=== PATIENT | female | born 1935 | race Caucasian/White ===

== ENCOUNTER 2021-02-04 12:57 | Outpatient (RCR) | payer MEDICARE, OTHER, SELFPAY | END 2021-02-10 11:26 | disposition home or self-care (01) | LOC: HO.WCC 12:57 | PROVIDERS: PCP Internal Medicine; Visit Provider Surgery | DX: Z09 Encounter for follow-up examination after completed treatment for conditions other than malignant neoplasm (principal); M53.3 Sacrococcygeal disorders, not elsewhere classified; E11.9 Type 2 diabetes mellitus without complications; Z79.84 Long term (current) use of oral hypoglycemic drugs | CPT/HCPCS: 99211 ==

== ENCOUNTER 2021-02-19 11:03 | Emergency (ER) | payer MEDICARE, OTHER, SELFPAY ==
--- NOTE | ~2021-02-19 | XR_ITS ---
EXAMINATION: LEFT SHOULDER, LEFT FOREARM AND LEFT HUMERUS PER CLINICAL INFORMATION: Fall. Injury. COMPARISON: None TECHNIQUE: 2 views left shoulder. 2 views left humerus and 4 views left elbow. FINDINGS: Left shoulder: There is a proximal humeral fracture with mild medial angulation. The glenohumeral joint and AC joint is intact. There is no dislocation. The soft tissues are normal. Left humerus: There is a proximal humeral transverse fracture with medial angulation. The fracture does not traverse through the head of the humerus or distally into the mid segment. The soft tissues are normal. Left elbow: There is no visible acute fracture, dislocation or subluxation. Incidental finding of small enthesophytes along lateral epicondyle and anterior coronoid process proximal ulna is noted. Mild loss of joint space first carpal metacarpal joint is noted from degenerative arthritis. XR/XR forearm LT 2V IMPRESSION: Transverse proximal humeral fracture with medial angulation. The fracture does not extend to the humeral head or into the mid humerus. There is no fracture or dislocation in left shoulder joint. No acute fracture or dislocation left elbow. There are degenerative enthesophytes along the left elbow joint as described above.
--- NOTE | ~2021-02-19 | XR_ITS ---
EXAMINATION: LEFT SHOULDER, LEFT FOREARM AND LEFT HUMERUS PER CLINICAL INFORMATION: Fall. Injury. COMPARISON: None TECHNIQUE: 2 views left shoulder. 2 views left humerus and 4 views left elbow. FINDINGS: Left shoulder: There is a proximal humeral fracture with mild medial angulation. The glenohumeral joint and AC joint is intact. There is no dislocation. The soft tissues are normal. Left humerus: There is a proximal humeral transverse fracture with medial angulation. The fracture does not traverse through the head of the humerus or distally into the mid segment. The soft tissues are normal. Left elbow: There is no visible acute fracture, dislocation or subluxation. Incidental finding of small enthesophytes along lateral epicondyle and anterior coronoid process proximal ulna is noted. Mild loss of joint space first carpal metacarpal joint is noted from degenerative arthritis. XR/XR humerus LT IMPRESSION: Transverse proximal humeral fracture with medial angulation. The fracture does not extend to the humeral head or into the mid humerus. There is no fracture or dislocation in left shoulder joint. No acute fracture or dislocation left elbow. There are degenerative enthesophytes along the left elbow joint as described above.
--- NOTE | ~2021-02-19 | XR_ITS ---
EXAMINATION: LEFT SHOULDER, LEFT FOREARM AND LEFT HUMERUS PER CLINICAL INFORMATION: Fall. Injury. COMPARISON: None TECHNIQUE: 2 views left shoulder. 2 views left humerus and 4 views left elbow. FINDINGS: Left shoulder: There is a proximal humeral fracture with mild medial angulation. The glenohumeral joint and AC joint is intact. There is no dislocation. The soft tissues are normal. Left humerus: There is a proximal humeral transverse fracture with medial angulation. The fracture does not traverse through the head of the humerus or distally into the mid segment. The soft tissues are normal. Left elbow: There is no visible acute fracture, dislocation or subluxation. Incidental finding of small enthesophytes along lateral epicondyle and anterior coronoid process proximal ulna is noted. Mild loss of joint space first carpal metacarpal joint is noted from degenerative arthritis. XR/XR shoulder LT min 2V IMPRESSION: Transverse proximal humeral fracture with medial angulation. The fracture does not extend to the humeral head or into the mid humerus. There is no fracture or dislocation in left shoulder joint. No acute fracture or dislocation left elbow. There are degenerative enthesophytes along the left elbow joint as described above.
[2021-02-19 11:11] VITALS: BP 157/54; PULSE 80; RESP 20; TEMP 36.5; O2SAT 98; BMI 19.8
--- NOTE | 2021-02-19 12:38 | ED.FALL ---
HPI - Fall General Chief Complaint: Fall Time Seen by Provider: 02/19/21 11:10 History of Present Illness HPI Narrative: Patient complains of left shoulder pain after trip and fall at home the she tripped on something and fell, no chest pain or fainting Related Data Allergies Allergy/AdvReac Type Severity Reaction Status Date / Time Penicillins [PCN] Allergy Unknown UNKNOWN Unverified 08/14/20 15:55 Sulfa (Sulfonamide Allergy Unknown UNKNOWN Unverified 08/14/20 15:55 Antibiotics) [SULFA(SULFONAMIDE ANTIBIOTICS)] penicillin Allergy Unknown rash Uncoded 06/17/17 00:00 Sulfa Allergy Unknown rash Uncoded 06/17/17 00:00 Review of Systems Review of Systems: Positive for left shoulder pain, negatives are no weakness no dizziness no confusion no fever no chills no fainting no feeling faint no head injury no headache no vision change no numbness or weakness no chest pain no palpitations no shortness of breath no nausea no vomiting no lacerations PMFSH Past Medical History Source: nursing notes reviewed Medical History (Updated 02/19/21 @ 12:51 by LASHANDA Hoffmann) Diabetes Surgical History (Updated 02/19/21 @ 11:15 by Juan A Fine) H/O heart artery stent Social History Social History Advance Directives: No Advance Directives Information Provided: No Physical Exam Vital Signs: Vital Signs: Last Vital Signs Temp 97.7 F 02/19/21 11:11 Pulse 80 02/19/21 11:11 Resp 20 02/19/21 11:11 BP 157/54 H 02/19/21 11:11 Pulse Ox 98 02/19/21 11:11 Body Mass Index 19.8 General appearance is no acute distress, cooperative in O x3 Head is normocephalic atraumatic The neck is supple and nontender Chest there is no rib tenderness no respiratory distress The abdomen is soft nontender The left arm the shoulder is held in internal rotation with the elbow flexed there is tenderness over the upper humerus and the shoulder there is no obvious deformity it is neurovascular intact distal and skin is normal Other extremities are normal The neuro exam motor is 5/5 in all extremities 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, sensation is intact and symmetrical, patient is interacting with clear understanding and communication Course Course Course Narrative: X-ray showed proximal humeral fracture and sling and shoulder immobilizer given to patient and she will follow with Orthopedics Discharge Plan Discharge Clinical Impression: Closed left humeral fracture Qualifiers: Encounter type: initial encounter Humerus Location: proximal Fracture alignment: displaced Patient Disposition: Home, Self-Care Additional Instructions: X-ray showed of broken upper arm bone Use the sling and follow with orthopedist Return any time any worse condition or concerns Referrals: Mumtaz Robbins MD [Physician] - 2 days (Left proximal humerus fracture)
== END 2021-02-19 13:45 | disposition home or self-care (01) ==
PROVIDERS: Emergency Provider Emergency Medicine; PCP Internal Medicine
DX: S42.202A Unspecified fracture of upper end of left humerus, initial encounter for closed fracture (principal); W01.0XXA Fall on same level from slipping, tripping and stumbling without subsequent striking against object, initial encounter; E11.9 Type 2 diabetes mellitus without complications; Y93.9 Activity, unspecified; Y92.019 Unspecified place in single-family (private) house as the place of occurrence of the external cause; Y99.9 Unspecified external cause status
CPT/HCPCS: 73030; 73060; 73090; 99283

== ENCOUNTER → 2021-02-23 11:04 | Outpatient (BNVA) | payer MEDICARE, OTHER, SELFPAY | PROVIDERS: PCP Internal Medicine; Visit Provider Physician Assistant | DX: S42.202A Unspecified fracture of upper end of left humerus, initial encounter for closed fracture (principal) | CPT/HCPCS: 99202 ==

== ENCOUNTER 2021-03-18 08:18 | Outpatient (REF) | payer MEDICARE, OTHER, SELFPAY ==
--- NOTE | ~2021-03-18 | XR_ITS ---
EXAMINATION: XR SHOULDER, LEFT CLINICAL INFORMATION: M25.512 - Pain in left shoulder COMPARISON: 02/19/2021 TECHNIQUE: Two views of the left shoulder. FINDINGS: Again seen is a oblique fracture of the proximal humeral shaft. There is increased apex medial angulation at the fracture site as compared to prior with decreased apex anterior angulation as compared to prior. Periosteal bone formation is present at the fracture site without appreciable osseous bridging on these images. No new fractures. Mild glenohumeral and acromioclavicular osteoarthritis. Bones are osteopenic. No acute soft tissue abnormalities are identified. Degenerative disc disease is present in the thoracic spine. XR/XR shoulder LT min 2V IMPRESSION: Angulation of the left proximal humeral fracture appears slightly more pronounced as compared to prior allowing for differences in technique. No appreciable osseous bridging.
== END 2021-03-18 08:19 | disposition home or self-care (01) ==
LOC: HO.HOSX 08:18
PROVIDERS: Visit Provider Physician Assistant
DX: M25.512 Pain in left shoulder (principal); S42.202D Unspecified fracture of upper end of left humerus, subsequent encounter for fracture with routine healing; X58.XXXD Exposure to other specified factors, subsequent encounter; E11.9 Type 2 diabetes mellitus without complications; Z88.0 Allergy status to penicillin; Z88.2 Allergy status to sulfonamides
CPT/HCPCS: 73030; 99212

== ENCOUNTER 2021-04-22 08:21 | Outpatient (REF) | payer MEDICARE, OTHER, SELFPAY ==
--- NOTE | ~2021-04-22 | XR_ITS ---
EXAMINATION: XR SHOULDER, LEFT CLINICAL INFORMATION: Pain left shoulder COMPARISON: None TECHNIQUE: 3 views of the left shoulder. FINDINGS: There is a oblique displaced proximal humeral fracture with abundant callus formation. There is no dislocation. The AC joint is unremarkable. The soft tissues are normal. XR/XR shoulder LT min 2V IMPRESSION: Old healing displaced proximal humeral neck fracture with abundant callus formation. There is no dislocation.
== END 2021-04-22 08:22 | disposition home or self-care (01) ==
LOC: HO.HOSX 08:21
PROVIDERS: Visit Provider Physician Assistant
DX: S42.202D Unspecified fracture of upper end of left humerus, subsequent encounter for fracture with routine healing (principal); I10 Essential (primary) hypertension
CPT/HCPCS: 73030; 99212

== ENCOUNTER 2021-06-03 12:03 | Outpatient (REF) | payer MEDICARE, OTHER, SELFPAY ==
--- NOTE | ~2021-06-03 | XR_ITS ---
EXAMINATION: XR SHOULDER, LEFT CLINICAL INFORMATION: Left shoulder pain. COMPARISON: 04/22/2021 and studies dating back to 02/19/2021. TECHNIQUE: Two views of the left shoulder. FINDINGS: There is again noted to be a healing fracture proximal aspect of the left humerus without significant displacement and without dislocation. There is stable alignment compared to previous study. There is some degenerative spurring inferior aspect of the glenohumeral joint. No widening of the coracoclavicular space. Fracture line is still evident with periosteal new bone formation. XR/XR shoulder LT min 2V IMPRESSION: No significant change in alignment of healing left humerus fracture.
== END 2021-06-03 12:04 | disposition home or self-care (01) ==
LOC: HO.HOSX 12:03
PROVIDERS: Visit Provider Physician Assistant
DX: S42.202D Unspecified fracture of upper end of left humerus, subsequent encounter for fracture with routine healing (principal)
CPT/HCPCS: 73030; 99212

== ENCOUNTER 2022-02-26 20:04 | Inpatient (IN) | payer MEDICARE, OTHER, SELFPAY ==
--- NOTE | ~2022-02-26 | US_ITS ---
EXAMINATION: US ABDOMEN LIMITED CLINICAL INFORMATION: Upper chest pain.. COMPARISON: None TECHNIQUE: Real-time imaging of the right upper quadrant abdominal viscera. FINDINGS: PANCREAS: Appears somewhat echogenic. Tail obscured by interposed bowel gas. LIVER: Normal. The liver is normal in size. The liver contour is normal. Parenchymal echogenicity is normal. No focal hepatic lesion. There is no intrahepatic biliary duct dilatation seen. GALLBLADDER: Normal. The gallbladder is physiologically distended without evidence of stones, sludge, polyps, wall thickening or pericholecystic fluid. COMMON BILE DUCT: Normal in caliber measuring 0.4 cm in diameter. RIGHT KIDNEY: Normal. No hydronephrosis. No renal calculi or focal parenchymal lesions. The kidney measures 11.2 cm in maximum dimension. FREE FLUID: None. US/US abdomen limited IMPRESSION: Echogenic pancreas would be compatible with the provided diagnosis of pancreatitis. No evidence of cholelithiasis or cholecystitis.
--- NOTE | ~2022-02-26 | XR_ITS ---
EXAMINATION: XR CHEST CLINICAL INFORMATION: Chest pain. COMPARISON: Chest radiograph dated from 08/29/2017. TECHNIQUE: 2 views of the chest were obtained. FINDINGS: Normal appearance of the cardiomediastinal silhouette. No focal airspace opacities, pleural effusions or pneumothorax. Left-sided fourth through sixth rib fractures with signs of healing. Chronic appearing fracture of the proximal left humerus. Age indeterminate distal left-sided clavicular fracture. No acute osseous abnormalities. Thoracic spondylosis. XR/XR chest 2V IMPRESSION: Age indeterminate left-sided distal clavicular fracture, correlate for pain. Chronic appearing left-sided rib fractures and proximal left humeral fracture. No acute cardiopulmonary findings.
[2022-02-26 20:13] VITALS: BP 167/51; PULSE 77; RESP 14; TEMP 36.4; O2SAT 100; BMI 18.4
--- NOTE | 2022-02-26 20:30 | ECG_ITS ---
Test Reason : CP Blood Pressure : / mmHG Vent. Rate : 074 BPM Atrial Rate : 074 BPM P-R Int : 214 ms QRS Dur : 066 ms QT Int : 354 ms P-R-T Axes : 052 049 052 degrees QTc Int : 392 ms Sinus rhythm with 1st degree A-V block Anterior infarct , age undetermined Abnormal ECG When compared with ECG of 29-AUG-2017 20:17, Anterior infarct is now Present Referred By: Generic ED Physician Electronically Signed By:REYNALDO ULLOA
[2022-02-26 21:07] LABS: MANUAL DIFF FLAG NO
[2022-02-26 21:08] LABS: Basophils Absolute Auto 0.1 X10*3/uL (0.0-0.2); Basophils Percent Auto 0.7 % (0-2); Eosinophils Absolute Auto 0.2 X10*3/uL (0.0-0.4); Hematocrit 33.4 % (37.0-47.0); Hemoglobin 10.5 g/dl (12.0-16.0); Imm Gran Abs Auto 0.02 X10*3/uL (0.00-0.03); Imm Gran Pct Auto 0.3 % (0.0-0.4); Lymphocytes Absolute Auto 1.4 X10*3/uL (1.2-4.9); Lymphocytes Percent Auto 18.6 % (20-40); Mean Corpuscular HGB Conc 31.4 g/dl (31.0-35.0); Mean Corpuscular Hemoglobin 29.2 pg (27.0-33.0); Mean Platelet Volume 10.2 fL (9.4-12.3); Monocytes Absolute Auto 0.6 X10*3/uL (0.1-1.2); Monocytes Percent Auto 8.2 % (2-11); Neutrophils Absolute Auto 5.2 x10*3/uL (2.0-8.3); Neutrophils Percent Auto 70.2 % (45-73); Platelet Count 343 X10*3/uL (160-400); Red Blood Count 3.59 X10*6/uL (4.20-5.50); Red Cell Distribution Width 13.1 % (11.0-16.0); White Blood Count 7.4 X10*3/uL (4.8-10.8)
[2022-02-26 21:31] LABS: Alanine Aminotransferase 15 U/L (0-31); Albumin Level 3.8 g/dL (3.5-5.0); Alkaline Phosphatase 85 U/L (39-117); Anion Gap 13 (12-20); Aspartate Amino Transferase 13 U/L (5-31); Bilirubin Direct 0.2 mg/dL (0.0-0.5); Bilirubin Total 0.4 mg/dL (0.0-1.0); Blood Urea Nitrogen 18 mg/dL (9-16); Calcium 9.8 mg/dL (8.4-10.2); Carbon Dioxide 27 mmol/L (22-29); Chloride 100 mmol/L (96-108); Creatinine Clr Calc Pharmacy 30.9; Estimated Glomerular Filt Rate 47; Glucose Random 244 mg/dL (60-115); Lipase 395 U/L (8-78); Potassium 4.4 mmol/L (3.3-5.1); Sodium 136 mmol/L (135-145); Total Protein 6.5 g/dL (6.5-8.0)
[2022-02-26 21:39] LABS: Troponin-I High Sensitivity < 3.5 ng/L (<3.5-17.0)
[2022-02-27] VITALS (10 sets, daily range): BP systolic 110–153; BP diastolic 6–67; PULSE 60–82; RESP 10–19; TEMP 36.2–36.8; O2SAT 95–100
--- NOTE | 2022-02-27 01:15 | ED.CHESTPAIN ---
HPI - Chest Pain General Chief Complaint: Chest Pain Stated Complaint: Chest discomfort Time Seen by Provider: 02/27/22 00:45 Source: patient Mode of arrival: ambulatory History of Present Illness HPI narrative: 86-year-old female with history of diabetes and hyperthyroid presents with 1 week of chest pain that is burning/sharp in nature with associated nausea and denies any fever, chills and has had intermittent loose stools that are nonbloody. She denies any recent travel and denies regular use of alcohol. Related Data Home Medications Medication Instructions Recorded Confirmed aspirin 81 mg tablet,delayed 81 mg PO DAILY 02/23/21 release (Adult Aspirin Regimen) atorvastatin 40 mg tablet 40 mg PO DAILY 02/23/21 glipizide 2.5 mg tablet, extended 2.5 mg PO BID 02/23/21 release 24 hr metformin 500 mg tablet 500 mg PO DAILY 02/23/21 metoprolol succinate 50 mg 50 mg PO BID 02/23/21 tablet,extended release 24 hr Allergies Allergy/AdvReac Type Severity Reaction Status Date / Time Penicillins [PCN] Allergy Unknown UNKNOWN Verified 04/22/21 13:06 Sulfa (Sulfonamide Allergy Unknown UNKNOWN Verified 04/22/21 13:06 Antibiotics) [SULFA(SULFONAMIDE ANTIBIOTICS)] penicillin Allergy Unknown rash Uncoded 06/17/17 00:00 Sulfa Allergy Unknown rash Uncoded 06/17/17 00:00 Review of Systems Review of Systems: Pertinent positives and negatives as stated in HPI and 10 point review of systems is otherwise negative. [facility] Past Medical History Source: nursing notes reviewed Medical History Diabetes Surgical History H/O heart artery stent Social History Social History Alcohol intake: never Patient Tobacco Use Status: Never used Tobacco Use of substances other than those prescribed or required for medical reasons: No Advance Directives: No Current occupation: [employer] Physical Exam Vital Signs: Vital Signs: Last Vital Signs Temp 97.9 F 02/27/22 01:02 Pulse 78 02/27/22 01:02 Resp 15 02/27/22 01:02 BP 153/67 H 02/27/22 01:02 Pulse Ox 99 02/27/22 01:02 BMI result Body Mass Index 18.4 VITAL SIGNS: Reviewed. GENERAL: Frail, elderly, in no acute distress. HEAD: Normocephalic/atraumatic EYES: PERRLA, EOMI EARS: Ext canals without abnormality OROPHARYNX: no oral lesions noted, posterior pharynx clear LUNGS: Normal breath sounds. No adventitious sounds or accessory muscle use. SpO2<99> CARDIOVASCULAR: Regular rate and rhythm without noted murmurs, no JVD or lower extremity edema. ABDOMEN: Soft, significant epigastric pain without rebound, non-distended with bowel sounds. MUSCULOSKELETAL: No tenderness, deformities, or effusions noted on gross inspection. EXTREMITIES: No cyanosis, clubbing or edema. SKIN: Inspection of the skin reveals no rashes NEUROLOGIC: Alert and oriented x 4. Strength and sensation to light touch were grossly intact x 4. Course Course Course Narrative: 86-year-old female with history and clinical presentation initially thought to be possible gastritis but on review of all investigations lipase is elevated with clinical exam findings consistent with epigastric pain and patient still has gallbladder. Will evaluate for etiology of pancreatitis by getting abdominal ultrasound, patient has been using metformin for many years and feel that this is less likely the etiology and patient denies frequent use of alcohol. I discussed the case with the inpatient hospitalist who accepts admission. Patient is receiving IV fluids and prelim on ultrasound of the gallbladder is negative as well as no findings elevated triglyceride levels. MDM - Chest Pain Lab Data Result diagrams: 02/26/22 20:46 02/26/22 20:46 Labs: Lab Results 02/26/22 02/26/22 02/26/22 Range/Units 20:46 20:46 20:46 WBC 7.4 (4.8-10.8) X10*3/uL RBC 3.59 L (4.20-5.50) X10*6/uL Hgb 10.5 L (12.0-16.0) g/dl Hct 33.4 L (37.0-47.0) % MCV 93.0 (80.0-98.0) fL MCH 29.2 (27.0-33.0) pg MCHC 31.4 (31.0-35.0) g/dl RDW 13.1 (11.0-16.0) % Plt Count 343 (160-400) X10*3/uL MPV 10.2 (9.4-12.3) fL Immature Gran % (Auto) 0.3 (0.0-0.4) % Neut % (Auto) 70.2 (45-73) % Lymph % (Auto) 18.6 L (20-40) % [place] % (Auto) 8.2 (2-11) % Eos % (Auto) 2.0 (0-4) % Baso % (Auto) 0.7 (0-2) % Lymph # (Auto) 1.4 (1.2-4.9) X10*3/uL [place] # (Auto) 0.6 (0.1-1.2) X10*3/uL Eos # (Auto) 0.2 (0.0-0.4) X10*3/uL Baso # (Auto) 0.1 (0.0-0.2) X10*3/uL Abs Immat Gran (auto) 0.02 (0.00-0.03) X10*3/uL Absolute Neuts (auto) 5.2 (2.0-8.3) x10*3/uL Absolute Nucleated RBC 0.000 (0.0-0.012) X10*3/uL Nucleated RBC % (auto) 0.0 (0.0-0.2) /100WBC Sodium 136 (135-145) mmol/L Potassium 4.4 (3.3-5.1) mmol/L Chloride 100 (96-108) mmol/L Carbon Dioxide 27 (22-29) mmol/L Anion Gap 13 (12-20) BUN 18 H (9-16) mg/dL Creatinine 1.11 (0.5-1.4) mg/dL Estim Creat Clear Calc 30.9 Estimated GFR 47 Random Glucose 244 H (60-115) mg/dL Calcium 9.8 (8.4-10.2) mg/dL Total Bilirubin 0.4 (0.0-1.0) mg/dL Direct Bilirubin 0.2 (0.0-0.5) mg/dL AST 13 (5-31) U/L ALT 15 (0-31) U/L Alkaline Phosphatase 85 (39-117) U/L Troponin I High Sens < 3.5 (<3.5-17.0) ng/L Total Protein 6.5 (6.5-8.0) g/dL Albumin 3.8 (3.5-5.0) g/dL Triglycerides 54 mg/dL Cholesterol 113 mg/dL LDL Cholesterol, Calc 56 mg/dl HDL Cholesterol 47 mg/dL Lipase 395 H (8-78) U/L ECG Data ECG #1: Attestation: I personally reviewed and interpreted this ECG as follows: Prior ECG tracings: available for review (No acute changes on comparison) Interpretation: NSR with first-degree AV block, HR-74, no STEMI, QRS/QTC are within normal limits. Discharge Plan Discharge Clinical Impression: Pancreatitis, Nausea Patient Disposition: Admitted As Inpatient
[2022-02-27 01:41] LABS: Cholesterol 113 mg/dL; HDL Cholesterol 47 mg/dL; LDL Cholesterol Calculated 56 mg/dl; Triglycerides 54 mg/dL
[2022-02-27] MEDS: 0.9 % Sodium Chloride 1,000 ML 999 ML IV (01:45)
[2022-02-27 03:00] LABS: COVID-19 Test Negative (Negative)
--- NOTE | 2022-02-27 06:16 | PM.IMHP ---
History of Present Illness Date of Service: 02/27/22 Chief Complaint: Epigastric discomfort 86-year-old female with a past medical history of hypertension, hyperlipidemia, diabetes, hyperthyroidism-on methimazole presented to the hospital today with a chief complaint of epigastric discomfort. Patient reported that over the past 1 week she has been having discomfort in her chest and epigastrium; associated nausea. Symptoms were not resolving hence decided to come to the ER for further evaluation. Denies any associated symptoms with the chest discomfort like lightheadedness dizziness, diaphoresis. Denies any recent travel or sick contacts. Denies any concerns for food poisoning. Denies any fever chills cough, urinary symptoms. Denies any alcohol use Review of all other systems is negative except mentioned above ER course: Per ER team patient's EKG was nonischemic troponin negative, triglycerides and calcium normal limits; ultrasound showed evidence of gallstones; noted to have elevated lipase and tender in epigastrium; admitted for acute pancreatitis PMFSH Medical History Diabetes Pertinent family history: Patient unable to provide information Surgical History H/O heart artery stent Social History Household Members: None Housing: House Do you presently have visiting nurse or other home services: Yes Alcohol intake: never Patient Tobacco Use Status: Never used Tobacco service: No Current occupational status: retired Current occupation: [employer] Meds Allergies Allergy/AdvReac Type Severity Reaction Status Date / Time Penicillins [PCN] Allergy Unknown UNKNOWN Verified 04/22/21 13:06 Sulfa (Sulfonamide Allergy Unknown UNKNOWN Verified 04/22/21 13:06 Antibiotics) [SULFA(SULFONAMIDE ANTIBIOTICS)] heparin AdvReac Unknown Verified 02/27/22 07:00 penicillin Allergy Unknown rash Uncoded 06/17/17 00:00 Sulfa Allergy Unknown rash Uncoded 06/17/17 00:00 Active Medications: Current Medications Acetaminophen (Acetaminophen 325 Mg Tablet) 650 mg PO Q6H PRN PRN Reason: Pain, Mild (Pain Scale 1-3) Dextrose (Dextrose 50 % 25 Gm/50 Ml Vial) 25 gm IVPUSH Q15M PRN; Protocol PRN Reason: per Hypoglycemia Standing Ord. Glucose (Glucose Gel 15 Gm Gel..Gram.) 15 gm PO Q15M PRN; Protocol PRN Reason: per Hypoglycemia Standing Ord. Heparin Sodium (Porcine) (Heparin Sodium,Porcine 5,000 Unit/Ml Vial) 5,000 unit SUBCUT Q12H KIET Hydromorphone HCl (Hydromorphone Hcl 1 Mg/Ml Syringe) 0.25 mg IVPUSH Q4H PRN; Protocol PRN Reason: Pain, Severe (Pain Scale 7-10) Sodium Chloride (Ns) 1,000 mls @ 50 mls/hr IVCONT .Q20H KIET Insulin Human Lispro (Insulin Lispro 100 Unit/Ml 3 Ml Vial) 0 unit SUBCUT QIDACHS KIET; Protocol Melatonin (Melatonin 3 Mg Tablet) 6 mg PO BEDTIME PRN PRN Reason: Insomnia Senna (Sennosides 8.6 Mg Tablet) 17.2 mg PO BEDTIME PRN PRN Reason: Constipation Sodium Chloride (0.9 % Sodium Chloride Flush 3 Ml Syringe) 3 ml IVFLUSH QSHIFT [facility] Home Medications Medication Instructions Recorded Confirmed Last Taken Type aspirin 81 mg tablet,delayed 81 mg PO DAILY 02/23/21 02/27/22 Unknown History release (Adult Aspirin Regimen) atorvastatin 40 mg tablet 40 mg PO DAILY 02/23/21 02/27/22 Unknown History metformin 500 mg tablet 1,000 mg PO BID 02/23/21 02/27/22 Unknown History cholecalciferol (vitamin D3) 25 25 mcg PO DAILY 02/27/22 02/27/22 Unknown History mcg (1,000 unit) tablet (Vitamin D3) cyanocobalamin (vitamin B-12) 1 tab PO DAILY 02/27/22 02/27/22 Unknown History 1,000 mcg tablet glipizide 5 mg tablet 1 tab PO BID 02/27/22 02/27/22 Unknown History metoprolol tartrate 50 mg tablet 1 tab PO BID 02/27/22 02/27/22 Unknown History nitroglycerin 0.4 mg sublingual 1 tab sublingual DIRECTED 02/27/22 02/27/22 Unknown History tablet Physical Exam Vital Signs and Narrative: Vital Signs: Last Vital Signs Temp 97.9 F 02/27/22 04:48 Pulse 78 02/27/22 04:48 Resp 14 02/27/22 05:30 BP 143/62 H 02/27/22 04:48 Pulse Ox 97 02/27/22 05:30 BMI result Body Mass Index 18.4 Gen: Appears be in no acute distress HEENT: NCAT, Moist mucosa. Pulmonary: Vesicular breath sounds, fair air entry CVS: Normal S1-S2 Abdomen: BS+, Soft, tender in epigastrium; no guarding no rigidity Extremities: Warm well perfused Neuro: Alert and awake. Results Labs CBC and Chem 7: 03/01/22 05:38 03/01/22 05:38 Labs: Laboratory Results - last 24 hr 02/26/22 02/26/22 02/26/22 20:46 20:46 20:46 MCV 93.0 MCH 29.2 MCHC 31.4 RDW 13.1 Plt Count 343 MPV 10.2 Immature Gran % (Auto) 0.3 Neut % (Auto) 70.2 Lymph % (Auto) 18.6 L [place] % (Auto) 8.2 Eos % (Auto) 2.0 Baso % (Auto) 0.7 Lymph # (Auto) 1.4 [place] # (Auto) 0.6 Eos # (Auto) 0.2 Baso # (Auto) 0.1 Abs Immat Gran (auto) 0.02 Absolute Neuts (auto) 5.2 Absolute Nucleated RBC 0.000 Nucleated RBC % (auto) 0.0 Anion Gap 13 Estim Creat Clear Calc 30.9 Estimated GFR 47 Random Glucose 244 H Calcium 9.8 Total Bilirubin 0.4 Direct Bilirubin 0.2 AST 13 ALT 15 Alkaline Phosphatase 85 Troponin I High Sens < 3.5 Total Protein 6.5 Albumin 3.8 Triglycerides 54 Cholesterol 113 LDL Cholesterol, Calc 56 HDL Cholesterol 47 Lipase 395 H COVID-19 ([facility]) COVID-19 Clin Com 02/27/22 02:39 MCV MCH MCHC RDW Plt Count MPV Immature Gran % (Auto) Neut % (Auto) Lymph % (Auto) [place] % (Auto) Eos % (Auto) Baso % (Auto) Lymph # (Auto) [place] # (Auto) Eos # (Auto) Baso # (Auto) Abs Immat Gran (auto) Absolute Neuts (auto) Absolute Nucleated RBC Nucleated RBC % (auto) Anion Gap Estim Creat Clear Calc Estimated GFR Random Glucose Calcium Total Bilirubin Direct Bilirubin AST ALT Alkaline Phosphatase Troponin I High Sens Total Protein Albumin Triglycerides Cholesterol LDL Cholesterol, Calc HDL Cholesterol Lipase COVID-19 ([facility]) Negative COVID-19 Clin Com See Note Imaging Radiologist's Impressions: Impressions Chest X-Ray 02/26/22 21:18 IMPRESSION: Age indeterminate left-sided distal clavicular fracture, correlate for pain. Chronic appearing left-sided rib fractures and proximal left humeral fracture. No acute cardiopulmonary findings. Abdomen Ultrasound 02/27/22 02:15 IMPRESSION: Echogenic pancreas would be compatible with the provided diagnosis of pancreatitis. No evidence of cholelithiasis or cholecystitis. Assessment and Plan (1) Pancreatitis: Plan 86-year-old female with a past medical history of hypertension, hyperlipidemia, diabetes, hyperthyroidism-on methimazole presented to the hospital with chief complaint of epigastric pain/nausea noted to have acute pancreatitis. Admitted for further management. Acute pancreatitis: Unclear etiology. Ultrasound showed echogenic pancreas consistent with pancreatitis. Patient denies alcohol use No evidence of gallstones, calcium and triglycerides within the normal limits. Patient is on methimazole at home-could be contributing to the patient's acute pancreatitis. Will hold methimazole for now. NPO IV fluids Pain control Gastroenterology consult for further recommendations Chest discomfort: Atypical in nature. EKG nonischemic. Initial troponin negative Repeat troponin pending History of diabetes: Hold home oral hypoglycemic agent. Insulin sliding scale. History of hyperthyroidism: Patient on home methimazole on hold as mentioned above(will request day hospitalist to discuss with the patient's academic support center director) DVT prophylaxis: SCD boots (pt reports allergy to heparin-> unsure of reaction) Code status: Full code Quality Stroke Does the patient have a stroke diagnosis?: No VTE Prior VTE?: No VTE Risk Level:: Medical - moderate - high VTE Device Contraindication: N/A - Device Ordered VTE Drug Contraindication: N/A - Med Ordered
[2022-02-27] MEDS: 0.9 % Sodium Chloride 1,000 ML 50 ML IVCONT (06:36)
--- NOTE | 2022-02-27 07:17 | PC.NURSE ---
when this RN was going to admin heparin SC, pt states that she was taken off heparin when she was ..she states it was because she was having a reaction. does not know what kind of reaction... she has paperwork from [phone] that states she was on heparin but she still believes it needed to be d/c'd. notified, and requested heparin be added to pt allergy list.
[2022-02-27 07:20] LABS: Troponin-I High Sensitivity < 3.5 ng/L (<3.5-17.0)
--- NOTE | 2022-02-27 07:55 | PHA.MEDREC ---
MED REC COMPLETE, USED LIST FROM DOCTORS OFFICE AND PHARMACY CLAIM HISTORY Pharmacy Consult ? Medication Reconciliation Pharmacy has completed the medication reconciliation.
[2022-02-27 08:21] LABS: Glucose, Whole Blood 164 mg/dL (60-115)
[2022-02-27] MEDS: Cyanocobalamin (Vitamin B-12) 1,000 MCG TABLET 1000 MCG PO (10:14)
[2022-02-27] MEDS: Atorvastatin Calcium 40 MG TABLET PO (10:14)
[2022-02-27] MEDS: Aspirin Enteric Coated 81 MG TABLET.DR PO (10:14)
[2022-02-27] MEDS: Cholecalciferol (Vitamin D3) 25 MCG TABLET PO (10:14)
[2022-02-27] MEDS: Metoprolol Tartrate 50 MG TABLET PO ×2 (10:15→20:55)
[2022-02-27] MEDS: Insulin Lispro 100 UNIT/ML 3 ML VIAL SUBCUT ×2 (10:39→20:55)
--- NOTE | 2022-02-27 10:43 | P.PNIM_ITS ---
Subjective Subjective Date of Service: 02/27/22 Interval History: Minimal nausea; very hungry and wants to eat. Not really having abd pain; more like a dull ache in her chest. Just saw her candy cooker helper yesterday and MMZ was decreased from 15 to 10 mg/d. Has been on MMZ and sitagliptin for over a year. No EtOH. Review of Systems Review of Systems: Yes all other systems are reviewed and are negative Physical Exam Vital Signs: Vital Signs: Last Vital Signs Temp 98.3 F 02/27/22 10:20 Pulse 82 02/27/22 10:20 Resp 10 L 02/27/22 10:20 BP 138/53 L 02/27/22 10:20 Pulse Ox 95 02/27/22 10:20 BMI result Body Mass Index 18.4 Gen: in no acute distress HEENT: sclera anicteric, moist mucus membranes Neck: supple Lungs: clear to auscultation bilaterally Heart: regular rate and rhythm, no murmurs Abd: soft, non-tender, non-distended Ext: no edema Skin: warm/well-perfused Neuro: alert and oriented x3, no focal findings Psych: appropriate affect Objective Data Active Medications Acetaminophen (Acetaminophen 325 Mg Tablet) 650 mg PO Q6H PRN PRN Reason: Pain, Mild (Pain Scale 1-3) Aspirin (Aspirin Enteric Coated 81 Mg Tablet.) 81 mg PO DAILY [facility] Last Admin: 02/27/22 10:14 Dose: 81 mg Documented by: THELMA Atorvastatin Calcium (Atorvastatin Calcium 40 Mg Tablet) 40 mg PO DAILY [facility] Last Admin: 02/27/22 10:14 Dose: 40 mg Documented by: THELMA Cyanocobalamin (Cyanocobalamin (Vitamin B-12) 1,000 Mcg Tablet) 1,000 mcg PO DAILY [facility] Last Admin: 02/27/22 10:14 Dose: 1,000 mcg Documented by: THELMA Dextrose (Dextrose 50 % 25 Gm/50 Ml Vial) 25 gm IVPUSH Q15M PRN; Protocol PRN Reason: per Hypoglycemia Standing Ord. Glucose (Glucose Gel 15 Gm Gel..Gram.) 15 gm PO Q15M PRN; Protocol PRN Reason: per Hypoglycemia Standing Ord. Hydromorphone HCl (Hydromorphone Hcl 1 Mg/Ml Syringe) 0.25 mg IVPUSH Q4H PRN; Protocol PRN Reason: Pain, Severe (Pain Scale 7-10) Sodium Chloride (Ns) 1,000 mls @ 100 mls/hr IVCONT .Q10H [facility] Last Admin: 02/27/22 06:36 Dose: 50 mls/hr Documented by: ELIZABETH Insulin Human Lispro (Insulin Lispro 100 Unit/Ml 3 Ml Vial) 0 unit SUBCUT QIDACHS [facility]; Protocol Last Admin: 02/27/22 10:39 Dose: 2 unit Documented by: THELMA Melatonin (Melatonin 3 Mg Tablet) 6 mg PO BEDTIME PRN PRN Reason: Insomnia Metoprolol Tartrate (Metoprolol Tartrate 50 Mg Tablet) 50 mg PO BID [facility]; Protocol Last Admin: 02/27/22 10:15 Dose: 50 mg Documented by: THELMA Nitroglycerin (Nitroglycerin 0.4 Mg Tab.Subl) 0.4 mg SUBLINGUAL Q5MX3 PRN PRN Reason: Chest Pain Senna (Sennosides 8.6 Mg Tablet) 17.2 mg PO BEDTIME PRN PRN Reason: Constipation Sodium Chloride (0.9 % Sodium Chloride Flush 3 Ml Syringe) 3 ml IVFLUSH QSHIFT [facility] Vitamin D (Cholecalciferol (Vitamin D3) 25 Mcg Tablet) 25 mcg PO DAILY [facility] Last Admin: 02/27/22 10:14 Dose: 25 mcg Documented by: THELMA Labs CBC & Chem 7: 02/26/22 20:46 02/26/22 20:46 Labs: Laboratory Results - last 24 hr 02/26/22 02/26/22 02/26/22 20:46 20:46 20:46 MCV 93.0 MCH 29.2 MCHC 31.4 RDW 13.1 Plt Count 343 MPV 10.2 Immature Gran % (Auto) 0.3 Neut % (Auto) 70.2 Lymph % (Auto) 18.6 L [place] % (Auto) 8.2 Eos % (Auto) 2.0 Baso % (Auto) 0.7 Lymph # (Auto) 1.4 [place] # (Auto) 0.6 Eos # (Auto) 0.2 Baso # (Auto) 0.1 Abs Immat Gran (auto) 0.02 Absolute Neuts (auto) 5.2 Absolute Nucleated RBC 0.000 Nucleated RBC % (auto) 0.0 Anion Gap 13 Estim Creat Clear Calc 30.9 Estimated GFR 47 POC Glucose Random Glucose 244 H Calcium 9.8 Total Bilirubin 0.4 Direct Bilirubin 0.2 AST 13 ALT 15 Alkaline Phosphatase 85 Troponin I High Sens < 3.5 Total Protein 6.5 Albumin 3.8 Triglycerides 54 Cholesterol 113 LDL Cholesterol, Calc 56 HDL Cholesterol 47 Lipase 395 H COVID-19 ([facility]) COVID-19 Clin Com 02/27/22 02/27/22 02/27/22 02:39 06:55 08:17 MCV MCH MCHC RDW Plt Count MPV Immature Gran % (Auto) Neut % (Auto) Lymph % (Auto) [place] % (Auto) Eos % (Auto) Baso % (Auto) Lymph # (Auto) [place] # (Auto) Eos # (Auto) Baso # (Auto) Abs Immat Gran (auto) Absolute Neuts (auto) Absolute Nucleated RBC Nucleated RBC % (auto) Anion Gap Estim Creat Clear Calc Estimated GFR POC Glucose 164 H Random Glucose Calcium Total Bilirubin Direct Bilirubin AST ALT Alkaline Phosphatase Troponin I High Sens < 3.5 Total Protein Albumin Triglycerides Cholesterol LDL Cholesterol, Calc HDL Cholesterol Lipase COVID-19 ([facility]) Negative COVID-19 Clin Com See Note Assessment and Plan (1) Pancreatitis: Status: Acute Plan hospital d#1 86yo F with HTN, HLD, DM2, hyperthyroidism presenting with nausea and epigastric/chest discomfort, admitted for acute pancreatitis # acute pancreatitis - not due to EtOH or gallstones or hyper TG - suspect medication culprit- either sitagliptin or methimazole- both held - clear liquids, IV fluids, prn ondansetron - GI consult pending # chest discomfort - EKG without ischemia, hs Tn-I x2 negative # HTN - continue metoprolol # HLD - continue statin # hyperthyroidism - will reach out to pt's candy cooker helper on Tuesday to discuss change to PTU # DM2 - hold OHGs, give correction-dose lispro # VTE ppx - SCDs, hx allergy [unknown reaction] to heparin Quality Stroke Does the patient have a stroke diagnosis?: No VTE Prior VTE?: No VTE Risk Level:: Medical - moderate - high VTE Device Contraindication: N/A - Device Ordered VTE Drug Contraindication: N/A - Med Ordered
[2022-02-27 12:21] LABS: Glucose, Whole Blood 125 mg/dL (60-115)
--- NOTE | 2022-02-27 15:15 | CONS_ITS ---
DATE OF SERVICE: 02/27/2022 REFERRING PHYSICIAN: Alexandru Walsh MD REASON FOR CONSULTATION: Elevated lipase and abdominal discomfort. HISTORY OF PRESENT ILLNESS: The patient is a pleasant 86-year-old woman, who was admitted to the hospital after presenting to the emergency room yesterday with complaints of discomfort across the lower chest and upper abdomen as well as nausea. Symptoms have been present for 1 week. There has been no vomiting. She denies any fevers or chills. She was evaluated in the Emergency Department where laboratory studies were obtained and she was noted to have an elevated serum lipase at 395. Liver tests and triglyceride were normal. She was evaluated with ultrasound imaging, which showed no gallstones and an echogenic pancreas. She denies any prior history of pancreatitis. She does not drink alcohol and has no history of hypertriglyceridemia or hypercalcemia. There is no family history of pancreas problems. PAST MEDICAL HISTORY: 1. Diabetes mellitus. 2. Hypertension. 3. Hyperlipidemia. 4. Hyperthyroidism. 5. Coronary artery disease with history of [place] and stent placement. 6. DVT. CURRENT MEDICATIONS: Her current medication list is reviewed in the chart. ALLERGIES: THERE ARE MULTIPLE MEDICATION ALLERGIES. FAMILY HISTORY: This is reviewed with the patient and is noncontributory. SOCIAL HISTORY: There is no current tobacco, alcohol, or substance abuse. REVIEW OF SYSTEMS: SKIN: No pruritus. HEENT: Negative. CARDIOPULMONARY: She denies shortness of breath or chest pain. GASTROINTESTINAL: As above. GENITOURINARY: Negative. NEUROPSYCHIATRIC: Negative. PHYSICAL EXAMINATION: GENERAL: Shows a pleasant female, lying comfortably on a stretcher in the Emergency Department. VITAL SIGNS: Reviewed in the electronic medical record and are stable. She is afebrile. SKIN: Anicteric. HEENT: Shows no scleral icterus. NECK: Without lymphadenopathy or thyromegaly. LUNGS: Clear. HEART: Shows regular rate and rhythm. S1, S2. No murmur. ABDOMEN: Soft without focal masses or tenderness. Bowel sounds are present. No organomegaly is noted. EXTREMITIES: Show trace edema, right greater than left. LABORATORY DATA AND ULTRASOUND IMAGING: Reviewed. IMPRESSION: Abdominal discomfort with elevated lipase. Her presentation appears consistent with pancreatitis. The etiology for this is not clear. She does not drink alcohol and her ultrasound did not show any evidence of gallstones. She has no history of hypercalcemia and hypertriglyceridemia. Medications are consideration in her methimazole and Januvia are both being held as possible causes. I would recommend obtaining IgG levels to evaluate for any evidence of autoimmune pancreatitis. Idiopathic pancreatitis is a possibility also. Currently she is being treated with gut rest and IV fluids and as she improves her diet can be gradually advanced. If she does have worsening her symptoms, I would recommend obtaining CT with contrast. Thanks for asking me to see her. I will follow her in the hospital with you. MD NALINI Forrester/CODY / [phone] MTDD
[2022-02-27 16:04] LABS: Glucose, Whole Blood 145 mg/dL (60-115)
[2022-02-27 20:20] LABS: Glucose, Whole Blood 170 mg/dL (60-115)
[2022-02-28 03:13] VITALS: BP 125/58; PULSE 73; RESP 18; TEMP 36.2; O2SAT 96
[2022-02-28 06:58] LABS: MANUAL DIFF FLAG NO
[2022-02-28 07:01] LABS: Basophils Percent Auto 0.6 % (0-2); Eosinophils Absolute Auto 0.2 X10*3/uL (0.0-0.4); Eosinophils Percent Auto 3.8 % (0-4); Hematocrit 30.1 % (37.0-47.0); Hemoglobin 9.6 g/dl (12.0-16.0); Imm Gran Abs Auto 0.01 X10*3/uL (0.00-0.03); Imm Gran Pct Auto 0.2 % (0.0-0.4); Lymphocytes Absolute Auto 2.2 X10*3/uL (1.2-4.9); Lymphocytes Percent Auto 34.7 % (20-40); Mean Corpuscular HGB Conc 31.9 g/dl (31.0-35.0); Mean Corpuscular Hemoglobin 29.8 pg (27.0-33.0); Mean Corpuscular Volume 93.5 fL (80.0-98.0); Mean Platelet Volume 10.2 fL (9.4-12.3); Monocytes Absolute Auto 0.5 X10*3/uL (0.1-1.2); Monocytes Percent Auto 8.6 % (2-11); Neutrophils Absolute Auto 3.3 x10*3/uL (2.0-8.3); Neutrophils Percent Auto 52.1 % (45-73); Platelet Count 298 X10*3/uL (160-400); Red Blood Count 3.22 X10*6/uL (4.20-5.50); Red Cell Distribution Width 13.2 % (11.0-16.0); White Blood Count 6.3 X10*3/uL (4.8-10.8)
[2022-02-28 07:28] VITALS: BP 120/57; PULSE 68; RESP 17; TEMP 36.4; O2SAT 95
[2022-02-28 07:32] LABS: Alanine Aminotransferase 12 U/L (0-31); Albumin Level 3.2 g/dL (3.5-5.0); Alkaline Phosphatase 62 U/L (39-117); Anion Gap 10 (12-20); Aspartate Amino Transferase 11 U/L (5-31); Bilirubin Direct 0.3 mg/dL (0.0-0.5); Bilirubin Total 0.6 mg/dL (0.0-1.0); Blood Urea Nitrogen 11 mg/dL (9-16); Calcium 8.9 mg/dL (8.4-10.2); Carbon Dioxide 26 mmol/L (22-29); Chloride 109 mmol/L (96-108); Creatinine Clr Calc Pharmacy 41.2; Estimated Glomerular Filt Rate > 60; Glucose Random 124 mg/dL (60-115); Potassium 3.9 mmol/L (3.3-5.1); Sodium 141 mmol/L (135-145); Total Protein 5.4 g/dL (6.5-8.0)
[2022-02-28 07:42] LABS: Lactate Dehydrogenase 98 U/L (122-220)
[2022-02-28 07:52] LABS: Glucose, Whole Blood 119 mg/dL (60-115)
[2022-02-28] MEDS: Cyanocobalamin (Vitamin B-12) 1,000 MCG TABLET 1000 MCG PO (08:35)
[2022-02-28] MEDS: Metoprolol Tartrate 50 MG TABLET PO (08:35)
[2022-02-28] MEDS: Cholecalciferol (Vitamin D3) 25 MCG TABLET PO (08:35)
[2022-02-28] MEDS: Atorvastatin Calcium 40 MG TABLET PO (08:35)
[2022-02-28] MEDS: Aspirin Enteric Coated 81 MG TABLET.DR PO (08:35)
[2022-02-28] MEDS: 0.9 % Sodium Chloride 1,000 ML 50 ML IVCONT (08:39)
--- NOTE | 2022-02-28 10:50 | P.PNIM_ITS ---
Subjective Subjective Date of Service: 02/28/22 Interval History: Had some intermittent abd discomfort but overall improved Tolerating clear liquid diet No fever Review of Systems Review of Systems: Yes all other systems are reviewed and are negative Physical Exam Vital Signs: Vital Signs: Last Vital Signs Temp 97.6 F 02/28/22 07:28 Pulse 68 02/28/22 07:28 Resp 17 02/28/22 07:28 BP 120/57 L 02/28/22 07:28 Pulse Ox 95 02/28/22 07:28 BMI result Gen: in no acute d istress HEENT: scl era anicteric, [place] mucus membranes Neck: supple Lung s: clear to auscul tation bilaterally Heart: regular ra te and rhythm, no murmurs Abd: soft, non-tender, non-d istended Ext: no e nabila Skin: warm/we ll-perfused Neuro: alert and oriente d x3, no focal fin dings Psych: appro priate affectBody Mass Index 18.4 Objective Data Active Medications Acetaminophen (Acetaminophen 325 Mg Tablet) 650 mg PO Q6H PRN PRN Reason: Pain, Mild (Pain Scale 1-3) Aspirin (Aspirin Enteric Coated 81 Mg Tablet.) 81 mg PO DAILY [facility] Last Admin: 02/28/22 08:35 Dose: 81 mg Documented by: ALEXIA Atorvastatin Calcium (Atorvastatin Calcium 40 Mg Tablet) 40 mg PO DAILY [facility] Last Admin: 02/28/22 08:35 Dose: 40 mg Documented by: ALEXIA Cyanocobalamin (Cyanocobalamin (Vitamin B-12) 1,000 Mcg Tablet) 1,000 mcg PO DAILY [facility] Last Admin: 02/28/22 08:35 Dose: 1,000 mcg Documented by: ALEXIA Dextrose (Dextrose 50 % 25 Gm/50 Ml Vial) 25 gm IVPUSH Q15M PRN; Protocol PRN Reason: per Hypoglycemia Standing Ord. Glucose (Glucose Gel 15 Gm Gel..Gram.) 15 gm PO Q15M PRN; Protocol PRN Reason: per Hypoglycemia Standing Ord. Hydromorphone HCl (Hydromorphone Hcl 1 Mg/Ml Syringe) 0.25 mg IVPUSH Q4H PRN; P rotocol PRN Reason: Pain, Severe (Pain Scale 7-10) Sodium Chloride (Ns) 1,000 mls @ 100 mls/hr IVCONT .Q10H [facility] Last Admin: 02/28/22 08:39 Dose: 50 mls/hr Documented by: ALEXIA Insulin Human Lispro (Insulin Lispro 100 Unit/Ml 3 Ml Vial) 0 unit SUBCUT QIDACHS [facility]; Protocol Last Admin: 02/28/22 08:39 Dose: Not Given Documented by: ALEXIA Non-Admin Reason: No Insulin Coverage Melatonin (Melatonin 3 Mg Tablet) 6 mg PO BEDTIME PRN PRN Reason: Insomnia Metoprolol Tartrate (Metoprolol Tartrate 50 Mg Tablet) 50 mg PO BID [facility]; Protocol Last Admin: 02/28/22 08:35 Dose: 50 mg Documented by: ALEXIA Nitroglycerin (Nitroglycerin 0.4 Mg Tab.Subl) 0.4 mg SUBLINGUAL Q5MX3 PRN PRN Reason: Chest Pain Senna (Sennosides 8.6 Mg Tablet) 17.2 mg PO BEDTIME PRN PRN Reason: Constipation Sodium Chloride (0.9 % Sodium Chloride Flush 3 Ml Syringe) 3 ml IVFLUSH QSHIFT [facility] Last Admin: 02/28/22 00:37 Dose: Not Given Documented by: JASON Non-Admin Reason: IV Running Vitamin D (Cholecalciferol (Vitamin D3) 25 Mcg Tablet) 25 mcg PO DAILY [facility] Last Admin: 02/28/22 08:35 Dose: 25 mcg Documented by: ALEXIA Labs CBC & Chem 7: 02/28/22 06:09 02/28/22 06:09 Labs: Laboratory Results - last 24 hr 02/27/22 02/27/22 02/27/22 12:18 16:00 20:14 MCV MCH MCHC RDW Plt Count MPV Immature Gran % (Auto) Neut % (Auto) Lymph % (Auto) [place] % (Auto) Eos % (Auto) Baso % (Auto) Lymph # (Auto) [place] # (Auto) Eos # (Auto) Baso # (Auto) Abs Immat Gran (auto) Absolute Neuts (auto) Absolute Nucleated RBC Nucleated RBC % (auto) Anion Gap Estim Creat Clear Calc Estimated GFR POC Glucose 125 H 145 H 170 H Random Glucose Calcium Total Bilirubin Direct Bilirubin AST ALT Alkaline Phosphatase Lactate Dehydrogenase Total Protein Albumin 02/28/22 02/28/22 02/28/22 06:09 06:09 06:09 MCV 93.5 MCH 29.8 MCHC 31.9 RDW 13.2 Plt Count 298 MPV 10.2 Immature Gran % (Auto) 0.2 Neut % (Auto) 52.1 Lymph % (Auto) 34.7 [place] % (Auto) 8.6 Eos % (Auto) 3.8 Baso % (Auto) 0.6 Lymph # (Auto) 2.2 [place] # (Auto) 0.5 Eos # (Auto) 0.2 Baso # (Auto) 0.0 Abs Immat Gran (auto) 0.01 Absolute Neuts (auto) 3.3 Absolute Nucleated RBC 0.000 Nucleated RBC % (auto) 0.0 Anion Gap 10 L Estim Creat Clear Calc 41.2 Estimated GFR > 60 POC Glucose Random Glucose 124 H Calcium 8.9 D Total Bilirubin 0.6 Direct Bilirubin 0.3 AST 11 ALT 12 Alkaline Phosphatase 62 D Lactate Dehydrogenase 98 L Total Protein 5.4 L Albumin 3.2 L 02/28/22 07:31 MCV MCH MCHC RDW Plt Count MPV Immature Gran % (Auto) Neut % (Auto) Lymph % (Auto) [place] % (Auto) Eos % (Auto) Baso % (Auto) Lymph # (Auto) [place] # (Auto) Eos # (Auto) Baso # (Auto) Abs Immat Gran (auto) Absolute Neuts (auto) Absolute Nucleated RBC Nucleated RBC % (auto) Anion Gap Estim Creat Clear Calc Estimated GFR POC Glucose 119 H Random Glucose Calcium Total Bilirubin Direct Bilirubin AST ALT Alkaline Phosphatase Lactate Dehydrogenase Total Protein Albumin Assessment and Plan (1) Pancreatitis: Status: Acute Plan hospital d#1 86yo F with HTN, HLD, DM2, hyperthyroidism presenting with nausea and epigastric/chest discomfort, admitted for acute pancreatitis # acute pancreatitis - not due to EtOH or gallstones or hyper TG - suspect medication culprit- either sitagliptin or methimazole- both held - GI consulted; IgG levels orderd + pending - clear liquids, IV fluids, prn ondansetron # chest discomfort - EKG without ischemia, hs Tn-I x2 negative, suspect referred pain from pancreatitis # HTN - continue metoprolol # HLD - continue statin # hyperthyroidism - will reach out to pt's technical maintenance specialist tomorrow to discuss possible change to PTU # DM2 - hold OHGs [GPZ, MTF, sitagliptin]; give correction-dose lispro # VTE ppx - SCDs, hx allergy [unknown reaction] to heparin In my clinical judgment, the patient requires continued hospitalization for the following reasons: IV fluids for pancreatitis which can be life-threatening in the context of methimazole per LexiComp Quality Stroke Does the patient have a stroke diagnosis?: No VTE Prior VTE?: No VTE Risk Level:: Medical - moderate - high VTE Device Contraindication: N/A - Device Ordered VTE Drug Contraindication: N/A - Med Ordered
[2022-02-28 11:28] VITALS: BP 109/53; PULSE 60; RESP 17; TEMP 36.9; O2SAT 97
[2022-02-28 11:46] LABS: Glucose, Whole Blood 189 mg/dL (60-115)
[2022-02-28 15:40] VITALS: BP 141/64; PULSE 64; RESP 16; TEMP 36.1; O2SAT 99
[2022-02-28 16:24] LABS: Glucose, Whole Blood 142 mg/dL (60-115)
[2022-02-28 20:00] VITALS: BP 149/65; PULSE 52; RESP 16; TEMP 36.2; O2SAT 100
[2022-02-28 20:20] LABS: Glucose, Whole Blood 178 mg/dL (60-115)
[2022-02-28] MEDS: Insulin Lispro 100 UNIT/ML 3 ML VIAL SUBCUT (21:52)
[2022-03-01] VITALS: BP 135/53; PULSE 62; RESP 18; TEMP 37; O2SAT 100
[2022-03-01 03:28] VITALS: BP 155/52; PULSE 71; RESP 18; TEMP 36.6; O2SAT 97
[2022-03-01 05:51] LABS: Hematocrit 30.6 % (37.0-47.0); Hemoglobin 9.8 g/dl (12.0-16.0); Mean Corpuscular Hemoglobin 29.6 pg (27.0-33.0); Mean Corpuscular Volume 92.4 fL (80.0-98.0); Mean Platelet Volume 9.9 fL (9.4-12.3); Platelet Count 274 X10*3/uL (160-400); Red Blood Count 3.31 X10*6/uL (4.20-5.50); Red Cell Distribution Width 12.9 % (11.0-16.0); White Blood Count 6.5 X10*3/uL (4.8-10.8)
[2022-03-01 06:21] LABS: Alanine Aminotransferase 11 U/L (0-31); Albumin Level 3.2 g/dL (3.5-5.0); Alkaline Phosphatase 61 U/L (39-117); Anion Gap 11 (12-20); Aspartate Amino Transferase 9 U/L (5-31); Bilirubin Total 0.6 mg/dL (0.0-1.0); Blood Urea Nitrogen 10 mg/dL (9-16); Calcium 9.1 mg/dL (8.4-10.2); Carbon Dioxide 25 mmol/L (22-29); Chloride 109 mmol/L (96-108); Creatinine Clr Calc Pharmacy 41.2; Estimated Glomerular Filt Rate > 60; Glucose Random 133 mg/dL (60-115); Lipase 31 U/L (8-78); Potassium 3.9 mmol/L (3.3-5.1); Sodium 141 mmol/L (135-145); Total Protein 5.4 g/dL (6.5-8.0)
[2022-03-01 07:20] LABS: Glucose, Whole Blood 141 mg/dL (60-115)
[2022-03-01 07:41] VITALS: BP 145/65; PULSE 76; RESP 20; TEMP 36.3; O2SAT 97
--- NOTE | 2022-03-01 08:01 | P.CDIC_ITS ---
CDI Concurrent Query Documentation Clarification: PHYSICIAN'S DOCUMENTATION REQUEST Date of Query: 03/01/22 0802 Patient Name: Dianna Covarrubias Admit Date: 02/27/22 Dear Doctor, A review of the medical record indicates additional documentation may be needed. Please review below and update the documentation accordingly. Clinical Indicators: Height: [] 5'6 Weight: [] 51.858 kg BMI: [] 18.5 Other Clinical Notes Supporting Significance of the BMI: Risk Factors/Clinical Indicators/Treatments Total protein 5.4 Albumin 3.2 No Nutrition Assessment in EMR If possible, please provide an associated diagnosis related to the abnormal BMI, such as: For a BMI <= 19: * Underweight * Weight loss * Cachexia * Anorexia Or: * BMI is not significant * Other (please specify) * Unable to determine Use of terms such as suspected, likely, concern for, or probable (associated with a specific diagnosis that is being evaluated, monitored, or treated as if it exists) are acceptable and can be coded in the inpatient setting, when documented at the time of discharge. Thank you, Prerna Aburto [insert CDI's credentials] Extension: [4-digit phone extension] Please use your independent medical judgment in providing your response. THIS QUERY IS PART OF THE PERMANENT MEDICAL RECORD Provider Response: Moderate Protein-Calorie Malnutrition
--- NOTE | 2022-03-01 08:49 | MHC.CM.PN ---
Met with Patient at bedside and addressed IMM with her, providing her with the original and placing a copy on the chart. Patient lives alone in her house and she has a cane in her car that she uses PRN. Home/[facility] VNA is Patient's goal and CM has initiated and will follow for dc planning. Patient has [facility] 2X/week for homemaking services. PCP is Dr. Calabrese, who Patient has not yet actually seen, after Dr. Goel retired. Patient has received Moderna/Covid vax X3. Patient's Daughter/Luzma, from [place] is the HCP and Patient has another Daughter in [place].
[2022-03-01] MEDS: Cholecalciferol (Vitamin D3) 25 MCG TABLET PO (09:08)
[2022-03-01] MEDS: 0.9 % Sodium Chloride Flush 3 ML SYRINGE IVFLUSH (09:08)
[2022-03-01] MEDS: Aspirin Enteric Coated 81 MG TABLET.DR PO (09:08)
[2022-03-01] MEDS: Cyanocobalamin (Vitamin B-12) 1,000 MCG TABLET 1000 MCG PO (09:08)
[2022-03-01] MEDS: Atorvastatin Calcium 40 MG TABLET PO (09:08)
[2022-03-01] MEDS: Metoprolol Tartrate 50 MG TABLET PO (09:08)
[2022-03-01] MEDS: 0.9 % Sodium Chloride 1,000 ML 100 ML IVCONT (09:09)
[2022-03-01] MEDS: Acetaminophen 325 MG TABLET 650 MG PO (09:34)
[2022-03-01 10:44] VITALS: BMI 18.4
--- NOTE | 2022-03-01 11:07 | P.DS_ITS ---
DS: Providers Provider Date of Service: 03/01/22 Date of admission: 02/27/22 06:12 Date of discharge: 03/01/22 Primary care physician: Lexus Calabrese MD Admitting clinician: Alexandru Walsh Attending physician on admission: Alexandru Walsh Consults: 02/27/22 06:15 Consult to Gastroenterology Routine Consulting Provider: Melvin Victor Reason for consultation: pancreatitis; unclear etiology DS: Diagnosis Discharge Diagnosis (1) Pancreatitis: Status: Acute (2) Moderate malnutrition: Status: Acute DS: Summary Hospital Course Hospital Course: from admission H+P by Alexandru Walsh, 02/27/22: 86-year-old female with a past medical history of hypertension, hyperlipidemia, diabetes, hyperthyroidism-on methimazole presented to the hospital today with a chief complaint of epigastric discomfort.? Patient reported that over the past 1 week she has been having discomfort in her chest and epigastrium; associated nausea.? Symptoms were not resolving hence decided to come to the ER for further evaluation.? Denies any associated symptoms with the chest discomfort like lightheadedness dizziness, diaphoresis.? Denies any recent travel or sick contacts.? Denies any concerns for food poioning.? Denies any fever chills cough, urinary symptoms.? Denies any alcohol use Review of all other systems is negative except mentioned above ER course: Per ER team patient's EKG was nonischemic troponin negative, triglycerides and calcium normal limits; ultrasound showed evidence of gallstones; noted to have elevated lipase and tender in epigastrium; admitted for acute pancreatitis This 86 year-old woman with HTN, HLD, DM2, and hyperthyroidism presented with nausea and epigastric/chest discomfort and was admitted for acute pancreatitis. No history of alcohol intake; triglycerides were normal; and there were no gallstones on US. The culprit was suspected to be either sitagliptin or methimazole. Both medications were stopped. GI was consulted; IgG levels were ordered and are pending at the time of discharge. She was managed with IV fluid hydration and bowel rest. Diet was gradually advanced. Chest discomfort was attributed to referred pain from pancreatitis, given non-ischemic EKG and two negative measurements of high-sensitivity troponin-I. I reached out to the patient's industrial maintenance tech and she agreed with stopping both sitagliptin and methimazole. In fact, she had just decreased the patient's methimazole dose on 02/26/22 due to TSH of 10. She will see the patient in 1 week to discuss other management options for hyperthyroidism and diabetes. VNA services were arranged for medication management. Time Spent with Patient Time attestation: Total time spent providing and/or coordinating discharge services: Discharge coordination time: Greater than 30 minutes Quality: Safe Use of Opioids Does Pt have an Active Cancer Diagnosis on the Problem List?: No Quality: Stroke Does the patient have a stroke diagnosis?: No Physical Exam Vital Signs: Vital Signs: Last Vital Signs Temp 97.4 F 03/01/22 07:41 Pulse 76 03/01/22 07:41 Resp 20 03/01/22 07:41 BP 145/65 H 03/01/22 07:41 Pulse Ox 97 03/01/22 07:41 BMI result Body Mass Index 18.4 Gen: in no acute distress, moderately malnourished HEENT: sclera anicteric, moist mucus membranes Neck: supple Lungs: clear to auscultation bilaterally Heart: regular rate and rhythm, no murmurs Abd: soft, non-tender, non-distended Ext: no edema Skin: warm/well-perfused Neuro: alert and oriented x3, no focal findings Psych: appropriate affect DS: Data Data Completed and Pending Completed studies during hospitalization [Text1]: Laboratory Results WBC 6.5 X10*3/uL (4.8-10.8) 03/01/22 05:38 RBC 3.31 X10*6/uL (4.20-5.50) L 03/01/22 05:38 Hgb 9.8 g/dl (12.0-16.0) L 03/01/22 05:38 Hct 30.6 % (37.0-47.0) L 03/01/22 05:38 MCV 92.4 fL (80.0-98.0) 03/01/22 05:38 MCH 29.6 pg (27.0-33.0) 03/01/22 05:38 MCHC 32.0 g/dl (31.0-35.0) 03/01/22 05:38 RDW 12.9 % (11.0-16.0) 03/01/22 05:38 Plt Count 274 X10*3/uL (160-400) 03/01/22 05:38 MPV 9.9 fL (9.4-12.3) 03/01/22 05:38 Immature Gran % (Auto) 0.2 % (0.0-0.4) 02/28/22 06:09 Neut % (Auto) 52.1 % (45-73) 02/28/22 06:09 Lymph % (Auto) 34.7 % (20-40) 02/28/22 06:09 [place] % (Auto) 8.6 % (2-11) 02/28/22 06:09 Eos % (Auto) 3.8 % (0-4) 02/28/22 06:09 Baso % (Auto) 0.6 % (0-2) 02/28/22 06:09 Lymph # (Auto) 2.2 X10*3/uL (1.2-4.9) 02/28/22 06:09 [place] # (Auto) 0.5 X10*3/uL (0.1-1.2) 02/28/22 06:09 Eos # (Auto) 0.2 X10*3/uL (0.0-0.4) 02/28/22 06:09 Baso # (Auto) 0.0 X10*3/uL (0.0-0.2) 02/28/22 06:09 Abs Immat Gran (auto) 0.01 X10*3/uL (0.00-0.03) 02/28/22 06:09 Absolute Neuts (auto) 3.3 x10*3/uL (2.0-8.3) 02/28/22 06:09 Absolute Nucleated RBC 0.000 X10*3/uL (0.0-0.012) 03/01/22 05:38 Nucleated RBC % (auto) 0.0 /100WBC (0.0-0.2) 03/01/22 05:38 Sodium 141 mmol/L (135-145) 03/01/22 05:38 Potassium 3.9 mmol/L (3.3-5.1) 03/01/22 05:38 Chloride 109 mmol/L (96-108) H 03/01/22 05:38 Carbon Dioxide 25 mmol/L (22-29) 03/01/22 05:38 Anion Gap 11 (12-20) L 03/01/22 05:38 BUN 10 mg/dL (9-16) 03/01/22 05:38 Creatinine 0.83 mg/dL (0.5-1.4) 03/01/22 05:38 Estim Creat Clear Calc 41.2 03/01/22 05:38 Estimated GFR > 60 03/01/22 05:38 POC Glucose 141 mg/dL (60-115) H 03/01/22 07:16 Random Glucose 133 mg/dL (60-115) H 03/01/22 05:38 Calcium 9.1 mg/dL (8.4-10.2) 03/01/22 05:38 Total Bilirubin 0.6 mg/dL (0.0-1.0) 03/01/22 05:38 Direct Bilirubin 0.3 mg/dL (0.0-0.5) 02/28/22 06:09 AST 9 U/L (5-31) 03/01/22 05:38 ALT 11 U/L (0-31) 03/01/22 05:38 Alkaline Phosphatase 61 U/L (39-117) 03/01/22 05:38 Lactate Dehydrogenase 98 U/L (122-220) L 02/28/22 06:09 Troponin I High Sens < 3.5 ng/L (<3.5-17.0) 02/27/22 06:55 Total Protein 5.4 g/dL (6.5-8.0) L 03/01/22 05:38 Albumin 3.2 g/dL (3.5-5.0) L 03/01/22 05:38 Triglycerides 54 mg/dL 02/26/22 20:46 Cholesterol 113 mg/dL 02/26/22 20:46 LDL Cholesterol, Calc 56 mg/dl 02/26/22 20:46 HDL Cholesterol 47 mg/dL 02/26/22 20:46 Lipase 31 U/L (8-78) 03/01/22 05:38 COVID-19 (HEMANT) Negative (Negative) 02/27/22 02:39 COVID-19 Clin Com See Note 02/27/22 02:39 Impressions Chest X-Ray 02/26/22 21:18 IMPRESSION: Age indeterminate left-sided distal clavicular fracture, correlate for pain. Chronic appearing left-sided rib fractures and proximal left humeral fracture. No acute cardiopulmonary findings. Abdomen Ultrasound 02/27/22 02:15 IMPRESSION: Echogenic pancreas would be compatible with the provided diagnosis of pancreatitis. No evidence of cholelithiasis or cholecystitis. Pending studies at discharge: 02/27/22: IgG total and subclasses Discharge Plan Discharge Patient Disposition: Home Health Service Discharge Diagnosis: acute pancreatitis suspected secondary to medication [methimazole or sitagliptin] Referrals: Kandace Hart PA-C [Physician Learning Analyst] - 1 Week Lexus Calabrese MD [Primary Care Provider] - 1 Week Discharge Medications: Continued cyanocobalamin (vitamin B-12) 1,000 mcg tablet 1 tab PO DAILY 0RF metoprolol tartrate 50 mg tablet 1 tab PO BID 0RF glipizide 5 mg tablet 1 tab PO BID 0RF cholecalciferol (vitamin D3) [Vitamin D3] 25 mcg (1,000 unit) Tablet 25 mcg PO DAILY 0RF nitroglycerin 0.4 mg tablet, sublingual 1 tab sublingual DIRECTED 0RF metformin 500 mg tablet 1,000 mg PO BID 0RF atorvastatin 40 mg tablet 40 mg PO DAILY 0RF aspirin [Adult Aspirin Regimen] 81 mg tablet,delayed release (DR/EC) 81 mg PO DAILY 0RF Discontinued methimazole 5 mg tablet 3 tab PO DAILY 0RF Januvia 100 mg Tablet 100 mg PO DAILY 0RF Discharge Orders: Discharge Order (Routine); Ordered 03/01/22 Ordered By: Lida Piña Diet: diabetic diet and low fat, low cholesterol Activity on Discharge: As tolerated Stand Alone Forms: Patient Portal Discharge page Care Plan Goals: recovery from pancreatitis prevention of future recurrences of pancreatitis Health Concerns: acute pancreatitis suspected secondary to medication [methimazole or sitagliptin] Plan of Treatment: STOP methimazole STOP sitagliptin [Januvia] encourage protein intake see your industrial maintenance tech, Kandace Hart, in 1 week see your primary care doctor in 1-2 weeks Assessment: see Discharge Summary Patient Instructions: Pancreatitis (DC)
--- NOTE | 2022-03-01 11:13 | W.MHC.F2F ---
Service Date Service Date: 03/01/22 Encounter Date of encounter: 03/01/22 Reasons for Services Signs and symptoms assessed: medication management/medication changes Reason for correction: medication management, medication treatment and teach disease management MD Overseeing Care: Lexus Calabrese Homebound: Leaving the home is medically contraindicated at this time without the asist of a device and/or another person due th the listed conditions above and below. Reason homebound: weakness related to hospital stay Certification: Based on the above findings, I certify that this patient is confined to the home and needs intermittent correction care, physical therapy and/or speech therapy, or continues to need occupational therapy. The patient is under my care, and I have initiated the establishment of the plan of care. The patient will be followed by a physician who will periodically review the plan of care.
[2022-03-01 11:19] VITALS: BP 141/63; PULSE 63; RESP 19; TEMP 36.4; O2SAT 98
[2022-03-01 11:26] LABS: Glucose, Whole Blood 205 mg/dL (60-115)
[2022-03-01] MEDS: Insulin Lispro 100 UNIT/ML 3 ML VIAL SUBCUT (12:02)
--- NOTE | 2022-03-01 14:27 | MHC.CM.PN ---
pATIENT HAS BEEN MEDICALLY CLEARED FOR DC TO HOME TODAY. pATIENT DOES NOT QUALIFY FOR vna BECAUSE SHE IS NOT HOME BOUND (PATIENT DROVE HERSELF HOME FROM THE HOSPITAL AND her initial appointment with her new PCP/DR. Calabrese is not until 04/15/22;CM has made MD aware of this. [facility] services should resume as before.
[2022-03-01 22:51] LABS: Immunoglobulin G Subclass 1 387 mg/dL (382-929); Immunoglobulin G Subclass 2 304 mg/dL (241-700); Immunoglobulin G Subclass 3 94 mg/dL (22-178); Immunoglobulin G Total 848 mg/dL (600-1540)
[2022-03-01 22:51] LABS: Immunoglobulin G Subclass 1 441 mg/dL (382-929); Immunoglobulin G Subclass 2 337 mg/dL (241-700); Immunoglobulin G Subclass 3 105 mg/dL (22-178); Immunoglobulin G Subclass 4 109.3 mg/dL (4-86); Immunoglobulin G Total 942 mg/dL (600-1540)
--- NOTE | 2022-03-02 08:39 | MHC.CM.PN ---
Per Hospital Litigation Manager/Valeria's request, CM called Patient at her home at [phone]. CM again explained that the difficulty in securing VNA services for Patient is r/t the fact that Patient has a new PCP, who she does not have her initial appointment with until 04/15/22 and the fact that Patient does not appear homebound r/t the fact that she drove herself to and from the hospital after dc. Patient explained that she gets her medications confused. CM encourage Patient to call her new PCP's office (Dr. Calabrese) and insist to be seen today in order for Patient to possibly get VNA services. Patient wrote down CM's suggestion and agreed to call Dr. Calabrese the second we ended our call. CM encourage increased family/friend support if possible (per Patient, Daughter from [place] is supposed to be coming for a visit and her Neighbor appears to also be involved). CM instructed Patient to go to the ER if she has any concerns that cannot be worked out with the PCP's office.
== END 2022-03-01 15:00 | disposition home or self-care (01) | DRG 439 ==
LOC: HO.ED 02-27 02:36 → HO.EDOVER 02-27 06:17 → HO.IMC 02-27 11:27
PROVIDERS: Internal Medicine Gastroenterology; Admitting Provider Hospitalist; Emergency Provider Student in an Organized Health Care Education/Training Program; PCP Internal Medicine; Visit Provider Family Medicine
DX: K85.90 Acute pancreatitis without necrosis or infection, unspecified (principal); E44.0 Moderate protein-calorie malnutrition; Z68.1 Body mass index [BMI] 19.9 or less, adult; E03.9 Hypothyroidism, unspecified; E78.5 Hyperlipidemia, unspecified; E11.9 Type 2 diabetes mellitus without complications; I25.10 Atherosclerotic heart disease of native coronary artery without angina pectoris; I25.2 Old myocardial infarction; E05.90 Thyrotoxicosis, unspecified without thyrotoxic crisis or storm; Z86.718 Personal history of other venous thrombosis and embolism; Z20.822 Contact with and (suspected) exposure to COVID-19; Z88.0 Allergy status to penicillin; Z88.2 Allergy status to sulfonamides; Z79.82 Long term (current) use of aspirin; Z79.84 Long term (current) use of oral hypoglycemic drugs; Z79.899 Other long term (current) drug therapy
CPT/HCPCS: 36415; 71046; 76705; 80048; 80053; 80061; 80076; 82784; 82947; 83615; 83690; 84484; 85025; 85027; 87635; 93005; 96360; 99285

== ENCOUNTER 2023-05-25 15:31 | Emergency (ER) | payer MEDICARE, OTHER, SELFPAY ==
--- NOTE | 2023-05-25 15:34 | ED_ITS ---
HPI - General Adult General Chief complaint: General Medical Stated complaint: Sent by Sugar high Time Seen by Provider: 05/25/23 16:51 Source: patient Mode of arrival: ambulatory History of Present Illness HPI narrative: 87-year-old female who lives at home by herself arrives at the direction of her sales assistant who identify that she had an elevated blood sugar level in suspected that the patient may have a UTI and so referred her to the emergency room for further evaluation. Patient does endorse that she has had 3 your charu ent over the past couple of weeks but denies any associated fever, chills, nausea, vomiting, diarrhea and otherwise is feel well without new cough, shortness of breath or chest pain/palpitations. She is concerned that she may have a pressure sore on her right buttock. Related Data Home Medications Medication Instructions Recorded Confirmed aspirin 81 mg tablet,delayed 81 mg PO DAILY 02/23/21 02/27/22 release (Adult Aspirin Regimen) atorvastatin 40 mg tablet 40 mg PO DAILY 02/23/21 02/27/22 metformin 500 mg tablet 1,000 mg PO BID 02/23/21 02/27/22 cholecalciferol (vitamin D3) 25 25 mcg PO DAILY 02/27/22 02/27/22 mcg (1,000 unit) tablet (Vitamin D3) cyanocobalamin (vitamin B-12) 1 tab PO DAILY 02/27/22 02/27/22 1,000 mcg tablet glipizide 5 mg tablet 1 tab PO BID 02/27/22 02/27/22 metoprolol tartrate 50 mg tablet 1 tab PO BID 02/27/22 02/27/22 nitroglycerin 0.4 mg sublingual 1 tab sublingual DIRECTED 02/27/22 02/27/22 tablet Previous Rx's Medication Instructions Recorded cefdinir 300 mg capsule 300 mg PO BID 7 days #14 caps 05/25/23 Allergies Allergy/AdvReac Type Severity Reaction Status Date / Time Penicillins [PCN] Allergy Unknown UNKNOWN Verified 04/22/21 13:06 Sulfa (Sulfonamide Allergy Unknown UNKNOWN Verified 04/22/21 13:06 Antibiotics) [SULFA(SULFONAMIDE ANTIBIOTICS)] heparin AdvReac Unknown Verified 02/27/22 07:00 penicillin Allergy Unknown rash Uncoded 06/17/17 00:00 Sulfa Allergy Unknown rash Uncoded 06/17/17 00:00 Review of Systems Review of Systems: Pertinent positives and negatives as stated in HPI [facility] Past Medical History Source: nursing notes reviewed Medical History Diabetes Nausea Pancreatitis Surgical History H/O heart artery stent Social History Social History Household Members: None Housing: House Do you presently have visiting nurse or other home services: Yes Alcohol intake: never Patient Tobacco Use Status: Never used Tobacco Smoked in Last 30 Days: No Use of substances other than those prescribed or required for medical reasons: No Advance Directives: Yes Advance Directives Information Provided: Yes Advance Directives on File: No service: No Current occupational status: retired Current occupation: [employer] Physical Exam ED Vital Signs: Vital Signs - 24 hr 05/25/23 15:36 05/25/23 16:41 05/25/23 17:01 Temperature 97.2 F Pulse Rate 79 73 65 Respiratory Rate 18 16 13 Blood Pressure 128/59 L 141/81 H 136/78 Pulse Oximetry 99 95 97 Oxygen Delivery Method Room Air Room Air BMI result Body Mass Index 17.6 VITAL SIGNS: Reviewed. GENERAL: Elderly, frail, in no acute distress. HEAD: Normocephalic/atraumatic EYES: PERRLA, EOMI EARS: Ext canals without abnormality NOSE: Nares patent bilateral OROPHARYNX: no oral lesions noted, posterior pharynx clear NECK: Supple, no adenopathy LUNGS: Normal breath sounds. No adventitious sounds or accessory muscle use. SpO2<97> CARDIOVASCULAR: Regular rate and rhythm without noted murmurs, no JVD or lower extremity edema. ABDOMEN: Soft, non-tender, non-distended with bowel sounds. THERE IS A 0.5 CM PRESSURE WOUND OVER THE RIGHT ISCHIAL AREA. THERE IS NO GROSS DRAINAGE OR SURROUNDING ERYTHEMA/INDURATION. MUSCULOSKELETAL: No tenderness, deformities, or effusions noted on gross inspection. EXTREMITIES: No cyanosis, clubbing or edema. SKIN: Inspection of the skin reveals no rashes NEUROLOGIC: Alert and oriented x 4. Strength and sensation to light touch were grossly intact x 4. Course Course Course Narrative: RME: 87-year-old female with a past medical history of malnutrition, diabetes, pancreatitis, presenting to the ED sent in by PCP for hyperglycemia glucose of [address] [employer] and trace urine ketones. Reports medication noncompliance and urinary frequency. States forgets to take her meds and drops them all over the house. Admits has not been testing her POC at home. Denies polydipsia Labs, UA ordered Full HPI, ROS and PE to be performed by primary ED provider. Medical Decision Making Medical Decision Making MDM Narrative: 87-YEAR-OLD FEMALE WITH HYPERGLYCEMIA SECONDARY TO UNDERLYING DIABETES, CURRENTLY ON MEDICATION AND SUSPECT THAT THIS IS ASSOCIATED WITH UNDERLYING INFECTION AND GIVEN HISTORY OF FREQUENT URINATION SUSPECT THAT THE SOURCE OF THE INFECTION IS THE URINE. DDX: Infection, poor medication compliance, steroid use. I reviewed all investigations and there is no leukocytosis but a left shift is noted, urinalysis is consistent with suspected cystitis, symptoms are not consistent with pyelonephritis and patient will be treated with antibiotics here in the emergency room and then sent home with remaining course. Serum glucose- 342. Suspect that once infection is under control that glucose control will be achieved. Differential Diagnosis Please see the discussion above Lab Data Please see the discussion above 05/25/23 16:04 05/25/23 16:04 Labs: Lab Results 05/25/23 05/25/23 05/25/23 Range/Units 15:59 16:04 16:04 WBC 7.0 (4.8-10.8) X10*3/uL RBC 3.55 L (4.20-5.50) X10*6/uL Hgb 10.6 L (12.0-16.0) g/dl Hct 33.1 L (37.0-47.0) % MCV 93.2 (80.0-98.0) fL MCH 29.9 (27.0-33.0) pg MCHC 32.0 (31.0-35.0) g/dl RDW 13.9 (11.0-16.0) % Plt Count 261 (160-400) X10*3/uL MPV 10.5 (9.4-12.3) fL Immature Gran % (Auto) 0.3 (0.0-0.4) % Neut % (Auto) 75.9 H (45-73) % Lymph % (Auto) 15.9 L (20-40) % [place] % (Auto) 6.5 (2-11) % Eos % (Auto) 1.0 (0-4) % Baso % (Auto) 0.4 (0-2) % Lymph # (Auto) 1.1 L (1.2-4.9) X10*3/uL [place] # (Auto) 0.5 (0.1-1.2) X10*3/uL Eos # (Auto) 0.1 (0.0-0.4) X10*3/uL Baso # (Auto) 0.0 (0.0-0.2) X10*3/uL Abs Immat Gran (auto) 0.02 (0.00-0.03) X10*3/uL Absolute Neuts (auto) 5.3 (2.0-8.3) x10*3/uL Absolute Nucleated RBC 0.000 (0.0-0.012) X10*3/uL Nucleated RBC % (auto) 0.0 (0.0-0.2) /100WBC VBG pH (7.32-7.43) VBG pCO2 mmHg VBG pO2 mmHg VBG HCO3 (22-26) mmol/L VBG O2 Saturation % VBG Base Excess mmol/L Sodium 136 (135-145) mmol/L Potassium 4.4 (3.3-5.1) mmol/L Chloride 102 (96-108) mmol/L Carbon Dioxide 25 (22-29) mmol/L Anion Gap 13 (12-20) BUN 18 H (9-16) mg/dL Creatinine 0.92 (0.5-1.4) mg/dL Estim Creat Clear Calc 34.9 Estimated GFR 58 POC Glucose 341 H (60-115) mg/dL Random Glucose 342 H (60-115) mg/dL Calcium 9.8 D (8.4-10.2) mg/dL Magnesium 1.6 (1.6-2.6) mg/dL Total Bilirubin 0.6 (0.0-1.0) mg/dL Direct Bilirubin 0.2 (0.0-0.5) mg/dL AST 15 (5-31) U/L ALT 14 (0-31) U/L Alkaline Phosphatase 75 (39-117) U/L Total Protein 6.4 L (6.5-8.0) g/dL Albumin 3.6 (3.5-5.0) g/dL Urine Color Urine Appearance Urine pH (5.0-9.0) Ur Specific Happy (1.005-1.025) Urine Protein (Neg-Trace) mg/dL Urine Glucose (UA) (Negative) mg/dL Urine Ketones (Negative) mg/dL Urine Blood (Negative) Urine Nitrite (Negative) Ur Leukocyte Esterase (Negative) Urine RBC (0-2) /HPF Urine WBC (0-5) /HPF Ur Squamous Epith Cells (0-2) /HPF Urine Bacteria (None Seen) Hyaline Casts (0-2) /LPF 05/25/23 05/25/23 Range/Units 16:07 16:43 WBC (4.8-10.8) X10*3/uL RBC (4.20-5.50) X10*6/uL Hgb (12.0-16.0) g/dl Hct (37.0-47.0) % MCV (80.0-98.0) fL MCH (27.0-33.0) pg MCHC (31.0-35.0) g/dl RDW (11.0-16.0) % Plt Count (160-400) X10*3/uL MPV (9.4-12.3) fL Immature Gran % (Auto) (0.0-0.4) % Neut % (Auto) (45-73) % Lymph % (Auto) (20-40) % [place] % (Auto) (2-11) % Eos % (Auto) (0-4) % Baso % (Auto) (0-2) % Lymph # (Auto) (1.2-4.9) X10*3/uL [place] # (Auto) (0.1-1.2) X10*3/uL Eos # (Auto) (0.0-0.4) X10*3/uL Baso # (Auto) (0.0-0.2) X10*3/uL Abs Immat Gran (auto) (0.00-0.03) X10*3/uL Absolute Neuts (auto) (2.0-8.3) x10*3/uL Absolute Nucleated RBC (0.0-0.012) X10*3/uL Nucleated RBC % (auto) (0.0-0.2) /100WBC VBG pH 7.45 H (7.32-7.43) VBG pCO2 34 mmHg VBG pO2 86 mmHg VBG HCO3 24 (22-26) mmol/L VBG O2 Saturation 97.0 % VBG Base Excess 0.7 mmol/L Sodium (135-145) mmol/L Potassium (3.3-5.1) mmol/L Chloride (96-108) mmol/L Carbon Dioxide (22-29) mmol/L Anion Gap (12-20) BUN (9-16) mg/dL Creatinine (0.5-1.4) mg/dL Estim Creat Clear Calc Estimated GFR POC Glucose (60-115) mg/dL Random Glucose (60-115) mg/dL Calcium (8.4-10.2) mg/dL Magnesium (1.6-2.6) mg/dL Total Bilirubin (0.0-1.0) mg/dL Direct Bilirubin (0.0-0.5) mg/dL AST (5-31) U/L ALT (0-31) U/L Alkaline Phosphatase (39-117) U/L Total Protein (6.5-8.0) g/dL Albumin (3.5-5.0) g/dL Urine Color Yellow Urine Appearance Cloudy Urine pH 6.0 (5.0-9.0) Ur Specific Happy >= 1.030 H (1.005-1.025) Urine Protein 30 (1+) H (Neg-Trace) mg/dL Urine Glucose (UA) >=1000 H (Negative) mg/dL Urine Ketones Negative (Negative) mg/dL Urine Blood Small (1+) H (Negative) Urine Nitrite Negative (Negative) Ur Leukocyte Esterase Moderate (2+) H (Negative) Urine RBC 3-5 H (0-2) /HPF Urine WBC >50 H (0-5) /HPF Ur Squamous Epith Cells 0-2 (0-2) /HPF Urine Bacteria Trace (None Seen) Hyaline Casts 0-2 (0-2) /LPF External Record Review External record reviewed: Prior outpatient labs Discharge Plan Discharge Clinical Impression: Cystitis, Hyperglycemia due to diabetes mellitus, Pressure ulcer Patient Disposition: Home, Self-Care Instructions: Urinary Tract Infection in Women (ED), High Protein / High Calorie Diet (ED), Wound Healing and Your Diet (ED), Diabetic Hyperglycemia (ED), Urinary Tract Infection in Older Adults (ED) Additional Instructions: 1. Resume all home medications as prescribed. 2. Please complete the entire course of antibiotics as ordered. 3. Please call the office of your sales assistant and your primary care provider 1st thing in the morning to set up appointment for re-evaluation and further outpatient management. 4. You have been provided with a referral to [facility]-up with [facility], please call them in the morning to arrange for an appointment. Return to the ER for any worsening symptoms. Prescriptions: New cefdinir 300 mg capsule 300 mg PO BID 7 Days Qty: 14 0RF No Action cyanocobalamin (vitamin B-12) 1,000 mcg tablet 1 tab PO DAILY metoprolol tartrate 50 mg tablet 1 tab PO BID glipizide 5 mg tablet 1 tab PO BID cholecalciferol (vitamin D3) [Vitamin D3] 25 mcg (1,000 unit) Tablet 25 mcg PO DAILY nitroglycerin 0.4 mg tablet, sublingual 1 tab sublingual DIRECTED metformin 500 mg tablet 1,000 mg PO BID atorvastatin 40 mg tablet 40 mg PO DAILY aspirin [Adult Aspirin Regimen] 81 mg tablet,delayed release (DR/EC) 81 mg PO DAILY Referrals: [facility] [Outside] (small pressure ulcer to right buttock over ischium (0.5cm)) Juan Miguel Hunter MD [Primary Care Provider] - (Please see patient within the next 1-2 days.)
[2023-05-25 15:36] VITALS: BP 128/59; PULSE 79; RESP 18; TEMP 36.2; O2SAT 99; BMI 17.6
--- NOTE | 2023-05-25 16:06 | MHC.EDTECH ---
PATIENT BLOOD DRAWN AND SENT TO LAB ,BLOOD SUGAR CHECK ,DEBRA TANNER IS AWARE OF RESULT OF 341.
[2023-05-25 16:08] LABS: MANUAL DIFF FLAG NO
[2023-05-25 16:10] LABS: Basophils Percent Auto 0.4 % (0-2); Eosinophils Absolute Auto 0.1 X10*3/uL (0.0-0.4); Hematocrit 33.1 % (37.0-47.0); Hemoglobin 10.6 g/dl (12.0-16.0); Imm Gran Abs Auto 0.02 X10*3/uL (0.00-0.03); Imm Gran Pct Auto 0.3 % (0.0-0.4); Lymphocytes Absolute Auto 1.1 X10*3/uL (1.2-4.9); Lymphocytes Percent Auto 15.9 % (20-40); Mean Corpuscular Hemoglobin 29.9 pg (27.0-33.0); Mean Corpuscular Volume 93.2 fL (80.0-98.0); Mean Platelet Volume 10.5 fL (9.4-12.3); Monocytes Absolute Auto 0.5 X10*3/uL (0.1-1.2); Monocytes Percent Auto 6.5 % (2-11); Neutrophils Absolute Auto 5.3 x10*3/uL (2.0-8.3); Neutrophils Percent Auto 75.9 % (45-73); Platelet Count 261 X10*3/uL (160-400); Red Blood Count 3.55 X10*6/uL (4.20-5.50); Red Cell Distribution Width 13.9 % (11.0-16.0)
[2023-05-25 16:11] LABS: Glucose, Whole Blood 341 mg/dL (60-115)
[2023-05-25 16:14] LABS: VBG Base Excess 0.7 mmol/L; VBG HCO3 24 mmol/L (22-26); VBG pCO2 34 mmHg; VBG pH 7.45 (7.32-7.43); VBG pO2 86 mmHg
[2023-05-25 16:16] LABS: Venous Blood Gas Refer to POC result
[2023-05-25 16:26] LABS: Alanine Aminotransferase 14 U/L (0-31); Albumin Level 3.6 g/dL (3.5-5.0); Alkaline Phosphatase 75 U/L (39-117); Anion Gap 13 (12-20); Aspartate Amino Transferase 15 U/L (5-31); Bilirubin Direct 0.2 mg/dL (0.0-0.5); Bilirubin Total 0.6 mg/dL (0.0-1.0); Blood Urea Nitrogen 18 mg/dL (9-16); Calcium 9.8 mg/dL (8.4-10.2); Carbon Dioxide 25 mmol/L (22-29); Chloride 102 mmol/L (96-108); Creatinine Clr Calc Pharmacy 34.9; Estimated Glomerular Filt Rate 58; Glucose Random 342 mg/dL (60-115); Magnesium 1.6 mg/dL (1.6-2.6); Potassium 4.4 mmol/L (3.3-5.1); Sodium 136 mmol/L (135-145); Total Protein 6.4 g/dL (6.5-8.0)
[2023-05-25 16:41] VITALS: BP 141/81; PULSE 73; RESP 16; O2SAT 95
[2023-05-25 16:52] LABS: Appearance Urine Cloudy; Color Urine Yellow; Glucose Urine UA >=1000 mg/dL (Negative); Leukocyte Esterase Urine Moderate (2+) (Negative); Nitrite Urine Negative (Negative); Specific Gravity - Urine >= 1.030 (1.005-1.025); UMIC TRIGGER UACC YES; Urine Blood Small (1+) (Negative); Urine Ketones Negative (Negative); Urine Protein 30 (1+) mg/dL (Neg-Trace)
[2023-05-25 17:01] VITALS: BP 136/78; PULSE 65; RESP 13; O2SAT 97
[2023-05-25 17:04] LABS: Bacteria Urine Trace (None Seen); Hyaline Casts Urine 0-2 /LPF (0-2); Squamous Epithelial Cell Urine 0-2 /HPF (0-2); UACC Culture Trigger YES; WBC Urine >50 /HPF (0-5)
[2023-05-25 18:00] LABS: Lactic Acid 1.4 mmol/L (0.5-2.0)
[2023-05-25 18:20] VITALS: BP 141/55; PULSE 71; RESP 17; TEMP 36.7; O2SAT 98
[2023-05-25] MEDS: levoFLOXacin 500 MG TABLET PO (18:22)
== END 2023-05-25 18:59 | disposition home or self-care (01) ==
PROVIDERS: Physician Assistant; Emergency Provider Student in an Organized Health Care Education/Training Program; PCP Internal Medicine
DX: N30.90 Cystitis, unspecified without hematuria (principal); E11.65 Type 2 diabetes mellitus with hyperglycemia; L89.90 Pressure ulcer of unspecified site, unspecified stage; Z79.899 Other long term (current) drug therapy
CPT/HCPCS: 36415; 80048; 80076; 81001; 82803; 82947; 83605; 83735; 85025; 87040; 87086; 87088; 87186; 99283; 99284

== ENCOUNTER 2023-06-17 11:45 | Outpatient (RCR) | payer MEDICARE, OTHER, SELFPAY | END 2023-08-22 15:54 | disposition home or self-care (01) | LOC: HO.WCC 11:45 | PROVIDERS: PCP Internal Medicine; Visit Provider Physician Assistant | DX: E11.622 Type 2 diabetes mellitus with other skin ulcer (principal); L89.313 Pressure ulcer of right buttock, stage 3; E11.51 Type 2 diabetes mellitus with diabetic peripheral angiopathy without gangrene; E11.40 Type 2 diabetes mellitus with diabetic neuropathy, unspecified; E11.22 Type 2 diabetes mellitus with diabetic chronic kidney disease; N18.9 Chronic kidney disease, unspecified; R32 Unspecified urinary incontinence; Z79.84 Long term (current) use of oral hypoglycemic drugs | CPT/HCPCS: 11042; 97597; 99212 ==

== ENCOUNTER 2023-07-15 13:26 | Outpatient (REF) | payer MEDICARE, OTHER, SELFPAY ==
[2023-07-15 13:48] LABS: MANUAL DIFF FLAG NO
[2023-07-15 14:21] LABS: Basophils Absolute Auto 0.1 X10*3/uL (0.0-0.2); Eosinophils Absolute Auto 0.1 X10*3/uL (0.0-0.4); Eosinophils Percent Auto 1.5 % (0-4); Hematocrit 33.6 % (37.0-47.0); Hemoglobin 10.9 g/dl (12.0-16.0); Imm Gran Abs Auto 0.02 X10*3/uL (0.00-0.03); Imm Gran Pct Auto 0.4 % (0.0-0.4); Lymphocytes Absolute Auto 0.9 X10*3/uL (1.2-4.9); Lymphocytes Percent Auto 17.5 % (20-40); Mean Corpuscular HGB Conc 32.4 g/dl (31.0-35.0); Mean Corpuscular Hemoglobin 30.2 pg (27.0-33.0); Mean Corpuscular Volume 93.1 fL (80.0-98.0); Mean Platelet Volume 10.7 fL (9.4-12.3); Monocytes Absolute Auto 0.4 X10*3/uL (0.1-1.2); Monocytes Percent Auto 7.9 % (2-11); Neutrophils Absolute Auto 3.7 x10*3/uL (2.0-8.3); Neutrophils Percent Auto 71.7 % (45-73); Platelet Count 298 X10*3/uL (160-400); Red Blood Count 3.61 X10*6/uL (4.20-5.50); Red Cell Distribution Width 12.6 % (11.0-16.0); White Blood Count 5.2 X10*3/uL (4.8-10.8)
[2023-07-15 14:26] LABS: Estimated Average Glucose 326 mg/dL
[2023-07-15 15:28] LABS: Thyroid Stimulating Hormone 4.27 uIU/mL (0.32-4.0)
[2023-07-15 16:05] LABS: Alanine Aminotransferase 15 U/L (0-31); Albumin Level 3.6 g/dL (3.5-5.0); Alkaline Phosphatase 84 U/L (39-117); Anion Gap 12 (12-20); Aspartate Amino Transferase 12 U/L (5-31); Bilirubin Total 0.4 mg/dL (0.0-1.0); Blood Urea Nitrogen 25 mg/dL (9-16); Calcium 9.8 mg/dL (8.4-10.2); Carbon Dioxide 26 mmol/L (22-29); Chloride 101 mmol/L (96-108); Estimated Glomerular Filt Rate 51; Potassium 4.3 mmol/L (3.3-5.1); Sodium 135 mmol/L (135-145); Total Protein 6.3 g/dL (6.5-8.0)
[2023-07-15 17:41] LABS: Glucose Random 425 mg/dL (60-115)
[2023-07-15 18:30] LABS: Creatinine Urine 49.07 mg/dL; Microalbumin Urine < 5.0 mg/L
== END 2023-07-15 13:27 | disposition home or self-care (01) ==
LOC: HO.LAB 13:26
PROVIDERS: PCP Internal Medicine; Visit Provider Internal Medicine
DX: E11.51 Type 2 diabetes mellitus with diabetic peripheral angiopathy without gangrene (principal); E05.90 Thyrotoxicosis, unspecified without thyrotoxic crisis or storm
CPT/HCPCS: 36415; 80053; 82043; 83036; 84443; 85025

== ENCOUNTER 2023-09-26 16:42 | Emergency (ER) | payer MEDICARE, OTHER, SELFPAY ==
--- NOTE | ~2023-09-26 | CT_ITS ---
EXAMINATION: CT head/brain wo IV con CLINICAL INFORMATION: Reason for Exam multiple falls COMPARISON: None. TECHNIQUE: Contiguous axial imaging was performed from the skull base to vertex without intravenous contrast. Sagittal and coronal reformatted images were obtained. This CT examination was performed using dose optimization techniques as appropriate, variously including the following: * Automated exposure control * Adjustment of mA and/or kV according to patient size (this includes techniques or standardized protocols for targeted exams where dose is matched to indication/reason for exam; i.e. extremities or head) Use of iterative reconstruction technique DLP: 760 mGy-cm FINDINGS: Moderate generalized parenchymal volume loss. Patchy periventricular and deep white matter hypoattenuation is nonspecific but likely reflects sequelae of moderate chronic microangiopathy. No territorial loss of hoover-white differentiation. No acute intracranial hemorrhage or extra-axial fluid collection. No mass lesion, significant mass effect, or herniation pattern. Circumferential calcific atherosclerosis of the carotid siphons. Timur cisterna magna. Lens replacements. Paranasal sinuses and mastoid air cells are well aerated. Osseous structures are intact. Nonspecific linear calcifications within the laundry manager space musculature, more pronounced on the right. CT/CT head/brain wo IV con IMPRESSION: No CT evidence of acute intracranial injury. Moderate volume loss and chronic microangiopathy.
--- NOTE | ~2023-09-26 | CT_ITS ---
EXAMINATION: CT CERVICAL SPINE WITHOUT CONTRAST CLINICAL INFORMATION: Multiple falls COMPARISON: None available. TECHNIQUE: Axial images through the cervical spine without IV contrast. Sagittal and coronal technologist workstation were performed. This CT examination was performed using dose optimization techniques as appropriate, variously including the following: *Automated exposure control *Adjustment of mA and/or kV according to patient size (this includes techniques or standardized protocols for targeted exams where dose is matched to indication/reason for exam; i.e. extremities or head) *Use of iterative reconstruction technique DLP: 153 mGy-cm FINDINGS: There is a minimally displaced fracture of the anterior inferior endplate of the C5 vertebral body and body bony osteophyte. No other fracture is seen. Bone alignment is normal. Degenerative spondylosis at C4-C5, C5-C6 and C6-C7. There is disc space narrowing at C5-C6 and C6-C7. There are degenerative changes at the C1 dens articulation. 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 No prevertebral soft tissue swelling. Bilateral carotid calcification. Prominent heterogeneous thyroid gland. While pleural parenchymal scarring at the left lung apex. CT/CT cervical spine wo IV con IMPRESSION: Minimally displaced fracture of the anterior inferior endplate of the C5 vertebral body and bony osteophyte. Multilevel degenerative changes greatest at C5-C6 and C6-C7. Findings were communicated to Dr. Chapman by telephone on 09/26/2023 at 2103 hours Fleischner guidelines were followed.
[2023-09-26 17:05] VITALS: BP 129/88; BP 138/68; PULSE 90; RESP 18; TEMP 36.6; O2SAT 100; O2SAT 98; BMI 18.8
[2023-09-26 17:10] LABS: Glucose, Whole Blood 432 mg/dL (60-115)
--- NOTE | 2023-09-26 17:18 | ECG_ITS ---
Test Reason : MULTIPLE FALLS Blood Pressure : / mmHG Vent. Rate : 081 BPM Atrial Rate : 081 BPM P-R Int : 188 ms QRS Dur : 066 ms QT Int : 358 ms P-R-T Axes : 074 061 070 degrees QTc Int : 415 ms Normal sinus rhythm Low voltage QRS Nonspecific ST abnormality Inferior leads Abnormal ECG When compared with ECG of 26-FEB-2022 20:33, Criteria for Anterior infarct are no longer Present Nonspecific T wave abnormality no longer evident in Anterior leads Referred By: Amy Chapman Electronically Signed By:ROSEMARIE HAIR MD
[2023-09-26 17:27] LABS: Appearance Urine Cloudy; Color Urine Yellow; Glucose Urine UA >=1000 mg/dL (Negative); Leukocyte Esterase Urine Small (1+) (Negative); Nitrite Urine Positive (Negative); PH 5.5 (5.0-9.0); Specific Gravity - Urine >= 1.030 (1.005-1.025); UMIC TRIGGER UACC YES; Urine Blood Negative (Negative); Urine Ketones 40 mg/dL (Negative); Urine Protein Negative (Neg-Trace)
[2023-09-26 17:29] LABS: Bacteria Urine 4+ (None Seen); Hyaline Casts Urine 0-2 /LPF (0-2); RBC Urine 0-2 /HPF (0-2); Squamous Epithelial Cell Urine 0-2 /HPF (0-2); UACC Culture Trigger YES; WBC Urine >50 /HPF (0-5)
[2023-09-26 17:37] LABS: Basophils Percent Auto 0.5 % (0-2); Eosinophils Percent Auto 0.2 % (0-4); Hematocrit 33.9 % (37.0-47.0); Hemoglobin 11.5 g/dl (12.0-16.0); Imm Gran Abs Auto 0.02 X10*3/uL (0.00-0.03); Imm Gran Pct Auto 0.2 % (0.0-0.4); Lymphocytes Absolute Auto 0.5 X10*3/uL (1.2-4.9); Lymphocytes Percent Auto 6.2 % (20-40); Mean Corpuscular HGB Conc 33.9 g/dl (31.0-35.0); Mean Corpuscular Hemoglobin 31.5 pg (27.0-33.0); Mean Corpuscular Volume 92.9 fL (80.0-98.0); Mean Platelet Volume 10.9 fL (9.4-12.3); Monocytes Absolute Auto 0.5 X10*3/uL (0.1-1.2); Monocytes Percent Auto 6.2 % (2-11); Neutrophils Percent Auto 86.7 % (45-73); Platelet Count 252 X10*3/uL (160-400); Red Blood Count 3.65 X10*6/uL (4.20-5.50); Red Cell Distribution Width 12.6 % (11.0-16.0); White Blood Count 8.1 X10*3/uL (4.8-10.8)
--- NOTE | 2023-09-26 17:37 | ED_ITS ---
HPI - General Adult General Chief complaint: General Medical Stated complaint: CONFUSION FALL Time Seen by Provider: 09/26/23 17:06 Source: patient and EMS Mode of arrival: EMS Limitations: no limitations History of Present Illness HPI narrative: Patient comes to the emergency room complaining of multiple falls at home. Patient states that yesterday she fell trying to get up from her bed to the bathroom. Patient states that she believes it was a mechanical fall, had some trouble with her cane. Patient was able to drag herself to them couch and call for help. Patient states she was on the floor for approximately 15-20 minutes. Patient states that she is at high risk of falling, states throughout the month she has fallen multiple times. Patient desires self, states that she has to aids at home, 1 through [facility] and 1 through private pay. Patient states that she does not have enough help at home and is requesting if we can help her out to get more home care. From the falls, patient states that she has mild neck pain, no headache, denies loss of consciousness, states that she takes aspirin. Related Data Home Medications Medication Instructions Recorded Confirmed atorvastatin 40 mg tablet 40 mg PO DAILY 02/23/21 09/26/23 metformin 500 mg tablet 1,000 mg PO BID 02/23/21 09/26/23 cholecalciferol (vitamin D3) 25 25 mcg PO DAILY 02/27/22 09/26/23 mcg (1,000 unit) tablet (Vitamin D3) cyanocobalamin (vitamin B-12) 1 tab PO DAILY 02/27/22 09/26/23 1,000 mcg tablet glipizide 5 mg tablet 1 tab PO BID 02/27/22 09/26/23 metoprolol tartrate 50 mg tablet 1 tab PO BID 02/27/22 09/26/23 nitroglycerin 0.4 mg sublingual 1 tab sublingual DIRECTED 02/27/22 09/26/23 tablet bolus insulin pump, 200 unit 2 09/26/23 09/26/23 unit bolus insulin patch pump, 200 unit, disposable (CeQur Simplicity) insulin aspart U-100 100 unit/mL subcut 09/26/23 subcutaneous solution (Novolog U-100 Insulin aspart) propylthiouracil 50 mg tablet 50 mg PO BID 09/26/23 09/26/23 Allergies Allergy/AdvReac Type Severity Reaction Status Date / Time Penicillins [PCN] Allergy Unknown UNKNOWN Verified 05/25/23 18:34 Sulfa (Sulfonamide Allergy Unknown UNKNOWN Verified 05/25/23 18:34 Antibiotics) [SULFA(SULFONAMIDE ANTIBIOTICS)] heparin AdvReac Unknown Verified 05/25/23 18:34 penicillin Allergy Unknown rash Uncoded 06/17/17 00:00 Sulfa Allergy Unknown rash Uncoded 06/17/17 00:00 Review of Systems 2 Review of Systems: Constitutional : No Weight loss, No Fever, No Chills, No Night Sweats, No Fatigue, complaining of multiple falls ENT/Mouth : No Hearing loss, No Ear Pain, No Nasal Congestion, No Sinus Pain, No Hoarseness, No sore throat, No Rhinorrhea, No Swallowing Difficulty Eyes: No Eye Pain, No Swelling, No Redness, No Foreign Body, No Discharge, No Vision Changes Cardiovascular : No Chest Pain, No SOB, No Dyspnea on Exertion, No Orthopnea, No Edema, No Palpitations Respiratory : No Cough, No Sputum, No Wheezing, No Smoke Exposure, No Dyspnea Gastrointestinal : No Nausea, No Vomiting, No Diarrhea, No Constipation, No abdominal Pain, No Hematochezia, No Melena Genitourinary : no irregular bleeding, No Dysuria, No Urinary Frequency, No Hematuria, No Urinary Incontinence, No Urgency, No Flank Pain, No Urinary Flow Changes, No Hesitancy Musculoskeletal : Bleeding of mild neck pain No joint pain, No Myalgias, No Joint Swelling Skin : No Skin Lesions, No rash Neuro : No Weakness, No Numbness, No Paresthesias, No Loss of Consciousness, No Dizziness, No Headache Psych : No Anxiety/Panic, No Depression, No SI/HI/AH/VH, No Social Issues, Heme/Lymph: No Bruising, No Bleeding,No Lymphadenopathy Endocrine : No Polyuria, No Polydipsia, No Temperature Intolerance PMFSH Past Medical History Medical History (Updated 09/26/23 @ 22:13 by Amy Chapman MD) Hyperthyroidism Hyperlipidemia Nausea Pancreatitis Diabetes Surgical History H/O heart artery stent Social History Social History Household Members: None Housing: House Do you presently have visiting nurse or other home services: Yes Alcohol intake: never Patient Tobacco Use Status: Never used Tobacco Smoked in Last 30 Days: No Use of substances other than those prescribed or required for medical reasons: No Advance Directives: No Advance Directives Information Provided: No service: No Current occupational status: retired Current occupation: [employer] Physical Exam ED Vital Signs: Vital Signs - 24 hr 09/26/23 17:05 09/26/23 18:02 09/26/23 19:04 Temperature 97.9 F 97.5 F Pulse Rate 90 78 83 Respiratory Rate 18 12 16 Blood Pressure 129/88 134/62 132/59 L Pulse Oximetry 100 99 99 Oxygen Delivery Method Room Air Room Air Room Air 09/26/23 21:26 Temperature 97.6 F Pulse Rate 80 Respiratory Rate 16 Blood Pressure 158/76 H Pulse Oximetry 100 Oxygen Delivery Method Room Air BMI result Body Mass Index 18.8 Const Other: Appearance: Alert. Oriented X3. No acute distress. Borderline cachectic Eyes: Pupils equal, round and reactive to light. ENT: Pharynx normal. Neck: Normal inspection. Neck supple. No lymph nodes noted. No crepitus CVS: Normal heart rate and rhythm. Pulses normal. Normal S1 and S2 Respiratory: No respiratory distress. Breath sounds normal. No Wheezing. No rales Abdomen: Soft and nontender. No rigidity. No distention. Skin: Skin warm and dry. multiple superficial abrasions over the face and upper extremities and knees Extremities: No lower extremity edema. No Lacerations. No Rash Neuro: Oriented X 3. No motor deficit. No sensory deficit. Moving all extremities. No slurred speech. CN 2 through 12 grossly intact Psych: calm, cooperative, normal affect Course Course Course Narrative: -all of patient's labs and imaging pending -discussed with the patient that in order to assist her, we can get case management/physical therapy evaluation which can be done tomorrow. Patient agreeable with plan. Medications Administered Generic Name Dose Route Start Last Admin Trade Name Freq PRN Reason Stop Dose Admin Enoxaparin Sodium 40 mg 09/26/23 21:00 09/26/23 21:49 Enoxaparin Sodium 40 Mg/0.4 Ml Syringe SUBCUT 40 mg Q24H KIET Administration Insulin Glargine 10 unit 09/26/23 21:00 09/26/23 21:49 Insulin Glargine,Hum.Rec.Anlog 100 Unit/Ml 10 Ml Vial SUBCUT 10 unit BEDTIME KIET Administration Insulin Human Lispro 0 unit 09/26/23 21:00 09/26/23 21:48 Insulin Lispro 100 Unit/Ml 3 Ml Vial SUBCUT 6 unit QIDACHS KIET Administration Protocol Discontinued Medications Generic Name Dose Route Start Last Admin Trade Name Realq PRN Reason Stop Dose Admin Ceftriaxone Sodium 1 gm/ 50 mls @ 100 mls/hr 09/26/23 18:17 09/26/23 18:42 Sodium Chloride IV 09/26/23 18:46 100 mls/hr ONCE ONE Administration Sodium Chloride 1,000 mls @ 999 mls/hr 09/26/23 18:22 09/26/23 18:42 Ns IVCONT 09/26/23 19:22 999 mls/hr .Q1H1M ONE Administration Calcium Gluconate 2 gm in 100 mls @ 50 mls/hr 09/26/23 18:25 09/26/23 20:47 Calcium Gluconate IV 09/26/23 20:24 50 mls/hr ONCE ONE Administration Lactated Ringer's 1,000 mls @ 999 mls/hr 09/26/23 19:45 09/26/23 20:50 Lr IV 09/26/23 20:45 999 mls/hr .Q1H1M KIET Administration Insulin Human Regular 5 unit 09/26/23 18:22 09/26/23 18:47 Insulin Regular, Human 100 Unit/Ml 3 Ml Vial IVPUSH 09/26/23 18:23 5 unit ONCE ONE Administration Potassium Chloride 40 meq 09/26/23 18:24 09/26/23 18:42 Potassium Chloride Packet 20 Meq Packet PO 09/26/23 18:25 40 meq ONCE ONE Administration Potassium Chloride 40 meq 09/26/23 20:14 09/26/23 22:01 Potassium Chloride Packet 20 Meq Packet PO 09/26/23 20:15 40 meq ONCE ONE Administration Medical Decision Making Medical Decision Making MDM Narrative: -interpretation of labs, patient has hypokalemia, hyperglycemia, hypocalcemia. Also, patient has a urinary tract infection -patient's labs and patient's clinical presentation, patient will likely need to be admitted. -patient's potassium was repleted p.o. with 80 mEq, patient was given 5 units of insulin on 1 L of fluid, patient was given 2 g of calcium gluconate. For UTI patient treated with ceftriaxone IV -my interpretation of CT scan of the head: Periventricular hypoattenuation, unclear if this is a bleed? -radiology interpretation of CT scan: No acute intracranial injury. There is a minimally displaced fracture of the anterior inferior endplate of the C5 vertebral body and bony osteophyte. Unclear of this is acute. -patient has had multiple falls over the last couple of weeks. Unclear if this is new or not. Two pages knowledge, she has not been previously diagnosed with a cervical fracture -I discussed the patient with Dr. Chapa from the trauma team at [facility]. We will transfer the patient for a neurosurgery consult. Differential Diagnosis Differential Diagnoses: The differential diagnosis associated with the presentation includes (UTI, hypercalcemia, hypokalemia, hyperglycemia, deconditioning) Admission/Observation Consideration of admission/observation: Escalation of care including admission/observation considered Consult Healthcare Provider Management of the patient was discussed with: Hospitalist (Dr. Blake agrees to admit the patient pending on imaging results.) and Public Service Officer Lab Data MDM Lab Attestation statement: I reviewed the patient's lab results. 09/26/23 17:33 09/26/23 17:10 Labs: Lab Results 09/26/23 09/26/23 09/26/23 Range/Units 16:51 17:10 17:29 WBC (4.8-10.8) X10*3/uL RBC (4.20-5.50) X10*6/uL Hgb (12.0-16.0) g/dl Hct (37.0-47.0) % MCV (80.0-98.0) fL MCH (27.0-33.0) pg MCHC (31.0-35.0) g/dl RDW (11.0-16.0) % Plt Count (160-400) X10*3/uL MPV (9.4-12.3) fL Immature Gran % (Auto) (0.0-0.4) % Neut % (Auto) (45-73) % Lymph % (Auto) (20-40) % [place] % (Auto) (2-11) % Eos % (Auto) (0-4) % Baso % (Auto) (0-2) % Lymph # (Auto) (1.2-4.9) X10*3/uL [place] # (Auto) (0.1-1.2) X10*3/uL Eos # (Auto) (0.0-0.4) X10*3/uL Baso # (Auto) (0.0-0.2) X10*3/uL Abs Immat Gran (auto) (0.00-0.03) X10*3/uL Absolute Neuts (auto) (2.0-8.3) x10*3/uL Absolute Nucleated RBC (0.0-0.012) X10*3/uL Nucleated RBC % (auto) (0.0-0.2) /100WBC PT 9.8 L (11.1-13.3) SEC INR 0.8 L (0.9-1.1) Sodium 138 (135-145) mmol/L Potassium 3.0 L D (3.3-5.1) mmol/L Chloride 112 H (96-108) mmol/L Carbon Dioxide 14 L (22-29) mmol/L Anion Gap 15 (12-20) BUN 12 (9-16) mg/dL Creatinine 0.62 (0.5-1.4) mg/dL Estim Creat Clear Calc 55.3 Estimated GFR > 60 POC Glucose 432 H* (60-115) mg/dL Random Glucose 320 H (60-115) mg/dL Calcium 6.0 L* D (8.4-10.2) mg/dL Total Bilirubin 0.4 (0.0-1.0) mg/dL AST 14 (5-31) U/L ALT 30 (0-31) U/L Alkaline Phosphatase 66 (39-117) U/L Troponin I High Sens 3.5 (<3.5-17.0) ng/L Total Protein 3.8 L (6.5-8.0) g/dL Albumin 2.2 L (3.5-5.0) g/dL Beta-Hydroxybutyrate 1.88 H (0.02-0.27) mmol/L Urine Color Yellow Urine Appearance Cloudy Urine pH 5.5 (5.0-9.0) Ur Specific [place] >= 1.030 H (1.005-1.025) Urine Protein Negative (Neg-Trace) mg/dL Urine Glucose (UA) >=1000 H (Negative) mg/dL Urine Ketones 40 (Negative) mg/dL Urine Blood Negative (Negative) Urine Nitrite Positive H (Negative) Ur Leukocyte Esterase Small (1+) H (Negative) Urine RBC 0-2 (0-2) /HPF Urine WBC >50 H (0-5) /HPF Ur Squamous Epith Cells 0-2 (0-2) /HPF Urine Bacteria 4+ (None Seen) Hyaline Casts 0-2 (0-2) /LPF Urine Opiates Screen Not Detected (Not Detect) Urine Fentanyl Screen Not Detected (Not Detect) Ur Barbiturates Screen Not Detected (Not Detect) Ur Phencyclidine Scrn Not Detected (Not Detect) Ur Amphetamines Screen Not Detected (Not Detect) U Benzodiazepines Scrn Not Detected (Not Detect) Urine Cocaine Screen Not Detected (Not Detect) U Marijuana (THC) Screen Not Detected (Not Detect) 09/26/23 09/26/23 Range/Units 17:33 21:26 WBC 8.1 (4.8-10.8) X10*3/uL RBC 3.65 L (4.20-5.50) X10*6/uL Hgb 11.5 L (12.0-16.0) g/dl Hct 33.9 L (37.0-47.0) % MCV 92.9 (80.0-98.0) fL MCH 31.5 (27.0-33.0) pg MCHC 33.9 (31.0-35.0) g/dl RDW 12.6 (11.0-16.0) % Plt Count 252 (160-400) X10*3/uL MPV 10.9 (9.4-12.3) fL Immature Gran % (Auto) 0.2 (0.0-0.4) % Neut % (Auto) 86.7 H (45-73) % Lymph % (Auto) 6.2 L (20-40) % [place] % (Auto) 6.2 (2-11) % Eos % (Auto) 0.2 (0-4) % Baso % (Auto) 0.5 (0-2) % Lymph # (Auto) 0.5 L (1.2-4.9) X10*3/uL [place] # (Auto) 0.5 (0.1-1.2) X10*3/uL Eos # (Auto) 0.0 (0.0-0.4) X10*3/uL Baso # (Auto) 0.0 (0.0-0.2) X10*3/uL Abs Immat Gran (auto) 0.02 (0.00-0.03) X10*3/uL Absolute Neuts (auto) 7.0 (2.0-8.3) x10*3/uL Absolute Nucleated RBC 0.000 (0.0-0.012) X10*3/uL Nucleated RBC % (auto) 0.0 (0.0-0.2) /100WBC PT (11.1-13.3) SEC INR (0.9-1.1) Sodium (135-145) mmol/L Potassium (3.3-5.1) mmol/L Chloride (96-108) mmol/L Carbon Dioxide (22-29) mmol/L Anion Gap (12-20) BUN (9-16) mg/dL Creatinine (0.5-1.4) mg/dL Estim Creat Clear Calc Estimated GFR POC Glucose 259 H (60-115) mg/dL Random Glucose (60-115) mg/dL Calcium (8.4-10.2) mg/dL Total Bilirubin (0.0-1.0) mg/dL AST (5-31) U/L ALT (0-31) U/L Alkaline Phosphatase (39-117) U/L Troponin I High Sens (<3.5-17.0) ng/L Total Protein (6.5-8.0) g/dL Albumin (3.5-5.0) g/dL Beta-Hydroxybutyrate (0.02-0.27) mmol/L Urine Color Urine Appearance Urine pH (5.0-9.0) Ur Specific [place] (1.005-1.025) Urine Protein (Neg-Trace) mg/dL Urine Glucose (UA) (Negative) mg/dL Urine Ketones (Negative) mg/dL Urine Blood (Negative) Urine Nitrite (Negative) Ur Leukocyte Esterase (Negative) Urine RBC (0-2) /HPF Urine WBC (0-5) /HPF Ur Squamous Epith Cells (0-2) /HPF Urine Bacteria (None Seen) Hyaline Casts (0-2) /LPF Urine Opiates Screen (Not Detect) Urine Fentanyl Screen (Not Detect) Ur Barbiturates Screen (Not Detect) Ur Phencyclidine Scrn (Not Detect) Ur Amphetamines Screen (Not Detect) U Benzodiazepines Scrn (Not Detect) Urine Cocaine Screen (Not Detect) U Marijuana (THC) Screen (Not Detect) Independent Interpretation I performed an independent interpretation of an: CT Scan Radiology Impression Discussion of test interpretation with radiology: I have reviewed the radiologist's reading. Radiologist Impression: FINDINGS: There is a minimally displaced fracture of the anterior inferior endplate of the C5 vertebral body and body bony osteophyte. No other fracture is seen. Bone alignment is normal. Degenerative spondylosis at C4-C5, C5-C6 and C6-C7. There is disc space narrowing at C5-C6 and C6-C7. There are degenerative changes at the C1 dens articulation. 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 No prevertebral soft tissue swelling. Bilateral carotid calcification. Prominent heterogeneous thyroid gland. While pleural parenchymal scarring at the left lung apex. CT/CT cervical spine wo IV con IMPRESSION: Minimally displaced fracture of the anterior inferior endplate of the C5 vertebral body and bony osteophyte. Multilevel degenerative changes greatest at C5-C6 and C6-C7. Critical Care Time Critical Care Time Critical Care Time: Yes Total Critical Care Time: 60 Attestation: I have personally provided critical care time. Time includes review of lab data, radiology results, discussion with consultants, and monitoring for potential decompensation. Intervention performed as documented. Discharge Plan Discharge Clinical Impression: Multiple falls, Hypocalcemia, Acute hypokalemia, Acute hyperglycemia, C5 cervical fracture Patient Disposition: [facility] Transfer Details: To [facility] ER to ER for neurosurgery consult Prescriptions: No Action cyanocobalamin (vitamin B-12) 1,000 mcg tablet 1 tab PO DAILY metoprolol tartrate 50 mg tablet 1 tab PO BID glipizide 5 mg tablet 1 tab PO BID cholecalciferol (vitamin D3) [Vitamin D3] 25 mcg (1,000 unit) Tablet 25 mcg PO DAILY nitroglycerin 0.4 mg tablet, sublingual 1 tab sublingual DIRECTED propylthiouracil 50 mg tablet 50 mg PO BID insulin aspart U-100 [Novolog U-100 Insulin aspart] 100 unit/mL solution subcut (DME) CeQur Simplicity 2 unit device MISCELLANEOUS metformin 500 mg tablet 1,000 mg PO BID atorvastatin 40 mg tablet 40 mg PO DAILY
--- NOTE | 2023-09-26 17:40 | PC.NURSE ---
Pt arrived via ambulance from [place], reports that she fell yesterday and has been having very high sugars . Pt is calm and cooperative, A&O x4, skin pwd, some alterations in skin integrity. There is some small bruising spots along both upper extremities as well as an abrasion on her forehead due to the fall yesterday. Pt reports having some neck stiffness at this time. Pt has 20g IV in LFA, she was placed on bus driver/monitor, VSS. No apparent distress at this time
[2023-09-26 17:41] LABS: INTERNATIONAL NORM RATIO 0.8 (0.9-1.1); Prothrombin Time 9.8 SEC (11.1-13.3)
[2023-09-26 17:41] LABS: MANUAL DIFF FLAG NO
[2023-09-26 17:48] LABS: Alanine Aminotransferase 30 U/L (0-31); Albumin Level 2.2 g/dL (3.5-5.0); Alkaline Phosphatase 66 U/L (39-117); Anion Gap 15 (12-20); Aspartate Amino Transferase 14 U/L (5-31); Bilirubin Total 0.4 mg/dL (0.0-1.0); Blood Urea Nitrogen 12 mg/dL (9-16); Carbon Dioxide 14 mmol/L (22-29); Chloride 112 mmol/L (96-108); Creatinine Clr Calc Pharmacy 55.3; Estimated Glomerular Filt Rate > 60; Glucose Random 320 mg/dL (60-115); Sodium 138 mmol/L (135-145); Total Protein 3.8 g/dL (6.5-8.0)
[2023-09-26 17:50] LABS: Amphetamine Screen Urine Not Detected (Not Detect); Barbiturates, Urine Not Detected (Not Detect); Benzodiazepines Screen Urine Not Detected (Not Detect); Cannabinoid Screen Urine Not Detected (Not Detect); Cocaine Screen Urine Not Detected (Not Detect); Fentanyl, urine Not Detected (Not Detect); Opiate Screen Urine Not Detected (Not Detect); Phencyclidine Screen Urine Not Detected (Not Detect)
[2023-09-26 18:02] VITALS: BP 134/62; PULSE 78; RESP 12; O2SAT 99
[2023-09-26 18:08] LABS: Troponin-I High Sensitivity 3.5 ng/L (<3.5-17.0)
[2023-09-26] MEDS: 0.9 % Sodium Chloride 1,000 ML 999 ML IVCONT (18:42)
[2023-09-26] MEDS: Potassium Chloride Packet 20 MEQ PACKET 40 MEQ PO ×2 (18:42→22:01)
[2023-09-26] MEDS: cefTRIAXone sodium 1 GM in 0.9 % Sodium Chloride 50 ML IV (18:42)
[2023-09-26] MEDS: Insulin Regular, Human 100 UNIT/ML 3 ML VIAL IVPUSH (18:47)
[2023-09-26 19:04] VITALS: BP 132/59; PULSE 83; RESP 16; TEMP 36.4; O2SAT 99
[2023-09-26 19:04] LABS: Beta-Hydroxybutyrate 1.88 mmol/L (0.02-0.27)
--- NOTE | 2023-09-26 20:12 | P.HPHOSP_ITS ---
<Statement entered by Twin Blake MD - 09/27/23 02:28> PATIENT FOUND TO HAVE CERVICAL FRACTURE AND WAS TRANSFERRED OUT BY ER team. History of Present Illness Date of Service: 09/26/23 Attending physician on admission: Twin Blake Chief Complaint: falls 87-year-old female with history of hypertension, hyperthyroidism, insulin- dependent type 2 diabetes, hyperlipidemia, vitamin B12 deficiency presents to the ED from home where she resides alone for evaluation of multiple falls. She states that she was trying to get up from her bed to go to the bathroom yesterday and had a mechanical fall. She ambulates with a cane at baseline but has been unsteady on her feet. Denies any prodrome leading up to the falls including lightheadedness, shortness of breath, palpitations, or chest pain. She was on the ground for approximately 15-20 minutes before calling for help. She had presented today to her nurses educator and was found to have hyperglycemia and was sent via ambulance from [facility]. She states that she has not been eating to help manage her sugars but then states that her thyroid causes her to lose weight so she feels like she has to eat. She has also been noncompliant with her insulin pump. On arrival, vital signs stable. Hematology studies unremarkable. Renal function normal. Potassium 3.0, chloride 112, CO2 14, anion gap 15. POC glucose on arrival 432, calcium 6.0. Troponin 3.5. Total protein 3.8, albumin 2.2, beta hydroxybutyrate 1.88. Urinalysis significant for 1+ leukocytes, positive nitrites, significant urinary glucose, elevated specific gravity, positive urinary sediment, and 4+ bacteria. Urine tox screen negative. Head CT and cervical spine CT pending. In the ED has received 5 units of regular insulin, 1 L IV NS, and forty mEq potassium chloride. She has also received 1 g IV ceftriaxone. Review of Systems 2 Review of Systems: General: No fevers, malaise, unintentional weight loss HEENT: No blurred vision, diplopia. No sore throat, nasal congestion, rhinorrhea, sinus pain, ear pain Cardiovascular: No chest pain, palpitations, or leg edema Respiratory: No shortness of breath, wheezing, cough GI: No abdominal pain, nausea, vomiting, diarrhea, constipation, melena, hematochezia : No dysuria, hematuria, increased urinary frequency, decreased urinary output MSK: No myalgia, back pain. +R knee pain, +falls Neuro: No headaches, weakness, paresthesias Skin: No rashes or lesions FORMERLY [facility], [facility]–1983 Medical History (Updated 09/27/23 @ 00:00 by Edie Fofana) Hyperthyroidism Hyperlipidemia Nausea Pancreatitis Diabetes Surgical History H/O heart artery stent Social History Household Members: None Housing: House Do you presently have visiting nurse or other home services: Yes Alcohol intake: never Patient Tobacco Use Status: Never used Tobacco Smoked in Last 30 Days: No Use of substances other than those prescribed or required for medical reasons: No Advance Directives: No Advance Directives Information Provided: No service: No Current occupational status: retired Current occupation: [employer] Meds Allergies Allergy/AdvReac Type Severity Reaction Status Date / Time Penicillins [PCN] Allergy Unknown UNKNOWN Verified 05/25/23 18:34 Sulfa (Sulfonamide Allergy Unknown UNKNOWN Verified 05/25/23 18:34 Antibiotics) [SULFA(SULFONAMIDE ANTIBIOTICS)] heparin AdvReac Unknown Verified 05/25/23 18:34 penicillin Allergy Unknown rash Uncoded 06/17/17 00:00 Sulfa Allergy Unknown rash Uncoded 06/17/17 00:00 Active Medications: Current Medications Acetaminophen (Acetaminophen 325 Mg Tablet) 650 mg PO Q6H PRN PRN Reason: Pain, Mild (Pain Scale 1-3) Docusate Sodium (Docusate Sodium 100 Mg Capsule) 100 mg PO DAILY PRN PRN Reason: Constipation Enoxaparin Sodium (Enoxaparin Sodium 40 Mg/0.4 Ml Syringe) 40 mg SUBCUT Q24H KIET Calcium Gluconate (Calcium Gluconate) 2 gm in 100 mls @ 50 mls/hr IV ONCE ONE Stop: 09/26/23 20:24 Lactated Ringer's (Lr) 1,000 mls @ 999 mls/hr IV .Q1H1M KIET Stop: 09/26/23 20:45 Ondansetron HCl (Ondansetron Hcl 4 Mg/2 Ml Vial) 4 mg IVPUSH Q8H PRN PRN Reason: Nausea and Vomiting Sodium Chloride (0.9 % Sodium Chloride Flush 3 Ml Syringe) 3 ml IVFLUSH QSHIFT [facility] Home Medications Medication Instructions Recorded Confirmed Last Taken Type atorvastatin 40 mg tablet 40 mg PO DAILY 02/23/21 09/26/23 Unknown History metformin 500 mg tablet 1,000 mg PO BID 02/23/21 09/26/23 Unknown History cholecalciferol (vitamin D3) 25 25 mcg PO DAILY 02/27/22 09/26/23 Unknown History mcg (1,000 unit) tablet (Vitamin D3) cyanocobalamin (vitamin B-12) 1 tab PO DAILY 02/27/22 09/26/23 Unknown History 1,000 mcg tablet glipizide 5 mg tablet 1 tab PO BID 02/27/22 09/26/23 Unknown History metoprolol tartrate 50 mg tablet 1 tab PO BID 02/27/22 09/26/23 Unknown History nitroglycerin 0.4 mg sublingual 1 tab sublingual DIRECTED 02/27/22 09/26/23 Unknown History tablet bolus insulin pump, 200 unit 2 09/26/23 09/26/23 Unknown History unit bolus insulin patch pump, 200 unit, disposable (CeQur Simplicity) insulin aspart U-100 100 unit/mL subcut 09/26/23 Unknown History subcutaneous solution (Novolog U-100 Insulin aspart) propylthiouracil 50 mg tablet 50 mg PO BID 09/26/23 09/26/23 Unknown History Physical Exam 2 Vital Signs and Narrative: Vital Signs: Last Vital Signs Temp 97.5 F 09/26/23 19:04 Pulse 83 09/26/23 19:04 Resp 16 09/26/23 19:04 BP 132/59 L 09/26/23 19:04 Pulse Ox 99 09/26/23 19:04 O2 Del Method Room Air 09/26/23 19:04 BMI result Body Mass Index 18.8 Constitutional - Awake and Alert, cachectic appearing, No apparent distress Eyes - PERRLA, EOMI Cardiovascular - S1S2, RRR, No edema Respiratory - Normal lung expansion, Normal respiratory effort, No respiratory distress, CTA bilaterally Gastrointestinal - NT / ND; +BS; No rebound or guarding Extremities - no calf tenderness bilaterally, no swelling Musculoskeletal - Normal inspection, normal ROM Skin - Warm/Dry. Skin tear right knee Neurological - Alert & oriented x3, but somewhat confused with poor judgement with regard to eating and medical management. CN II-XII in tact, 4/5 strength BUE and BLE Results Labs 09/26/23 17:33 09/26/23 17:10 Labs: Laboratory Results - last 24 hr 09/26/23 09/26/23 09/26/23 16:51 17:10 17:29 MCV MCH MCHC RDW Plt Count MPV Immature Gran % (Auto) Neut % (Auto) Lymph % (Auto) [place] % (Auto) Eos % (Auto) Baso % (Auto) Lymph # (Auto) [place] # (Auto) Eos # (Auto) Baso # (Auto) Abs Immat Gran (auto) Absolute Neuts (auto) Absolute Nucleated RBC Nucleated RBC % (auto) PT 9.8 L INR 0.8 L Anion Gap 15 Estim Creat Clear Calc 55.3 Estimated GFR > 60 POC Glucose 432 H* Random Glucose 320 H Calcium 6.0 L* D Total Bilirubin 0.4 AST 14 ALT 30 Alkaline Phosphatase 66 Total Protein 3.8 L Albumin 2.2 L Beta-Hydroxybutyrate 1.88 H Urine Color Yellow Urine Appearance Cloudy Urine pH 5.5 Ur Specific [place] >= 1.030 H Urine Protein Negative Urine Glucose (UA) >=1000 H Urine Ketones 40 Urine Blood Negative Urine Nitrite Positive H Ur Leukocyte Esterase Small (1+) H Urine RBC 0-2 Urine WBC >50 H Ur Squamous Epith Cells 0-2 Urine Bacteria 4+ Hyaline Casts 0-2 Urine Opiates Screen Not Detected Urine Fentanyl Screen Not Detected Ur Barbiturates Screen Not Detected Ur Phencyclidine Scrn Not Detected Ur Amphetamines Screen Not Detected U Benzodiazepines Scrn Not Detected Urine Cocaine Screen Not Detected U Marijuana (THC) Screen Not Detected 09/26/23 17:33 MCV 92.9 MCH 31.5 MCHC 33.9 RDW 12.6 Plt Count 252 MPV 10.9 Immature Gran % (Auto) 0.2 Neut % (Auto) 86.7 H Lymph % (Auto) 6.2 L [place] % (Auto) 6.2 Eos % (Auto) 0.2 Baso % (Auto) 0.5 Lymph # (Auto) 0.5 L [place] # (Auto) 0.5 Eos # (Auto) 0.0 Baso # (Auto) 0.0 Abs Immat Gran (auto) 0.02 Absolute Neuts (auto) 7.0 Absolute Nucleated RBC 0.000 Nucleated RBC % (auto) 0.0 PT INR Anion Gap Estim Creat Clear Calc Estimated GFR POC Glucose Random Glucose Calcium Total Bilirubin AST ALT Alkaline Phosphatase Total Protein Albumin Beta-Hydroxybutyrate Urine Color Urine Appearance Urine pH Ur Specific [place] Urine Protein Urine Glucose (UA) Urine Ketones Urine Blood Urine Nitrite Ur Leukocyte Esterase Urine RBC Urine WBC Ur Squamous Epith Cells Urine Bacteria Hyaline Casts Urine Opiates Screen Urine Fentanyl Screen Ur Barbiturates Screen Ur Phencyclidine Scrn Ur Amphetamines Screen U Benzodiazepines Scrn Urine Cocaine Screen U Marijuana (THC) Screen Assessment and Plan (1) DKA (diabetic ketoacidosis): Status: Acute (2) Acute hypokalemia: Status: Inactive (3) Hypocalcemia: Status: Inactive (4) Moderate malnutrition: Status: Acute (5) Multiple falls: Status: Inactive Plan 87-year-old female with history of hypertension, hyperthyroidism, insulin- dependent type 2 diabetes, hyperlipidemia, vitamin B12 deficiency admitted for further management of DKA, malnutrition, and falls # acute diabetic ketoacidosis -hyperglycemia 460 on arrival improved with 1 L IV NS and 5 units regular insulin. No IV drip indicated -anion gap closed a 15. Beta hydroxybutyrate 1.88. -give additional 1 L IV NS -POC glucose -diabetic diet -noncompliant with insulin pump. Initiate Lantus 10 units -add Humalog sliding scale -follow BMP # UTI -IV ceftriaxone (initiated 09/26) -follow cultures # acute hypokalemia -given 40 mEq KCL -additional 40 mEq KCL given -follow BMP # acute hypocalcemia -corrected calcium 7.4 -given 2 g IV calcium gluconate in the ED -initiate p.o. calcium/vitamin-D -follow Ca # mechanical falls -PT evaluation # moderate malnutrition -nutrition to follow -Glucerna b.i.d. # hyperthyroidism -continue PTU # hyperlipidemia -continue statin # suspected cognitive impairment -patient demonstrating poor judgment in practicing starvation for management of diabetes -monitor mentation DVT prophylaxis-Lovenox Full code Patient requires inpatient stay at least 2 midnights for management of DKA requiring IV fluid resuscitation, IV insulin, electrolyte repletion, close monitoring glucose levels, renal function and electrolytes Time Spent With Patient Time: Total time managing care of this patient today ____ minutes. Quality Stroke Does the patient have a stroke diagnosis?: No VTE Prior VTE?: No VTE Risk Level:: Medical - moderate - high VTE Device Contraindication: Treatment Not Indicated VTE Drug Contraindication: N/A - Med Ordered
--- NOTE | 2023-09-26 20:34 | PHA.MEDREC ---
Pharmacy Consult ? Medication Reconciliation Pharmacy has completed the medication reconciliation. Patient confirmed medications. Reports taking glipizide, but medication has not been filled since may 2023 x 30 days. Patient has an insulin patch, reports that she is not wearing it. Sofie Mon, PharmD
[2023-09-26] MEDS: Calcium Gluconate/NaCl,Iso-Osm 2 GM/100 ML PLAST..BAG IV (20:47)
[2023-09-26] MEDS: Lactated Ringers 1,000 ML 999 ML IV (20:50)
[2023-09-26 21:26] VITALS: BP 158/76; PULSE 80; RESP 16; TEMP 36.4; O2SAT 100
--- NOTE | 2023-09-26 21:30 | PC.NURSE ---
Assumed care of patient at 1900. PT vital signs stable bp-132/59, temp 97.5, pulse 83, 16 rr, 99% o2, PT denies pain at this time . Medications administered as per JAN. Purewick placed by technical assistance consultant. C collar placed due to c5 fracture. Spinal precautions in place. PT requesting food, informed PT that this RN was unable to provide as PT is supine due to spinal precautions. PT understood. Patient belongings completed by technical assistance consultant. Plan of care ongoing
[2023-09-26 21:32] LABS: Glucose, Whole Blood 259 mg/dL (60-115)
[2023-09-26] MEDS: Insulin Lispro 100 UNIT/ML 3 ML VIAL SUBCUT (21:48)
[2023-09-26] MEDS: Enoxaparin Sodium 40 MG/0.4 ML SYRINGE SUBCUT (21:49)
[2023-09-26] MEDS: Insulin Glargine,Hum.rec.anlog 100 UNIT/ML 10 ML VIAL 10 UNIT SUBCUT (21:49)
--- NOTE | 2023-09-26 23:06 | PC.NURSE ---
PT transferring to [facility] ED for neuro surgical consult. Attempted call to ED no answer and to family on file.
== END 2023-09-26 23:07 | disposition short-term general hospital (02) ==
PROVIDERS: Emergency Provider Emergency Medicine; PCP Internal Medicine
DX: S12.400A Unspecified displaced fracture of fifth cervical vertebra, initial encounter for closed fracture (principal); R51.9 Headache, unspecified; M54.2 Cervicalgia; E11.10 Type 2 diabetes mellitus with ketoacidosis without coma; E87.6 Hypokalemia; E83.51 Hypocalcemia; E44.0 Moderate protein-calorie malnutrition; R94.31 Abnormal electrocardiogram [ECG] [EKG]; R29.6 Repeated falls; W01.10XA Fall on same level from slipping, tripping and stumbling with subsequent striking against unspecified object, initial encounter; Y93.9 Activity, unspecified; Y92.9 Unspecified place or not applicable; Y99.9 Unspecified external cause status; Z79.4 Long term (current) use of insulin; Z79.899 Other long term (current) drug therapy
CPT/HCPCS: 36415; 70450; 72125; 80053; 80307; 81001; 82010; 82947; 84484; 85025; 85610; 87086; 87088; 87186; 93005; 96372; 96374; 96375; 99285; J0613; J0696; J1650

== ENCOUNTER → 2023-09-26 17:53 | Outpatient (BNV) | payer MEDICARE, OTHER, SELFPAY | PROVIDERS: Emergency Provider Emergency Medicine; PCP Internal Medicine; Visit Provider Physician Assistant | DX: E11.10 Type 2 diabetes mellitus with ketoacidosis without coma (principal); E87.6 Hypokalemia; E83.51 Hypocalcemia; E44.0 Moderate protein-calorie malnutrition; R29.6 Repeated falls | CPT/HCPCS: 99284 ==

== ENCOUNTER 2023-10-19 16:28 | Emergency (ER) | payer MEDICARE, OTHER, SELFPAY ==
[2023-10-19 16:50] VITALS: BP 122/60; BP 139/61; PULSE 85; PULSE 90; RESP 16; TEMP 36.8; O2SAT 100; O2SAT 98; BMI 18.4
[2023-10-19 16:55] LABS: Glucose, Whole Blood 326 mg/dL (60-115)
--- NOTE | 2023-10-19 17:03 | PC.NURSE ---
pt biba from home. pt reports home care nurse did POC and pt glucose came back at 401. upon ems arrival pt POC 395. upon arrival to the ED pt glucose 326. pt reports being discharged from rehab and not given any medications to use to control blood sugars. pt has wound on coccyx that had dressing changed yesterday by rehab staff prior to discharge. pt denies blurriness in vision, dizziness, nausea and voting. pt has C5 fracture, has C collar in place. pt normal sinus on tele 86-88.
--- NOTE | 2023-10-19 17:06 | ED.GENADULT ---
HPI - General Adult General Chief complaint: General Medical Stated complaint: hyperglycemia. blood glucose of 395 Time Seen by Provider: 10/19/23 16:50 History of Present Illness HPI narrative: The patient is an 88-year-old woman who says she is a type 2 diabetic. He was last seen at this emergency room 3 weeks ago when she fell and sustained a C-spine fracture. She was transferred to [facility] where she was treated non operatively. She has an [place] collar. After discharge from [facility] she went to the [facility]. She was discharged from the rehab facility yesterday but says that she was discharged without medications. Today a visiting nurse came in she was found to be hyperglycemic but apparently did not have any of her regular medications and so she was sent to the hospital. The patient says that she does not feel ill but she is hoping she can get some medications at least to get her blood sugar under some better control. Her paperwork from the rehab facility indicates that she is on multiple medications for her diabetes including Lantus insulin, glipizide, metformin, and pioglitazone. She denies any fever, sweats, chills. Related Data Home Medications Medication Instructions Recorded Confirmed atorvastatin 40 mg tablet 40 mg PO DAILY 02/23/21 09/26/23 metformin 500 mg tablet 1,000 mg PO BID 02/23/21 09/26/23 cholecalciferol (vitamin D3) 25 25 mcg PO DAILY 02/27/22 09/26/23 mcg (1,000 unit) tablet (Vitamin D3) cyanocobalamin (vitamin B-12) 1 tab PO DAILY 02/27/22 09/26/23 1,000 mcg tablet glipizide 5 mg tablet 1 tab PO BID 02/27/22 09/26/23 metoprolol tartrate 50 mg tablet 1 tab PO BID 02/27/22 09/26/23 nitroglycerin 0.4 mg sublingual 1 tab sublingual DIRECTED 02/27/22 09/26/23 tablet bolus insulin pump, 200 unit 2 09/26/23 09/26/23 unit bolus insulin patch pump, 200 unit, disposable (CeQur Simplicity) insulin aspart U-100 100 unit/mL subcut 09/26/23 subcutaneous solution (Novolog U-100 Insulin aspart) propylthiouracil 50 mg tablet 50 mg PO BID 09/26/23 09/26/23 Previous Rx's Medication Instructions Recorded ciprofloxacin HCl 250 mg tablet 250 mg PO BID #10 tabs 10/19/23 glipizide 5 mg tablet 5 mg PO BID #28 tabs 10/19/23 metformin 500 mg tablet,extended 500 mg PO BID #28 tabs 10/19/23 release 24hr metoprolol tartrate 25 mg tablet 25 mg PO BID #28 tabs 10/19/23 pioglitazone 30 mg tablet 30 mg PO DAILY #14 tabs 10/19/23 Allergies Allergy/AdvReac Type Severity Reaction Status Date / Time Penicillins [PCN] Allergy Unknown UNKNOWN Verified 10/19/23 16:53 Sulfa (Sulfonamide Allergy Unknown UNKNOWN Verified 10/19/23 16:53 Antibiotics) [SULFA(SULFONAMIDE ANTIBIOTICS)] heparin AdvReac Unknown Verified 10/19/23 16:53 penicillin Allergy Unknown rash Uncoded 10/19/23 16:53 Sulfa Allergy Unknown rash Uncoded 10/19/23 16:53 Review of Systems Review of Systems: Yes all other systems are reviewed and are negative [facility] Past Medical History Medical History (Updated 10/19/23 @ 18:55 by Juan Carlos Majano MD) Hyperthyroidism Hyperlipidemia Nausea Pancreatitis Diabetes Surgical History H/O heart artery stent Social History Household Members: None Housing: House Do you presently have visiting nurse or other home services: Yes Alcohol intake: never Patient Tobacco Use Status: Never used Tobacco Smoked in Last 30 Days: No Use of substances other than those prescribed or required for medical reasons: No Advance Directives: No service: No Current occupational status: retired Current occupation: [employer] Physical Exam ED Vital Signs: Vital Signs - 24 hr 10/19/23 16:50 10/19/23 19:03 Temperature 98.2 F 97.7 F Pulse Rate 85 92 Respiratory Rate 16 18 Blood Pressure 139/61 120/49 L Pulse Oximetry 100 98 Oxygen Delivery Method Room Air Room Air BMI result Body Mass Index 18.4 Const Other: Patient is a frail looking 88-year-old who was awake and alert. She is wearing an [place] cervical collar. She does not appear acutely ill or in distress. She is pleasant and cooperative. HENMT Other: The face is symmetrical. Mucous membranes moist. Eyes Other: Pupils are small, round, and equal, extraocular movements are intact. Neck Other: The neck is in an [place] cervical collar Resp Other: Lungs are clear bilaterally Cardio Other: The patient has a regular rate and rhythm with no murmur. GI Other: The abdomen is soft and nontender Skin Other: The skin is dry and unremarkable. Neuro Other: The patient is awake and alert and seems well oriented. Cognition seems intact. No facial asymmetry. Speech is clear. Eye movements are normal. She moves her extremities symmetrically. She seems grossly neurologically intact. Extrem Other: No peripheral edema Medications Administered Discontinued Medications Generic Name Dose Route Start Last Admin Trade Name Freq PRN Reason Stop Dose Admin Glipizide 5 mg 10/19/23 17:19 10/19/23 18:22 Glipizide 5 Mg Tablet PO 10/19/23 17:20 5 mg ONCE ONE Administration Insulin Glargine 12 unit 10/19/23 17:19 10/19/23 17:43 Insulin Glargine,Hum.Rec.Anlog 100 Unit/Ml 10 Ml Vial SUBCUT 10/19/23 17:20 12 unit ONCE ONE Administration Metformin HCl 500 mg 10/19/23 17:19 10/19/23 17:43 Metformin Hcl Er 500 Mg Tab.Er.24h PO 10/19/23 17:20 500 mg ONCE ONE Administration Metoprolol Tartrate 25 mg 10/19/23 17:19 10/19/23 17:43 Metoprolol Tartrate 25 Mg Tablet PO 10/19/23 17:20 25 mg ONCE ONE Administration Protocol Pioglitazone HCl 30 mg 10/19/23 17:19 10/19/23 18:22 Pioglitazone Hcl 15 Mg Tablet PO 10/19/23 17:20 30 mg ONCE ONE Administration Propylthiouracil 50 mg 10/19/23 17:19 10/19/23 18:22 Propylthiouracil 50 Mg Tablet PO 10/19/23 17:20 50 mg ONCE ONE Administration Medical Decision Making Medical Decision Making [facility] Narrative: The patient is 3 weeks following fall which resulted in a C5 vertebral body fracture. She has been seen at [facility] and this was managed non operatively with an [place] collar that she will need to wear for several more weeks. She was discharged from [facility] to a rehab facility. She was discharged to rehab facility yesterday. Apparently her medications were not appropriately provided for her to continue her medications at home. A visiting nurse today measured a blood sugar of 400 and called an ambulance and the patient was brought here. It is not clear what happened to the patient's regular medications that she was taking before her recent hospitalization but the patient, and her daughter, with whom I spoke on the phone and who lives in [place], confirm that the patient does not have any of her regular medications at home at this point. Clinically the patient seems well. She has a mild worsening of her anemia and a rise in her BUN. For the rectal exam that was normal. No melena. The patient is very unhappy that she is here in the emergency room. She hopes to get so that she can return home. I spoke to the patient's daughter as well. I can send prescriptions for the patient's capsules and tablets but it does not sound as though the patient is set up for insulin use at home. Since the patient is on several medications for her diabetes other than her Lantus I think she will probably be okay without Lantus for a few days. The patient received all of her usual medications for this evening here in the emergency room with the exception of ciprofloxacin. Apparently the patient had been diagnosed with a UTI the day before discharge from the rehab facility and she was prescribed a course of ciprofloxacin. Her last dose of this medication was yesterday morning. I have sent prescriptions for what I considered the most significant medications on her medication list( she had an excellent list generated from the rehab facility of which she had been taking and what she was supposed to continue taking at home). Family is going to coordinate getting her home with a friend or family member and will also coordinate picking up her medications. I have sent the prescriptions to the 24 hour pharmacy at [facility] on [address] in [place] Lab Data 10/19/23 17:37 10/19/23 17:37 Labs: Lab Results 10/19/23 10/19/23 10/19/23 Range/Units 16:48 17:37 18:21 WBC 5.6 (4.8-10.8) X10*3/uL RBC 2.94 L (4.20-5.50) X10*6/uL Hgb 9.2 L (12.0-16.0) g/dl Hct 28.9 L (37.0-47.0) % MCV 98.3 H (80.0-98.0) fL MCH 31.3 (27.0-33.0) pg MCHC 31.8 (31.0-35.0) g/dl RDW 13.5 (11.0-16.0) % Plt Count 437 H D (160-400) X10*3/uL MPV 9.4 (9.4-12.3) fL Immature Gran % (Auto) 0.2 (0.0-0.4) % Neut % (Auto) 62.5 (45-73) % Lymph % (Auto) 21.7 (20-40) % [place] % (Auto) 11.1 H (2-11) % Eos % (Auto) 3.4 (0-4) % Baso % (Auto) 1.1 (0-2) % Lymph # (Auto) 1.2 (1.2-4.9) X10*3/uL [place] # (Auto) 0.6 (0.1-1.2) X10*3/uL Eos # (Auto) 0.2 (0.0-0.4) X10*3/uL Baso # (Auto) 0.1 (0.0-0.2) X10*3/uL Abs Immat Gran (auto) 0.01 (0.00-0.03) X10*3/uL Absolute Neuts (auto) 3.5 (2.0-8.3) x10*3/uL Absolute Nucleated RBC 0.000 (0.0-0.012) X10*3/uL Nucleated RBC % (auto) 0.0 (0.0-0.2) /100WBC Sodium 137 (135-145) mmol/L Potassium 5.3 H D (3.3-5.1) mmol/L Chloride 103 (96-108) mmol/L Carbon Dioxide 29 (22-29) mmol/L Anion Gap 10 L (12-20) BUN 27 H (9-16) mg/dL Creatinine 0.91 (0.5-1.4) mg/dL Estim Creat Clear Calc 36.2 Estimated GFR 59 POC Glucose 326 H 280 H (60-115) mg/dL Random Glucose 355 H* (60-115) mg/dL Calcium 9.1 D (8.4-10.2) mg/dL Total Bilirubin 0.2 (0.0-1.0) mg/dL Direct Bilirubin < 0.2 (0.0-0.5) mg/dL AST 19 (5-31) U/L ALT 24 (0-31) U/L Alkaline Phosphatase 106 (39-117) U/L Total Protein 5.9 L (6.5-8.0) g/dL Albumin 3.2 L (3.5-5.0) g/dL Discharge Plan Discharge Clinical Impression: Hyperglycemia Patient Disposition: Home, Self-Care Additional Instructions: I have sent prescriptions for several of your medications to the 24 hour pharmacy on [address] entry could be. This is a [facility] pharmacy. You have received your evening medications for tonight with the exception of ciprofloxacin. We do not have this medication in our hospital so we could not give you a dose of this medication. If someone is able to grain picker your prescriptions this evening you may take a dose of ciprofloxacin tonight. Otherwise please wait till tomorrow morning to take your other medications. Please contact your regular doctor on Tuesday to discuss getting a new prescription for your Lantus insulin and also to arrange for ongoing prescriptions for your medications. Please stay in touch with irregular doctor's office for additional advice is needed. Return to the emergency room if you feel significantly worse. Prescriptions: New ciprofloxacin HCl 250 mg tablet 250 mg PO BID Qty: 10 0RF glipizide 5 mg tablet 5 mg PO BID Qty: 28 0RF metformin 500 mg tablet extended release 24hr 500 mg PO BID Qty: 28 0RF metoprolol tartrate 25 mg tablet 25 mg PO BID Qty: 28 0RF pioglitazone 30 mg tablet 30 mg PO DAILY Qty: 14 0RF Continued cyanocobalamin (vitamin B-12) 1,000 mcg tablet 1 tab PO DAILY metoprolol tartrate 50 mg tablet 1 tab PO BID glipizide 5 mg tablet 1 tab PO BID cholecalciferol (vitamin D3) [Vitamin D3] 25 mcg (1,000 unit) Tablet 25 mcg PO DAILY nitroglycerin 0.4 mg tablet, sublingual 1 tab sublingual DIRECTED propylthiouracil 50 mg tablet 50 mg PO BID insulin aspart U-100 [Novolog U-100 Insulin aspart] 100 unit/mL solution subcut metformin 500 mg tablet 1,000 mg PO BID atorvastatin 40 mg tablet 40 mg PO DAILY No Action (DME) CeQur Simplicity 2 unit device MISCELLANEOUS Referrals: Juan Miguel Hunter MD [Physician] - (Needs resumption of all her regular medications following discharge from rehab) Interventions: ED Discharge Assessment Last Done: 10/19/23 19:22 Discharge Date/Time: 10/19/23 19:37
[2023-10-19 17:40] LABS: MANUAL DIFF FLAG NO
[2023-10-19] MEDS: Insulin Glargine,Hum.rec.anlog 100 UNIT/ML 10 ML VIAL 12 UNIT SUBCUT (17:43)
[2023-10-19] MEDS: metFORMIN HCl ER 500 MG TAB.ER.24H PO (17:43)
[2023-10-19] MEDS: Metoprolol Tartrate 25 MG TABLET PO (17:43)
[2023-10-19 17:59] LABS: Alanine Aminotransferase 24 U/L (0-31); Albumin Level 3.2 g/dL (3.5-5.0); Alkaline Phosphatase 106 U/L (39-117); Anion Gap 10 (12-20); Aspartate Amino Transferase 19 U/L (5-31); Bilirubin Direct < 0.2 mg/dL (0.0-0.5); Bilirubin Total 0.2 mg/dL (0.0-1.0); Blood Urea Nitrogen 27 mg/dL (9-16); Calcium 9.1 mg/dL (8.4-10.2); Carbon Dioxide 29 mmol/L (22-29); Chloride 103 mmol/L (96-108); Creatinine Clr Calc Pharmacy 36.2; Estimated Glomerular Filt Rate 59; Glucose Random 355 mg/dL (60-115); Potassium 5.3 mmol/L (3.3-5.1); Sodium 137 mmol/L (135-145); Total Protein 5.9 g/dL (6.5-8.0)
--- NOTE | 2023-10-19 18:11 | PC.NURSE ---
delay in medication administration due to not having medications in pyxis. pharmacy aware and reports they will bring medications.
[2023-10-19 18:16] LABS: Basophils Absolute Auto 0.1 X10*3/uL (0.0-0.2); Basophils Percent Auto 1.1 % (0-2); Eosinophils Absolute Auto 0.2 X10*3/uL (0.0-0.4); Eosinophils Percent Auto 3.4 % (0-4); Hematocrit 28.9 % (37.0-47.0); Hemoglobin 9.2 g/dl (12.0-16.0); Imm Gran Abs Auto 0.01 X10*3/uL (0.00-0.03); Imm Gran Pct Auto 0.2 % (0.0-0.4); Lymphocytes Absolute Auto 1.2 X10*3/uL (1.2-4.9); Lymphocytes Percent Auto 21.7 % (20-40); Mean Corpuscular HGB Conc 31.8 g/dl (31.0-35.0); Mean Corpuscular Hemoglobin 31.3 pg (27.0-33.0); Mean Corpuscular Volume 98.3 fL (80.0-98.0); Mean Platelet Volume 9.4 fL (9.4-12.3); Monocytes Absolute Auto 0.6 X10*3/uL (0.1-1.2); Monocytes Percent Auto 11.1 % (2-11); Neutrophils Absolute Auto 3.5 x10*3/uL (2.0-8.3); Neutrophils Percent Auto 62.5 % (45-73); Platelet Count 437 X10*3/uL (160-400); Red Blood Count 2.94 X10*6/uL (4.20-5.50); Red Cell Distribution Width 13.5 % (11.0-16.0); White Blood Count 5.6 X10*3/uL (4.8-10.8)
[2023-10-19] MEDS: propylthiouraciL 50 MG TABLET PO (18:22)
[2023-10-19] MEDS: glipiZIDE 5 MG TABLET PO (18:22)
[2023-10-19 18:28] LABS: Glucose, Whole Blood 280 mg/dL (60-115)
--- NOTE | 2023-10-19 18:49 | PC.NURSE ---
this rn assisted provider with rectal exam on pt. pt tolerated well.
[2023-10-19 19:03] VITALS: BP 120/49; PULSE 92; RESP 18; TEMP 36.5; O2SAT 98
== END 2023-10-19 19:37 | disposition home or self-care (01) ==
PROVIDERS: Emergency Provider Emergency Medicine
DX: E11.65 Type 2 diabetes mellitus with hyperglycemia (principal); E05.90 Thyrotoxicosis, unspecified without thyrotoxic crisis or storm; E78.5 Hyperlipidemia, unspecified; K85.90 Acute pancreatitis without necrosis or infection, unspecified; Z79.899 Other long term (current) drug therapy
CPT/HCPCS: 36415; 80048; 80076; 82947; 85025; 99284

== ENCOUNTER 2023-12-19 04:20 | Emergency (ER) | payer MEDICARE, OTHER, SELFPAY ==
--- NOTE | ~2023-12-19 | CT_ITS ---
EXAMINATION: CT HEAD WITHOUT CONTRAST CT CERVICAL SPINE WITHOUT CONTRAST CLINICAL INFORMATION: Fall with head strike. COMPARISON: 09/26/2023. TECHNIQUE: Contiguous axial imaging was performed through the head and cervical spine without intravenous administration of contrast. Sagittal and coronal reformatted images also obtained. This CT examination was performed using dose optimization techniques as appropriate, variously including the following: *Automated exposure control *Adjustment of mA and/or kV according to patient size (this includes techniques or standardized protocols for targeted exams where dose is matched to indication/reason for exam; i.e. extremities or head) *Use of iterative reconstruction technique DLP: 838 mGy-cm FINDINGS: There is mild cerebral volume loss with prominence of the lateral and the third ventricles. The cortical sulci are widened appropriately. The fourth ventricle and basal cisterns are normally outlined. There is mild to moderate bilateral periventricular and central white matter diminished attenuation. There is no acute territorial defect, hemorrhage or midline shift. The extra-axial spaces are unremarkable. Calvarium: Intact. Maxillofacial sinuses and mastoids: Clear as visualized. Cervical spine: The alignment is within normal limits. There is diffuse mild cervical disc degenerative change with loss of disc space, endplate change and multilevel posterior osteophytes most prominent at C5-C6 and C6-C7 associated with diffuse moderate facet osteoarthritic hypertrophic change with multilevel mild spinal canal and multilevel [id number] neuroforaminal narrowing. Bony structures are heterogeneous/osteopenic. There is an apparent partially healed fracture through the anterior inferior endplate of C5 and the associated osteophyte. No acute fracture seen. The soft tissues are unremarkable. CT/CT cervical spine wo IV con IMPRESSION: CT HEAD: 1. No acute intracranial process seen. 2. Age-related cerebral volume loss with chronic small vessel ischemic changes. CT CERVICAL SPINE: There is no acute fracture or dislocation. There is an apparent partially healed fracture through the anterior inferior endplate of C5 and the associated osteophyte.
--- NOTE | ~2023-12-19 | CT_ITS ---
EXAMINATION: CT HEAD WITHOUT CONTRAST CT CERVICAL SPINE WITHOUT CONTRAST CLINICAL INFORMATION: Fall with head strike. COMPARISON: 09/26/2023. TECHNIQUE: Contiguous axial imaging was performed through the head and cervical spine without intravenous administration of contrast. Sagittal and coronal reformatted images also obtained. This CT examination was performed using dose optimization techniques as appropriate, variously including the following: *Automated exposure control *Adjustment of mA and/or kV according to patient size (this includes techniques or standardized protocols for targeted exams where dose is matched to indication/reason for exam; i.e. extremities or head) *Use of iterative reconstruction technique DLP: 838 mGy-cm FINDINGS: There is mild cerebral volume loss with prominence of the lateral and the third ventricles. The cortical sulci are widened appropriately. The fourth ventricle and basal cisterns are normally outlined. There is mild to moderate bilateral periventricular and central white matter diminished attenuation. There is no acute territorial defect, hemorrhage or midline shift. The extra-axial spaces are unremarkable. Calvarium: Intact. Maxillofacial sinuses and mastoids: Clear as visualized. Cervical spine: The alignment is within normal limits. There is diffuse mild cervical disc degenerative change with loss of disc space, endplate change and multilevel posterior osteophytes most prominent at C5-C6 and C6-C7 associated with diffuse moderate facet osteoarthritic hypertrophic change with multilevel mild spinal canal and multilevel jgfh-iu-ukrqekjs neuroforaminal narrowing. Bony structures are heterogeneous/osteopenic. There is an apparent partially healed fracture through the anterior inferior endplate of C5 and the associated osteophyte. No acute fracture seen. The soft tissues are unremarkable. CT/CT head/brain wo IV con IMPRESSION: CT HEAD: 1. No acute intracranial process seen. 2. Age-related cerebral volume loss with chronic small vessel ischemic changes. CT CERVICAL SPINE: There is no acute fracture or dislocation. There is an apparent partially healed fracture through the anterior inferior endplate of C5 and the associated osteophyte.
--- NOTE | ~2023-12-19 | CT_ITS ---
EXAMINATION: CT CHEST WITHOUT CONTRAST CLINICAL INFORMATION: Trauma. Left chest wall tenderness. COMPARISON: None available. TECHNIQUE: Multidetector volumetric CT imaging of the chest was done. Axial MIP volume rendering provided. Sagittal and coronal reformatted images were obtained. This CT examination was performed using dose optimization techniques as appropriate, variously including the following: *Automated exposure control *Adjustment of mA and/or kV according to patient size (this includes techniques or standardized protocols for targeted exams where dose is matched to indication/reason for exam; i.e. extremities or head) *Use of iterative reconstruction technique DLP: 221 mGy-cm FINDINGS: GYROSCOPE TECHNICIAN: Unremarkable LUNGS: Nonspecific 4 mm nodule at the right lung base. There are also nonspecific pleural nodules at the right lung base measuring up to 3 mm. No active infiltrate is seen. MEDIASTINUM: The mediastinum is normal. CORONARY ARTERY CALCIFICATION: Moderate to severe. PLEURA: There is no pleural effusion. No pleural mass or thickening. AXILLA: No lymphadenopathy. UPPER ABDOMEN: There is a layering hyperdensities within the gallbladder. OSSEOUS STRUCTURES: There is a mildly displaced left humeral neck fracture. There are apparent old healed fractures of the left 5th and 6th and 7th ribs. CT/CT chest wo IV con IMPRESSION: 1. Mildly displaced left humeral neck fracture. 2. Nonspecific 4 mm nodule at the right lung base. There are also nonspecific pleural nodules at the right lung base measuring up to 3 mm. Fleischner guidelines were followed.
[2023-12-19 04:26] VITALS: BP 150/72; PULSE 88; PULSE 92; RESP 16; O2SAT 97; BMI 15.5
--- NOTE | 2023-12-19 04:37 | ED_ITS ---
HPI - Fall General Chief Complaint: Fall Stated Complaint: fell; ? broken shoulder Source: patient Mode of arrival: EMS History of Present Illness HPI Narrative: 88-year-old female was brought in by EMS after she states that she fell without loss of consciousness, patient states that she lives at home by herself and reports significant pain over the left shoulder/humerus but otherwise states she is okay. Related Data Home Medications Medication Instructions Recorded Confirmed atorvastatin 40 mg tablet 40 mg PO DAILY 02/23/21 09/26/23 metformin 500 mg tablet 1,000 mg PO BID 02/23/21 09/26/23 cholecalciferol (vitamin D3) 25 25 mcg PO DAILY 02/27/22 09/26/23 mcg (1,000 unit) tablet (Vitamin D3) cyanocobalamin (vitamin B-12) 1 tab PO DAILY 02/27/22 09/26/23 1,000 mcg tablet glipizide 5 mg tablet 1 tab PO BID 02/27/22 09/26/23 metoprolol tartrate 50 mg tablet 1 tab PO BID 02/27/22 09/26/23 nitroglycerin 0.4 mg sublingual 1 tab sublingual DIRECTED 02/27/22 09/26/23 tablet bolus insulin pump, 200 unit 2 09/26/23 09/26/23 unit bolus insulin patch pump, 200 unit, disposable (CeQur Simplicity) insulin aspart U-100 100 unit/mL subcut 09/26/23 subcutaneous solution (Novolog U-100 Insulin aspart) propylthiouracil 50 mg tablet 50 mg PO BID 09/26/23 09/26/23 Previous Rx's Medication Instructions Recorded ciprofloxacin HCl 250 mg tablet 250 mg PO BID #10 tabs 10/19/23 glipizide 5 mg tablet 5 mg PO BID #28 tabs 10/19/23 metformin 500 mg tablet,extended 500 mg PO BID #28 tabs 10/19/23 release 24hr (osmotic) metoprolol tartrate 25 mg tablet 25 mg PO BID #28 tabs 10/19/23 pioglitazone 30 mg tablet 30 mg PO DAILY #14 tabs 10/19/23 Allergies Allergy/AdvReac Type Severity Reaction Status Date / Time Penicillins [PCN] Allergy Unknown UNKNOWN Verified 10/19/23 16:53 Sulfa (Sulfonamide Allergy Unknown UNKNOWN Verified 10/19/23 16:53 Antibiotics) [SULFA(SULFONAMIDE ANTIBIOTICS)] heparin AdvReac Unknown Verified 10/19/23 16:53 penicillin Allergy Unknown rash Uncoded 10/19/23 16:53 Sulfa Allergy Unknown rash Uncoded 10/19/23 16:53 Review of Systems 2 Review of Systems: Pertinent positives and negatives as stated in [facility] Past Medical History Source: nursing notes reviewed Onset Date is defined in the Problem List Problems that require an onset date and time if occurred within 24 hrs of arrival to the ED Aortic Dissection and Rupture; Neurologic impairment; Cardiopulmonary Arrest; Endotracheal Intubation; Insertion or Replacement of Mechanical Circulatory Assist Device Medical History Hyperthyroidism Hyperlipidemia Nausea Pancreatitis Diabetes Surgical History H/O heart artery stent Social History Social History Household Members: None Housing: House Do you presently have visiting nurse or other home services: Yes Alcohol intake: unknown Patient Tobacco Use Status: Never used Tobacco Smoked in Last 30 Days: No Use of substances other than those prescribed or required for medical reasons: No Advance Directives: Yes Advance Directives Information Provided: Yes Advance Directives on File: No service: No Current occupational status: retired Current occupation: [employer] Physical Exam 2 Vital Signs: Vital Signs: Last Vital Signs Pulse 88 12/19/23 04:26 Resp 16 12/19/23 04:26 Pulse Ox 97 12/19/23 04:26 O2 Del Method Room Air 12/19/23 04:26 BMI result Body Mass Index 15.5 VITAL SIGNS: Reviewed. GENERAL: Cachectic, in mild distress. HEAD: Normocephalic/atraumatic EYES: PERRLA, EOMI EARS: Ext canals without abnormality NOSE: Nares patent bilateral OROPHARYNX: no oral lesions noted, posterior pharynx clear NECK: Supple, no adenopathy LUNGS: Normal breath sounds. No adventitious sounds or accessory muscle use. CARDIOVASCULAR: Regular rate and rhythm without noted murmurs ABDOMEN: Soft, non-tender, non-distended with bowel sounds. PELVIS: Stable, nontender MUSCULOSKELETAL: No tenderness, deformities, or effusions noted on gross inspection. EXTREMITIES: No cyanosis, clubbing or edema, no acute deformities except patient tender across left shoulder and proximal humerus. SKIN: Inspection of the skin reveals no rashes NEUROLOGIC: Alert and oriented x 4. Strength and sensation to light touch were grossly intact x 4. Medications Administered Discontinued Medications Generic Name Dose Route Start Last Admin Trade Name Mary PRN Reason Stop Dose Admin Acetaminophen 975 mg 12/19/23 06:06 12/19/23 06:15 Acetaminophen 325 Mg Tablet PO 12/19/23 06:07 975 mg ONCE ONE Administration Ibuprofen 400 mg 12/19/23 06:06 12/19/23 06:15 Ibuprofen 400 Mg Tablet PO 12/19/23 06:07 400 mg ONCE ONE Administration Ketorolac Tromethamine 15 mg 12/19/23 04:36 12/19/23 06:22 Ketorolac Tromethamine 30 Mg/Ml Vial IVPUSH 12/19/23 04:37 Not Given ONCE ONE Medical Decision Making Medical Decision Making [facility] Narrative: 88-year-old female with history and clinical presentation, DDX: Fall, possible shoulder/humerus/rib fracture I do not suspect a pelvic fracture and all other extremities patient is freely moving with good range of motion. Patient is noted to have high glucose level. Reviewed all investigations and hematologic indices demonstrate chronically stable findings with a normocytic anemia no leukocytosis and no thrombocytopenia. Chemistry indices do not demonstrate an AMBROCIO and although there is a hyperglycemia there is no clinical or laboratory findings to suggest DKA. CT scan of head negative for intracranial hemorrhage or mass effect, cervical spine does not demonstrate any acute fracture or subluxation. Chest CT without demonstrated rib fractures but noted left humeral neck fracture, patient placed in sling. Urinalysis is pending, placed consult for case management and physical therapy, patient wishes to return to [facility] for her rehabilitation. Patient placed in physician observation because the patient needed more time for case management and physical therapy evaluation. At the time observation was started the patient's vital signs were stable, patient is alert and oriented, neuro: Nonfocal, CV RRR, lungs clear Differential Diagnosis Differential Diagnoses: The differential diagnosis associated with the presentation includes Please see the discussion above Admission/Observation Consideration of admission/observation: Escalation of care including admission/observation considered Please see the discussion above Consult Healthcare Provider Management of the patient was discussed with: Drum Handler Please see the discussion above Lab Data [facility] Lab Attestation statement: I reviewed the patient's lab results. Please see the discussion above 12/19/23 05:11 12/19/23 05:10 Labs: Lab Results 12/19/23 12/19/23 Range/Units 05:10 05:11 WBC 7.4 (4.8-10.8) X10*3/uL RBC 3.36 L (4.20-5.50) X10*6/uL Hgb 10.5 L (12.0-16.0) g/dl Hct 31.8 L (37.0-47.0) % MCV 94.6 (80.0-98.0) fL MCH 31.3 (27.0-33.0) pg MCHC 33.0 (31.0-35.0) g/dl RDW 12.3 (11.0-16.0) % Plt Count 252 D (160-400) X10*3/uL MPV 10.4 (9.4-12.3) fL Immature Gran % (Auto) 0.1 (0.0-0.4) % Neut % (Auto) 82.3 H (45-73) % Lymph % (Auto) 11.3 L (20-40) % [place] % (Auto) 5.8 (2-11) % Eos % (Auto) 0.1 (0-4) % Baso % (Auto) 0.4 (0-2) % Lymph # (Auto) 0.8 L (1.2-4.9) X10*3/uL [place] # (Auto) 0.4 (0.1-1.2) X10*3/uL Eos # (Auto) 0.0 (0.0-0.4) X10*3/uL Baso # (Auto) 0.0 (0.0-0.2) X10*3/uL Abs Immat Gran (auto) 0.01 (0.00-0.03) X10*3/uL Absolute Neuts (auto) 6.1 (2.0-8.3) x10*3/uL Absolute Nucleated RBC 0.000 (0.0-0.012) X10*3/uL Nucleated RBC % (auto) 0.0 (0.0-0.2) /100WBC Sodium 135 (135-145) mmol/L Potassium 3.9 (3.3-5.1) mmol/L Chloride 100 (96-108) mmol/L Carbon Dioxide 26 (22-29) mmol/L Anion Gap 13 (12-20) BUN 20 H (9-16) mg/dL Creatinine 0.78 (0.5-1.4) mg/dL Estim Creat Clear Calc 35.5 Estimated GFR > 60 Random Glucose 289 H (60-115) mg/dL Calcium 9.0 (8.4-10.2) mg/dL Total Bilirubin 0.5 (0.0-1.0) mg/dL AST 40 H (5-31) U/L ALT 97 H (0-31) U/L Alkaline Phosphatase 107 (39-117) U/L Total Protein 6.1 L (6.5-8.0) g/dL Albumin 3.5 (3.5-5.0) g/dL Radiology Impression Discussion of test interpretation with radiology: I have reviewed the radiologist's reading. Radiologist Impression: Please see the discussion above External Record Review External record reviewed: Outpatient record, Prior outpatient labs and Prior outpatient radiology Chronic Conditions Patient?s care impacted by: Diabetes and Hypertension Critical Care Time Critical Care Time Critical Care Time: Yes Total Critical Care Time: 45 Attestation: I personally attest to this time spent taking care of the patient. Discharge Plan Discharge Clinical Impression: Fall, Left humeral fracture Patient Disposition: Still a Patient Prescriptions: No Action cyanocobalamin (vitamin B-12) 1,000 mcg tablet 1 tab PO DAILY metoprolol tartrate 50 mg tablet 1 tab PO BID glipizide 5 mg tablet 1 tab PO BID cholecalciferol (vitamin D3) [Vitamin D3] 25 mcg (1,000 unit) Tablet 25 mcg PO DAILY nitroglycerin 0.4 mg tablet, sublingual 1 tab sublingual DIRECTED propylthiouracil 50 mg tablet 50 mg PO BID insulin aspart U-100 [Novolog U-100 Insulin aspart] 100 unit/mL solution subcut (DME) CeQur Simplicity 2 unit device MISCELLANEOUS ciprofloxacin HCl 250 mg tablet 250 mg PO BID Qty: 10 0RF glipizide 5 mg tablet 5 mg PO BID Qty: 28 0RF metformin 500 mg tablet extended release 24hr 500 mg PO BID Qty: 28 0RF metoprolol tartrate 25 mg tablet 25 mg PO BID Qty: 28 0RF pioglitazone 30 mg tablet 30 mg PO DAILY Qty: 14 0RF metformin 500 mg tablet 1,000 mg PO BID atorvastatin 40 mg tablet 40 mg PO DAILY
--- NOTE | 2023-12-19 04:47 | PC.NURSE ---
Pt is an 88 y/o female who presents via EMS from home s/p unwitnessed fall. Pt lives alone. Denies any LOC or head, neck, or back pain. Denies headache or dizziness preceding fall. History is significant for recurrent falls, T2DM, and hypothyroidism. Pt c/o left shoulder and upper arm pain, CSMs intact in all four extremities. POC: 439. No other complaints or concerns reported at this time.
[2023-12-19 05:16] LABS: MANUAL DIFF FLAG NO
[2023-12-19 05:17] LABS: Basophils Percent Auto 0.4 % (0-2); Eosinophils Percent Auto 0.1 % (0-4); Hematocrit 31.8 % (37.0-47.0); Hemoglobin 10.5 g/dl (12.0-16.0); Imm Gran Abs Auto 0.01 X10*3/uL (0.00-0.03); Imm Gran Pct Auto 0.1 % (0.0-0.4); Lymphocytes Absolute Auto 0.8 X10*3/uL (1.2-4.9); Lymphocytes Percent Auto 11.3 % (20-40); Mean Corpuscular Hemoglobin 31.3 pg (27.0-33.0); Mean Corpuscular Volume 94.6 fL (80.0-98.0); Mean Platelet Volume 10.4 fL (9.4-12.3); Monocytes Absolute Auto 0.4 X10*3/uL (0.1-1.2); Monocytes Percent Auto 5.8 % (2-11); Neutrophils Absolute Auto 6.1 x10*3/uL (2.0-8.3); Neutrophils Percent Auto 82.3 % (45-73); Platelet Count 252 X10*3/uL (160-400); Red Blood Count 3.36 X10*6/uL (4.20-5.50); Red Cell Distribution Width 12.3 % (11.0-16.0); White Blood Count 7.4 X10*3/uL (4.8-10.8)
[2023-12-19 05:30] LABS: Alanine Aminotransferase 97 U/L (0-31); Albumin Level 3.5 g/dL (3.5-5.0); Alkaline Phosphatase 107 U/L (39-117); Anion Gap 13 (12-20); Aspartate Amino Transferase 40 U/L (5-31); Bilirubin Total 0.5 mg/dL (0.0-1.0); Blood Urea Nitrogen 20 mg/dL (9-16); Carbon Dioxide 26 mmol/L (22-29); Chloride 100 mmol/L (96-108); Creatinine Clr Calc Pharmacy 35.5; Estimated Glomerular Filt Rate > 60; Glucose Random 289 mg/dL (60-115); Potassium 3.9 mmol/L (3.3-5.1); Sodium 135 mmol/L (135-145); Total Protein 6.1 g/dL (6.5-8.0)
--- NOTE | 2023-12-19 05:58 | PC.NURSE ---
IV access X 3 attempted on right forearm with no success.
[2023-12-19] MEDS: Ibuprofen 400 MG TABLET PO (06:15)
[2023-12-19] MEDS: Acetaminophen 325 MG TABLET 975 MG PO (06:15)
--- NOTE | 2023-12-19 06:25 | PC.NURSE ---
Medicated per MAR. Unable to gain IV access.
--- NOTE | 2023-12-19 06:47 | PC.NURSE ---
Report given to oncoming RN.
[2023-12-19 07:13] VITALS: BP 120/64; PULSE 84; RESP 18; O2SAT 100
[2023-12-19 07:35] LABS: Glucose, Whole Blood 258 mg/dL (60-115)
[2023-12-19 08:16] LABS: COVID-19 Test Negative (Negative); IDNOW Serial# 08D9AD1C
[2023-12-19 08:24] VITALS: BP 116/60; PULSE 83; O2SAT 100
--- NOTE | 2023-12-19 09:08 | PC.NURSE ---
Alert with periods of confusion, splint placed on left arm. reports pain is much improved, ate well for breakfast. Incont of urine, changed and repositioned
[2023-12-19 09:18] LABS: Appearance Urine Clear; Color Urine Yellow; Glucose Urine UA >=1000 mg/dL (Negative); Leukocyte Esterase Urine Negative (Negative); Nitrite Urine Negative (Negative); PH 5.5 (5.0-9.0); Specific Gravity - Urine 1.025 (1.005-1.025); UMIC TRIGGER UACC YES; Urine Blood Negative (Negative); Urine Ketones 40 mg/dL (Negative); Urine Protein Negative (Neg-Trace)
--- NOTE | 2023-12-19 09:21 | PC.NURSE ---
Call placed to [facility] per patients request to verify med list and updated on plan of care
[2023-12-19 09:23] LABS: Bacteria Urine None Seen (None Seen); Hyaline Casts Urine 0-2 /LPF (0-2); RBC Urine 0-2 /HPF (0-2); Squamous Epithelial Cell Urine 0-2 /HPF (0-2); WBC Urine 0-5 /HPF (0-5)
[2023-12-19 09:47] VITALS: BP 116/60; PULSE 83; RESP 18; O2SAT 100
--- NOTE | 2023-12-19 12:52 | PHA.MEDREC ---
Pharmacy Consult ? Medication Reconciliation Pharmacy has completed the medication reconciliation. Patient had a Client medication report printed on 12/19/23 brought in with her.
--- NOTE | 2023-12-19 15:15 | MHC.CM.ED ---
Addendum entered by Lorene Yuan 12/19/23 16:14: [facility] is able to offer a bed. Patient can leave at 6pm. [facility] booked. [facility] with chart. Patient, daughter Luzma, Donna RN and Saniya PYLE aware. Original Note: Received case management consult overnight. Patient came to the ER due to a fall. Found to have a left humerus fracture. Physical therapy eval completed. Rehab is recommended. Patient has not been inpatient in any facility in the past 30 days. Referrrals made to all 3 acute rehabs. [facility] not able to offer a bed. [facility] is still reviewing. Met with patient in regards to discharge planning. Patient lives alone, uses a cane for mobility and is active with [facility]. Patient has been to [facility] in the past and is hoping to be able to return. Continue to monitor for d/c needs.
--- NOTE | 2023-12-19 16:20 | MHC.EDTECH ---
pt ASSISTED WITH THE BED [facility]ANO AND WAS CLEANED AFTERWARDS
[2023-12-19 16:51] VITALS: BP 137/60; PULSE 78; RESP 16; TEMP 36.4; O2SAT 99
[2023-12-19 18:18] VITALS: BP 142/64; PULSE 87; RESP 16; TEMP 36.9; O2SAT 97
== END 2023-12-19 19:05 | disposition skilled nursing facility (03) ==
PROVIDERS: Physician Assistant; Emergency Provider Student in an Organized Health Care Education/Training Program; PCP Internal Medicine
DX: S42.212A Unspecified displaced fracture of surgical neck of left humerus, initial encounter for closed fracture (principal); W01.0XXA Fall on same level from slipping, tripping and stumbling without subsequent striking against object, initial encounter; E11.9 Type 2 diabetes mellitus without complications; E78.5 Hyperlipidemia, unspecified; Z11.52 Encounter for screening for COVID-19; Y93.9 Activity, unspecified; Y92.019 Unspecified place in single-family (private) house as the place of occurrence of the external cause; Y99.9 Unspecified external cause status
CPT/HCPCS: 36415; 70450; 71250; 72125; 80053; 81001; 82947; 85025; 87635; 97161; 99284

== ENCOUNTER 2023-12-30 09:20 | Outpatient (REF) | payer MEDICARE, OTHER, SELFPAY | END 2023-12-30 09:21 | disposition home or self-care (01) | LOC: HO.HOSX 09:20 | PROVIDERS: Visit Provider Physician Assistant | DX: Z13.89 Encounter for screening for other disorder (principal) ==

== ENCOUNTER 2024-01-02 09:07 | Outpatient (REF) | payer OTHER, MEDICARE, SELFPAY ==
--- NOTE | ~2024-01-02 | XR_ITS ---
EXAMINATION: XR SHOULDER, LEFT CLINICAL INFORMATION: Pain left shoulder COMPARISON: Previous radiographs, most recent, 06/03/2021 TECHNIQUE: AP external rotation, Grashey, scapular Y, and axillary views of the left shoulder. FINDINGS: Bones are diffusely demineralized. Interval healing proximal humeral fracture. Tiny cortical discontinuity identified lateral humeral head not seen previously. Glenohumeral joint is more narrowed in appearance. Multiple old left rib fractures now noted. Left lung is clear. Aortic calcifications. XR/XR shoulder LT min 2V IMPRESSION: Old proximal left humeral fracture. Question acute on chronic injury lateral left humeral head.
== END 2024-01-02 09:08 | disposition home or self-care (01) ==
LOC: HO.HOSX 09:07
PROVIDERS: Visit Provider Physician Assistant
DX: S42.295A Other nondisplaced fracture of upper end of left humerus, initial encounter for closed fracture (principal)
CPT/HCPCS: 73030; 99212

== ENCOUNTER 2024-01-02 12:56 | Outpatient (AMB) | payer MEDICARE, OTHER, SELFPAY ==
--- NOTE | 2024-01-02 13:18 | MHC.OFFVIS ---
Intake Intake Visit Reasons: fc- Fall, Left humeral fracture Intake Note: Dianna 88 yr old female presents today for a new patient visit for her left humeral fracture form 12/19/23. States she fell at home . Seen in ED same day where xrays were taken and a humerus fracture was confirmed. States she was given a brace and has cont' to use brace. She explains she has a sore on her bum and that is more painful than her arm at the moment. Allergies Penicillins [PCN] Allergy (Unknown, Verified 01/02/24 13:36) UNKNOWN Sulfa (Sulfonamide Antibiotics) [SULFA(SULFONAMIDE ANTIBIOTICS)] Allergy (Unknown, Verified 01/02/24 13:36) UNKNOWN heparin Adverse Reaction (Verified 01/02/24 13:36) Unknown penicillin Allergy (Unknown, Uncoded 01/02/24 13:36) rash Sulfa Allergy (Unknown, Uncoded 01/02/24 13:36) rash Medication List - Last Reconciled 01/02/24 by Clarence Mosquera PA-C aspirin 81 mg PO DAILY bolus insulin pump, 200 unit (CeQur Simplicity) cholecalciferol (vitamin D3) (Vitamin D3) 25 mcg PO DAILY gabapentin 100 mg PO TID insulin aspart U-100 (Novolog U-100 Insulin aspart) 6 sliding scale doses subcut TIDAC insulin glargine (Lantus Solostar U-100 Insulin) 8 units subcut DAILY metformin 500 mg PO BID metoprolol tartrate 1 tab PO BID nitroglycerin 1 tab sublingual DIRECTED pantoprazole 40 mg PO DAILY HPI fc- Fall, Left humeral fracture HPI Details 88-year-old female who presents to the office today for evaluation of left humerus injury s/p fall at home, 12/19/23. She was seen at ED the same day where x-rays were performed and she was given a brace which she continues to use as instructed. She states she has soreness in her elbow which she attributes to the use of sling. She also c/o a sore on her bum which is currently more painful than her arm at the moment. [facility] Medical History Hyperthyroidism Hyperlipidemia Nausea Pancreatitis Diabetes Surgical History H/O heart artery stent Social History Household Members: None Housing: House Do you presently have visiting nurse or other home services: Yes Alcohol intake: unknown Patient Tobacco Use Status: Never used Tobacco Advance Directives Date on File: 12/19/23 service: No Current occupational status: retired Current occupation: [employer] Review of Systems Const All systems reviewed & are unremarkable except as noted in HPI and below Physical Exam Const General: cooperative, healthy appearing, comfortable, no acute distress, well developed and alert Orientation/consciousness: patient oriented x3 HEENT Head: Yes normal to inspection, Yes normocephalic and Yes atraumatic Eyes General: appearance normal, both eyes and all related structures Resp Effort & Inspection: normal respiratory effort and able to speak in complete sentences Cardio Rate: regular rate Peripheral pulses: Peripheral pulses 2+ throughout GI Palpation (GI): Soft to palpation Skin Lesions: no lesions Rashes: no rashes Neuro General: patient oriented x3 Extrem Other: Left shoulder: Normal to inspection. Mild Swelling and tenderness over the proximal humerus which extends down the arm. Anterior deltoid sensation intact. Elbow and wrist ROM intact. NVI. Office Procedures Fracture Care Fracture Billing Code: Fracture Billing Code Results Reviewed Results Reviewed: Xrays were obtained in the office today and personally reviewed by me of the left shoulder show acute on chronic proximal humerus fracture Assessment & Plan Assessment & Plan (1) Fracture of proximal end of left humerus: Code(s): S42.202A - Unspecified fracture of upper end of left humerus, initial encounter for closed fracture Qualifiers: Encounter type: initial encounter Fracture type: closed Fracture morphology: other fracture Fracture alignment: nondisplaced Qualified Code(s): S42.295A - Other nondisplaced fracture of upper end of left humerus, initial encounter for closed fracture Plan She will continue the use of sling for comfort for the 3-4 weeks. She can come out of the sling for pendulum exercises. She will work on therapy for scapular stabilization until 3 months from her DOI. She did have concerns about a pressure sore on the buttock region which she states the rehab facility wound nurse is treating her with. I recommend her to use a doughnut type pillow which she has been using and wants a new one. I will put an order to the rehab facility to get her a new one for the same. I will see her back in 4-6 weeks with x-rays, sooner if needed. Orders: Orders XR shoulder LT min 2V Today M25.512 - Pain in left shoulder Patient Instructions: Scribed for Clarence Mosquera PA-C, by Hiren Hay medical assembly, on 01/02/2024 at 1:15 PM EST. Noelle, Clarence Mosquera PA-C, have personally reviewed and agree with the information entered by the scribe. Coding Level of Care Code Est Pt Level 3 (40829) Diagnoses Other closed nondisplaced fracture of proximal end of left humerus, initial encounter S42.295A Encounter type: initial encounter Fracture type: closed Fracture morphology: other fracture Fracture alignment: nondisplaced CPT Codes Fracture Care - Fracture Billing Code: Fracture Billing Code ([id number])
== END 2024-01-02 13:59 | disposition home or self-care (01) ==
PROVIDERS: PCP Internal Medicine; Visit Provider Physician Assistant
DX: S42.295A Other nondisplaced fracture of upper end of left humerus, initial encounter for closed fracture (principal); W19.XXXA Unspecified fall, initial encounter
CPT/HCPCS: 99213

== ENCOUNTER 2024-02-02 14:59 | Outpatient (AMB) | payer MEDICARE, OTHER, SELFPAY ==
--- NOTE | 2024-02-02 15:04 | MHC.OFFVIS ---
Intake Intake Visit Reasons: OV-Fall, Left humeral fracture Intake Note: Dianna gaspar 88 year old female presents today for a follow up of left humeral fracture, DOI 12/19/23. Xrays updated. Patient reports mild pain with laying down on her left side due to a sore on her right buttock. She continues to work with OT and states improvement in ROM . Allergies Penicillins [PCN] Allergy (Unknown, Verified 02/02/24 15:13) UNKNOWN Sulfa (Sulfonamide Antibiotics) [SULFA(SULFONAMIDE ANTIBIOTICS)] Allergy (Unknown, Verified 02/02/24 15:13) UNKNOWN heparin Adverse Reaction (Verified 02/02/24 15:13) Unknown penicillin Allergy (Unknown, Uncoded 02/02/24 15:13) rash Sulfa Allergy (Unknown, Uncoded 02/02/24 15:13) rash HPI OV-Fall, Left humeral fracture HPI Details 88-year-old female who returns to the office today for a follow-up of left humerus fracture 12/19/23. She states she has mild pain in her arm with laying down on her left side due to a sore on her right buttock. She continues to work with occupational therapy with improvement in her ROM. She has no other concerns today. [facility] Medical History Hyperthyroidism Hyperlipidemia Nausea Pancreatitis Diabetes Surgical History H/O heart artery stent Social History Household Members: None Housing: House Do you presently have visiting nurse or other home services: Yes Alcohol intake: unknown Patient Tobacco Use Status: Never used Tobacco Advance Directives Date on File: 12/19/23 service: No Current occupational status: retired Current occupation: [employer] Review of Systems Const All systems reviewed & are unremarkable except as noted in HPI and below Physical Exam Const General: cooperative, healthy appearing, comfortable, no acute distress, well developed and alert Orientation/consciousness: patient oriented x3 HEENT Head: Yes normal to inspection, Yes normocephalic and Yes atraumatic Eyes General: appearance normal, both eyes and all related structures Resp Effort & Inspection: normal respiratory effort and able to speak in complete sentences Cardio Rate: regular rate Peripheral pulses: Peripheral pulses 2+ throughout GI Palpation (GI): Soft to palpation Skin Lesions: no lesions Rashes: no rashes Neuro General: patient oriented x3 Extrem Other: Left shoulder: Normal to inspection. No Swelling present. She has mild tenderness over the proximal humerus which extends down the arm. Anterior deltoid sensation intact. Elbow and wrist ROM intact. NVI. Results Reviewed Results Reviewed: Xrays were obtained in the office today and personally reviewed by me of the left shoulder show acute on chronic proximal humerus fracture Assessment & Plan Assessment & Plan (1) Fracture of proximal end of left humerus: Code(s): S42.A - Unspecified fracture of upper end of left humerus, initial encounter for closed fracture Qualifiers: Encounter type: subsequent encounter Fracture alignment: nondisplaced Fracture morphology: other fracture Fracture type: closed Fracture healing: with routine healing Qualified Code(s): S42.295D - Other nondisplaced fracture of upper end of left humerus, subsequent encounter for fracture with routine healing Plan She will continue with home therapy to improve her motion and strength. She will increase activity as tolerated and see me back in 6 weeks with new x-rays, sooner if needed. Orders: Orders XR shoulder LT min 2V 02/02/24 M25.512 - Pain in left shoulder Patient Instructions: Scribed for Clarence Mosquera PA-C, by Hiren Hay medical laboratory technologist, on 02/02/2024 at 3:00 PM EST. I, Clarence Mosquera PA-C, have personally reviewed and agree with the information entered by the scribe. Coding Level of Care Code Global (17665) Diagnoses Other closed nondisplaced fracture of proximal end of left humerus with routine healing, subsequent encounter S42.295D Encounter type: subsequent encounter Fracture alignment: nondisplaced Fracture morphology: other fracture Fracture type: closed Fracture healing: with routine healing
== END 2024-02-02 15:27 | disposition home or self-care (01) ==
PROVIDERS: PCP Internal Medicine; Visit Provider Physician Assistant
DX: S42.295D Other nondisplaced fracture of upper end of left humerus, subsequent encounter for fracture with routine healing (principal)
CPT/HCPCS: 99213

== ENCOUNTER 2024-02-02 15:39 | Outpatient (REF) | payer MEDICARE, OTHER, SELFPAY ==
--- NOTE | ~2024-02-02 | XR_ITS ---
EXAMINATION: XR SHOULDER, LEFT CLINICAL INFORMATION: Pain in left shoulder. COMPARISON: 01/04/2024 TECHNIQUE: Two views of the left shoulder. FINDINGS: The bones are diffusely demineralized. Redemonstration of old proximal left humeral fracture. Redemonstration of multiple old rib fractures. Previously noted tiny discontinuity along the lateral aspect of the humeral head is difficult to assess on this exam due to differences in positioning. Increased radiodensities along the medial proximal humeral shaft, possibly related to trauma/healing. Minimal degenerative changes in the glenohumeral joint. Dextroscoliosis of the thoracic spine with degenerative changes. XR/XR shoulder LT min 2V IMPRESSION: 1. Redemonstration of old proximal left humeral fracture. Previously noted tiny discontinuity along the lateral aspect of the humeral head is difficult to assess on this exam due to differences in positioning and felt to possibly represent acute or chronic injury lateral left humeral head. Increased radiodensities along the medial proximal humeral shaft, possibly related to trauma/healing. 2. Additional imaging with CT scan or MRI should be considered for further evaluation based on the clinical assessment.
== END 2024-02-02 15:40 | disposition home or self-care (01) ==
LOC: HO.HOSX 15:39
PROVIDERS: Visit Provider Physician Assistant
DX: M25.512 Pain in left shoulder (principal)
CPT/HCPCS: 73030; 99212

== ENCOUNTER 2024-03-15 12:39 | Outpatient (REF) | payer MEDICARE, OTHER, SELFPAY ==
--- NOTE | ~2024-03-15 | XR_ITS ---
EXAMINATION: XR SHOULDER, LEFT CLINICAL INFORMATION: Pain in left shoulder COMPARISON: Left shoulder 02/02/2024, 01/02/2024 TECHNIQUE: AP neutral, scapular Y, and axillary views of the left shoulder. FINDINGS: The bones are diffusely demineralized. Redemonstration of old proximal left humeral fracture. Cortical discontinuity identified in the lateral humeral head on 01/04/2024 is difficult to access on this exam due to differences in positioning. Increased radiodensities along the medial proximal humeral shaft are again noted. Redemonstration of multiple old healed left rib fractures. The glenohumeral joint is narrowed in appearance. The lungs are clear. Aortic calcifications are noted. XR/XR shoulder LT min 2V IMPRESSION: 1. Redemonstration of old proximal left humeral fracture. Piercing noted tiny discontinuity along the lateral aspect of the humeral head seen on 01/02/2024 is difficult to assess on this exam due to differences in positioning. 2. Additional imaging with CT scan or MRI scan could be considered for further evaluation based on clinical assessment.
== END 2024-03-15 12:40 | disposition home or self-care (01) ==
LOC: HO.HOSX 12:39
PROVIDERS: Visit Provider Physician Assistant
DX: S42.295D Other nondisplaced fracture of upper end of left humerus, subsequent encounter for fracture with routine healing (principal)
CPT/HCPCS: 73030; 99212

== ENCOUNTER 2024-03-15 14:14 | Outpatient (AMB) | payer MEDICARE, OTHER, SELFPAY ==
--- NOTE | 2024-03-15 14:26 | A.OFFVIS_ITS ---
Intake Visit Reasons: OV-lt prox hum fx w/ xrays Intake Note: Dianna an 88 year old female presents today for a follow up of left humeral fracture, DOI 12/19/23. States she is doing well and has completed P.T. She is not sure of she needs to do more P.T. She is also asking for a print out of home exercise she can do. Allergies Penicillins [PCN] Allergy (Unknown, Verified 03/15/24 14:27) UNKNOWN Sulfa (Sulfonamide Antibiotics) [SULFA(SULFONAMIDE ANTIBIOTICS)] Allergy (Un known, Verified 03/15/24 14:27) UNKNOWN heparin Adverse Reaction (Verified 03/15/24 14:27) Unknown penicillin Allergy (Unknown, Uncoded 03/15/24 14:27) rash Sulfa Allergy (Unknown, Uncoded 03/15/24 14:27) rash HPI HPI OV-lt prox hum fx w/ xrays: Details: 88-year-old female returns to the office today for a follow-up left proximal humerus fracture date of injury 12/19/2023. She states she has been working with physical therapy to regain her range of motion. She would like to continue with home exercises to improve her strength. She has no concerns today. [facility] Medical History Hyperthyroidism Hyperlipidemia Nausea Pancreatitis Diabetes Surgical History (Reviewed 02/02/24 @ 15:13 by Nella Stoner [facility]) H/O heart artery stent Social History Household Members: None Housing: House Do you presently have visiting nurse or other home services: Yes Alcohol intake: unknown Patient Tobacco Use Status: Never used Tobacco Advance Directives Date on File: 12/19/23 service: No Current occupational status: retired Current occupation: [employer] Review of Systems Const All systems reviewed & are unremarkable except as noted in HPI and below Physical Exam Const General: cooperative and no acute distress Orientation/consciousness: patient oriented x3 HEENT Head: Yes normal to inspection, Yes normocephalic and Yes atraumatic Eyes General: appearance normal, both eyes and all related structures Resp Effort & Inspection: normal respiratory effort and able to speak in complete sentences Cardio Rate: regular rate Peripheral pulses: Peripheral pulses 2+ throughout GI Palpation (GI): Soft to palpation Skin Lesions: no lesions Rashes: no rashes Neuro General: patient oriented x3 Extrem Other: Left shoulder: Normal to inspection. No Swelling present. She has no tenderness over the proximal humerus which extends down the arm. Anterior deltoid sensation intact. Elbow and wrist ROM intact. NVI. Results Reviewed Results Reviewed: Xrays were obtained in the office today and personally reviewed by me of the left shoulder show acute on chronic proximal humerus fracture with interval healing Assessment & Plan Assessment & Plan (1) Fracture of proximal end of left humerus: Code(s): S42.202A - Unspecified fracture of upper end of left humerus, initial encounter for closed fracture Category: Medical Qualifiers: Encounter type: subsequent encounter Fracture type: closed Fracture morphology: other fracture Fracture alignment: nondisplaced Fracture healing: with routine healing Qualified Code(s): S42.295D - Other nondisplaced fracture of upper end of left humerus, subsequent encounter for fracture with routine healing Plan: She will continue to increase activities as tolerated. I did give her a handout on some home exercises she will continue her range of motion and work on periscapular and rotator cuff strengthening exercises she will see me back if symptoms arise and there is any concerns otherwise follow up as needed. Orders: Orders XR shoulder LT min 2V Today M25.512 - Pain in left shoulder
== END 2024-03-15 16:21 | disposition home or self-care (01) ==
PROVIDERS: PCP Internal Medicine; Visit Provider Physician Assistant
DX: S42.295D Other nondisplaced fracture of upper end of left humerus, subsequent encounter for fracture with routine healing (principal)
CPT/HCPCS: 99213

== ENCOUNTER 2024-05-12 20:13 | Emergency (ER) | payer MEDICARE, OTHER, SELFPAY ==
[2024-05-12 20:19] VITALS: BP 141/61; BP 143/66; PULSE 77; PULSE 78; RESP 16; TEMP 36.5; O2SAT 100; BMI 18.8
[2024-05-12 20:43] LABS: Glucose, Whole Blood 111 mg/dL (60-115)
--- NOTE | 2024-05-12 20:50 | ECG_ITS ---
Test Reason : WEAKNESS Blood Pressure : / mmHG Vent. Rate : 071 BPM Atrial Rate : 071 BPM P-R Int : 210 ms QRS Dur : 080 ms QT Int : 396 ms P-R-T Axes : 066 043 056 degrees QTc Int : 430 ms Sinus rhythm with 1st degree A-V block Otherwise normal ECG When compared with ECG of 26-SEP-2023 17:29, No significant change was found Referred By: Amy Chapman Electronically Signed By:REYNALDO ULLOA
[2024-05-12 21:21] LABS: MANUAL DIFF FLAG NO
[2024-05-12 21:30] LABS: Basophils Percent Auto 0.4 % (0-2); Eosinophils Percent Auto 0.4 % (0-4); Hematocrit 35.8 % (37.0-47.0); Hemoglobin 11.4 g/dl (12.0-16.0); Imm Gran Abs Auto 0.01 X10*3/uL (0.00-0.03); Imm Gran Pct Auto 0.2 % (0.0-0.4); Lymphocytes Absolute Auto 0.7 X10*3/uL (1.2-4.9); Lymphocytes Percent Auto 13.8 % (20-40); Mean Corpuscular HGB Conc 31.8 g/dl (31.0-35.0); Mean Corpuscular Hemoglobin 30.3 pg (27.0-33.0); Mean Corpuscular Volume 95.2 fL (80.0-98.0); Mean Platelet Volume 10.2 fL (9.4-12.3); Monocytes Absolute Auto 0.4 X10*3/uL (0.1-1.2); Monocytes Percent Auto 6.6 % (2-11); Neutrophils Absolute Auto 4.2 x10*3/uL (2.0-8.3); Neutrophils Percent Auto 78.6 % (45-73); Platelet Count 280 X10*3/uL (160-400); Red Blood Count 3.76 X10*6/uL (4.20-5.50); Red Cell Distribution Width 12.5 % (11.0-16.0); White Blood Count 5.3 X10*3/uL (4.8-10.8)
[2024-05-12 21:41] LABS: Alanine Aminotransferase 47 U/L (0-31); Albumin Level 3.8 g/dL (3.5-5.0); Alkaline Phosphatase 91 U/L (39-117); Anion Gap 12 (12-20); Aspartate Amino Transferase 40 U/L (5-31); Bilirubin Total 0.5 mg/dL (0.0-1.0); Blood Urea Nitrogen 11 mg/dL (9-16); Calcium 8.9 mg/dL (8.4-10.2); Carbon Dioxide 28 mmol/L (22-29); Chloride 106 mmol/L (96-108); Creatinine Clr Calc Pharmacy 44.3; Estimated Glomerular Filt Rate > 60; Glucose Random 140 mg/dL (60-115); Potassium 3.7 mmol/L (3.3-5.1); Sodium 142 mmol/L (135-145); Total Protein 6.4 g/dL (6.5-8.0)
[2024-05-12 22:05] LABS: Appearance Urine Clear; Color Urine Yellow; Glucose Urine UA Negative (Negative); Leukocyte Esterase Urine Small (1+) (Negative); Nitrite Urine Negative (Negative); PH 5.5 (5.0-9.0); UMIC TRIGGER UACC YES; Urine Blood Negative (Negative); Urine Ketones Negative (Negative); Urine Protein Negative (Neg-Trace)
[2024-05-12 22:17] LABS: Bacteria Urine 4+ (None Seen); Hyaline Casts Urine 0-2 /LPF (0-2); RBC Urine 0-2 /HPF (0-2); Squamous Epithelial Cell Urine 0-2 /HPF (0-2); UACC Culture Trigger YES; WBC Urine 0-5 /HPF (0-5)
--- NOTE | 2024-05-12 22:56 | ED.GENADULT ---
HPI - General Adult General Chief complaint: General Medical Stated complaint: pain in right abd, ovarian cyst Source: patient and EMS Mode of arrival: EMS Limitations: no limitations History of Present Illness ED Provider: Dr. Amy Chapman HPI narrative: Patient comes to the emergency room complaining of low blood sugar. Patient states that she lives alone, states that she has been having trouble with her insulin, states that she gets it mixed up, does not know how many units to use. Does not know if she use the Lantus or Humalog. Patient states that earlier today she was feeling confused, could not figure out how to use a microwave, called her [id number] and told her what was happening. [id number] called 911. According to EMS, patient's point of care was 47. Patient received 15 g of oral glucose, started 10% dextrose, point of care 97 and patient started feeling much better. Patient states that she skipped lunch today and still gave herself the same amount of insulin. Related Data Home Medications ?Medication ?Instructions ?Recorded ?Confirmed metformin 500 mg tablet 500 mg PO BID 02/23/21 01/02/24 cholecalciferol (vitamin D3) 25 25 mcg PO DAILY 02/27/22 01/02/24 mcg (1,000 unit) tablet (Vitamin D3) metoprolol tartrate 50 mg tablet 1 tab PO BID 02/27/22 01/02/24 nitroglycerin 0.4 mg sublingual 1 tab sublingual DIRECTED 02/27/22 01/02/24 tablet bolus insulin pump, 200 unit 2 09/26/23 01/02/24 unit bolus insulin patch pump, 200 unit, disposable (CeQur Simplicity) insulin aspart U-100 100 unit/mL 6 sliding scale dose subcut TIDAC 09/26/23 01/02/24 subcutaneous solution (Novolog U-100 Insulin aspart) aspirin 81 mg tablet,delayed 81 mg PO DAILY 12/19/23 01/02/24 release gabapentin 100 mg capsule 100 mg PO TID 12/19/23 01/02/24 insulin glargine 100 unit/mL (3 8 unit subcut DAILY 12/19/23 01/02/24 mL) subcutaneous pen (Lantus Solostar U-100 Insulin) pantoprazole 40 mg tablet,delayed 40 mg PO DAILY 12/19/23 01/02/24 release Allergies Allergy/AdvReac Type Severity Reaction Status Date / Time Penicillins [PCN] Allergy Unknown UNKNOWN Verified 05/12/24 20:22 Sulfa (Sulfonamide Allergy Unknown UNKNOWN Verified 05/12/24 20:22 Antibiotics) [SULFA(SULFONAMIDE ANTIBIOTICS)] heparin AdvReac Unknown Verified 05/12/24 20:22 penicillin Allergy Unknown rash Uncoded 05/12/24 20:22 Sulfa Allergy Unknown rash Uncoded 05/12/24 20:22 Review of Systems Review of Systems: Constitutional : No Weight loss, No Fever, No Chills, No Night Sweats, No Fatigue, No Malaise ENT/Mouth : No Hearing loss, No Ear Pain, No Nasal Congestion, No Sinus Pain, No Hoarseness, No sore throat, No Rhinorrhea, No Swallowing Difficulty Eyes: No Eye Pain, No Swelling, No Redness, No Foreign Body, No Discharge, No Vision Changes Cardiovascular : No Chest Pain, No SOB, No Dyspnea on Exertion, No Orthopnea, No Edema, No Palpitations Respiratory : No Cough, No Sputum, No Wheezing, No Smoke Exposure, No Dyspnea Gastrointestinal : No Nausea, No Vomiting, No Diarrhea, No Constipation, No abdominal Pain, No Hematochezia, No Melena Genitourinary : no irregular bleeding, No Dysuria, No Urinary Frequency, No Hematuria, No Urinary Incontinence, No Urgency, No Flank Pain, No Urinary Flow Changes, No Hesitancy Musculoskeletal : No joint pain, No Myalgias, No Joint Swelling Skin : No Skin Lesions, No rash Neuro : No Weakness, No Numbness, No Paresthesias, No Loss of Consciousness, No Dizziness, No Headache Psych : No Anxiety/Panic, No Depression, No SI/HI/AH/VH, No Social Issues, Heme/Lymph: No Bruising, No Bleeding,No Lymphadenopathy Endocrine : No Polyuria, No Polydipsia, complaining of low blood sugar and confusion [facility] Past Medical History Medical History Hyperthyroidism Hyperlipidemia Nausea Pancreatitis Diabetes Surgical History H/O heart artery stent Social History Social History Household Members: None Housing: House Do you presently have visiting nurse or other home services: Yes Alcohol intake: unknown Patient Tobacco Use Status: Never used Tobacco Smoked in Last 30 Days: No Use of substances other than those prescribed or required for medical reasons: No Advance Directives: Yes Advance Directives on File: Yes Advance Directives Date on File: 12/19/23 Do you have a plan to hurt others: No Plan service: No Current occupational status: retired Current occupation: [employer] Physical Exam ED Vital Signs: Vital Signs - 24 hr 05/12/24 20:19 Temperature 97.7 F Pulse Rate 77 Respiratory Rate 16 Blood Pressure 141/61 H Pulse Oximetry 100 Oxygen Delivery Method Room Air BMI result Body Mass Index 18.8 Const Other: Appearance: Alert. Oriented X3. No acute distress. Eyes: Pupils equal, round and reactive to light. ENT: Pharynx normal. Neck: Normal inspection. Neck supple. No lymph nodes noted. No crepitus CVS: Normal heart rate and rhythm. Pulses normal. Normal S1 and S2 Respiratory: No respiratory distress. Breath sounds normal. No Wheezing. No rales Abdomen: Soft and nontender. No rigidity. No distention. Skin: Skin warm and dry. Normal skin color. Normal skin turgor. Extremities: No lower extremity edema. No Lacerations. No Rash Neuro: Oriented X 3. No motor deficit. No sensory deficit. Moving all extremities. No slurred speech. CN 2 through 12 grossly intact Psych: calm, cooperative, normal affect Medical Decision Making Medical Decision Making MDM Narrative: -my interpretation of labs, normal hematology and chemistry, mild UTI, patient given nitrofurantoin -patient states that she has a difficult time remembering how to use her insulin. Patient states there is a possibility that she might have overdose with her insulin versus used the wrong insulin and on top of that not eating. -patient states that she has a worker that comes and helps her with the patch but does not do any other medications and does not know either the patient's insulin regimen. -patient requesting a nurse it helps her with her insulin because she can not do it herself anymore. Discussed with the patient that this may be a case management consult, which will likely happen on Tuesday. Patient agreeable and agrees to stay until then -physician observation started at 23:29 Differential Diagnosis Differential Diagnoses: The differential diagnosis associated with the presentation includes (Insulin overdose versus usage of wrong insulin, UTI) Admission/Observation Consideration of admission/observation: Escalation of care including admission/observation considered Lab Data MDM Lab Attestation statement: I reviewed the patient's lab results. 05/12/24 21:18 05/12/24 21:18 Labs: Lab Results 05/12/24 05/12/24 05/12/24 Range/Units 20:33 21:18 21:58 WBC 5.3 (4.8-10.8) X10*3/uL RBC 3.76 L (4.20-5.50) X10*6/uL Hgb 11.4 L (12.0-16.0) g/dl Hct 35.8 L (37.0-47.0) % MCV 95.2 (80.0-98.0) fL MCH 30.3 (27.0-33.0) pg MCHC 31.8 (31.0-35.0) g/dl RDW 12.5 (11.0-16.0) % Plt Count 280 (160-400) X10*3/uL MPV 10.2 (9.4-12.3) fL Immature Gran % (Auto) 0.2 (0.0-0.4) % Neut % (Auto) 78.6 H (45-73) % Lymph % (Auto) 13.8 L (20-40) % [place] % (Auto) 6.6 (2-11) % Eos % (Auto) 0.4 (0-4) % Baso % (Auto) 0.4 (0-2) % Lymph # (Auto) 0.7 L (1.2-4.9) X10*3/uL [place] # (Auto) 0.4 (0.1-1.2) X10*3/uL Eos # (Auto) 0.0 (0.0-0.4) X10*3/uL Baso # (Auto) 0.0 (0.0-0.2) X10*3/uL Abs Immat Gran (auto) 0.01 (0.00-0.03) X10*3/uL Absolute Neuts (auto) 4.2 (2.0-8.3) x10*3/uL Absolute Nucleated RBC 0.000 (0.0-0.012) X10*3/uL Nucleated RBC % (auto) 0.0 (0.0-0.2) /100WBC Sodium 142 (135-145) mmol/L Potassium 3.7 (3.3-5.1) mmol/L Chloride 106 (96-108) mmol/L Carbon Dioxide 28 (22-29) mmol/L Anion Gap 12 (12-20) BUN 11 (9-16) mg/dL Creatinine 0.76 (0.5-1.4) mg/dL Estim Creat Clear Calc 44.3 Estimated GFR > 60 POC Glucose 111 (60-115) mg/dL Random Glucose 140 H (60-115) mg/dL Calcium 8.9 (8.4-10.2) mg/dL Total Bilirubin 0.5 (0.0-1.0) mg/dL AST 40 H (5-31) U/L ALT 47 H (0-31) U/L Alkaline Phosphatase 91 (39-117) U/L Total Protein 6.4 L (6.5-8.0) g/dL Albumin 3.8 (3.5-5.0) g/dL Urine Color Yellow Urine Appearance Clear Urine pH 5.5 (5.0-9.0) Ur Specific [place] 1.010 (1.005-1.025) Urine Protein Negative (Neg-Trace) mg/dL Urine Glucose (UA) Negative (Negative) mg/dL Urine Ketones Negative (Negative) mg/dL Urine Blood Negative (Negative) Urine Nitrite Negative (Negative) Ur Leukocyte Esterase Small (1+) H (Negative) Urine RBC 0-2 (0-2) /HPF Urine WBC 0-5 (0-5) /HPF Ur Squamous Epith Cells 0-2 (0-2) /HPF Urine Bacteria 4+ (None Seen) Hyaline Casts 0-2 (0-2) /LPF Critical Care Time Critical Care Time Critical Care Time: Yes Total Critical Care Time: 35 Attestation: I have personally provided critical care time. Time includes review of lab data, radiology results, discussion with consultants, and monitoring for potential decompensation. Intervention performed as documented. Discharge Plan Discharge Clinical Impression: Accidental overdose of insulin Patient Disposition: Still a Patient Prescriptions: No Action metoprolol tartrate 50 mg tablet 1 tab PO BID cholecalciferol (vitamin D3) [Vitamin D3] 25 mcg (1,000 unit) Tablet 25 mcg PO DAILY nitroglycerin 0.4 mg tablet, sublingual 1 tab sublingual DIRECTED insulin aspart U-100 [Novolog U-100 Insulin aspart] 100 unit/mL solution 6 sliding scale dose subcut TIDAC (DME) CeQur Simplicity 2 unit device MISCELLANEOUS gabapentin 100 mg capsule 100 mg PO TID pantoprazole 40 mg tablet,delayed release (DR/EC) 40 mg PO DAILY insulin glargine [Lantus Solostar U-100 Insulin] 100 unit/mL (3 mL) insulin pen 8 unit subcut DAILY aspirin [Aspir-81] 81 mg Tablet,Delayed Release (Dr/Ec) 81 mg PO DAILY metformin 500 mg tablet 500 mg PO BID Print Language: Bengali
[2024-05-12 23:58] VITALS: BP 164/74; PULSE 83; RESP 16; TEMP 36.3; O2SAT 96
[2024-05-13] VITALS (8 sets, daily range): BP systolic 108–162; BP diastolic 52–72; PULSE 72–83; RESP 12–20; TEMP 36.1–36.9; O2SAT 94–100
--- NOTE | 2024-05-13 02:09 | PC.NURSE ---
Patient is alert and oriented x3, forgetful at times. Patient complaints of mild headache, 2/10 at present. This RN offered patient Tylenol, patient refused. Patient ambulated to restroom, ambulates with unsteady gait and requires assistance of 1 person with ambulation. Per patient, she uses a cane at night at baseline. Patient requested and provide with nalini jayshree and turkey sandwich. Call jackson in reach, plan of care ongoing.
[2024-05-13] MEDS: Nitrofurantoin Monohyd/M-Cryst 100 MG CAPSULE PO ×2 (02:36→09:42)
[2024-05-13 07:14] LABS: Glucose, Whole Blood 237 mg/dL (60-115)
--- NOTE | 2024-05-13 07:20 | PC.NURSE ---
Provider made aware of insulin orders, orders DC oral metformin ordered at this time
--- NOTE | 2024-05-13 08:23 | PHA.MEDREC ---
Addendum entered by Abdi Webb 05/13/24 09:10: Patient confirmed to not be on metoprolol. Original Note: Pharmacy Consult ? Medication Reconciliation Pharmacy has completed the medication reconciliation. Pt and family member confirmed meds. Pt states they were taking lantus 12 units at bedtime and novolog 12 units TIDAC, however not sure if that is the correct dosese for them to take. Pt's family member unsure if the patient is still taking metoprolol, given last fill was in 2022. Family member said they would go to patient's house and check. Leaving metoprolol unconfirmed and will adjust when pt's family member confirms medication.
[2024-05-13] MEDS: metFORMIN HCl 500 MG TABLET 1000 MG PO (09:41)
[2024-05-13] MEDS: Atorvastatin Calcium 40 MG TABLET PO (09:41)
[2024-05-13 11:19] LABS: Glucose, Whole Blood 294 mg/dL (60-115)
--- NOTE | 2024-05-13 12:50 | MHC.CM.ED ---
Received ED consult for assessment of d/c needs: pt resides alone at home: has 4 adult children out of the state but does have a privately hired SIDER MECHANIC, Dorcas who assists with everything including transportation. Pt also has [facility] for 2 hrs per day of SIDER MECHANIC care. Pt has a working glucometer but is unsure of insulin pen usage and has made several errors with administration resulting in hypoglycemic episodes. Referred to [facility] for skilled RN visits / diabetic management. Call placed to Dorcas at pt's request. Dorcas will transport pt to home today closer to 3pm. Pt in agreement w/plan as are the ED PA and RN.
[2024-05-13] MEDS: Insulin Lispro 100 UNIT/ML 3 ML VIAL SUBCUT (13:53)
== END 2024-05-13 16:07 | disposition home or self-care (01) ==
PROVIDERS: Emergency Provider Emergency Medicine
DX: T38.3X1A Poisoning by insulin and oral hypoglycemic [antidiabetic] drugs, accidental (unintentional), initial encounter (principal); R41.0 Disorientation, unspecified; Y92.009 Unspecified place in unspecified non-institutional (private) residence as the place of occurrence of the external cause; E11.9 Type 2 diabetes mellitus without complications; N39.0 Urinary tract infection, site not specified; B96.1 Klebsiella pneumoniae [K. pneumoniae] as the cause of diseases classified elsewhere; E78.5 Hyperlipidemia, unspecified; Z79.85 Long-term (current) use of injectable non-insulin antidiabetic drugs; Z79.4 Long term (current) use of insulin; Z79.84 Long term (current) use of oral hypoglycemic drugs; Z79.82 Long term (current) use of aspirin
CPT/HCPCS: 36415; 80053; 81001; 82947; 85025; 87086; 87088; 87186; 93005; 99285

== ENCOUNTER → 2024-05-12 20:50 | Outpatient (BNV) | payer MEDICARE, OTHER, SELFPAY | PROVIDERS: Emergency Provider Emergency Medicine; Visit Provider Internal Medicine | DX: I44.0 Atrioventricular block, first degree (principal) | CPT/HCPCS: 93010 ==

== ENCOUNTER 2024-06-22 17:38 | Inpatient (IN) | payer MEDICARE, OTHER, SELFPAY ==
--- NOTE | ~2024-06-22 | CT_ITS ---
EXAMINATION: CT head/brain wo IV con CLINICAL INFORMATION: Reason for Exam ams COMPARISON: CT head without contrast 12/19/2023. TECHNIQUE: Contiguous axial imaging was performed from the skull base to vertex without intravenous contrast. Sagittal and coronal reformatted images were obtained. This CT examination was performed using dose optimization techniques as appropriate, variously including the following: * Automated exposure control * Adjustment of mA and/or kV according to patient size (this includes techniques or standardized protocols for targeted exams where dose is matched to indication/reason for exam; i.e. extremities or head) Use of iterative reconstruction technique DLP: 629.92 mGy-cm FINDINGS: No acute osseous or soft tissue abnormality. The mastoids are clear. Small left sphenoid sinus retention cyst. There is no evidence of acute intracranial hemorrhage or territorial infarction. No abnormal mass effect or midline shift is seen. [place]illard to white matter differentiation is well preserved. No extra-axial fluid collections are identified. No hydrocephalus. Proportional prominence of the ventricles and sulcal spaces related to volume loss. Patchy periventricular and deep white matter hypoattenuation is consistent with mild small vessel ischemic changes. CT/CT head/brain wo IV con IMPRESSION: No acute intracranial abnormality including hemorrhage, mass effect, hydrocephalus, or acute territorial edematous infarction.
--- NOTE | ~2024-06-22 | XR_ITS ---
EXAMINATION: XR CHEST CLINICAL INFORMATION: Altered mental status. COMPARISON: None available. TECHNIQUE: Frontal view of the chest was obtained. FINDINGS: No significant abnormality is noted involving the heart, lungs, mediastinum, bony thorax or soft tissues. There are old, healed left rib fractures. There is mild thoracic dextroscoliosis. Multiple overlapping monitor leads are noted. XR/XR chest 1V IMPRESSION: Unremarkable examination.
--- NOTE | 2024-06-22 17:46 | ECG_ITS ---
Test Reason : LOW BLOOD SUGAR Blood Pressure : / mmHG Vent. Rate : 069 BPM Atrial Rate : 069 BPM P-R Int : 224 ms QRS Dur : 086 ms QT Int : 430 ms P-R-T Axes : 066 035 042 degrees QTc Int : 460 ms Sinus rhythm with 1st degree A-V block Early Repolarization Otherwise normal ECG When compared with ECG of 12-MAY-2024 21:01, No significant change was found Referred By: Nando Short Electronically Signed By:REYNALDO ULLOA
[2024-06-22 17:48] LABS: Glucose, Whole Blood 236 mg/dL (60-115)
[2024-06-22 18:01] VITALS: BP 122/47; PULSE 72; RESP 12; TEMP 34; O2SAT 96; BMI 17.8
[2024-06-22] MEDS: Dextrose 25 % 2.5 GM/10 ML SYRINGE IVPUSH (18:01)
[2024-06-22 18:02] LABS: MANUAL DIFF FLAG NO
[2024-06-22 18:09] LABS: INTERNATIONAL NORM RATIO 0.9 (0.9-1.1); Prothrombin Time 10.5 SEC (11.1-13.3)
[2024-06-22 18:11] VITALS: BP 122/47; PULSE 72; RESP 12; TEMP 34; O2SAT 96
--- NOTE | 2024-06-22 18:11 | PC.NURSE ---
patient arrives via EMS from home, per EMS patient was supposed to go out with a friend and the friend came over and found her to be unresponsive, patient is a diabetic, when EMS arrived patients POC was noted to be 33, upon arriving to ED patinet remains unresponsive and drooling, per ED POC reading was LOW, patient given amp of 50% dextrose with minimal effect, patient slowly became more alert to name however would go back to being unresponsive, bilateral 18g IV placed, blood work drawn patient changed into appropriate hospital attire, rectal temperature taken patient noted to be 93.2 rectally. MD made aware, patient to be placed on bear hugger, patient immediately to CT scan. automotive brake technician at bedside upon her returning to complete EKG, patient maintaining airway at this time. respirations are even and unlabored. patient becoming more alert to voice. physical exam otherwise unremarkable.
[2024-06-22 18:15] LABS: Basophils Absolute Auto 0.1 X10*3/uL (0.0-0.2); Basophils Percent Auto 0.7 % (0-2); Eosinophils Absolute Auto 0.1 X10*3/uL (0.0-0.4); Hemoglobin 9.6 g/dl (12.0-16.0); Imm Gran Abs Auto 0.03 X10*3/uL (0.00-0.03); Imm Gran Pct Auto 0.4 % (0.0-0.4); Lymphocytes Absolute Auto 1.3 X10*3/uL (1.2-4.9); Mean Corpuscular Hemoglobin 30.3 pg (27.0-33.0); Mean Corpuscular Volume 94.6 fL (80.0-98.0); Mean Platelet Volume 10.4 fL (9.4-12.3); Monocytes Absolute Auto 0.6 X10*3/uL (0.1-1.2); Monocytes Percent Auto 8.8 % (2-11); Neutrophils Absolute Auto 4.9 x10*3/uL (2.0-8.3); Neutrophils Percent Auto 70.1 % (45-73); Platelet Count 290 X10*3/uL (160-400); Red Blood Count 3.17 X10*6/uL (4.20-5.50); Red Cell Distribution Width 13.6 % (11.0-16.0)
[2024-06-22 18:19] LABS: Alanine Aminotransferase 26 U/L (0-31); Albumin Level 3.4 g/dL (3.5-5.0); Alkaline Phosphatase 92 U/L (39-117); Anion Gap 13 (12-20); Aspartate Amino Transferase 25 U/L (5-31); Bilirubin Total 0.4 mg/dL (0.0-1.0); Blood Urea Nitrogen 18 mg/dL (9-16); Carbon Dioxide 24 mmol/L (22-29); Chloride 107 mmol/L (96-108); Creatinine Clr Calc Pharmacy 37.1; Estimated Glomerular Filt Rate > 60; Glucose Random 211 mg/dL (60-115); Magnesium 1.9 mg/dL (1.6-2.6); Potassium 3.7 mmol/L (3.3-5.1); Sodium 140 mmol/L (135-145); Total Protein 6.2 g/dL (6.5-8.0)
[2024-06-22 18:28] LABS: Troponin-I High Sensitivity < 2.7 ng/L (<3.5-17.0)
[2024-06-22 18:32] LABS: Glucose, Whole Blood 145 mg/dL (60-115)
--- NOTE | 2024-06-22 18:48 | ED.GENADULT ---
HPI - General Adult General Chief complaint: General Medical Stated complaint: Conscious, non alert to stimuli, hypoglycemia Time Seen by Provider: 06/22/24 17:41 Source: patient Mode of arrival: ambulatory Limitations: no limitations History of Present Illness ED Provider: veronika DUNBAR narrative: Patient's history of diabetes on insulin brought by EMS when her friend visiting her house found her on the couch unresponsive with shallow breathing POC was 35 when EMS arrived was given ampule of D50 after arrival with minimal response no signs of injury Related Data Home Medications ?Medication ?Instructions ?Recorded ?Confirmed nitroglycerin 0.4 mg sublingual 1 tab sublingual Q5M PRN Chest Pain 02/27/22 05/13/24 tablet bolus insulin pump, 200 unit 2 09/26/23 05/13/24 unit bolus insulin patch pump, 200 unit, disposable (CeQur Simplicity) insulin aspart U-100 100 unit/mL 12 unit subcut TIDAC 09/26/23 05/13/24 subcutaneous solution (Novolog U-100 Insulin aspart) gabapentin 100 mg capsule 100 mg PO BID 12/19/23 05/13/24 insulin glargine 100 unit/mL (3 12 unit subcut BEDTIME 12/19/23 05/13/24 mL) subcutaneous pen (Lantus Solostar U-100 Insulin) pantoprazole 40 mg tablet,delayed 40 mg PO DAILY@0630 12/19/23 05/13/24 release atorvastatin 40 mg tablet 40 mg PO DAILY 05/13/24 05/13/24 metformin 500 mg tablet,extended 1,000 mg PO BID 05/13/24 05/13/24 release 24 hr propylthiouracil 50 mg tablet 50 mg PO BID 05/13/24 05/13/24 Allergies Allergy/AdvReac Type Severity Reaction Status Date / Time Penicillins [PCN] Allergy Unknown UNKNOWN Verified 06/22/24 18:03 Sulfa (Sulfonamide Allergy Unknown UNKNOWN Verified 06/22/24 18:03 Antibiotics) [SULFA(SULFONAMIDE ANTIBIOTICS)] heparin AdvReac Unknown Verified 06/22/24 18:03 penicillin Allergy Unknown rash Uncoded 06/22/24 18:03 Sulfa Allergy Unknown rash Uncoded 06/22/24 18:03 Review of Systems Review of Systems: Yes all other systems are reviewed and are negative PMFSH Past Medical History Medical History Hyperthyroidism Hyperlipidemia Nausea Pancreatitis Diabetes Surgical History H/O heart artery stent Social History Social History Household Members: None Housing: House Do you presently have visiting nurse or other home services: Yes Unable to assess alcohol history related to: Unable to respond Alcohol intake: unknown Patient Tobacco Use Status: Never used Tobacco Use of substances other than those prescribed or required for medical reasons: Unable to respond Advance Directives: Yes Advance Directives on File: Yes Advance Directives Date on File: 12/19/23 Nutrition Risks: No Nutritional Risk service: No Current occupational status: retired Current occupation: [employer] Physical Exam ED Vital Signs: Vital Signs - 24 hr 06/22/24 18:01 06/22/24 18:11 06/22/24 20:00 Temperature 93.2 F L 93.2 F L 92.3 F L Pulse Rate 72 72 66 Respiratory Rate 12 12 12 Blood Pressure 122/47 L 122/47 L 112/69 Pulse Oximetry 96 96 99 Oxygen Delivery Method Room Air Room Air Room Air 06/22/24 21:58 Temperature 95.2 F L Pulse Rate 79 Respiratory Rate 18 Blood Pressure 132/56 L Pulse Oximetry 99 Oxygen Delivery Method Room Air BMI result Body Mass Index 17.8 Appearance: Obtunded responsive to noxious stimuli. Eyes: No pallor or icterus ENT: Pharynx normal. Oral Mucosa moist atraumatic normocephalic Neck: Normal inspection. Neck supple. CVS: Normal heart rate and rhythm. Pulses normal. Respiratory: No respiratory distress. Equal air entry bilateral, no wheezing/rales/rhonchi Abdomen: Soft and nontender. Bowel sounds are present, no mass palpable, no CVA tenderness Skin: Skin warm and dry. Normal skin color. Normal skin turgor. Extremities: No lower extremity edema. No calf tenderness Neuro: Obtunded arousable to painful stimuli moving all 4 extremities to painful stimuli Medications Administered Discontinued Medications Generic Name Dose Route Start Last Admin Trade Name Freq PRN Reason Stop Dose Admin Dextrose 25 gm 06/22/24 17:45 06/22/24 18:01 Dextrose 25 % 2.5 Gm/10 Ml Syringe IVPUSH 06/22/24 17:46 25 gm NOW STA Administration Dextrose 25 gm 06/22/24 19:10 06/22/24 19:10 Dextrose 25 % 2.5 Gm/10 Ml Syringe IVPUSH 06/22/24 19:11 Not Given NOW STA Dextrose 25 gm 06/22/24 22:15 06/22/24 19:10 Dextrose 50 % 25 Gm/50 Ml Syringe IVPUSH 06/22/24 22:16 25 gm ONCE ONE Administration Dextrose 1,000 mls @ 100 mls/hr 06/22/24 19:00 06/22/24 18:57 D5w IVCONT 06/23/24 00:00 100 mls/hr .Q10H KIET Administration Ceftriaxone Sodium 1 gm/ 50 mls @ 100 mls/hr 06/22/24 19:06 06/22/24 19:50 Sodium Chloride IV 06/22/24 19:35 Infused ONCE ONE Infusion Sodium Chloride 1,000 mls @ 999 mls/hr 06/22/24 20:40 06/23/24 00:59 Ns IV 06/22/24 21:40 Infused .Q1H1M ONE Infusion Medical Decision Making Medical Decision Making [facility] Narrative: Patient has [id number] with unresponsiveness improved after staying here received dextrose 50 g IV push 2 times and was not dextrose drip not sure whether patient had a seizure or not but no signs of head injury or tongue bite 930pm patient is more alert and awake remembers that she had breakfast but she missed her lunch and plan to go out for lunch with a friend does not remember anything after that patient has missed her lunch his she is on metformin and insulin POC now is 58 Likely hypoglycemic episode happened because she missed her lunch. Patient noted to have hypothermia with a rectal temperature of 93.2 degrees improved after bear hugger no signs of infection noticed so far patient's slightly elevated lactic acid level likely type B not from sepsis with received IV fluids and IV Rocephin prophylactically Differential Diagnosis Differential Diagnoses: The differential diagnosis associated with the presentation includes Hyperglycemia/hypoglycemic seizure/EMS/metabolic encephalopathy Admission/Observation Consideration of admission/observation: Escalation of care including admission/observation considered Consult Healthcare Provider Management of the patient was discussed with: Hospitalist Lab Data MDM Lab Attestation statement: I reviewed the patient's lab results. 06/22/24 17:58 06/22/24 17:58 Labs: Lab Results 06/22/24 06/22/24 06/22/24 Range/Units 17:44 17:57 17:58 WBC 7.0 (4.8-10.8) X10*3/uL RBC 3.17 L (4.20-5.50) X10*6/uL Hgb 9.6 L (12.0-16.0) g/dl Hct 30.0 L (37.0-47.0) % MCV 94.6 (80.0-98.0) fL MCH 30.3 (27.0-33.0) pg MCHC 32.0 (31.0-35.0) g/dl RDW 13.6 (11.0-16.0) % Plt Count 290 (160-400) X10*3/uL MPV 10.4 (9.4-12.3) fL Immature Gran % (Auto) 0.4 (0.0-0.4) % Neut % (Auto) 70.1 (45-73) % Lymph % (Auto) 19.0 L (20-40) % [place] % (Auto) 8.8 (2-11) % Eos % (Auto) 1.0 (0-4) % Baso % (Auto) 0.7 (0-2) % Lymph # (Auto) 1.3 (1.2-4.9) X10*3/uL [place] # (Auto) 0.6 (0.1-1.2) X10*3/uL Eos # (Auto) 0.1 (0.0-0.4) X10*3/uL Baso # (Auto) 0.1 (0.0-0.2) X10*3/uL Abs Immat Gran (auto) 0.03 (0.00-0.03) X10*3/uL Absolute Neuts (auto) 4.9 (2.0-8.3) x10*3/uL Absolute Nucleated RBC 0.000 (0.0-0.012) X10*3/uL Nucleated RBC % (auto) 0.0 (0.0-0.2) /100WBC PT 10.5 L (11.1-13.3) SEC INR 0.9 (0.9-1.1) Sodium 140 (135-145) mmol/L Potassium 3.7 (3.3-5.1) mmol/L Chloride 107 (96-108) mmol/L Carbon Dioxide 24 (22-29) mmol/L Anion Gap 13 (12-20) BUN 18 H (9-16) mg/dL Creatinine 0.86 (0.5-1.4) mg/dL Estim Creat Clear Calc 37.1 Estimated GFR > 60 POC Glucose 236 H 145 H (60-115) mg/dL Random Glucose 211 H (60-115) mg/dL Lactic Acid (0.5-2.0) mmol/L Lactic Acid F/U @ 2Hr (0.5-2.0) mmol/L Calcium 9.0 (8.4-10.2) mg/dL Magnesium 1.9 (1.6-2.6) mg/dL Total Bilirubin 0.4 (0.0-1.0) mg/dL AST 25 (5-31) U/L ALT 26 (0-31) U/L Alkaline Phosphatase 92 (39-117) U/L Troponin I High Sens < 2.7 (<3.5-17.0) ng/L Total Protein 6.2 L (6.5-8.0) g/dL Albumin 3.4 L (3.5-5.0) g/dL Urine Color Urine Appearance Urine pH (5.0-9.0) Ur Specific [place] (1.005-1.025) Urine Protein (Neg-Trace) mg/dL Urine Glucose (UA) (Negative) mg/dL Urine Ketones (Negative) mg/dL Urine Blood (Negative) Urine Nitrite (Negative) Ur Leukocyte Esterase (Negative) Urine RBC (0-2) /HPF Urine WBC (0-5) /HPF Ur Squamous Epith Cells (0-2) /HPF Urine Bacteria (None Seen) Hyaline Casts (0-2) /LPF 06/22/24 06/22/24 06/22/24 Range/Units 18:39 18:45 19:12 WBC (4.8-10.8) X10*3/uL RBC (4.20-5.50) X10*6/uL Hgb (12.0-16.0) g/dl Hct (37.0-47.0) % MCV (80.0-98.0) fL MCH (27.0-33.0) pg MCHC (31.0-35.0) g/dl RDW (11.0-16.0) % Plt Count (160-400) X10*3/uL MPV (9.4-12.3) fL Immature Gran % (Auto) (0.0-0.4) % Neut % (Auto) (45-73) % Lymph % (Auto) (20-40) % [place] % (Auto) (2-11) % Eos % (Auto) (0-4) % Baso % (Auto) (0-2) % Lymph # (Auto) (1.2-4.9) X10*3/uL [place] # (Auto) (0.1-1.2) X10*3/uL Eos # (Auto) (0.0-0.4) X10*3/uL Baso # (Auto) (0.0-0.2) X10*3/uL Abs Immat Gran (auto) (0.00-0.03) X10*3/uL Absolute Neuts (auto) (2.0-8.3) x10*3/uL Absolute Nucleated RBC (0.0-0.012) X10*3/uL Nucleated RBC % (auto) (0.0-0.2) /100WBC PT (11.1-13.3) SEC INR (0.9-1.1) Sodium (135-145) mmol/L Potassium (3.3-5.1) mmol/L Chloride (96-108) mmol/L Carbon Dioxide (22-29) mmol/L Anion Gap (12-20) BUN (9-16) mg/dL Creatinine (0.5-1.4) mg/dL Estim Creat Clear Calc Estimated GFR POC Glucose 71 62 (60-115) mg/dL Random Glucose (60-115) mg/dL Lactic Acid 2.4 H* (0.5-2.0) mmol/L Lactic Acid F/U @ 2Hr (0.5-2.0) mmol/L Calcium (8.4-10.2) mg/dL Magnesium (1.6-2.6) mg/dL Total Bilirubin (0.0-1.0) mg/dL AST (5-31) U/L ALT (0-31) U/L Alkaline Phosphatase (39-117) U/L Troponin I High Sens (<3.5-17.0) ng/L Total Protein (6.5-8.0) g/dL Albumin (3.5-5.0) g/dL Urine Color Urine Appearance Urine pH (5.0-9.0) Ur Specific [place] (1.005-1.025) Urine Protein (Neg-Trace) mg/dL Urine Glucose (UA) (Negative) mg/dL Urine Ketones (Negative) mg/dL Urine Blood (Negative) Urine Nitrite (Negative) Ur Leukocyte Esterase (Negative) Urine RBC (0-2) /HPF Urine WBC (0-5) /HPF Ur Squamous Epith Cells (0-2) /HPF Urine Bacteria (None Seen) Hyaline Casts (0-2) /LPF 06/22/24 06/22/24 06/22/24 Range/Units 19:24 19:43 20:00 WBC (4.8-10.8) X10*3/uL RBC (4.20-5.50) X10*6/uL Hgb (12.0-16.0) g/dl Hct (37.0-47.0) % MCV (80.0-98.0) fL MCH (27.0-33.0) pg MCHC (31.0-35.0) g/dl RDW (11.0-16.0) % Plt Count (160-400) X10*3/uL MPV (9.4-12.3) fL Immature Gran % (Auto) (0.0-0.4) % Neut % (Auto) (45-73) % Lymph % (Auto) (20-40) % [place] % (Auto) (2-11) % Eos % (Auto) (0-4) % Baso % (Auto) (0-2) % Lymph # (Auto) (1.2-4.9) X10*3/uL [place] # (Auto) (0.1-1.2) X10*3/uL Eos # (Auto) (0.0-0.4) X10*3/uL Baso # (Auto) (0.0-0.2) X10*3/uL Abs Immat Gran (auto) (0.00-0.03) X10*3/uL Absolute Neuts (auto) (2.0-8.3) x10*3/uL Absolute Nucleated RBC (0.0-0.012) X10*3/uL Nucleated RBC % (auto) (0.0-0.2) /100WBC PT (11.1-13.3) SEC INR (0.9-1.1) Sodium (135-145) mmol/L Potassium (3.3-5.1) mmol/L Chloride (96-108) mmol/L Carbon Dioxide (22-29) mmol/L Anion Gap (12-20) BUN (9-16) mg/dL Creatinine (0.5-1.4) mg/dL Estim Creat Clear Calc Estimated GFR POC Glucose 287 H 181 H 164 H (60-115) mg/dL Random Glucose (60-115) mg/dL Lactic Acid (0.5-2.0) mmol/L Lactic Acid F/U @ 2Hr (0.5-2.0) mmol/L Calcium (8.4-10.2) mg/dL Magnesium (1.6-2.6) mg/dL Total Bilirubin (0.0-1.0) mg/dL AST (5-31) U/L ALT (0-31) U/L Alkaline Phosphatase (39-117) U/L Troponin I High Sens (<3.5-17.0) ng/L Total Protein (6.5-8.0) g/dL Albumin (3.5-5.0) g/dL Urine Color Urine Appearance Urine pH (5.0-9.0) Ur Specific [place] (1.005-1.025) Urine Protein (Neg-Trace) mg/dL Urine Glucose (UA) (Negative) mg/dL Urine Ketones (Negative) mg/dL Urine Blood (Negative) Urine Nitrite (Negative) Ur Leukocyte Esterase (Negative) Urine RBC (0-2) /HPF Urine WBC (0-5) /HPF Ur Squamous Epith Cells (0-2) /HPF Urine Bacteria (None Seen) Hyaline Casts (0-2) /LPF 06/22/24 06/22/24 06/22/24 Range/Units 20:24 20:51 21:12 WBC (4.8-10.8) X10*3/uL RBC (4.20-5.50) X10*6/uL Hgb (12.0-16.0) g/dl Hct (37.0-47.0) % MCV (80.0-98.0) fL MCH (27.0-33.0) pg MCHC (31.0-35.0) g/dl RDW (11.0-16.0) % Plt Count (160-400) X10*3/uL MPV (9.4-12.3) fL Immature Gran % (Auto) (0.0-0.4) % Neut % (Auto) (45-73) % Lymph % (Auto) (20-40) % [place] % (Auto) (2-11) % Eos % (Auto) (0-4) % Baso % (Auto) (0-2) % Lymph # (Auto) (1.2-4.9) X10*3/uL [place] # (Auto) (0.1-1.2) X10*3/uL Eos # (Auto) (0.0-0.4) X10*3/uL Baso # (Auto) (0.0-0.2) X10*3/uL Abs Immat Gran (auto) (0.00-0.03) X10*3/uL Absolute Neuts (auto) (2.0-8.3) x10*3/uL Absolute Nucleated RBC (0.0-0.012) X10*3/uL Nucleated RBC % (auto) (0.0-0.2) /100WBC PT (11.1-13.3) SEC INR (0.9-1.1) Sodium (135-145) mmol/L Potassium (3.3-5.1) mmol/L Chloride (96-108) mmol/L Carbon Dioxide (22-29) mmol/L Anion Gap (12-20) BUN (9-16) mg/dL Creatinine (0.5-1.4) mg/dL Estim Creat Clear Calc Estimated GFR POC Glucose 131 H 108 (60-115) mg/dL Random Glucose (60-115) mg/dL Lactic Acid (0.5-2.0) mmol/L Lactic Acid F/U @ 2Hr 2.4 H* (0.5-2.0) mmol/L Calcium (8.4-10.2) mg/dL Magnesium (1.6-2.6) mg/dL Total Bilirubin (0.0-1.0) mg/dL AST (5-31) U/L ALT (0-31) U/L Alkaline Phosphatase (39-117) U/L Troponin I High Sens (<3.5-17.0) ng/L Total Protein (6.5-8.0) g/dL Albumin (3.5-5.0) g/dL Urine Color Urine Appearance Urine pH (5.0-9.0) Ur Specific [place] (1.005-1.025) Urine Protein (Neg-Trace) mg/dL Urine Glucose (UA) (Negative) mg/dL Urine Ketones (Negative) mg/dL Urine Blood (Negative) Urine Nitrite (Negative) Ur Leukocyte Esterase (Negative) Urine RBC (0-2) /HPF Urine WBC (0-5) /HPF Ur Squamous Epith Cells (0-2) /HPF Urine Bacteria (None Seen) Hyaline Casts (0-2) /LPF 06/22/24 06/22/24 06/22/24 Range/Units 21:16 21:48 21:52 WBC (4.8-10.8) X10*3/uL RBC (4.20-5.50) X10*6/uL Hgb (12.0-16.0) g/dl Hct (37.0-47.0) % MCV (80.0-98.0) fL MCH (27.0-33.0) pg MCHC (31.0-35.0) g/dl RDW (11.0-16.0) % Plt Count (160-400) X10*3/uL MPV (9.4-12.3) fL Immature Gran % (Auto) (0.0-0.4) % Neut % (Auto) (45-73) % Lymph % (Auto) (20-40) % [place] % (Auto) (2-11) % Eos % (Auto) (0-4) % Baso % (Auto) (0-2) % Lymph # (Auto) (1.2-4.9) X10*3/uL [place] # (Auto) (0.1-1.2) X10*3/uL Eos # (Auto) (0.0-0.4) X10*3/uL Baso # (Auto) (0.0-0.2) X10*3/uL Abs Immat Gran (auto) (0.00-0.03) X10*3/uL Absolute Neuts (auto) (2.0-8.3) x10*3/uL Absolute Nucleated RBC (0.0-0.012) X10*3/uL Nucleated RBC % (auto) (0.0-0.2) /100WBC PT (11.1-13.3) SEC INR (0.9-1.1) Sodium (135-145) mmol/L Potassium (3.3-5.1) mmol/L Chloride (96-108) mmol/L Carbon Dioxide (22-29) mmol/L Anion Gap (12-20) BUN (9-16) mg/dL Creatinine (0.5-1.4) mg/dL Estim Creat Clear Calc Estimated GFR POC Glucose 82 56 L* (60-115) mg/dL Random Glucose (60-115) mg/dL Lactic Acid (0.5-2.0) mmol/L Lactic Acid F/U @ 2Hr (0.5-2.0) mmol/L Calcium (8.4-10.2) mg/dL Magnesium (1.6-2.6) mg/dL Total Bilirubin (0.0-1.0) mg/dL AST (5-31) U/L ALT (0-31) U/L Alkaline Phosphatase (39-117) U/L Troponin I High Sens (<3.5-17.0) ng/L Total Protein (6.5-8.0) g/dL Albumin (3.5-5.0) g/dL Urine Color Yellow Urine Appearance Clear Urine pH 5.0 (5.0-9.0) Ur Specific [place] 1.010 (1.005-1.025) Urine Protein Negative (Neg-Trace) mg/dL Urine Glucose (UA) 100 H (Negative) mg/dL Urine Ketones Negative (Negative) mg/dL Urine Blood Negative (Negative) Urine Nitrite Negative (Negative) Ur Leukocyte Esterase Small (1+) H (Negative) Urine RBC 0-2 (0-2) /HPF Urine WBC 6-10 H (0-5) /HPF Ur Squamous Epith Cells 0-2 (0-2) /HPF Urine Bacteria None Seen (None Seen) Hyaline Casts 0-2 (0-2) /LPF 06/22/24 Range/Units 22:48 WBC (4.8-10.8) X10*3/uL RBC (4.20-5.50) X10*6/uL Hgb (12.0-16.0) g/dl Hct (37.0-47.0) % MCV (80.0-98.0) fL MCH (27.0-33.0) pg MCHC (31.0-35.0) g/dl RDW (11.0-16.0) % Plt Count (160-400) X10*3/uL MPV (9.4-12.3) fL Immature Gran % (Auto) (0.0-0.4) % Neut % (Auto) (45-73) % Lymph % (Auto) (20-40) % [place] % (Auto) (2-11) % Eos % (Auto) (0-4) % Baso % (Auto) (0-2) % Lymph # (Auto) (1.2-4.9) X10*3/uL [place] # (Auto) (0.1-1.2) X10*3/uL Eos # (Auto) (0.0-0.4) X10*3/uL Baso # (Auto) (0.0-0.2) X10*3/uL Abs Immat Gran (auto) (0.00-0.03) X10*3/uL Absolute Neuts (auto) (2.0-8.3) x10*3/uL Absolute Nucleated RBC (0.0-0.012) X10*3/uL Nucleated RBC % (auto) (0.0-0.2) /100WBC PT (11.1-13.3) SEC INR (0.9-1.1) Sodium (135-145) mmol/L Potassium (3.3-5.1) mmol/L Chloride (96-108) mmol/L Carbon Dioxide (22-29) mmol/L Anion Gap (12-20) BUN (9-16) mg/dL Creatinine (0.5-1.4) mg/dL Estim Creat Clear Calc Estimated GFR POC Glucose 86 (60-115) mg/dL Random Glucose (60-115) mg/dL Lactic Acid (0.5-2.0) mmol/L Lactic Acid F/U @ 2Hr (0.5-2.0) mmol/L Calcium (8.4-10.2) mg/dL Magnesium (1.6-2.6) mg/dL Total Bilirubin (0.0-1.0) mg/dL AST (5-31) U/L ALT (0-31) U/L Alkaline Phosphatase (39-117) U/L Troponin I High Sens (<3.5-17.0) ng/L Total Protein (6.5-8.0) g/dL Albumin (3.5-5.0) g/dL Urine Color Urine Appearance Urine pH (5.0-9.0) Ur Specific [place] (1.005-1.025) Urine Protein (Neg-Trace) mg/dL Urine Glucose (UA) (Negative) mg/dL Urine Ketones (Negative) mg/dL Urine Blood (Negative) Urine Nitrite (Negative) Ur Leukocyte Esterase (Negative) Urine RBC (0-2) /HPF Urine WBC (0-5) /HPF Ur Squamous Epith Cells (0-2) /HPF Urine Bacteria (None Seen) Hyaline Casts (0-2) /LPF Critical Care Time Critical Care Time Critical Care Time: Yes Total Critical Care Time: 55 Attestation: The patient was critically ill with a high probability of imminent or life threatening deterioration. I spent greater than ?60??minutes of discontinuous time evaluating the patient,delivering critical care at the bedside, discussing and evaluating pertinent data with consultants. Critical care time does not include time spent performing separately billable procedures or teaching. Total time spent performing critical care was 55???minutes. Discharge Plan Discharge Clinical Impression: Acute metabolic encephalopathy due to hypoglycemia, Acidosis, lactic Patient Disposition: Admitted As Inpatient
[2024-06-22 18:49] LABS: Glucose, Whole Blood 71 mg/dL (60-115)
[2024-06-22] MEDS: Dextrose 5 % 1,000 ML 100 ML IVCONT (18:57)
[2024-06-22 19:04] LABS: Lactic Acid 2.4 mmol/L (0.5-2.0)
[2024-06-22] MEDS: Dextrose 50 % 25 GM/50 ML SYRINGE IVPUSH (19:10)
[2024-06-22 19:16] LABS: Glucose, Whole Blood 62 mg/dL (60-115)
[2024-06-22] MEDS: cefTRIAXone sodium 1 GM in 0.9 % Sodium Chloride 50 ML IV (19:20)
[2024-06-22 19:47] LABS: Glucose, Whole Blood 181 mg/dL (60-115)
[2024-06-22 19:47] LABS: Glucose, Whole Blood 287 mg/dL (60-115)
[2024-06-22 20:00] VITALS: BP 112/69; PULSE 66; RESP 12; TEMP 33.5; O2SAT 99
[2024-06-22 20:04] LABS: Glucose, Whole Blood 164 mg/dL (60-115)
[2024-06-22] MEDS: 0.9 % Sodium Chloride 1,000 ML 999 ML IV (20:40)
[2024-06-22 20:43] LABS: Reflex Lactate? Lactic Acid Added
[2024-06-22 20:56] LABS: Glucose, Whole Blood 108 mg/dL (60-115)
[2024-06-22 20:56] LABS: Glucose, Whole Blood 131 mg/dL (60-115)
[2024-06-22 21:21] LABS: Glucose, Whole Blood 82 mg/dL (60-115)
[2024-06-22 21:27] LABS: ~Lactic Acid-LAB USE ONLY 2.4 mmol/L (0.5-2.0)
--- NOTE | 2024-06-22 21:30 | PHA.MEDREC ---
Pharmacy Consult ? Medication Reconciliation Pharmacy has completed the medication reconciliation. Pharmacy completed Med Rec with Claims because patient was somnolent and in-responsive when we went down to ask about her Insulins and patient has no close family to call. I was able to confirm all her medications from claims except her Lantus Solostar which she apparently is doing 12 units @bed and Novolog U-100 12 units TIDAC but I was not able to confirm that with patient if those are up to date.
--- NOTE | 2024-06-22 21:45 | PC.NURSE ---
pt is now alert and oriented x4. awake and conversing with staff. unable to recall events of what happened. states she was waiting for her friends to pick her up for 5pm then remembers waking up in the hospital. rpts they state I passed out. rpts she feels better but is lightheaded.
[2024-06-22 21:54] LABS: Appearance Urine Clear; Color Urine Yellow; Glucose Urine UA 100 mg/dL (Negative); Leukocyte Esterase Urine Small (1+) (Negative); Nitrite Urine Negative (Negative); UMIC TRIGGER UACC YES; Urine Blood Negative (Negative); Urine Ketones Negative (Negative); Urine Protein Negative (Neg-Trace)
[2024-06-22 21:58] VITALS: BP 132/56; PULSE 79; RESP 18; TEMP 35.1; O2SAT 99
[2024-06-22 21:59] LABS: Bacteria Urine None Seen (None Seen); Hyaline Casts Urine 0-2 /LPF (0-2); RBC Urine 0-2 /HPF (0-2); Squamous Epithelial Cell Urine 0-2 /HPF (0-2); UACC Culture Trigger YES
[2024-06-22 22:03] LABS: Glucose, Whole Blood 56 mg/dL (60-115)
--- NOTE | 2024-06-22 22:50 | PC.NURSE ---
ate ham sandwich, narda crackers, pudding, and nalini jayshree.
[2024-06-22 22:51] LABS: Glucose, Whole Blood 86 mg/dL (60-115)
[2024-06-22 23:15] LABS: Reflex Lactate? 2 Y
--- NOTE | 2024-06-22 23:31 | PC.NURSE ---
Dorcas Medeiros, [facility] -
[2024-06-23 00:19] LABS: Glucose, Whole Blood 259 mg/dL (60-115)
[2024-06-23 01:19] VITALS: TEMP 36.6
[2024-06-23 01:24] LABS: ~Lactic Acid-LAB USE ONLY 3.2 mmol/L (0.5-2.0)
[2024-06-23 01:33] VITALS: TEMP 37.2
--- NOTE | 2024-06-23 01:44 | P.HPHOSP_ITS ---
History of Present Illness Date of Service: 06/23/24 Attending physician on admission: Jose A Ordonez Chief Complaint: Found to be unresponsive Dianna Covarrubias is a very pleasant 88 years old woman with past medical history significant for type 2 diabetes on Cequr Simplicity patch + metformin + pioglitzone and hyperlipidemia was brought to the emergency department after she was found unresponsive. She was found to have a glucose of 33. She told me that she usually eats lunch around 3 PM but did not eat at this time as she had planned to go out for dinner at 5 PM. She mentioned she remembers feeling dizzy. She currently denied any symptoms such as headache, chest pain, shortness of breath, nausea, vomiting, abdominal pain, diarrhea, fevers or chills. She complained of chronic itchiness to her lower extremities and was requesting a lotion for it. In the ED, she was initially found to have hypothermia (lowest 92.3). Most recent temperature is 99.0 after being on a warming blanket for awhile. There is no tachycardia, tachypnea and blood pressure is normal. Blood workup showed no leukocytosis. There is lactic acidosis worsening lactic acidosis 2.4 --> 3.2 Hemoglobin is 9.6 and platelets are normal. INR is 0.9. There are no significant electrolyte imbalances. Creatinine is normal. Urinalysis consistent with UTI. ECG showed normal sinus rhythm with first-degree AV block and no acute ischemic changes. CXR is negative. Head CT scan showed no acute intracranial abnormality. ED tx: D25 150 g IV (total), D5 infusion, NS 1 L bolus, ceftriaxone 1 g IV. Review of Systems 2 Review of Systems: All 12 systems were reviewed and normal except as noted in HPI. [facility] Medical History Hyperthyroidism Hyperlipidemia Nausea Pancreatitis Diabetes Surgical History H/O heart artery stent Social History Household Members: None Housing: House Do you presently have visiting nurse or other home services: Yes Unable to assess alcohol history related to: Unable to respond Alcohol intake: unknown Patient Tobacco Use Status: Never used Tobacco Use of substances other than those prescribed or required for medical reasons: Unable to respond Advance Directives: Yes Advance Directives on File: Yes Advance Directives Date on File: 12/19/23 Nutrition Risks: No Nutritional Risk service: No Current occupational status: retired Current occupation: [employer] Meds Allergies Allergy/AdvReac Type Severity Reaction Status Date / Time Penicillins [PCN] Allergy Unknown UNKNOWN Verified 06/22/24 18:03 Sulfa (Sulfonamide Allergy Unknown UNKNOWN Verified 06/22/24 18:03 Antibiotics) [SULFA(SULFONAMIDE ANTIBIOTICS)] heparin AdvReac Unknown Verified 06/22/24 18:03 penicillin Allergy Unknown rash Uncoded 06/22/24 18:03 Sulfa Allergy Unknown rash Uncoded 06/22/24 18:03 Active Medications: Current Medications Acetaminophen (Acetaminophen 325 Mg Tablet) 975 mg PO Q6H PRN PRN Reason: Pain, Mild (Pain Scale 1-3), fever or headache Hydrocortisone (Hydrocortisone 1 % Cream 28.35 Gm Tube) 1 appl TOPICAL BID KIET; Protocol Dextrose (D10) 1,000 mls @ 85 mls/hr IVCONT .[id number] KIET Dextrose/Sodium Chloride (D5ns) 1,000 mls @ 100 mls/hr IVCONT .Q10H KIET Sodium Chloride (Ns) 500 mls @ 500 mls/hr IV .Q1H STA Stop: 06/23/24 02:39 Melatonin (Melatonin 3 Mg Tablet) 6 mg PO BEDTIME PRN PRN Reason: Insomnia Sodium Chloride (0.9 % Sodium Chloride Flush 3 Ml Syringe) 3 ml IVFLUSH QSHIFT KIET Home Medications ?Medication ?Instructions ?Recorded ?Confirmed ?Last Taken ?Type nitroglycerin 0.4 mg sublingual 1 tab sublingual Q5M PRN Chest Pain 02/27/22 05/13/24 Unknown History tablet bolus insulin pump, 200 unit 2 09/26/23 05/13/24 Unknown History unit bolus insulin patch pump, 200 unit, disposable (CeQur Simplicity) insulin aspart U-100 100 unit/mL 12 unit subcut TIDAC 09/26/23 05/13/24 Unknown History subcutaneous solution (Novolog U-100 Insulin aspart) gabapentin 100 mg capsule 100 mg PO BID 12/19/23 05/13/24 Unknown History insulin glargine 100 unit/mL (3 12 unit subcut BEDTIME 12/19/23 05/13/24 Unknown History mL) subcutaneous pen (Lantus Solostar U-100 Insulin) pantoprazole 40 mg tablet,delayed 40 mg PO DAILY@0630 12/19/23 05/13/24 Unknown History release atorvastatin 40 mg tablet 40 mg PO DAILY 05/13/24 05/13/24 Unknown History metformin 500 mg tablet,extended 1,000 mg PO BID 05/13/24 05/13/24 Unknown History release 24 hr propylthiouracil 50 mg tablet 50 mg PO BID 05/13/24 05/13/24 Unknown History Physical Exam 2 Vital Signs and Narrative: Vital Signs: Last Vital Signs Temp 99.0 F 06/23/24 01:33 Pulse 79 06/22/24 21:58 Resp 18 06/22/24 21:58 BP 132/56 L 06/22/24 21:58 Pulse Ox 99 06/22/24 21:58 O2 Del Method Room Air 06/22/24 21:58 BMI result Body Mass Index 17.8 Constitutional - Awake and Alert, No apparent distress. Malnourished. Pleasant. Cooperative. HEENT - PERRL, EOMI Heart - RRR. (+) murmur. Lungs - Normal lung expansion, Normal respiratory effort, No respiratory distress, CTA bilaterally Abdomen - NT / ND; +BS; No rebound or guarding Extremities - Bilat LE: distal third: Erythema, scaly skin, superficial abrasions, no ulcers. Musculoskeletal - Generalized atrophy. Skin - Warm/Dry Neurological - Alert & oriented x3. No focal weakness. Normal speech. Psychological - Appropriate affect. Results Labs 06/22/24 17:58 06/22/24 17:58 Labs: Laboratory Results - last 24 hr 06/22/24 06/22/24 06/22/24 17:44 17:57 17:58 MCV 94.6 MCH 30.3 MCHC 32.0 RDW 13.6 Plt Count 290 MPV 10.4 Immature Gran % (Auto) 0.4 Neut % (Auto) 70.1 Lymph % (Auto) 19.0 L [place] % (Auto) 8.8 Eos % (Auto) 1.0 Baso % (Auto) 0.7 Lymph # (Auto) 1.3 [place] # (Auto) 0.6 Eos # (Auto) 0.1 Baso # (Auto) 0.1 Abs Immat Gran (auto) 0.03 Absolute Neuts (auto) 4.9 Absolute Nucleated RBC 0.000 Nucleated RBC % (auto) 0.0 PT 10.5 L INR 0.9 Anion Gap 13 Estim Creat Clear Calc 37.1 Estimated GFR > 60 POC Glucose 236 H 145 H Random Glucose 211 H Lactic Acid Lactic Acid F/U @ 2Hr Lactic Acid F/U @ 4Hr Calcium 9.0 Magnesium 1.9 Total Bilirubin 0.4 AST 25 ALT 26 Alkaline Phosphatase 92 Troponin I High Sens < 2.7 Total Protein 6.2 L Albumin 3.4 L Urine Color Urine Appearance Urine pH Ur Specific [place] Urine Protein Urine Glucose (UA) Urine Ketones Urine Blood Urine Nitrite Ur Leukocyte Esterase Urine RBC Urine WBC Ur Squamous Epith Cells Urine Bacteria Hyaline Casts 06/22/24 06/22/24 06/22/24 18:39 18:45 19:12 MCV MCH MCHC RDW Plt Count MPV Immature Gran % (Auto) Neut % (Auto) Lymph % (Auto) [place] % (Auto) Eos % (Auto) Baso % (Auto) Lymph # (Auto) [place] # (Auto) Eos # (Auto) Baso # (Auto) Abs Immat Gran (auto) Absolute Neuts (auto) Absolute Nucleated RBC Nucleated RBC % (auto) PT INR Anion Gap Estim Creat Clear Calc Estimated GFR POC Glucose 71 62 Random Glucose Lactic Acid 2.4 H* Lactic Acid F/U @ 2Hr Lactic Acid F/U @ 4Hr Calcium Magnesium Total Bilirubin AST ALT Alkaline Phosphatase Troponin I High Sens Total Protein Albumin Urine Color Urine Appearance Urine pH Ur Specific [place] Urine Protein Urine Glucose (UA) Urine Ketones Urine Blood Urine Nitrite Ur Leukocyte Esterase Urine RBC Urine WBC Ur Squamous Epith Cells Urine Bacteria Hyaline Casts 06/22/24 06/22/24 06/22/24 19:24 19:43 20:00 MCV MCH MCHC RDW Plt Count MPV Immature Gran % (Auto) Neut % (Auto) Lymph % (Auto) [place] % (Auto) Eos % (Auto) Baso % (Auto) Lymph # (Auto) [place] # (Auto) Eos # (Auto) Baso # (Auto) Abs Immat Gran (auto) Absolute Neuts (auto) Absolute Nucleated RBC Nucleated RBC % (auto) PT INR Anion Gap Estim Creat Clear Calc Estimated GFR POC Glucose 287 H 181 H 164 H Random Glucose Lactic Acid Lactic Acid F/U @ 2Hr Lactic Acid F/U @ 4Hr Calcium Magnesium Total Bilirubin AST ALT Alkaline Phosphatase Troponin I High Sens Total Protein Albumin Urine Color Urine Appearance Urine pH Ur Specific [place] Urine Protein Urine Glucose (UA) Urine Ketones Urine Blood Urine Nitrite Ur Leukocyte Esterase Urine RBC Urine WBC Ur Squamous Epith Cells Urine Bacteria Hyaline Casts 06/22/24 06/22/24 06/22/24 20:24 20:51 21:12 MCV MCH MCHC RDW Plt Count MPV Immature Gran % (Auto) Neut % (Auto) Lymph % (Auto) [place] % (Auto) Eos % (Auto) Baso % (Auto) Lymph # (Auto) [place] # (Auto) Eos # (Auto) Baso # (Auto) Abs Immat Gran (auto) Absolute Neuts (auto) Absolute Nucleated RBC Nucleated RBC % (auto) PT INR Anion Gap Estim Creat Clear Calc Estimated GFR POC Glucose 131 H 108 Random Glucose Lactic Acid Lactic Acid F/U @ 2Hr 2.4 H* Lactic Acid F/U @ 4Hr Calcium Magnesium Total Bilirubin AST ALT Alkaline Phosphatase Troponin I High Sens Total Protein Albumin Urine Color Urine Appearance Urine pH Ur Specific [place] Urine Protein Urine Glucose (UA) Urine Ketones Urine Blood Urine Nitrite Ur Leukocyte Esterase Urine RBC Urine WBC Ur Squamous Epith Cells Urine Bacteria Hyaline Casts 06/22/24 06/22/24 06/22/24 21:16 21:48 21:52 MCV MCH MCHC RDW Plt Count MPV Immature Gran % (Auto) Neut % (Auto) Lymph % (Auto) [place] % (Auto) Eos % (Auto) Baso % (Auto) Lymph # (Auto) [place] # (Auto) Eos # (Auto) Baso # (Auto) Abs Immat Gran (auto) Absolute Neuts (auto) Absolute Nucleated RBC Nucleated RBC % (auto) PT INR Anion Gap Estim Creat Clear Calc Estimated GFR POC Glucose 82 56 L* Random Glucose Lactic Acid Lactic Acid F/U @ 2Hr Lactic Acid F/U @ 4Hr Calcium Magnesium Total Bilirubin AST ALT Alkaline Phosphatase Troponin I High Sens Total Protein Albumin Urine Color Yellow Urine Appearance Clear Urine pH 5.0 Ur Specific [place] 1.010 Urine Protein Negative Urine Glucose (UA) 100 H Urine Ketones Negative Urine Blood Negative Urine Nitrite Negative Ur Leukocyte Esterase Small (1+) H Urine RBC 0-2 Urine WBC 6-10 H Ur Squamous Epith Cells 0-2 Urine Bacteria None Seen Hyaline Casts 0-2 06/22/24 06/23/24 06/23/24 22:48 00:13 01:03 MCV MCH MCHC RDW Plt Count MPV Immature Gran % (Auto) Neut % (Auto) Lymph % (Auto) [place] % (Auto) Eos % (Auto) Baso % (Auto) Lymph # (Auto) [place] # (Auto) Eos # (Auto) Baso # (Auto) Abs Immat Gran (auto) Absolute Neuts (auto) Absolute Nucleated RBC Nucleated RBC % (auto) PT INR Anion Gap Estim Creat Clear Calc Estimated GFR POC Glucose 86 259 H Random Glucose Lactic Acid Lactic Acid F/U @ 2Hr Lactic Acid F/U @ 4Hr 3.2 H* Calcium Magnesium Total Bilirubin AST ALT Alkaline Phosphatase Troponin I High Sens Total Protein Albumin Urine Color Urine Appearance Urine pH Ur Specific [place] Urine Protein Urine Glucose (UA) Urine Ketones Urine Blood Urine Nitrite Ur Leukocyte Esterase Urine RBC Urine WBC Ur Squamous Epith Cells Urine Bacteria Hyaline Casts Imaging Radiologist's Impressions: Impressions Chest X-Ray 06/22/24 18:10 IMPRESSION: Unremarkable examination. Head CT 06/22/24 18:21 IMPRESSION: No acute intracranial abnormality including hemorrhage, mass effect, hydrocephalus, or acute territorial edematous infarction. Assessment and Plan (1) Acidosis, lactic: Status: Acute (2) Hypoglycemia: Status: Acute (3) Moderate malnutrition: Status: Acute Plan Dianna Covarrubias is a 88 y/o woman admitted with: * Hypoglycemia secondary to poor intake in the setting insulin pump use. Admit to hospitalist service. Last BG 259. Continue IV fluids with D5/0.9. Continue BG checks every 2 hours. Cequr simplicity patch, metformin and pioglitazone on hold. * Hypothermia, likely due to hypoglycemia, resolved. Warming blankets off. Continue to monitor temperature. * Lactic acidosis. Likely secondary to metformin use. Hold metformin. Continue to monitor lactic acidosis. * Presumed UTI. Continue empiric IV antibiotic therapy with ceftriaxone. Urine and blood culture obtained will follow results. * Lower extremity dermatitis with associated itchiness. Benadryl as needed. Steroid cream as needed. * Essential hypertension. Continue metoprolol. * Hyperthyroidism. Continue PTU. * Hyperlipidemia. Continue statin. * Protein calorie malnutrition. BMI 17.8 kg/m2. Dietary consult. DVT prophylaxis: SCDs if tolerable. Has a unknown allergy to heparin. Code status: Full Patient will need hospitalization for at least 2 midnights for hypoglycemia management with IV dextrose and very close monitoring of blood glucose. Quality Stroke Does the patient have a stroke diagnosis?: No VTE Prior VTE?: No VTE Risk Level:: Medical - moderate - high VTE Device Contraindication: Treatment Not Indicated VTE Drug Contraindication: Treatment Not Indicated
[2024-06-23] MEDS: Dextrose 5 % and 0.9 % NaCl 1,000 ML 100 ML IVCONT (01:52)
[2024-06-23] MEDS: 0.9 % Sodium Chloride 500 ML IV (01:52)
[2024-06-23 02:41] VITALS: BMI 17.9
[2024-06-23 02:52] VITALS: BP 163/83; PULSE 88; RESP 18; TEMP 37.2; O2SAT 96
[2024-06-23] MEDS: diphenhydrAMINE HCL 25 MG CAPSULE PO ×2 (03:10→08:09)
[2024-06-23 03:19] LABS: Glucose, Whole Blood 326 mg/dL (60-115)
[2024-06-23 04:27] LABS: Glucose, Whole Blood 307 mg/dL (60-115)
[2024-06-23] MEDS: 0.9 % Sodium Chloride 250 ML 999 ML IV (05:19)
[2024-06-23] MEDS: 0.9 % Sodium Chloride 1,000 ML 80 ML IVCONT (05:57)
[2024-06-23 06:34] LABS: Mean Corpuscular HGB Conc 32.3 g/dl (31.0-35.0); Mean Corpuscular Hemoglobin 30.4 pg (27.0-33.0); Mean Corpuscular Volume 94.2 fL (80.0-98.0); Mean Platelet Volume 10.6 fL (9.4-12.3); Platelet Count 265 X10*3/uL (160-400); Red Blood Count 3.29 X10*6/uL (4.20-5.50); Red Cell Distribution Width 13.5 % (11.0-16.0); White Blood Count 6.9 X10*3/uL (4.8-10.8)
[2024-06-23 06:39] LABS: Glucose, Whole Blood 269 mg/dL (60-115)
[2024-06-23 07:03] LABS: Anion Gap 13 (12-20); Blood Urea Nitrogen 13 mg/dL (9-16); Calcium 9.1 mg/dL (8.4-10.2); Carbon Dioxide 25 mmol/L (22-29); Chloride 105 mmol/L (96-108); Creatinine Clr Calc Pharmacy 37.6; Estimated Glomerular Filt Rate > 60; Glucose Random 320 mg/dL (60-115); Potassium 3.9 mmol/L (3.3-5.1); Sodium 139 mmol/L (135-145)
[2024-06-23 07:19] VITALS: BP 145/70; PULSE 94; RESP 16; TEMP 36.6; O2SAT 96
[2024-06-23 08:08] LABS: Glucose, Whole Blood 207 mg/dL (60-115)
[2024-06-23] MEDS: Insulin Lispro 100 UNIT/ML 3 ML VIAL SUBCUT ×2 (08:09→12:11)
[2024-06-23] MEDS: Hydrocortisone 1 % Cream 28.35 GM TUBE 1 APPL TOPICAL (08:30)
[2024-06-23 11:44] LABS: Glucose, Whole Blood 175 mg/dL (60-115)
[2024-06-23 12:00] VITALS: BP 122/60; PULSE 63; RESP 14; TEMP 36; O2SAT 93
--- NOTE | 2024-06-23 12:17 | MHC.CM.PN ---
pt has private pay help ,[facility] 2 hrs a day [facility] 3 she will arrange her own transport home
--- NOTE | 2024-06-23 12:46 | P.DS_ITS ---
DS: Providers Provider Date of Service: 06/23/24 Date of admission: 06/23/24 00:05 Date of discharge: 06/23/24 Primary care physician: Unknown Physician DS: Diagnosis Discharge Diagnosis (1) Hypoglycemia: Status: Acute (2) Acidosis, lactic: Status: Acute (3) Moderate malnutrition: Status: Acute DS: Summary Hospital Course Hospital Course: 88 years old woman with past medical history significant for type 2 diabetes on Cequr Simplicity patch + metformin + pioglitzone and hyperlipidemia was brought to the emergency department after she was found unresponsive. She was found to have a glucose of 33. She told me that she usually eats lunch around 3 PM but did not eat at this time as she had planned to go out for dinner at 5 PM. She mentioned she remembers feeling dizzy. She currently denied any symptoms such as headache, chest pain, shortness of breath, nausea, vomiting, abdominal pain, diarrhea, fevers or chills. She complained of chronic itchiness to her lower extremities and was requesting a lotion for it. In the ED, she was initially found to have hypothermia (lowest 92.3). Most recent temperature is 99.0 after being on a warming blanket for awhile. There is no tachycardia, tachypnea and blood pressure is normal. Blood workup showed no leukocytosis. There is lactic acidosis worsening lactic acidosis 2.4 --> 3.2 Hemoglobin is 9.6 and platelets are normal. INR is 0.9. There are no significant electrolyte imbalances. Creatinine is normal. Urinalysis consistent with UTI. ECG showed normal sinus rhythm with first-degree AV block and no acute ischemic changes. CXR is negative. Head CT scan showed no acute intracranial abnormality. ED tx: D25 150 g IV (total), D5 infusion, NS 1 L bolus, ceftriaxone 1 g IV. Hospital Course Patient admitted to regular floor. Lantus and metformin held. Temperature remained normal after correction of blood sugar. Patient tolerated breakfast and lunch and sugars average 200. Long discussion with patient and [id number]; given patient's irregular sleep schedule and more irregular eating habits she should not take Lantus at this time. She will resume metformin and follow her point of cares with lispro as previously. Family instructed to make appointment with endocrine provider and then decision can be made about Lantus versus other therapies. Patient and [id number] voiced understanding. Time Attestation Discharge Coordination Time (in mins): 35 Quality: Safe Use of Opioids Does Pt have an Active Cancer Diagnosis on the Problem List?: No Quality: Stroke Does the patient have a stroke diagnosis?: No Physical Exam Vital Signs: Vital Signs: Last Vital Signs Temp 96.8 F 06/23/24 12:00 Pulse 63 06/23/24 12:00 Resp 14 06/23/24 12:00 BP 122/60 06/23/24 12:00 Pulse Ox 93 06/23/24 12:00 O2 Del Method Room Air 06/23/24 12:00 BMI result Body Mass Index 17.9 Const: Other: Awake alert oriented x3 no acute distress Resp: Other: Clear to auscultation bilaterally no rales rhonchi or wheezes Cardio: Other: No S4; positive S1-S2; no S3 murmurs rubs or gallops GI: Other: Soft nontender nondistended normoactive bowel sounds Extrem: Other: No edema bilaterally DS: Data Data Completed and Pending Labs on day of discharge: Laboratory Results - last 24 hr 06/22/24 06/22/24 06/22/24 17:44 17:57 17:58 WBC 7.0 RBC 3.17 L Hgb 9.6 L Hct 30.0 L MCV 94.6 MCH 30.3 MCHC 32.0 RDW 13.6 Plt Count 290 MPV 10.4 Immature Gran % (Auto) 0.4 Neut % (Auto) 70.1 Lymph % (Auto) 19.0 L [place] % (Auto) 8.8 Eos % (Auto) 1.0 Baso % (Auto) 0.7 Lymph # (Auto) 1.3 [place] # (Auto) 0.6 Eos # (Auto) 0.1 Baso # (Auto) 0.1 Abs Immat Gran (auto) 0.03 Absolute Neuts (auto) 4.9 Absolute Nucleated RBC 0.000 Nucleated RBC % (auto) 0.0 PT 10.5 L INR 0.9 Sodium 140 Potassium 3.7 Chloride 107 Carbon Dioxide 24 Anion Gap 13 BUN 18 H Creatinine 0.86 Estim Creat Clear Calc 37.1 Estimated GFR > 60 POC Glucose 236 H 145 H Random Glucose 211 H Lactic Acid Lactic Acid F/U @ 2Hr Lactic Acid F/U @ 4Hr Calcium 9.0 Magnesium 1.9 Total Bilirubin 0.4 AST 25 ALT 26 Alkaline Phosphatase 92 Troponin I High Sens < 2.7 Total Protein 6.2 L Albumin 3.4 L TSH Urine Color Urine Appearance Urine pH Ur Specific [place] Urine Protein Urine Glucose (UA) Urine Ketones Urine Blood Urine Nitrite Ur Leukocyte Esterase Urine RBC Urine WBC Ur Squamous Epith Cells Urine Bacteria Hyaline Casts 06/22/24 06/22/24 06/22/24 18:39 18:45 19:12 WBC RBC Hgb Hct MCV MCH MCHC RDW Plt Count MPV Immature Gran % (Auto) Neut % (Auto) Lymph % (Auto) [place] % (Auto) Eos % (Auto) Baso % (Auto) Lymph # (Auto) [place] # (Auto) Eos # (Auto) Baso # (Auto) Abs Immat Gran (auto) Absolute Neuts (auto) Absolute Nucleated RBC Nucleated RBC % (auto) PT INR Sodium Potassium Chloride Carbon Dioxide Anion Gap BUN Creatinine Estim Creat Clear Calc Estimated GFR POC Glucose 71 62 Random Glucose Lactic Acid 2.4 H* Lactic Acid F/U @ 2Hr Lactic Acid F/U @ 4Hr Calcium Magnesium Total Bilirubin AST ALT Alkaline Phosphatase Troponin I High Sens Total Protein Albumin TSH Urine Color Urine Appearance Urine pH Ur Specific [place] Urine Protein Urine Glucose (UA) Urine Ketones Urine Blood Urine Nitrite Ur Leukocyte Esterase Urine RBC Urine WBC Ur Squamous Epith Cells Urine Bacteria Hyaline Casts 06/22/24 06/22/24 06/22/24 19:24 19:43 20:00 WBC RBC Hgb Hct MCV MCH MCHC RDW Plt Count MPV Immature Gran % (Auto) Neut % (Auto) Lymph % (Auto) [place] % (Auto) Eos % (Auto) Baso % (Auto) Lymph # (Auto) [place] # (Auto) Eos # (Auto) Baso # (Auto) Abs Immat Gran (auto) Absolute Neuts (auto) Absolute Nucleated RBC Nucleated RBC % (auto) PT INR Sodium Potassium Chloride Carbon Dioxide Anion Gap BUN Creatinine Estim Creat Clear Calc Estimated GFR POC Glucose 287 H 181 H 164 H Random Glucose Lactic Acid Lactic Acid F/U @ 2Hr Lactic Acid F/U @ 4Hr Calcium Magnesium Total Bilirubin AST ALT Alkaline Phosphatase Troponin I High Sens Total Protein Albumin TSH Urine Color Urine Appearance Urine pH Ur Specific [place] Urine Protein Urine Glucose (UA) Urine Ketones Urine Blood Urine Nitrite Ur Leukocyte Esterase Urine RBC Urine WBC Ur Squamous Epith Cells Urine Bacteria Hyaline Casts 06/22/24 06/22/24 06/22/24 20:24 20:51 21:12 WBC RBC Hgb Hct MCV MCH MCHC RDW Plt Count MPV Immature Gran % (Auto) Neut % (Auto) Lymph % (Auto) [place] % (Auto) Eos % (Auto) Baso % (Auto) Lymph # (Auto) [place] # (Auto) Eos # (Auto) Baso # (Auto) Abs Immat Gran (auto) Absolute Neuts (auto) Absolute Nucleated RBC Nucleated RBC % (auto) PT INR Sodium Potassium Chloride Carbon Dioxide Anion Gap BUN Creatinine Estim Creat Clear Calc Estimated GFR POC Glucose 131 H 108 Random Glucose Lactic Acid Lactic Acid F/U @ 2Hr 2.4 H* Lactic Acid F/U @ 4Hr Calcium Magnesium Total Bilirubin AST ALT Alkaline Phosphatase Troponin I High Sens Total Protein Albumin TSH Urine Color Urine Appearance Urine pH Ur Specific [place] Urine Protein Urine Glucose (UA) Urine Ketones Urine Blood Urine Nitrite Ur Leukocyte Esterase Urine RBC Urine WBC Ur Squamous Epith Cells Urine Bacteria Hyaline Casts 06/22/24 06/22/24 06/22/24 21:16 21:48 21:52 WBC RBC Hgb Hct MCV MCH MCHC RDW Plt Count MPV Immature Gran % (Auto) Neut % (Auto) Lymph % (Auto) [place] % (Auto) Eos % (Auto) Baso % (Auto) Lymph # (Auto) [place] # (Auto) Eos # (Auto) Baso # (Auto) Abs Immat Gran (auto) Absolute Neuts (auto) Absolute Nucleated RBC Nucleated RBC % (auto) PT INR Sodium Potassium Chloride Carbon Dioxide Anion Gap BUN Creatinine Estim Creat Clear Calc Estimated GFR POC Glucose 82 56 L* Random Glucose Lactic Acid Lactic Acid F/U @ 2Hr Lactic Acid F/U @ 4Hr Calcium Magnesium Total Bilirubin AST ALT Alkaline Phosphatase Troponin I High Sens Total Protein Albumin TSH Urine Color Yellow Urine Appearance Clear Urine pH 5.0 Ur Specific [place] 1.010 Urine Protein Negative Urine Glucose (UA) 100 H Urine Ketones Negative Urine Blood Negative Urine Nitrite Negative Ur Leukocyte Esterase Small (1+) H Urine RBC 0-2 Urine WBC 6-10 H Ur Squamous Epith Cells 0-2 Urine Bacteria None Seen Hyaline Casts 0-2 06/22/24 06/23/24 06/23/24 22:48 00:13 01:03 WBC RBC Hgb Hct MCV MCH MCHC RDW Plt Count MPV Immature Gran % (Auto) Neut % (Auto) Lymph % (Auto) [place] % (Auto) Eos % (Auto) Baso % (Auto) Lymph # (Auto) [place] # (Auto) Eos # (Auto) Baso # (Auto) Abs Immat Gran (auto) Absolute Neuts (auto) Absolute Nucleated RBC Nucleated RBC % (auto) PT INR Sodium Potassium Chloride Carbon Dioxide Anion Gap BUN Creatinine Estim Creat Clear Calc Estimated GFR POC Glucose 86 259 H Random Glucose Lactic Acid Lactic Acid F/U @ 2Hr Lactic Acid F/U @ 4Hr 3.2 H* Calcium Magnesium Total Bilirubin AST ALT Alkaline Phosphatase Troponin I High Sens Total Protein Albumin TSH Urine Color Urine Appearance Urine pH Ur Specific [place] Urine Protein Urine Glucose (UA) Urine Ketones Urine Blood Urine Nitrite Ur Leukocyte Esterase Urine RBC Urine WBC Ur Squamous Epith Cells Urine Bacteria Hyaline Casts 06/23/24 06/23/24 06/23/24 02:56 04:22 05:36 WBC 6.9 RBC 3.29 L Hgb 10.0 L Hct 31.0 L MCV 94.2 MCH 30.4 MCHC 32.3 RDW 13.5 Plt Count 265 MPV 10.6 Immature Gran % (Auto) Neut % (Auto) Lymph % (Auto) [place] % (Auto) Eos % (Auto) Baso % (Auto) Lymph # (Auto) [place] # (Auto) Eos # (Auto) Baso # (Auto) Abs Immat Gran (auto) Absolute Neuts (auto) Absolute Nucleated RBC 0.000 Nucleated RBC % (auto) 0.0 PT INR Sodium 139 Potassium 3.9 Chloride 105 Carbon Dioxide 25 Anion Gap 13 BUN 13 Creatinine 0.85 Estim Creat Clear Calc 37.6 Estimated GFR > 60 POC Glucose 326 H 307 H Random Glucose 320 H Lactic Acid Lactic Acid F/U @ 2Hr Lactic Acid F/U @ 4Hr Calcium 9.1 Magnesium Total Bilirubin AST ALT Alkaline Phosphatase Troponin I High Sens Total Protein Albumin TSH 0.70 Urine Color Urine Appearance Urine pH Ur Specific [place] Urine Protein Urine Glucose (UA) Urine Ketones Urine Blood Urine Nitrite Ur Leukocyte Esterase Urine RBC Urine WBC Ur Squamous Epith Cells Urine Bacteria Hyaline Casts 06/23/24 06/23/24 06/23/24 06:30 08:03 11:40 WBC RBC Hgb Hct MCV MCH MCHC RDW Plt Count MPV Immature Gran % (Auto) Neut % (Auto) Lymph % (Auto) [place] % (Auto) Eos % (Auto) Baso % (Auto) Lymph # (Auto) [place] # (Auto) Eos # (Auto) Baso # (Auto) Abs Immat Gran (auto) Absolute Neuts (auto) Absolute Nucleated RBC Nucleated RBC % (auto) PT INR Sodium Potassium Chloride Carbon Dioxide Anion Gap BUN Creatinine Estim Creat Clear Calc Estimated GFR POC Glucose 269 H 207 H 175 H Random Glucose Lactic Acid Lactic Acid F/U @ 2Hr Lactic Acid F/U @ 4Hr Calcium Magnesium Total Bilirubin AST ALT Alkaline Phosphatase Troponin I High Sens Total Protein Albumin TSH Urine Color Urine Appearance Urine pH Ur Specific [place] Urine Protein Urine Glucose (UA) Urine Ketones Urine Blood Urine Nitrite Ur Leukocyte Esterase Urine RBC Urine WBC Ur Squamous Epith Cells Urine Bacteria Hyaline Casts Discharge Plan Discharge Anticipated Discharge Date/Time: 06/23/24 12:36 Patient Disposition: Home, Self-Care Discharge Diagnosis: Hypoglycemia Referrals: Physician,Unknown J [Primary Care Provider] - 1 Week Discharge Medications: Continued nitroglycerin 0.4 mg tablet, sublingual 1 tab sublingual Q5M PRN (Reason: Chest Pain) insulin aspart U-100 [Novolog U-100 Insulin aspart] 100 unit/mL solution 12 unit subcut TIDAC Rx Instructions: USES CEQUR SIMPLICITY PATCH (DME) CeQur Simplicity 2 unit device MISCELLANEOUS atorvastatin 40 mg tablet 40 mg PO DAILY propylthiouracil 50 mg tablet 50 mg PO BID metformin 500 mg tablet extended release 24 hr 1,000 mg PO BID gabapentin 100 mg capsule 100 mg PO BID pantoprazole 40 mg tablet,delayed release (DR/EC) 40 mg PO DAILY@0630 insulin glargine [Lantus Solostar U-100 Insulin] 100 unit/mL (3 mL) insulin pen 12 unit subcut BEDTIME Discharge Orders: Discharge Order (Routine); Ordered 06/23/24 Ordered By: Yovanny Greene Diet: Advance to usual diet Activity on Discharge: As tolerated Stand Alone Forms: Patient Portal Discharge page Print Language: Khmer Care Plan Goals: Do not take Lantus. Follow-up with your primary endocrine provider and discuss changes Health Concerns: Resume all other medicines as taken previous to hospital Plan of Treatment: Resume your previous insulin regimen Assessment: See discharge summary
--- NOTE | 2024-06-23 13:44 | MHC.CM.PN ---
pt is dcd home will resume previous servies
[2024-06-25 14:59] LABS: Glucose, Whole Blood < 10 mg/dL (60-115)
== END 2024-06-23 15:44 | disposition home health service (06) | DRG 637 ==
LOC: HO.ED 23:36 → HO.EDOVER 06-23 00:08 → HO.S3 06-23 01:06
PROVIDERS: Admitting Provider Internal Medicine; Emergency Provider Internal Medicine; Visit Provider Hospitalist
DX: E11.649 Type 2 diabetes mellitus with hypoglycemia without coma (principal); G93.41 Metabolic encephalopathy; E87.20 Acidosis, unspecified; N39.0 Urinary tract infection, site not specified; E44.0 Moderate protein-calorie malnutrition; Z68.1 Body mass index [BMI] 19.9 or less, adult; E78.5 Hyperlipidemia, unspecified; R68.0 Hypothermia, not associated with low environmental temperature; I10 Essential (primary) hypertension; L30.9 Dermatitis, unspecified; E05.90 Thyrotoxicosis, unspecified without thyrotoxic crisis or storm; Z79.4 Long term (current) use of insulin; Z79.84 Long term (current) use of oral hypoglycemic drugs; Z79.899 Other long term (current) drug therapy
CPT/HCPCS: 36415; 70450; 71045; 80048; 80053; 81001; 82947; 83605; 83735; 84443; 84484; 85025; 85027; 85610; 87040; 87086; 93005; 96361; 96365; 99285; J0696

== ENCOUNTER → 2024-06-22 17:46 | Outpatient (BNV) | payer MEDICARE, OTHER, SELFPAY | PROVIDERS: Admitting Provider Internal Medicine; Emergency Provider Internal Medicine; Visit Provider Internal Medicine | DX: I44.0 Atrioventricular block, first degree (principal) | CPT/HCPCS: 93010 ==

== ENCOUNTER → 2024-06-23 00:05 | Outpatient (BNV) | payer MEDICARE, OTHER, SELFPAY | PROVIDERS: Admitting Provider Internal Medicine; Emergency Provider Internal Medicine; Visit Provider Internal Medicine | DX: E11.649 Type 2 diabetes mellitus with hypoglycemia without coma (principal); E44.0 Moderate protein-calorie malnutrition; E87.20 Acidosis, unspecified | CPT/HCPCS: 99235; 99499 ==

== ENCOUNTER 2024-07-06 15:08 | Emergency (ER) | payer MEDICARE, OTHER, SELFPAY ==
--- NOTE | ~2024-07-06 | XR_ITS ---
EXAMINATION: XR CHEST CLINICAL INFORMATION: Fatigue COMPARISON: Chest radiograph 06/22/2024 TECHNIQUE: Frontal view of the chest was obtained. FINDINGS: The lungs are adequately expanded. No focal consolidation. No pleural effusions or pneumothorax. The cardiac mediastinal silhouette is within normal limits. Mild aortic arch calcifications. Degenerative changes of the visualized spine. Again noted old healed left rib fractures. XR/XR chest 1V IMPRESSION: No acute pulmonary disease.
[2024-07-06 15:33] VITALS: BP 150/65; PULSE 93; RESP 18; TEMP 36.4; O2SAT 97; BMI 15.6
--- NOTE | 2024-07-06 15:41 | ED_ITS ---
HPI - General Adult General Chief complaint: Recheck/Abnormal Lab/Rx Stated complaint: blood sugar over 400 Time Seen by Provider: 07/06/24 23:11 Source: patient Mode of arrival: ambulatory Limitations: no limitations History of Present Illness ED Provider: Dr. Nate Hall HPI narrative: 88-year-old female with a history of diabetes mellitus, diabetic ketoacidosis, hypothyroidism, peripheral vascular disease who presents emergency department for evaluation of elevated glucose. Patient states that she checked point of care glucose at around 14:30 hours in the glucose was 410 therefore she came to the emergency department for evaluation. Patient states that she was having hypoglycemic episodes and her Lantus was discontinued. She states she followed up with her bingo checker to restart her Lantus however the bingo checker told the patient that they needed to know how much NovoLog she was taking before meals to determine how much Lantus to start her on. The patient apparently can not use her glucometer at home. Patient was given a continuous glucose monitor but she does not know how to use the associated smart phone matteo. The patient states she has been feeling weak and has had some increased confusion. She denied any falls. She did call her PCP who told her to go to the emergency department for evaluation of her elevated glucose. She denied fever, chills, chest pain, shortness of breath. Related Data Home Medications ?Medication ?Instructions ?Recorded ?Confirmed nitroglycerin 0.4 mg sublingual 1 tab sublingual Q5M PRN Chest Pain 02/27/22 05/13/24 tablet bolus insulin pump, 200 unit 2 09/26/23 05/13/24 unit bolus insulin patch pump, 200 unit, disposable (CeQur Simplicity) insulin aspart U-100 100 unit/mL 12 unit subcut TIDAC 09/26/23 05/13/24 subcutaneous solution (Novolog U-100 Insulin aspart) gabapentin 100 mg capsule 100 mg PO BID 12/19/23 05/13/24 insulin glargine 100 unit/mL (3 12 unit subcut BEDTIME 12/19/23 05/13/24 mL) subcutaneous pen (Lantus Solostar U-100 Insulin) pantoprazole 40 mg tablet,delayed 40 mg PO DAILY@0630 12/19/23 05/13/24 release atorvastatin 40 mg tablet 40 mg PO DAILY 05/13/24 05/13/24 metformin 500 mg tablet,extended 1,000 mg PO BID 05/13/24 05/13/24 release 24 hr propylthiouracil 50 mg tablet 50 mg PO BID 05/13/24 05/13/24 Allergies Allergy/AdvReac Type Severity Reaction Status Date / Time Penicillins [PCN] Allergy Unknown UNKNOWN Verified 07/06/24 15:45 Sulfa (Sulfonamide Allergy Unknown UNKNOWN Verified 07/06/24 15:45 Antibiotics) [SULFA(SULFONAMIDE ANTIBIOTICS)] heparin AdvReac Unknown Verified 07/06/24 15:45 penicillin Allergy Unknown rash Uncoded 06/22/24 18:03 Sulfa Allergy Unknown rash Uncoded 06/22/24 18:03 Review of Systems 2 Review of Systems: Yes all other systems are reviewed and are negative [facility] Past Medical History [facility] Narrative: Social history: The patient lives home alone. She does have a visiting nurse that checks in her once a week. She states she does have friends that help her out. Medical History Hyperthyroidism Hyperlipidemia Nausea Pancreatitis Diabetes Surgical History H/O heart artery stent Social History Social History Household Members: None Housing: House Do you presently have visiting nurse or other home services: Yes Unable to assess alcohol history related to: Unable to respond Alcohol intake: unknown Patient Tobacco Use Status: Never used Tobacco Smoked in Last 30 Days: No Use of substances other than those prescribed or required for medical reasons: No Advance Directives: Yes Advance Directives on File: Yes Advance Directives Date on File: 12/19/23 Do you have a plan to hurt others: No Plan service: No Current occupational status: retired Current occupation: [employer] Physical Exam ED Vital Signs: Vital Signs - 24 hr 07/06/24 15:33 07/06/24 19:30 07/07/24 00:00 Temperature 97.6 F 98.1 F Pulse Rate 93 82 78 Respiratory Rate 18 16 16 Blood Pressure 150/65 H 132/62 138/64 Pulse Oximetry 97 98 98 Oxygen Delivery Method Room Air BMI result Body Mass Index 15.6 Vital signs revealed an elevated blood pressure otherwise were unremarkable Exam: General: Awake, alert in no distress Head: Normocephalic, atraumatic EENT: PERRL, Lids normal, sclera normal, conjunctiva normal, nose normal , ears normal, throat without erythema or exudates Neck: Supple, no adenopathy Lung: breath sounds symmetric, no wheezing, rales or rhonchi Chest: symmetric movement, nontender Heart: regular rate and rhythm, normal S1, S2 no murmurs or rubs Abdomen: soft, non-tender, nondistended, normal bowel sounds Back: no vertebral tenderness, no CVAT Extremities: no deformities, moves all extremities symmetrically Neuro: Awake, alert, oriented, normal speech, cranial nerves intact, moves all extremities symmetrically Psych: Pleasant, cooperative Course Course Course Narrative: This is an RME: Additional HPI, ROS, PE not included below will be deferred to primary provider. RME assessment and note performed by: Luzma Kimball PA-C This is a [id number], with a hx of diabetes, who presents to the ER with a complaint of lethargy. Pt was recently admitted for acute metabolic encephalopathy due to hypoglycemia, lactic acidosis. Was told to DC Lantus as sugars were too low. She has not been taking any insulin at this point. No recent falls. Blood sugar was over 400, called PCP who advised her to come to the emergency room for further evaluation. Plan: Labs, EKG, POC, further ER evaluation needed Medications Administered Discontinued Medications Generic Name Dose Route Start Last Admin Trade Name Freq PRN Reason Stop Dose Admin Sodium Chloride 1,000 mls @ 999 mls/hr 07/06/24 23:34 07/07/24 00:41 Ns IV 07/07/24 00:34 Infused .Q1H1M STA Infusion Medical Decision Making Medical Decision Making [facility] Narrative: 88-year-old female with a history of diabetes mellitus, diabetic ketoacidosis, hypothyroidism, peripheral vascular disease who presents emergency department for evaluation of elevated glucose. The patient was having episodes of hypoglycemia and her Lantus was discontinued and when the patient followed up with her bingo checker, the bingo checker was not able to restart the patient's Lantus since the patient was not able to quantify how much NovoLog she was taking before meals. Patient has not been basing her NovoLog on point of care glucose is prior to meals and she does not know how to use her glucometer or her continuous glucose monitor. Patient's examination was unremarkable. Differential diagnosis: ?Includes but is not limited to hyperglycemia, diabetic ketoacidosis, electrolyte abnormalities, anemia Course: My interpretation patient's laboratory evaluation is as follows: WBC normal 5700. Normocytic anemia with an H&H of 10.1 and 35.5-this is chronic. Venous pH was elevated at 7.45 with a normal CO2 of 35-this suggests that she does not have diabetic ketoacidosis. CMP revealed an elevated BUN of 23 with a normal creatinine of 1.11. Glucose was elevated 426. LFTs were normal except for an elevated alk-phos of 127. Lipase was normal. Beta hydroxybutyrate was elevated at 2.07-this is most likely caused by starvation ketosis and not diabetic ketoacidosis given her venous pH of 7.5. Patient's chest x-ray was unremarkable. Twelve EKG was unremarkable as well. The patient was treated with normal saline 1 L IV with improvement of her point of care glucose with the last 1 being 307. At this time, I do not think that I can restart her Lantus at a lower dose and she does not have the ability to monitor her glucose and also she does not base her pre meal NovoLog doses on her point of care glucose. I did discuss this with the patient and told her that she needs to follow-up with her PCP and also discuss getting more services at home with her visiting nurse. Patient was discharged home with printed and verbal instructions. Admission/Observation Consideration of admission/observation: Escalation of care including admission/observation considered Lab Data MDM Lab Attestation statement: I reviewed the patient's lab results. 07/06/24 16:40 07/06/24 16:40 Labs: Lab Results 07/06/24 07/06/24 07/06/24 Range/Units 16:39 16:40 16:42 WBC 5.7 (4.8-10.8) X10*3/uL RBC 3.33 L (4.20-5.50) X10*6/uL Hgb 10.1 L (12.0-16.0) g/dl Hct 30.5 L (37.0-47.0) % MCV 91.6 (80.0-98.0) fL MCH 30.3 (27.0-33.0) pg MCHC 33.1 (31.0-35.0) g/dl RDW 13.0 (11.0-16.0) % Plt Count 263 (160-400) X10*3/uL MPV 10.7 (9.4-12.3) fL Immature Gran % (Auto) 0.4 (0.0-0.4) % Neut % (Auto) 71.5 (45-73) % Lymph % (Auto) 17.2 L (20-40) % [place] % (Auto) 9.1 (2-11) % Eos % (Auto) 0.9 (0-4) % Baso % (Auto) 0.9 (0-2) % Lymph # (Auto) 1.0 L (1.2-4.9) X10*3/uL [place] # (Auto) 0.5 (0.1-1.2) X10*3/uL Eos # (Auto) 0.1 (0.0-0.4) X10*3/uL Baso # (Auto) 0.1 (0.0-0.2) X10*3/uL Abs Immat Gran (auto) 0.02 (0.00-0.03) X10*3/uL Absolute Neuts (auto) 4.1 (2.0-8.3) x10*3/uL Absolute Nucleated RBC 0.000 (0.0-0.012) X10*3/uL Nucleated RBC % (auto) 0.0 (0.0-0.2) /100WBC VBG pH (7.32-7.43) VBG pCO2 mmHg VBG pO2 mmHg VBG HCO3 (22-26) mmol/L VBG O2 Saturation % VBG Base Excess mmol/L Sodium 136 (135-145) mmol/L Potassium 4.1 (3.3-5.1) mmol/L Chloride 101 (96-108) mmol/L Carbon Dioxide 25 (22-29) mmol/L Anion Gap 14 (12-20) BUN 23 H (9-16) mg/dL Creatinine 1.11 (0.5-1.4) mg/dL Estim Creat Clear Calc 25.2 Estimated GFR 47 POC Glucose 408 H* (60-115) mg/dL Random Glucose 426 H* (60-115) mg/dL Calcium 9.5 (8.4-10.2) mg/dL Magnesium 1.8 (1.6-2.6) mg/dL Total Bilirubin 0.6 (0.0-1.0) mg/dL Direct Bilirubin 0.2 (0.0-0.5) mg/dL AST 21 (5-31) U/L ALT 31 (0-31) U/L Alkaline Phosphatase 127 H (39-117) U/L Troponin I High Sens < 2.7 (<3.5-17.0) ng/L Total Protein 6.2 L (6.5-8.0) g/dL Albumin 3.7 (3.5-5.0) g/dL Lipase 5 L (8-78) U/L Beta-Hydroxybutyrate 2.07 H (0.02-0.27) mmol/L Influenza Type A (PCR) NEGATIVE (Negative) Influenza Type B (PCR) NEGATIVE (Negative) RSV RNA Qual (PCR) NEGATIVE (Negative) SARS-CoV-2 RNA (RT-PCR) NEGATIVE (Negative) 07/06/24 07/06/24 07/06/24 Range/Units 16:45 18:33 19:44 WBC (4.8-10.8) X10*3/uL RBC (4.20-5.50) X10*6/uL Hgb (12.0-16.0) g/dl Hct (37.0-47.0) % MCV (80.0-98.0) fL MCH (27.0-33.0) pg MCHC (31.0-35.0) g/dl RDW (11.0-16.0) % Plt Count (160-400) X10*3/uL MPV (9.4-12.3) fL Immature Gran % (Auto) (0.0-0.4) % Neut % (Auto) (45-73) % Lymph % (Auto) (20-40) % [place] % (Auto) (2-11) % Eos % (Auto) (0-4) % Baso % (Auto) (0-2) % Lymph # (Auto) (1.2-4.9) X10*3/uL [place] # (Auto) (0.1-1.2) X10*3/uL Eos # (Auto) (0.0-0.4) X10*3/uL Baso # (Auto) (0.0-0.2) X10*3/uL Abs Immat Gran (auto) (0.00-0.03) X10*3/uL Absolute Neuts (auto) (2.0-8.3) x10*3/uL Absolute Nucleated RBC (0.0-0.012) X10*3/uL Nucleated RBC % (auto) (0.0-0.2) /100WBC VBG pH 7.45 H (7.32-7.43) VBG pCO2 35 mmHg VBG pO2 100 mmHg VBG HCO3 25 (22-26) mmol/L VBG O2 Saturation 99.0 % VBG Base Excess 1.5 mmol/L Sodium (135-145) mmol/L Potassium (3.3-5.1) mmol/L Chloride (96-108) mmol/L Carbon Dioxide (22-29) mmol/L Anion Gap (12-20) BUN (9-16) mg/dL Creatinine (0.5-1.4) mg/dL Estim Creat Clear Calc Estimated GFR POC Glucose 366 H* 353 H* (60-115) mg/dL Random Glucose (60-115) mg/dL Calcium (8.4-10.2) mg/dL Magnesium (1.6-2.6) mg/dL Total Bilirubin (0.0-1.0) mg/dL Direct Bilirubin (0.0-0.5) mg/dL AST (5-31) U/L ALT (0-31) U/L Alkaline Phosphatase (39-117) U/L Troponin I High Sens (<3.5-17.0) ng/L Total Protein (6.5-8.0) g/dL Albumin (3.5-5.0) g/dL Lipase (8-78) U/L Beta-Hydroxybutyrate (0.02-0.27) mmol/L Influenza Type A (PCR) (Negative) Influenza Type B (PCR) (Negative) RSV RNA Qual (PCR) (Negative) SARS-CoV-2 RNA (RT-PCR) (Negative) 07/06/24 Range/Units 22:22 WBC (4.8-10.8) X10*3/uL RBC (4.20-5.50) X10*6/uL Hgb (12.0-16.0) g/dl Hct (37.0-47.0) % MCV (80.0-98.0) fL MCH (27.0-33.0) pg MCHC (31.0-35.0) g/dl RDW (11.0-16.0) % Plt Count (160-400) X10*3/uL MPV (9.4-12.3) fL Immature Gran % (Auto) (0.0-0.4) % Neut % (Auto) (45-73) % Lymph % (Auto) (20-40) % [place] % (Auto) (2-11) % Eos % (Auto) (0-4) % Baso % (Auto) (0-2) % Lymph # (Auto) (1.2-4.9) X10*3/uL [place] # (Auto) (0.1-1.2) X10*3/uL Eos # (Auto) (0.0-0.4) X10*3/uL Baso # (Auto) (0.0-0.2) X10*3/uL Abs Immat Gran (auto) (0.00-0.03) X10*3/uL Absolute Neuts (auto) (2.0-8.3) x10*3/uL Absolute Nucleated RBC (0.0-0.012) X10*3/uL Nucleated RBC % (auto) (0.0-0.2) /100WBC VBG pH (7.32-7.43) VBG pCO2 mmHg VBG pO2 mmHg VBG HCO3 (22-26) mmol/L VBG O2 Saturation % VBG Base Excess mmol/L Sodium (135-145) mmol/L Potassium (3.3-5.1) mmol/L Chloride (96-108) mmol/L Carbon Dioxide (22-29) mmol/L Anion Gap (12-20) BUN (9-16) mg/dL Creatinine (0.5-1.4) mg/dL Estim Creat Clear Calc Estimated GFR POC Glucose 307 H (60-115) mg/dL Random Glucose (60-115) mg/dL Calcium (8.4-10.2) mg/dL Magnesium (1.6-2.6) mg/dL Total Bilirubin (0.0-1.0) mg/dL Direct Bilirubin (0.0-0.5) mg/dL AST (5-31) U/L ALT (0-31) U/L Alkaline Phosphatase (39-117) U/L Troponin I High Sens (<3.5-17.0) ng/L Total Protein (6.5-8.0) g/dL Albumin (3.5-5.0) g/dL Lipase (8-78) U/L Beta-Hydroxybutyrate (0.02-0.27) mmol/L Influenza Type A (PCR) (Negative) Influenza Type B (PCR) (Negative) RSV RNA Qual (PCR) (Negative) SARS-CoV-2 RNA (RT-PCR) (Negative) Independent Interpretation I performed an independent interpretation of an: Plain X-Ray Interpretation: My independent interpretation patient's chest x-ray is as follows: No acute disease My independent interpretation of the patient's 12 EKG done at 16:23 hours is as follows: Normal sinus rhythm rate of 87, normal TX interval, QRS duration QTC interval, no ST segment elevation, no ST segment depression, no PACs, no PVCs Radiology Impression Discussion of test interpretation with radiology: I have reviewed the radiologist's reading. Radiologist Impression: XR chest 1V IMPRESSION: No acute pulmonary disease. Dictated By: Bowen Mosqueda Chronic Conditions Patient?s care impacted by: Diabetes Discharge Plan Discharge Clinical Impression: Acute hyperglycemia Patient Disposition: Home, Self-Care Instructions: Diabetic Hyperglycemia (ED) Additional Instructions: You need to talk to your visiting nurse to get more home services to help manage your diabetes and to get you restarted on Lantus You will need to check your blood sugars for meal and give yourself insulin- NovoLog based on your sugar readings. This information will then help your doctor to determine how much Lantus to put you on. You should increase your fluid intake to help prevent dehydration while you sugars are high. Continue taking your other medications as prescribed by your doctor Follow-up with your doctor in 2 days. Please return to the emergency department if your symptoms get worse or if you develop any symptoms that are concerning to you. Prescriptions: No Action nitroglycerin 0.4 mg tablet, sublingual 1 tab sublingual Q5M PRN (Reason: Chest Pain) insulin aspart U-100 [Novolog U-100 Insulin aspart] 100 unit/mL solution 12 unit subcut TIDAC Rx Instructions: USES CEQUR SIMPLICITY PATCH (DME) CeQur Simplicity 2 unit device MISCELLANEOUS atorvastatin 40 mg tablet 40 mg PO DAILY propylthiouracil 50 mg tablet 50 mg PO BID metformin 500 mg tablet extended release 24 hr 1,000 mg PO BID gabapentin 100 mg capsule 100 mg PO BID pantoprazole 40 mg tablet,delayed release (DR/EC) 40 mg PO DAILY@0630 insulin glargine [Lantus Solostar U-100 Insulin] 100 unit/mL (3 mL) insulin pen 12 unit subcut BEDTIME Interventions: ED Discharge Assessment Last Done: 07/07/24 01:08 Discharge Date/Time: 07/07/24 01:09 Print Language: Swazi
--- NOTE | 2024-07-06 15:44 | ECG_ITS ---
Test Reason : LETHARGY Blood Pressure : / mmHG Vent. Rate : 087 BPM Atrial Rate : 087 BPM P-R Int : 198 ms QRS Dur : 064 ms QT Int : 364 ms P-R-T Axes : 102 126 120 degrees QTc Int : 438 ms Suspect limb lead reversal, interpretation assumes no reversal Normal sinus rhythm Septal infarct , age undetermined Lateral infarct , age undetermined Abnormal ECG When compared with ECG of 22-JUN-2024 18:13, QRS axis Shifted right Referred By: Luzma Kimball Electronically Signed By:MICKY BECERRA MD
[2024-07-06 16:44] LABS: Glucose, Whole Blood 408 mg/dL (60-115)
--- NOTE | 2024-07-06 16:47 | MHC.EDTECH ---
regulatory submissions associate Roni is aware of patient high blood sugar of 408 .
[2024-07-06 16:49] LABS: MANUAL DIFF FLAG NO
[2024-07-06 16:50] LABS: Basophils Absolute Auto 0.1 X10*3/uL (0.0-0.2); Basophils Percent Auto 0.9 % (0-2); Eosinophils Absolute Auto 0.1 X10*3/uL (0.0-0.4); Eosinophils Percent Auto 0.9 % (0-4); Hematocrit 30.5 % (37.0-47.0); Hemoglobin 10.1 g/dl (12.0-16.0); Imm Gran Abs Auto 0.02 X10*3/uL (0.00-0.03); Imm Gran Pct Auto 0.4 % (0.0-0.4); Lymphocytes Percent Auto 17.2 % (20-40); Mean Corpuscular HGB Conc 33.1 g/dl (31.0-35.0); Mean Corpuscular Hemoglobin 30.3 pg (27.0-33.0); Mean Corpuscular Volume 91.6 fL (80.0-98.0); Mean Platelet Volume 10.7 fL (9.4-12.3); Monocytes Absolute Auto 0.5 X10*3/uL (0.1-1.2); Monocytes Percent Auto 9.1 % (2-11); Neutrophils Absolute Auto 4.1 x10*3/uL (2.0-8.3); Neutrophils Percent Auto 71.5 % (45-73); Platelet Count 263 X10*3/uL (160-400); Red Blood Count 3.33 X10*6/uL (4.20-5.50); White Blood Count 5.7 X10*3/uL (4.8-10.8)
[2024-07-06 16:53] LABS: Venous Blood Gas Refer to POC result
[2024-07-06 16:53] LABS: VBG Base Excess 1.5 mmol/L; VBG HCO3 25 mmol/L (22-26); VBG pCO2 35 mmHg; VBG pH 7.45 (7.32-7.43); VBG pO2 100 mmHg
[2024-07-06 17:06] LABS: Beta-Hydroxybutyrate 2.07 mmol/L (0.02-0.27)
[2024-07-06 17:23] LABS: Troponin-I High Sensitivity < 2.7 ng/L (<3.5-17.0)
[2024-07-06 17:29] LABS: Influenza A PCR NEGATIVE (Negative); Influenza B PCR NEGATIVE (Negative); Resp Syncy Virus RNA Qual PCR NEGATIVE (Negative); SARS COV2 PCR INHOUSE NEGATIVE (Negative)
[2024-07-06 17:35] LABS: Alanine Aminotransferase 31 U/L (0-31); Albumin Level 3.7 g/dL (3.5-5.0); Alkaline Phosphatase 127 U/L (39-117); Anion Gap 14 (12-20); Aspartate Amino Transferase 21 U/L (5-31); Bilirubin Direct 0.2 mg/dL (0.0-0.5); Bilirubin Total 0.6 mg/dL (0.0-1.0); Blood Urea Nitrogen 23 mg/dL (9-16); Calcium 9.5 mg/dL (8.4-10.2); Carbon Dioxide 25 mmol/L (22-29); Chloride 101 mmol/L (96-108); Creatinine Clr Calc Pharmacy 25.2; Estimated Glomerular Filt Rate 47; Glucose Random 426 mg/dL (60-115); Lipase 5 U/L (8-78); Magnesium 1.8 mg/dL (1.6-2.6); Potassium 4.1 mmol/L (3.3-5.1); Sodium 136 mmol/L (135-145); Total Protein 6.2 g/dL (6.5-8.0)
[2024-07-06 18:39] LABS: Glucose, Whole Blood 366 mg/dL (60-115)
[2024-07-06 19:30] VITALS: BP 132/62; PULSE 82; RESP 16; O2SAT 98
[2024-07-06 19:48] LABS: Glucose, Whole Blood 353 mg/dL (60-115)
[2024-07-06 22:27] LABS: Glucose, Whole Blood 307 mg/dL (60-115)
[2024-07-06] MEDS: 0.9 % Sodium Chloride 1,000 ML 999 ML IV (23:40)
[2024-07-07] VITALS: BP 138/64; PULSE 78; RESP 16; TEMP 36.7; O2SAT 98
[2024-07-07 01:08] VITALS: BP 138/64; PULSE 78; RESP 16; TEMP 36.7; O2SAT 98
== END 2024-07-07 01:09 | disposition home or self-care (01) ==
PROVIDERS: Physician Assistant Medical; Emergency Provider Emergency Medicine Emergency Medical Services
DX: E11.65 Type 2 diabetes mellitus with hyperglycemia (principal); Z03.818 Encounter for observation for suspected exposure to other biological agents ruled out; E78.5 Hyperlipidemia, unspecified; E05.90 Thyrotoxicosis, unspecified without thyrotoxic crisis or storm; Z79.4 Long term (current) use of insulin; Z79.02 Long term (current) use of antithrombotics/antiplatelets; Z79.899 Other long term (current) drug therapy; Z79.84 Long term (current) use of oral hypoglycemic drugs
CPT/HCPCS: 0241U; 71045; 80048; 80076; 82010; 82803; 82947; 83690; 83735; 84484; 85025; 93005; 96360; 99284; 99285

== ENCOUNTER → 2024-07-06 15:44 | Outpatient (BNV) | payer MEDICARE, OTHER, SELFPAY | PROVIDERS: Emergency Provider Emergency Medicine Emergency Medical Services; Visit Provider Internal Medicine Cardiovascular Disease | DX: R94.31 Abnormal electrocardiogram [ECG] [EKG] (principal) | CPT/HCPCS: 93010 ==

== ENCOUNTER 2024-09-07 17:35 | Emergency (ER) | payer MEDICARE, OTHER, SELFPAY ==
[2024-09-07 17:57] VITALS: BP 131/53; PULSE 83; RESP 20; TEMP 37.3; O2SAT 100; BMI 17.6
--- NOTE | 2024-09-07 18:01 | ED.GENADULT ---
HPI - General Adult General Chief complaint: General Medical Stated complaint: out of insulin Time Seen by Provider: 09/07/24 22:36 History of Present Illness ED Provider: Gretel DUNBAR narrative: The patient is an 88-year-old female who was a type 2 diabetic. She takes metformin, Lantus insulin, and she has also been taking NovoLog insulin. She says that she recently has had problems with insurance coverage for NovoLog. She has been trying to address this problem with your regular doctor but has not succeeded. She comes to the emergency room this evening because she used her last dose of NovoLog this morning and she does not want to be without NovoLog. She denies any fever, sweats, chills. She denies any nausea or vomiting. She denies any abdominal pain or chest pain. She says that she feels that her thinking is fuzzy but she has no other symptoms or complaints. Related Data Home Medications ?Medication ?Instructions ?Recorded ?Confirmed nitroglycerin 0.4 mg sublingual 1 tab sublingual Q5M PRN Chest Pain 02/27/22 05/13/24 tablet bolus insulin pump, 200 unit 2 09/26/23 05/13/24 unit bolus insulin patch pump, 200 unit, disposable (CeQur Simplicity) insulin aspart U-100 100 unit/mL 12 unit subcut TIDAC 09/26/23 05/13/24 subcutaneous solution (Novolog U-100 Insulin aspart) gabapentin 100 mg capsule 100 mg PO BID 12/19/23 05/13/24 insulin glargine 100 unit/mL (3 12 unit subcut BEDTIME 12/19/23 05/13/24 mL) subcutaneous pen (Lantus Solostar U-100 Insulin) pantoprazole 40 mg tablet,delayed 40 mg PO DAILY@0630 12/19/23 05/13/24 release atorvastatin 40 mg tablet 40 mg PO DAILY 05/13/24 05/13/24 metformin 500 mg tablet,extended 1,000 mg PO BID 05/13/24 05/13/24 release 24 hr propylthiouracil 50 mg tablet 50 mg PO BID 05/13/24 05/13/24 Previous Rx's ?Medication ?Instructions ?Recorded insulin aspart U-100 100 unit/mL 10 unit (0.1 mL) subcut TID #10 mL 09/07/24 subcutaneous solution (Novolog U-100 Insulin aspart) Allergies Allergy/AdvReac Type Severity Reaction Status Date / Time Penicillins [PCN] Allergy Unknown UNKNOWN Verified 09/07/24 18:01 Sulfa (Sulfonamide Allergy Unknown UNKNOWN Verified 09/07/24 18:01 Antibiotics) [SULFA(SULFONAMIDE ANTIBIOTICS)] heparin AdvReac Unknown Verified 09/07/24 18:01 penicillin Allergy Unknown rash Uncoded 06/22/24 18:03 Sulfa Allergy Unknown rash Uncoded 06/22/24 18:03 Review of Systems Review of Systems: Yes all other systems are reviewed and are negative [facility] Past Medical History Medical History Hyperthyroidism Hyperlipidemia Nausea Pancreatitis Diabetes Surgical History H/O heart artery stent Social History Social History (Reviewed 03/15/24 @ 14:27 by Evelia Santamaria [facility]) Household Members: None Housing: House Do you presently have visiting nurse or other home services: Yes Unable to assess alcohol history related to: Unable to respond Alcohol intake: unknown Patient Tobacco Use Status: Never used Tobacco Smoked in Last 30 Days: No Use of substances other than those prescribed or required for medical reasons: No Advance Directives: Yes Advance Directives on File: Yes Advance Directives Date on File: 12/19/23 Do you have a plan to hurt others: No Plan service: No Current occupational status: retired Current occupation: [employer] Physical Exam ED Vital Signs: Vital Signs - 24 hr 09/07/24 17:57 Temperature 99.1 F Pulse Rate 83 Respiratory Rate 20 Blood Pressure 131/53 L Pulse Oximetry 100 Oxygen Delivery Method Room Air BMI result Body Mass Index 17.6 Const Other: The patient is a thin 88-year-old woman who was awake and alert. She is well groomed. She does not appear in distress. Her mental status seems clear. HENMT Other: Face is symmetrical. Mucous membranes moist. Eyes General: appearance normal, both eyes and all related structures Neck Other: Neck is supple, no JVD Resp Effort & Inspection: normal respiratory effort Auscultation: clear to auscultation bilaterally Cardio Rate: regular rate Rhythm: regular rhythm Heart sounds: S1 normal heart sound present and S2 normal heart sound present GI Other: Abdomen is soft and nontender Skin Other: Skin is dry and unremarkable Neuro Other: The patient is awake, alert, oriented, appropriate. Mental status seems clear, cranial nerves are grossly intact. She moves her extremities normally appropriately. She seems grossly neurologically intact. Extrem Other: No peripheral edema Course Course Course Narrative: This is an RME performed by Karis Rubio CNP: Additional HPI, ROS, PE not included below will be deferred to primary provider. Patient is an 88-year-old female who presents emergency department reporting that she has ran out of her NovoLog today. States that currently she has a co-pay of 60$ for Novolog and she takes 10 units three times daily with meals . The increased co-pay was due to an insurance change recently. She reports her primary care doctor tried to send another prescription but the insurance co-pay was the same. She states at this point she is ?willing to pay the co-pay?. However when she called the pharmacy there was no prescription available for her. She also states that she is experiencing some lightheadedness upon standing, and feeling ?not right? pointing to her head with fussiness, denies headache or vision changes. No chest pain or shortness of breath Medical Decision Making Medical Decision Making MDM Narrative: The patient is a type 2 diabetic who takes metformin, Lantus insulin 12 units every evening, and she says she also takes 10 units of NovoLog before each meal. She says she has run out of NovoLog and is a refill prescription. She says that she has an insurance problem with the NovoLog but she is willing to pay [id number]. Labs were done that are largely unremarkable. Her white count is 5.4 with a normal differential. Her hemoglobin is stable. Her metabolic panel shows normal electrolytes with no acidosis. No anion gap. BUN is 25 which seems to be baseline. Creatinine is 0.9 for which also seems to be baseline. Her blood sugar was initially 105 by fingerstick. With the metabolic panel it was 60. When rechecked a few hours after the metabolic panel it was 150. Urinalysis shows negative for ketones and infection. The patient is here requesting a prescription for NovoLog and she says that she will pay for it [id number] if necessary. She does not seem to have any obvious acute medical process that would require additional treatment. I have sent a prescription see on [address] in [place] at the patient's request. She should contact her regular doctor next week or return to the emergency room if she develops any new symptoms. Lab Data 09/07/24 18:30 09/07/24 18:30 Labs: Lab Results 09/07/24 09/07/24 Range/Units 18:07 18:30 WBC 5.4 (4.8-10.8) X10*3/uL RBC 3.52 L (4.20-5.50) X10*6/uL Hgb 10.7 L (12.0-16.0) g/dl Hct 33.2 L (37.0-47.0) % MCV 94.3 (80.0-98.0) fL MCH 30.4 (27.0-33.0) pg MCHC 32.2 (31.0-35.0) g/dl RDW 13.4 (11.0-16.0) % Plt Count 244 (160-400) X10*3/uL MPV 10.3 (9.4-12.3) fL Immature Gran % (Auto) 0.4 (0.0-0.4) % Neut % (Auto) 59.6 (45-73) % Lymph % (Auto) 24.7 (20-40) % [place] % (Auto) 10.9 (2-11) % Eos % (Auto) 3.3 (0-4) % Baso % (Auto) 1.1 (0-2) % Lymph # (Auto) 1.3 (1.2-4.9) X10*3/uL [place] # (Auto) 0.6 (0.1-1.2) X10*3/uL Eos # (Auto) 0.2 (0.0-0.4) X10*3/uL Baso # (Auto) 0.1 (0.0-0.2) X10*3/uL Abs Immat Gran (auto) 0.02 (0.00-0.03) X10*3/uL Absolute Neuts (auto) 3.2 (2.0-8.3) x10*3/uL Absolute Nucleated RBC 0.000 (0.0-0.012) X10*3/uL Nucleated RBC % (auto) 0.0 (0.0-0.2) /100WBC PT 9.9 L (10.9-12.4) SEC INR 0.9 (0.9-1.1) Sodium 139 (135-145) mmol/L Potassium 4.2 (3.3-5.1) mmol/L Chloride 107 (96-108) mmol/L Carbon Dioxide 27 (22-29) mmol/L Anion Gap 9 L (12-20) BUN 25 H (9-16) mg/dL Creatinine 0.94 (0.5-1.4) mg/dL Estim Creat Clear Calc 33.5 Estimated GFR 56 POC Glucose 105 (60-115) mg/dL Random Glucose 60 (60-115) mg/dL Calcium 8.8 D (8.4-10.2) mg/dL Total Bilirubin 0.5 (0.0-1.0) mg/dL AST 39 H (5-31) U/L ALT 45 H (0-31) U/L Alkaline Phosphatase 98 (39-117) U/L Troponin I High Sens 8.6 D (<3.5-17.0) ng/L Total Protein 5.9 L (6.5-8.0) g/dL Albumin 3.5 (3.5-5.0) g/dL Lipase < 4 L (8-78) U/L Urine Color Yellow Urine Appearance Clear Urine pH 5.0 (5.0-9.0) Ur Specific [place] >= 1.030 H (1.005-1.025) Urine Protein Negative (Neg-Trace) mg/dL Urine Glucose (UA) >=1000 H (Negative) mg/dL Urine Ketones Negative (Negative) mg/dL Urine Blood Negative (Negative) Urine Nitrite Negative (Negative) Ur Leukocyte Esterase Negative (Negative) Urine RBC 0-2 (0-2) /HPF Urine WBC 0-5 (0-5) /HPF Ur Squamous Epith Cells 0-2 (0-2) /HPF Urine Bacteria None Seen (None Seen) Hyaline Casts 0-2 (0-2) /LPF Influenza Type A (PCR) NEGATIVE (Negative) Influenza Type B (PCR) NEGATIVE (Negative) RSV RNA Qual (PCR) NEGATIVE (Negative) SARS-CoV-2 RNA (RT-PCR) NEGATIVE (Negative) Discharge Plan Discharge Clinical Impression: Medication refill Patient Disposition: Home, Self-Care Additional Instructions: Your testing in the emergency room today seems reassuring. I have sent a prescription for NovoLog to the [facility] on [address] in [place]. I have written this prescription as you have told me that you take it, 10 units before each meal 3 times a day. Please continue your other medications as usual. Please follow up soon with your regular doctor to discuss this problem further. Prescriptions: New insulin aspart U-100 [Novolog U-100 Insulin aspart] 100 unit/mL solution 10 unit subcut TID Qty: 10 0RF No Action nitroglycerin 0.4 mg tablet, sublingual 1 tab sublingual Q5M PRN (Reason: Chest Pain) insulin aspart U-100 [Novolog U-100 Insulin aspart] 100 unit/mL solution 12 unit subcut TIDAC Rx Instructions: USES CEQUR SIMPLICITY PATCH (DME) CeQur Simplicity 2 unit device MISCELLANEOUS atorvastatin 40 mg tablet 40 mg PO DAILY propylthiouracil 50 mg tablet 50 mg PO BID metformin 500 mg tablet extended release 24 hr 1,000 mg PO BID gabapentin 100 mg capsule 100 mg PO BID pantoprazole 40 mg tablet,delayed release (DR/EC) 40 mg PO DAILY@0630 insulin glargine [Lantus Solostar U-100 Insulin] 100 unit/mL (3 mL) insulin pen 12 unit subcut BEDTIME Referrals: Juan Miguel Hunter MD [Physician] - (Insulin prescription problem) Print Language: [place]al[place]
--- NOTE | 2024-09-07 18:08 | ECG_ITS ---
Test Reason : dizziness Blood Pressure : / mmHG Vent. Rate : 077 BPM Atrial Rate : 077 BPM P-R Int : 204 ms QRS Dur : 068 ms QT Int : 374 ms P-R-T Axes : 066 021 -49 degrees QTc Int : 423 ms Normal sinus rhythm Low voltage QRS Septal infarct (cited on or before 06-JUL-2024) Possible Inferior infarct , age undetermined Abnormal ECG When compared with ECG of 06-JUL-2024 16:23, Significant changes have occurred Referred By: Micheline Rubio Electronically Signed By:MICKY BECERRA MD
[2024-09-07 18:14] LABS: Glucose, Whole Blood 105 mg/dL (60-115)
[2024-09-07 18:37] LABS: MANUAL DIFF FLAG NO
[2024-09-07 18:44] LABS: Basophils Absolute Auto 0.1 X10*3/uL (0.0-0.2); Basophils Percent Auto 1.1 % (0-2); Eosinophils Absolute Auto 0.2 X10*3/uL (0.0-0.4); Eosinophils Percent Auto 3.3 % (0-4); Hematocrit 33.2 % (37.0-47.0); Hemoglobin 10.7 g/dl (12.0-16.0); Imm Gran Abs Auto 0.02 X10*3/uL (0.00-0.03); Imm Gran Pct Auto 0.4 % (0.0-0.4); Lymphocytes Absolute Auto 1.3 X10*3/uL (1.2-4.9); Lymphocytes Percent Auto 24.7 % (20-40); Mean Corpuscular HGB Conc 32.2 g/dl (31.0-35.0); Mean Corpuscular Hemoglobin 30.4 pg (27.0-33.0); Mean Corpuscular Volume 94.3 fL (80.0-98.0); Mean Platelet Volume 10.3 fL (9.4-12.3); Monocytes Absolute Auto 0.6 X10*3/uL (0.1-1.2); Monocytes Percent Auto 10.9 % (2-11); Neutrophils Absolute Auto 3.2 x10*3/uL (2.0-8.3); Neutrophils Percent Auto 59.6 % (45-73); Platelet Count 244 X10*3/uL (160-400); Red Blood Count 3.52 X10*6/uL (4.20-5.50); Red Cell Distribution Width 13.4 % (11.0-16.0); White Blood Count 5.4 X10*3/uL (4.8-10.8)
[2024-09-07 18:45] LABS: Appearance Urine Clear; Color Urine Yellow; Glucose Urine UA >=1000 mg/dL (Negative); Leukocyte Esterase Urine Negative (Negative); Nitrite Urine Negative (Negative); Specific Gravity - Urine >= 1.030 (1.005-1.025); UMIC TRIGGER UACC YES; Urine Blood Negative (Negative); Urine Ketones Negative (Negative); Urine Protein Negative (Neg-Trace)
[2024-09-07 18:54] LABS: INTERNATIONAL NORM RATIO 0.9 (0.9-1.1); Prothrombin Time 9.9 SEC (10.9-12.4)
[2024-09-07 18:57] LABS: Alanine Aminotransferase 45 U/L (0-31); Albumin Level 3.5 g/dL (3.5-5.0); Alkaline Phosphatase 98 U/L (39-117); Anion Gap 9 (12-20); Aspartate Amino Transferase 39 U/L (5-31); Bilirubin Total 0.5 mg/dL (0.0-1.0); Blood Urea Nitrogen 25 mg/dL (9-16); Calcium 8.8 mg/dL (8.4-10.2); Carbon Dioxide 27 mmol/L (22-29); Chloride 107 mmol/L (96-108); Creatinine Clr Calc Pharmacy 33.5; Estimated Glomerular Filt Rate 56; Glucose Random 60 mg/dL (60-115); Potassium 4.2 mmol/L (3.3-5.1); Sodium 139 mmol/L (135-145); Total Protein 5.9 g/dL (6.5-8.0)
[2024-09-07 19:03] LABS: Troponin-I High Sensitivity 8.6 ng/L (<3.5-17.0)
[2024-09-07 19:06] LABS: Lipase < 4 U/L (8-78)
[2024-09-07 19:16] LABS: Influenza A PCR NEGATIVE (Negative); Influenza B PCR NEGATIVE (Negative); Resp Syncy Virus RNA Qual PCR NEGATIVE (Negative); SARS COV2 PCR INHOUSE NEGATIVE (Negative)
[2024-09-07 19:35] LABS: Bacteria Urine None Seen (None Seen); Hyaline Casts Urine 0-2 /LPF (0-2); RBC Urine 0-2 /HPF (0-2); Squamous Epithelial Cell Urine 0-2 /HPF (0-2); WBC Urine 0-5 /HPF (0-5)
[2024-09-07 22:35] VITALS: BP 136/54; PULSE 75
[2024-09-07 22:39] VITALS: BP 148/68; PULSE 82
[2024-09-07 22:40] VITALS: BP 136/58; PULSE 80
--- NOTE | 2024-09-07 22:40 | PC.NURSE ---
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 pt reports she ran out of insulin and her insurance no longer covers it , pt reports she is able to check POC at home and has been having high readings without being able to take insulin. pt reports feeling weird but denies CP, n/v/d. at bedside.
[2024-09-07 22:48] VITALS: BP 136/54; PULSE 80; RESP 16; TEMP 36.4; O2SAT 100
[2024-09-07 22:54] LABS: Glucose, Whole Blood 150 mg/dL (60-115)
[2024-09-07 23:14] VITALS: BP 136/54; PULSE 80; RESP 16; TEMP 36.4; O2SAT 100
== END 2024-09-07 23:56 | disposition home or self-care (01) ==
PROVIDERS: Nurse Practitioner Family; Emergency Provider Emergency Medicine
DX: E11.9 Type 2 diabetes mellitus without complications (principal); Z76.0 Encounter for issue of repeat prescription; R42 Dizziness and giddiness; E46 Unspecified protein-calorie malnutrition; Z68.1 Body mass index [BMI] 19.9 or less, adult; E78.5 Hyperlipidemia, unspecified; E03.9 Hypothyroidism, unspecified; Z03.818 Encounter for observation for suspected exposure to other biological agents ruled out; Z79.84 Long term (current) use of oral hypoglycemic drugs; Z79.4 Long term (current) use of insulin; Z79.899 Other long term (current) drug therapy; Z79.02 Long term (current) use of antithrombotics/antiplatelets
CPT/HCPCS: 0241U; 36415; 80053; 81001; 82947; 83690; 84484; 85025; 85610; 93005; 99283; 99285

== ENCOUNTER → 2024-09-07 18:08 | Outpatient (BNV) | payer MEDICARE, OTHER, SELFPAY | PROVIDERS: Emergency Provider Emergency Medicine; Visit Provider Internal Medicine Cardiovascular Disease | DX: R94.31 Abnormal electrocardiogram [ECG] [EKG] (principal) | CPT/HCPCS: 93010 ==

== ENCOUNTER 2024-10-28 16:54 | Inpatient (IN) | payer MEDICARE, OTHER, SELFPAY ==
--- NOTE | ~2024-10-28 | US_ITS ---
EXAMINATION: US TRIPLEX LOWER EXTREMITY, BILATERAL CLINICAL INFORMATION: Bilateral lower extremity edema. COMPARISON: None available. TECHNIQUE: Color-flow triplex imaging with spectral analysis and compression Doppler were performed on the bilateral lower extremities. FINDINGS: Right lower extremity: There is a small focal echogenicity consistent with deep vein thrombosis at the superficial femoral vein junction which is nonocclusive. This measures about 0.5 cm. This is most likely chronic. The remainder of the vein shows normal vascularity and compressibility with no other evidence of deep vein thrombosis. Left lower extremity: No evidence of deep vein thrombosis from groin to the calf. Normal vascular flow and compressibility of the veins. Please note the left peroneal vein in the calf was not visualized. There is a left popliteal fossa cyst measuring 2.5 x 0.7 x 1.7 cm. US/US venous duplex LE BI IMPRESSION: 1. Small echogenic focus along the wall of the superficial vein junction which is likely chronic. 2. No evidence of deep vein thrombosis in the left lower extremity. 3. Left popliteal fossa cyst. This critical result was discussed with Luzma Kimball on 10/28/2024, 10:16 PM and it was ascertained that the content and urgency of the report was understood at the time of direct communication. Electronically signed by: Sukhi Toney MD 10/28/2024 10:16 PM [facility]
--- NOTE | ~2024-10-28 | CT_ITS ---
EXAMINATION: CT ABDOMEN AND PELVIS WITH CONTRAST CLINICAL INFORMATION: elevated LFTs COMPARISON: CT chest 12/19/2023 The Ultrasound abdomen 02/27/2022 TECHNIQUE: Multidetector volumetric imaging was performed from the superior aspect of the liver through the pubic symphysis with intravenous contrast. A total of 85 mL of Omnipaque 350 was utilized for the study. Sagittal and coronal reformatted images were obtained on the technologist's workstation. This CT examination was performed using dose optimization techniques as appropriate, variously including the following: *Automated exposure control *Adjustment of mA and/or kV according to patient size (this includes techniques or standardized protocols for targeted exams where dose is matched to indication/reason for exam; i.e. extremities or head) *Use of iterative reconstruction technique DLP: 310 mGy-cm FINDINGS: LUNG BASES: Multiple pulmonary nodules are present at the lung bases ranging in size from under a centimeter to up to 1 cm. These are almost all new when compared to the 12/19/2023 exam. LIVER, GALLBLADDER, PANCREAS AND BILIARY TREE: There is marked intrahepatic and extrahepatic biliary ductal dilatation along with hydrops of the gallbladder. The pancreatic duct is extremely dilated with atrophy of the pancreas. There is a mass present in the region of the pancreatic head measuring 3.1 x 3.3 x 2.2 with a cystic area below this measuring 2.8 x 2.0 x 2.3 cm (see saved silveira images). A portion of mass invades the portal vein (see below). VASCULAR: Calcific atherosclerotic changes are present in the aorta and iliofemoral vessels. There is no evidence of an abdominal aortic aneurysm. Of note, there is a mass invading the portal vein with intraluminal component measuring 2.0 x 1.3 x 1.6 cm (2:17). The intrahepatic portal veins are patent. The SMV and splenic vein are patent. SPLEEN: Unremarkable. ADRENAL GLANDS: Unremarkable. KIDNEYS AND URETERS: The kidneys are normal in size, shape, and attenuation. There is fullness in the pelvicalyceal systems without caliectasis. No gross hydronephrosis, hydroureter, or calculi seen. No perinephric stranding. BLADDER: Empty but unremarkable . GASTROINTESTINAL TRACT: There are colonic diverticula without diverticulitis. The small and large bowel are otherwise unremarkable. The appendix is unremarkable. ABDOMINAL WALL: No significant hernia is appreciated. LYMPH NODES: No retroperitoneal lymphadenopathy. PELVIC VISCERA: Unremarkable. OSSEOUS STRUCTURES: Degenerative changes are present in the spine with no bony destructive lesions. CT/CT abdomen pelvis w IV con IMPRESSION: 1. Pancreatic head mass with invasion of the portal vein and marked biliary and pancreatic ductal dilatation. ERCP with biopsy is recommended for further evaluation. 2. Multiple pulmonary nodules at the lung bases consistent with metastatic disease. 3. Other incidental findings as described above. Fleischner guidelines were followed. Electronically signed by: Shad Gagnon MD 10/28/2024 08:57 PM EST
--- NOTE | ~2024-10-28 | US_ITS ---
EXAMINATION: US ABDOMEN LIMITED, gallbladder only CLINICAL INFORMATION: Jaundice.. COMPARISON: CT abdomen and pelvis October 28, 2024 TECHNIQUE: Real-time imaging of the right upper quadrant abdominal viscera. Color Doppler exam used. FINDINGS: GALLBLADDER: Echogenic bile within the gallbladder. No gallbladder wall thickening or pericholecystic fluid. The gallbladder is distended. Negative ultrasound Cole's sign. COMMON BILE DUCT: There is dilatation of the common bile duct measuring 1.6 cm. No stone identified in the visualized portions of the common duct. US/US abdomen limited IMPRESSION: 1. Echogenic bile within the gallbladder. No gallbladder wall thickening or pericholecystic fluid. Negative ultrasound Cole's sign. 2. There is dilatation of the common bile duct measuring 1.6 cm. No stone identified in the visualized portions of the common duct. Electronically signed by: Sukhi Toney MD 10/28/2024 10:33 PM [facility]
--- NOTE | ~2024-10-28 | CT_ITS ---
EXAMINATION: CT HEAD WITHOUT CONTRAST CT CERVICAL SPINE WITHOUT CONTRAST CLINICAL INFORMATION: Fall. COMPARISON: CT head June 22, 2024 TECHNIQUE: Imaging was performed from the skull base to vertex without intravenous administration of contrast. In addition, helical noncontrast CT imaging was acquired through the cervical spine and source images were reviewed along with axial reconstructions and sagittal and coronal MPRs. [This CT examination was performed using dose optimization techniques as appropriate, variously including the following: *Automated exposure control *Adjustment of mA and/or kV according to patient size (this includes techniques or standardized protocols for targeted exams where dose is matched to indication/reason for exam; i.e. extremities or head) *Use of iterative reconstruction technique] DLP: 801 mGy-cm FINDINGS: HEAD: No intracranial mass, hemorrhage, or midline shift is visualized. The ventricles and sulci are proportional. No extra-axial collections are identified. The paranasal sinuses and mastoid air cells are well aerated. CERVICAL SPINE: There is no evidence of acute cervical spine fracture. Vertebral bodies remain normal in height. Cervical vertebrae have normal alignment. There is multilevel degenerative spondylosis of the cervical spine with disc height narrowing and endplate spurs and facet joint arthrosis No pre- or paravertebral soft tissue abnormality is identified. Limited assessment of the lung apices is unremarkable. CT/CT cervical spine wo IV con IMPRESSION: 1. No acute intracranial pathology. 2. No CT evidence of acute cervical spine fracture or traumatic subluxation Electronically signed by: Sukhi Toney MD 10/28/2024 08:24 PM [facility] [place]
--- NOTE | ~2024-10-28 | CT_ITS ---
EXAMINATION: CT HEAD WITHOUT CONTRAST CT CERVICAL SPINE WITHOUT CONTRAST CLINICAL INFORMATION: Fall. COMPARISON: CT head June 22, 2024 TECHNIQUE: Imaging was performed from the skull base to vertex without intravenous administration of contrast. In addition, helical noncontrast CT imaging was acquired through the cervical spine and source images were reviewed along with axial reconstructions and sagittal and coronal MPRs. [This CT examination was performed using dose optimization techniques as appropriate, variously including the following: *Automated exposure control *Adjustment of mA and/or kV according to patient size (this includes techniques or standardized protocols for targeted exams where dose is matched to indication/reason for exam; i.e. extremities or head) *Use of iterative reconstruction technique] DLP: 801 mGy-cm FINDINGS: HEAD: No intracranial mass, hemorrhage, or midline shift is visualized. The ventricles and sulci are proportional. No extra-axial collections are identified. The paranasal sinuses and mastoid air cells are well aerated. CERVICAL SPINE: There is no evidence of acute cervical spine fracture. Vertebral bodies remain normal in height. Cervical vertebrae have normal alignment. There is multilevel degenerative spondylosis of the cervical spine with disc height narrowing and endplate spurs and facet joint arthrosis No pre- or paravertebral soft tissue abnormality is identified. Limited assessment of the lung apices is unremarkable. CT/CT head/brain wo IV con IMPRESSION: 1. No acute intracranial pathology. 2. No CT evidence of acute cervical spine fracture or traumatic subluxation Electronically signed by: Sukhi Toney MD 10/28/2024 08:24 PM [facility] [place]
[2024-10-28 16:59] VITALS: BP 118/70; PULSE 84; O2SAT 100
[2024-10-28 17:10] VITALS: BP 108/51; PULSE 76; RESP 16; TEMP 36.6; O2SAT 100; BMI 19.0
--- NOTE | 2024-10-28 17:13 | ED.GENADULT ---
HPI - General Adult General Chief complaint: General Medical Stated complaint: HYPERGLYCEMIC JAUNDICE Time Seen by Provider: 10/28/24 17:12 Source: patient and RN notes reviewed Mode of arrival: ambulatory Limitations: no limitations History of Present Illness ED Provider: Luzma Kimball PA-C HPI narrative: This is a 89-year-old female, with a history of type 2 diabetes and hyperlipidemia, who presents to the emergency department via EMS with concerns for jaudince. Patient reports that she noticed that she was jaundiced yesterday. she also reports that she was itchy yesterday, and states that she has itchiness throughout her back and bilateral upper arms. Patient endorses some nausea and slight abdominal pain. Patient reports that she also had a fall in the bathroom today. Patient states that her slippers were wet, and she took them off, and she was only wearing socks at that time. She slipped and fell on her left side landing into a cabinet. She denies hitting her head or LOC. she states she is currently feeling well. She denies any headaches, dizziness, blurred vision, chest pain, shortness of breath, nausea, vomiting or diarrhea. She denies any abdominal pain. No changes in stool. No changes in urinary habits. No other complaints or concerns at this time. MD complaint: Jaundice Onset (ago): day(s) Radiation: non-radiation Quality: aching Pain Consistency: constant Relieving factors: none Exacerbating factors: none Associated symptoms: denies other symptoms Treatments prior to arrival: none Related Data Home Medications ?Medication ?Instructions ?Recorded ?Confirmed nitroglycerin 0.4 mg sublingual 1 tab sublingual Q5M PRN Chest Pain 02/27/22 05/13/24 tablet bolus insulin pump, 200 unit 2 09/26/23 05/13/24 unit bolus insulin patch pump, 200 unit, disposable (CeQur Simplicity) insulin aspart U-100 100 unit/mL 12 unit subcut TIDAC 09/26/23 05/13/24 subcutaneous solution (Novolog U-100 Insulin aspart) gabapentin 100 mg capsule 100 mg PO BID 12/19/23 05/13/24 insulin glargine 100 unit/mL (3 12 unit subcut BEDTIME 12/19/23 05/13/24 mL) subcutaneous pen (Lantus Solostar U-100 Insulin) pantoprazole 40 mg tablet,delayed 40 mg PO DAILY@0630 12/19/23 05/13/24 release atorvastatin 40 mg tablet 40 mg PO DAILY 05/13/24 05/13/24 metformin 500 mg tablet,extended 1,000 mg PO BID 05/13/24 05/13/24 release 24 hr propylthiouracil 50 mg tablet 50 mg PO BID 05/13/24 05/13/24 Previous Rx's ?Medication ?Instructions ?Recorded insulin aspart U-100 100 unit/mL 10 unit (0.1 mL) subcut TID #10 mL 09/07/24 subcutaneous solution (Novolog U-100 Insulin aspart) Allergies Allergy/AdvReac Type Severity Reaction Status Date / Time Penicillins [PCN] Allergy Unknown UNKNOWN Verified 10/28/24 17:11 Sulfa (Sulfonamide Allergy Unknown UNKNOWN Verified 10/28/24 17:11 Antibiotics) [SULFA(SULFONAMIDE ANTIBIOTICS)] heparin AdvReac Unknown Verified 10/28/24 17:11 penicillin Allergy Unknown rash Uncoded 06/22/24 18:03 Sulfa Allergy Unknown rash Uncoded 06/22/24 18:03 Review of Systems Review of Systems: Yes all other systems are reviewed and are negative Constitutional: Constitutional: Reports as per [facility] Past Medical History Attestation statement: The following information was validated with the patient. Medical History Moderate malnutrition Hyperthyroidism Hyperlipidemia Nausea Pancreatitis Diabetes Surgical History H/O heart artery stent Social History Social History Household Members: None Housing: House Do you presently have visiting nurse or other home services: Yes Unable to assess alcohol history related to: Unable to respond Alcohol intake: unknown Patient Tobacco Use Status: Never used Tobacco Smoked in Last 30 Days: No Use of substances other than those prescribed or required for medical reasons: No Advance Directives: No Advance Directives Information Provided: No Advance Directives Date on File: 12/19/23 service: No Current occupational status: retired Current occupation: [employer] Physical Exam ED Vital Signs: Vital Signs - 24 hr 10/28/24 17:10 10/28/24 18:18 10/28/24 21:01 Temperature 97.8 F 99.3 F 98.4 F Pulse Rate 76 69 76 Respiratory Rate 16 16 16 Blood Pressure 108/51 L 116/50 L 118/47 L Pulse Oximetry 100 100 100 Oxygen Delivery Method Room Air Room Air Room Air BMI result Body Mass Index 19.0 Const General: cooperative, comfortable and no acute distress Orientation/consciousness: patient oriented x3 Limitations: no limitations HENMT Head: Yes normal to inspection, Yes normocephalic and Yes atraumatic Ears: hearing grossly normal bilaterally General nose exam: Normal external nose present Face and sinus: Yes normal facial exam Mouth: Normal oral and palatal mucosa present, oropharynx normal and moist mucous membranes Throat: Yes posterior oropharynx normal Eyes Other: scleral icteric General: appearance normal, both eyes and all related structures Eyelids: Yes eyelids normal Sclerae: sclerae normal Pupils: Equal, round and reactive pupils present EOM: EOMs intact bilaterally Neck Neck: Yes normal visual inspection, Yes full ROM and Yes no lymphadenopathy Lymphatic: no lymphadenopathy noted Chest Chest palpation & inspection: normal inspection of the chest Resp Effort & Inspection: normal respiratory effort and able to speak in complete sentences Auscultation: clear to auscultation bilaterally, no crackles, no rales, no rhonchi and no wheezes Cardio Rate: regular rate Rhythm: regular rhythm Heart sounds: S1 normal heart sound present and S2 normal heart sound present GI Other: Abdomen is soft, reports mild tenderness palpation without any specific point tenderness. No rebound or guarding. Inspection: Yes normal to inspection Skin Trauma: no lacerations or abrasions Wounds: no wounds Neuro General: patient oriented x3 and moves all extremities Cranial nerves: Yes Equal, round and reactive pupils present Extrem Other: Bilateral lower extremities with 1+ pitting edema noted bilaterally with venous stasis changes, and calf tenderness. DP pulses 2+ General: Yes normal to inspection Right upper extremity: normal to inspection Left upper extremity: normal to inspection Right lower extremity: normal to inspection Left lower extremity: normal to inspection Course Reevaluation(s) Reevaluation #1: Chemistry returns, pt has total bilirubin of 10.9, Direct bilirubin 9.0, AST 222 and ALT 367, Alk Phos 1694, Lipase <4; lactic acid at 2.9. She is afebrile. She has no leukocytosis. Concern for malignancy at this time causing obstruction. Will obtain CT abd/pelvis to r/o obstuction vs mass. Time: 18:36 Reevaluation #2: CT still pending, however review shows ?pneumonia as well as enlarged gallbladder, concerning for obstruction, will medicate with levaquin IV to treat for both, pt remains stable at this time, will continue to closely monitor. Time: 20:36 Reevaluation #3: CT abdomen read as pancreatic mass pancreatic head mass with invasion of the portal vein and marked biliary and pancreatic ductal dilatation. ERCP with biopsy is recommended for further evaluation.Multiple pulmonary nodules at the lung bases consistent with metastatic disease. Discussed with Dr. Short, will admit for further management and treatment. Discussed with Dr. Theodore, transfer to hospital service initiated. Time: 21:12 Medications Administered Generic Name Dose Route Start Last Admin Trade Name Freq PRN Reason Stop Dose Admin Ceftriaxone Sodium 1 gm 10/28/24 23:00 10/28/24 23:31 Ceftriaxone Sodium 1 Gm Vial IVPUSH 1 gm Q24H KIET Administration Sodium Chloride 3 ml 10/29/24 00:00 10/28/24 23:31 0.9 % Sodium Chloride Flush 3 Ml Syringe IVFLUSH 3 ml QSHIFT KIET Administration Discontinued Medications Generic Name Dose Route Start Last Admin Trade Name Freq PRN Reason Stop Dose Admin Ceftriaxone Sodium 1 gm 10/28/24 09:00 10/28/24 23:07 Ceftriaxone Sodium 1 Gm Vial IVPUSH Not Given Q24H KIET Levofloxacin 750 mg in 150 mls @ 100 mls/hr 10/28/24 20:24 10/28/24 22:55 Levaquin IV 10/28/24 21:53 Infused ONCE ONE Infusion Iohexol 100 ml 10/28/24 19:27 10/28/24 19:28 Iohexol 350 Mg/Ml 100 Ml Infus..Btl IV 10/28/24 19:28 85 ml ONCE ONE Administration Medical Decision Making Medical Decision Making MDM Narrative: this is a 89-year-old female who presents emergency department with concerns for jaundice. patient reports that she noticed some jaundice starting yesterday. Blood pressure 108/51, all other vital signs within normal limits. She is speaking in full sentences under no acute distress. Patient visibly jaundiced, states that she has no history of this. She denies alcohol use. She also reports that she had a fall this afternoon. No head strike or LOC. She is not anticoagulated. Abdomen is soft however patient reports diffuse tenderness however does not appear to be uncomfortable with abdominal exam. She does report loose stool over the last several days. Plan: labs, CT head and neck, ultrasound Differential Diagnosis Differential Diagnoses: The differential diagnosis associated with the presentation includes Malignancy, Hyperbilirubimenia, Choleliathiasis, Cholescytitis, Hepatitis Admission/Observation Consideration of admission/observation: Escalation of care including admission/observation considered Lab Data MDM Lab Attestation statement: I reviewed the patient's lab results. No leukocytosis, normocytic anemia noted with an H&H of 9.9/29.5, chemistry revealing no evidence of AMBROCIO. Lactic acid at 2.9, repeat 1.5, likely secondary to malignancy. T bili 10.9, direct bili 8, AST 2-2, ALT 367, alk phos 1694, BNP 273, urine appears to be infected 10/28/24 18:04 10/28/24 18:04 Labs: Lab Results 10/28/24 10/28/24 10/28/24 Range/Units 18:03 18:04 18:13 WBC 7.0 (4.8-10.8) X10*3/uL RBC 3.08 L (4.20-5.50) X10*6/uL Hgb 9.9 L (12.0-16.0) g/dl Hct 29.5 L (37.0-47.0) % MCV 95.8 (80.0-98.0) fL MCH 32.1 (27.0-33.0) pg MCHC 33.6 (31.0-35.0) g/dl RDW 18.8 H (11.0-16.0) % Plt Count 180 D (160-400) X10*3/uL MPV 11.9 (9.4-12.3) fL Immature Gran % (Auto) 0.4 (0.0-0.4) % Neut % (Auto) 72.1 (45-73) % Lymph % (Auto) 15.1 L (20-40) % [place] % (Auto) 10.8 (2-11) % Eos % (Auto) 0.9 (0-4) % Baso % (Auto) 0.7 (0-2) % Lymph # (Auto) 1.1 L (1.2-4.9) X10*3/uL [place] # (Auto) 0.8 (0.1-1.2) X10*3/uL Eos # (Auto) 0.1 (0.0-0.4) X10*3/uL Baso # (Auto) 0.1 (0.0-0.2) X10*3/uL Abs Immat Gran (auto) 0.03 (0.00-0.03) X10*3/uL Absolute Neuts (auto) 5.0 (2.0-8.3) x10*3/uL Absolute Nucleated RBC 0.000 (0.0-0.012) X10*3/uL Nucleated RBC % (auto) 0.0 (0.0-0.2) /100WBC Sodium 138 (135-145) mmol/L Potassium 4.0 (3.3-5.1) mmol/L Chloride 107 (96-108) mmol/L Carbon Dioxide 22 (22-29) mmol/L Anion Gap 13 (12-20) BUN 21 H (9-16) mg/dL Creatinine 0.82 (0.5-1.4) mg/dL Estim Creat Clear Calc 40.7 Estimated GFR > 60 Random Glucose 268 H (60-115) mg/dL Lactic Acid 2.9 H* (0.5-2.0) mmol/L Lactic Acid F/U @ 2Hr (0.5-2.0) mmol/L Calcium 9.0 (8.4-10.2) mg/dL Magnesium 2.2 (1.6-2.6) mg/dL Total Bilirubin 10.9 H (0.0-1.0) mg/dL Direct Bilirubin 8.0 H (0.0-0.5) mg/dL AST 222 H (5-31) U/L ALT 367 H (0-31) U/L Alkaline Phosphatase 1694 H (39-117) U/L Ammonia 34 (13-55) umol/L Troponin I High Sens 4.5 (<3.5-17.0) ng/L B-Natriuretic Peptide 273 H (<100) pg/mL Total Protein 6.5 (6.5-8.0) g/dL Albumin 3.2 L (3.5-5.0) g/dL Lipase < 4 L (8-78) U/L TSH 1.21 (0.32-4.0) uIU/mL Urine Color Urine Appearance Urine pH (5.0-9.0) Ur Specific [place] (1.005-1.025) Urine Protein (Neg-Trace) mg/dL Urine Glucose (UA) (Negative) mg/dL Urine Ketones (Negative) mg/dL Urine Blood (Negative) Urine Nitrite (Negative) Ur Leukocyte Esterase (Negative) Urine RBC (0-2) /HPF Urine WBC (0-5) /HPF Ur Squamous Epith Cells (0-2) /HPF Urine Bacteria (None Seen) Hyaline Casts (0-2) /LPF Salicylates < 5.0 L (15-30) mg/dL Ethyl Alcohol < 10 mg/dL Influenza Type A (PCR) NEGATIVE (Negative) Influenza Type B (PCR) NEGATIVE (Negative) RSV RNA Qual (PCR) NEGATIVE (Negative) SARS-CoV-2 RNA (RT-PCR) NEGATIVE (Negative) 10/28/24 10/28/24 Range/Units 19:07 21:02 WBC (4.8-10.8) X10*3/uL RBC (4.20-5.50) X10*6/uL Hgb (12.0-16.0) g/dl Hct (37.0-47.0) % MCV (80.0-98.0) fL MCH (27.0-33.0) pg MCHC (31.0-35.0) g/dl RDW (11.0-16.0) % Plt Count (160-400) X10*3/uL MPV (9.4-12.3) fL Immature Gran % (Auto) (0.0-0.4) % Neut % (Auto) (45-73) % Lymph % (Auto) (20-40) % [place] % (Auto) (2-11) % Eos % (Auto) (0-4) % Baso % (Auto) (0-2) % Lymph # (Auto) (1.2-4.9) X10*3/uL [place] # (Auto) (0.1-1.2) X10*3/uL Eos # (Auto) (0.0-0.4) X10*3/uL Baso # (Auto) (0.0-0.2) X10*3/uL Abs Immat Gran (auto) (0.00-0.03) X10*3/uL Absolute Neuts (auto) (2.0-8.3) x10*3/uL Absolute Nucleated RBC (0.0-0.012) X10*3/uL Nucleated RBC % (auto) (0.0-0.2) /100WBC Sodium (135-145) mmol/L Potassium (3.3-5.1) mmol/L Chloride (96-108) mmol/L Carbon Dioxide (22-29) mmol/L Anion Gap (12-20) BUN (9-16) mg/dL Creatinine (0.5-1.4) mg/dL Estim Creat Clear Calc Estimated GFR Random Glucose (60-115) mg/dL Lactic Acid (0.5-2.0) mmol/L Lactic Acid F/U @ 2Hr 1.5 (0.5-2.0) mmol/L Calcium (8.4-10.2) mg/dL Magnesium (1.6-2.6) mg/dL Total Bilirubin (0.0-1.0) mg/dL Direct Bilirubin (0.0-0.5) mg/dL AST (5-31) U/L ALT (0-31) U/L Alkaline Phosphatase (39-117) U/L Ammonia (13-55) umol/L Troponin I High Sens (<3.5-17.0) ng/L B-Natriuretic Peptide (<100) pg/mL Total Protein (6.5-8.0) g/dL Albumin (3.5-5.0) g/dL Lipase (8-78) U/L TSH (0.32-4.0) uIU/mL Urine Color Dark Yellow Urine Appearance Cloudy Urine pH 5.0 (5.0-9.0) Ur Specific [place] >= 1.030 H (1.005-1.025) Urine Protein Negative (Neg-Trace) mg/dL Urine Glucose (UA) >=1000 H (Negative) mg/dL Urine Ketones Negative (Negative) mg/dL Urine Blood Negative (Negative) Urine Nitrite Positive H (Negative) Ur Leukocyte Esterase Small (1+) H (Negative) Urine RBC 0-2 (0-2) /HPF Urine WBC 21-50 H (0-5) /HPF Ur Squamous Epith Cells 0-2 (0-2) /HPF Urine Bacteria 4+ (None Seen) Hyaline Casts 0-2 (0-2) /LPF Salicylates (15-30) mg/dL Ethyl Alcohol mg/dL Influenza Type A (PCR) (Negative) Influenza Type B (PCR) (Negative) RSV RNA Qual (PCR) (Negative) SARS-CoV-2 RNA (RT-PCR) (Negative) Radiology Impression Discussion of test interpretation with radiology: I have reviewed the radiologist's reading. Radiologist Impression: ECHNIQUE: Multidetector volumetric imaging was performed from the superior aspect of the liver through the pubic symphysis with intravenous contrast. A total of 85 mL of Omnipaque 350 was utilized for the study. Sagittal and coronal reformatted images were obtained on the technologist's workstation. This CT examination was performed using dose optimization techniques as appropriate, variously including the following: *Automated exposure control *Adjustment of mA and/or kV according to patient size (this includes techniques or standardized protocols for targeted exams where dose is matched to indication/reason for exam; i.e. extremities or head) *Use of iterative reconstruction technique DLP: 310 mGy-cm FINDINGS: LUNG BASES: Multiple pulmonary nodules are present at the lung bases ranging in size from under a centimeter to up to 1 cm. These are almost all new when compared to the 12/19/2023 exam. LIVER, GALLBLADDER, PANCREAS AND BILIARY TREE: There is marked intrahepatic and extrahepatic biliary ductal dilatation along with hydrops of the gallbladder. The pancreatic duct is extremely dilated with atrophy of the pancreas. There is a mass present in the region of the pancreatic head measuring 3.1 x 3.3 x 2.2 with a cystic area below this measuring 2.8 x 2.0 x 2.3 cm (see saved silveira images). A portion of mass invades the portal vein (see below). VASCULAR: Calcific atherosclerotic changes are present in the aorta and iliofemoral vessels. There is no evidence of an abdominal aortic aneurysm. Of note, there is a mass invading the portal vein with intraluminal component measuring 2.0 x 1.3 x 1.6 cm (2:17). The intrahepatic portal veins are patent. The SMV and splenic vein are patent. SPLEEN: Unremarkable. ADRENAL GLANDS: Unremarkable. KIDNEYS AND URETERS: The kidneys are normal in size, shape, and attenuation. There is fullness in the pelvicalyceal systems without caliectasis. No gross hydronephrosis, hydroureter, or calculi seen. No perinephric stranding. BLADDER: Empty but unremarkable . GASTROINTESTINAL TRACT: There are colonic diverticula without diverticulitis. The small and large bowel are otherwise unremarkable. The appendix is unremarkable. ABDOMINAL WALL: No significant hernia is appreciated. LYMPH NODES: No retroperitoneal lymphadenopathy. PELVIC VISCERA: Unremarkable. OSSEOUS STRUCTURES: Degenerative changes are present in the spine with no bony destructive lesions. CT/CT abdomen pelvis w IV con IMPRESSION: 1. Pancreatic head mass with invasion of the portal vein and marked biliary and pancreatic ductal dilatation. ERCP with biopsy is recommended for further evaluation. 2. Multiple pulmonary nodules at the lung bases consistent with metastatic disease. 3. Other incidental findings as described above. Fleischner guidelines were followed. Electronically signed by: Shad Gagnon MD 10/28/2024 08:57 PM EST RP Dictated By: Shad Gagnon MD CT/CT cervical spine wo IV con IMPRESSION: 1. No acute intracranial pathology. 2. No CT evidence of acute cervical spine fracture or traumatic subluxation Electronically signed by: Sukhi Toney MD 10/28/2024 08:24 PM EST RP Dictated By: Sukhi Toney MD [place] [id number] CT Scan Report Signed Patient: Dianna Covarrubias MR#: [id number] : 1935 Acct:[id number] Age/Sex: 89 / F ADM Date: 10/28/24 Loc: HO.ED Attending Dr: Ordering Physician: Luzma Kimball Date of Service: 10/28/24 Procedure(s): CT head/brain wo IV con Accession Number(s): [id number] cc: Juan Miguel Hunter MD; Luzma Kimball~ EXAMINATION: CT HEAD WITHOUT CONTRAST CT CERVICAL SPINE WITHOUT CONTRAST CLINICAL INFORMATION: Fall. COMPARISON: CT head June 22, 2024 TECHNIQUE: Imaging was performed from the skull base to vertex without intravenous administration of contrast. In addition, helical noncontrast CT imaging was acquired through the cervical spine and source images were reviewed along with axial reconstructions and sagittal and coronal MPRs. [This CT examination was performed using dose optimization techniques as appropriate, variously including the following: *Automated exposure control *Adjustment of mA and/or kV according to patient size (this includes techniques or standardized protocols for targeted exams where dose is matched to indication/reason for exam; i.e. extremities or head) *Use of iterative reconstruction technique] DLP: 801 mGy-cm FINDINGS: HEAD: No intracranial mass, hemorrhage, or midline shift is visualized. The ventricles and sulci are proportional. No extra-axial collections are identified. The paranasal sinuses and mastoid air cells are well aerated. CERVICAL SPINE: There is no evidence of acute cervical spine fracture. Vertebral bodies remain normal in height. Cervical vertebrae have normal alignment. There is multilevel degenerative spondylosis of the cervical spine with disc height narrowing and endplate spurs and facet joint arthrosis No pre- or paravertebral soft tissue abnormality is identified. Limited assessment of the lung apices is unremarkable. CT/CT head/brain wo IV con IMPRESSION: 1. No acute intracranial pathology. 2. No CT evidence of acute cervical spine fracture or traumatic subluxation Electronically signed by: Sukhi Toney MD 10/28/2024 08:24 PM [facility] Dictated By: Sukhi Toney MD Signed By: <Electronically signed by Critical Care Time Critical Care Time Critical Care Time: Yes Total Critical Care Time: 35 Attestation: I have personally provided critical care time exclusive of time spent on separately billable procedures. Time includes review of lab data, radiology results, discussion with consultants, and monitoring for potential decompensation. Intervention performed as documented. Discharge Plan Discharge Clinical Impression: Pancreatic mass, Acute UTI Patient Disposition: Admitted As Inpatient
--- NOTE | 2024-10-28 17:26 | ECG_ITS ---
Test Reason : WEAKNESS Blood Pressure : / mmHG Vent. Rate : 072 BPM Atrial Rate : 072 BPM P-R Int : 212 ms QRS Dur : 074 ms QT Int : 374 ms P-R-T Axes : 067 013 -13 degrees QTc Int : 409 ms Sinus rhythm with 1st degree A-V block Low voltage QRS Possible Inferior infarct (cited on or before 06-JUL-2024) Cannot rule out Anterior infarct (cited on or before 06-JUL-2024) Abnormal ECG When compared with ECG of 07-SEP-2024 18:17, Questionable change in initial forces of Septal leads T wave inversion no longer evident in Anterior leads Referred By: Luzma Kimball Electronically Signed By:Tony Petty
[2024-10-28 18:11] LABS: MANUAL DIFF FLAG NO
--- NOTE | 2024-10-28 18:13 | PC.NURSE ---
pt is alert and oriented, pt is coming from home, skin jaundice that started about two days ago, pt does have scratching mathur all over her lower and upper extremities-pt states that her skin is extremely itchy, lower extremities also have some discoloration/redness and warm to touch , respirations even and unlabored, pt is reporting cramping in her right hand and coccyx/buttock area pain and extremely itchy back, vs stable at this time
[2024-10-28 18:18] VITALS: BP 116/50; PULSE 69; RESP 16; TEMP 37.4; O2SAT 100
[2024-10-28 18:23] LABS: Ammonia 34 umol/L (13-55)
[2024-10-28 18:26] LABS: Ethanol < 10 mg/dL
[2024-10-28 18:28] LABS: Alanine Aminotransferase 367 U/L (0-31); Albumin Level 3.2 g/dL (3.5-5.0); Alkaline Phosphatase 1694 U/L (39-117); Anion Gap 13 (12-20); Aspartate Amino Transferase 222 U/L (5-31); Bilirubin Total 10.9 mg/dL (0.0-1.0); Blood Urea Nitrogen 21 mg/dL (9-16); Carbon Dioxide 22 mmol/L (22-29); Chloride 107 mmol/L (96-108); Creatinine Clr Calc Pharmacy 40.7; Estimated Glomerular Filt Rate > 60; Glucose Random 268 mg/dL (60-115); Lipase < 4 U/L (8-78); Magnesium 2.2 mg/dL (1.6-2.6); Sodium 138 mmol/L (135-145); Total Protein 6.5 g/dL (6.5-8.0)
[2024-10-28 18:32] LABS: B Type Natriuretic Peptide 273 pg/mL (<100)
[2024-10-28 18:32] LABS: Basophils Absolute Auto 0.1 X10*3/uL (0.0-0.2); Basophils Percent Auto 0.7 % (0-2); Eosinophils Absolute Auto 0.1 X10*3/uL (0.0-0.4); Eosinophils Percent Auto 0.9 % (0-4); Hematocrit 29.5 % (37.0-47.0); Hemoglobin 9.9 g/dl (12.0-16.0); Imm Gran Abs Auto 0.03 X10*3/uL (0.00-0.03); Imm Gran Pct Auto 0.4 % (0.0-0.4); Lymphocytes Absolute Auto 1.1 X10*3/uL (1.2-4.9); Lymphocytes Percent Auto 15.1 % (20-40); Mean Corpuscular HGB Conc 33.6 g/dl (31.0-35.0); Mean Corpuscular Hemoglobin 32.1 pg (27.0-33.0); Mean Corpuscular Volume 95.8 fL (80.0-98.0); Mean Platelet Volume 11.9 fL (9.4-12.3); Monocytes Absolute Auto 0.8 X10*3/uL (0.1-1.2); Monocytes Percent Auto 10.8 % (2-11); Neutrophils Percent Auto 72.1 % (45-73); Platelet Count 180 X10*3/uL (160-400); Red Blood Count 3.08 X10*6/uL (4.20-5.50); Red Cell Distribution Width 18.8 % (11.0-16.0)
[2024-10-28 18:34] LABS: Troponin-I High Sensitivity 4.5 ng/L (<3.5-17.0)
[2024-10-28 18:37] LABS: Lactic Acid 2.9 mmol/L (0.5-2.0)
[2024-10-28 18:57] LABS: Influenza A PCR NEGATIVE (Negative); Influenza B PCR NEGATIVE (Negative); Resp Syncy Virus RNA Qual PCR NEGATIVE (Negative); SARS COV2 PCR INHOUSE NEGATIVE (Negative)
[2024-10-28 19:14] LABS: Salicylate < 5.0 mg/dL (15-30)
[2024-10-28 19:17] LABS: Appearance Urine Cloudy; Color Urine Dark Yellow; Glucose Urine UA >=1000 mg/dL (Negative); Leukocyte Esterase Urine Small (1+) (Negative); Nitrite Urine Positive (Negative); Specific Gravity - Urine >= 1.030 (1.005-1.025); UMIC TRIGGER UACC YES; Urine Blood Negative (Negative); Urine Ketones Negative (Negative); Urine Protein Negative (Neg-Trace)
[2024-10-28] MEDS: iohexoL 350 MG/ML 100 ML INFUS..BTL IV (19:28)
[2024-10-28 19:39] LABS: Thyroid Stimulating Hormone 1.21 uIU/mL (0.32-4.0)
[2024-10-28 19:42] LABS: Bacteria Urine 4+ (None Seen); Hyaline Casts Urine 0-2 /LPF (0-2); RBC Urine 0-2 /HPF (0-2); Squamous Epithelial Cell Urine 0-2 /HPF (0-2); UACC Culture Trigger YES; WBC Urine 21-50 /HPF (0-5)
[2024-10-28 20:17] LABS: Reflex Lactate? Lactic Acid Added
[2024-10-28 21:01] VITALS: BP 118/47; PULSE 76; RESP 16; TEMP 36.9; O2SAT 100
[2024-10-28 21:22] LABS: ~Lactic Acid-LAB USE ONLY 1.5 mmol/L (0.5-2.0)
[2024-10-28] MEDS: levoFLOXacin/D5W 750 MG/150 ML PIGGYBACK 100 MG IV (21:24)
[2024-10-28 22:24] VITALS: BP 117/48; PULSE 78; RESP 16; TEMP 36.8; O2SAT 100
--- NOTE | 2024-10-28 22:31 | P.HPHOSP_ITS ---
History of Present Illness Date of Service: 10/28/24 Attending physician on admission: Jose A Ordonez Chief Complaint: Jaundice Dianna Covarrubias is 89 years old woman with past medical history significant for hyperthyroidism on PTU, CAD status post cardiac stenting, hyperlipidemia and type 2 diabetes mellitus presents to the emergency department complaining of jaundice that she noted yesterday. Over the last 3 days she has been experiencing diarrhea (nonbloody light brown). She was complaining of nausea but denied events of vomiting. She denied significant abdominal pain. Did not report poor appetite. There is weight loss. She has history of endometrial cancer treated with hysterectomy. She denied any acute cardiopulmonary symptoms such as shortness on breath, cough or chest pain. There is no fever or chills. She reported urinary frequency. Denied history of alcohol abuse, tobacco smoking or illicit drug use. She reported a mechanical fall without head trauma. In the ED, she was found to have stable vital signs. Blood workup showed no leukocytosis. Hemoglobin is 9.9 and platelets 180. No significant electrolyte imbalances. Initial lactic acid is 2.9, most recent 1.5. Bilirubin is 10.9, direct bilirubin 8, AST 222, ALT 367 and alk-phos 1694. Lipase is < 4. TSH is normal. UA showed evidence of UTI. Viral testing for COVID-19, influenza and RSV is negative. Abdominal pelvis CT scan with IV contrast showed pancreatic head mass with invasion of the portal vein and marked biliary and pancreatic ductal dilatation and multiple pulmonary nodules at the base of the lungs consistent with metastatic disease. Abdominal ultrasound showed echogenic bowel within the gallbladder, no gallbladder wall thickening or pericholecystic fluid. It showed dilatation of the CBD, 1.6 cm. Heroin C-spine CT scans showed no acute intracranial pathology and no acute cervical spine fracture or traumatic subluxation. ECG showed normal sinus rhythm with first-degree AV block without ischemic changes. ED tx: Levaquin 750 mg IV Review of Systems 2 Review of Systems: All 12 systems were reviewed and normal except as noted in HPI. [facility] Medical History Moderate malnutrition Hyperthyroidism Hyperlipidemia Nausea Pancreatitis Diabetes Surgical History H/O heart artery stent Social History Household Members: None Housing: House Do you presently have visiting nurse or other home services: Yes Unable to assess alcohol history related to: Unable to respond Alcohol intake: unknown Patient Tobacco Use Status: Never used Tobacco Smoked in Last 30 Days: No Use of substances other than those prescribed or required for medical reasons: No Advance Directives: No Advance Directives Information Provided: No Advance Directives Date on File: 12/19/23 service: No Current occupational status: retired Current occupation: [employer] Meds Allergies Allergy/AdvReac Type Severity Reaction Status Date / Time Penicillins [PCN] Allergy Unknown UNKNOWN Verified 10/28/24 17:11 Sulfa (Sulfonamide Allergy Unknown UNKNOWN Verified 10/28/24 17:11 Antibiotics) [SULFA(SULFONAMIDE ANTIBIOTICS)] heparin AdvReac Unknown Verified 10/28/24 17:11 penicillin Allergy Unknown rash Uncoded 06/22/24 18:03 Sulfa Allergy Unknown rash Uncoded 06/22/24 18:03 Active Medications: Current Medications Acetaminophen (Acetaminophen 325 Mg Tablet) 650 mg PO Q6H PRN PRN Reason: Pain, Mild (Pain Scale 1-3), fever or headache Calcium Carbonate (Calcium Carbonate 750 Mg Tab.Chew) 750 mg PO Q4H PRN PRN Reason: Heartburn Magnesium Hydroxide (Milk Of Magnesia 30 Ml Oral.Susp) 30 ml PO DAILY PRN PRN Reason: Constipation Melatonin (Melatonin 3 Mg Tablet) 6 mg PO BEDTIME PRN PRN Reason: Insomnia Ondansetron HCl (Ondansetron Hcl 4 Mg/2 Ml Vial) 4 mg IVPUSH Q6H PRN PRN Reason: Nausea and Vomiting Sodium Chloride (0.9 % Sodium Chloride Flush 3 Ml Syringe) 3 ml IVFLUSH [facility] Medications ?Medication ?Instructions ?Recorded ?Confirmed ?Last Taken ?Type nitroglycerin 0.4 mg sublingual 1 tab sublingual Q5M PRN Chest Pain 02/27/22 05/13/24 Unknown History tablet bolus insulin pump, 200 unit 2 09/26/23 05/13/24 Unknown History unit bolus insulin patch pump, 200 unit, disposable (CeQur Simplicity) insulin aspart U-100 100 unit/mL 12 unit subcut TIDAC 09/26/23 05/13/24 Unknown History subcutaneous solution (Novolog U-100 Insulin aspart) gabapentin 100 mg capsule 100 mg PO BID 12/19/23 05/13/24 Unknown History insulin glargine 100 unit/mL (3 12 unit subcut BEDTIME 12/19/23 05/13/24 Unknown History mL) subcutaneous pen (Lantus Solostar U-100 Insulin) pantoprazole 40 mg tablet,delayed 40 mg PO DAILY@0630 12/19/23 05/13/24 Unknown History release atorvastatin 40 mg tablet 40 mg PO DAILY 05/13/24 05/13/24 Unknown History metformin 500 mg tablet,extended 1,000 mg PO BID 05/13/24 05/13/24 Unknown History release 24 hr propylthiouracil 50 mg tablet 50 mg PO BID 05/13/24 05/13/24 Unknown History Physical Exam 2 Vital Signs and Narrative: Vital Signs: Last Vital Signs Temp 98.2 F 10/28/24 22:24 Pulse 78 10/28/24 22:24 Resp 16 10/28/24 22:24 BP 117/48 L 10/28/24 22:24 Pulse Ox 100 10/28/24 22:24 O2 Del Method Room Air 10/28/24 22:24 BMI result Body Mass Index 19.0 Constitutional - Awake and Alert, No apparent distress. Malnourished. Cooperative. HEENT - PER, EOMI. Icteric sclerae. Heart - S1S2, RRR, No murmur. Lungs - Normal lung expansion, Normal respiratory effort, No respiratory distress, CTA bilaterally Abdomen - NT / ND; +BS; No rebound or guarding Extremities - no calf tenderness bilaterally, no swelling Musculoskeletal - Normal inspection, normal ROM Skin - Warm/Dry. Jaundice. Neurological - Alert & oriented x3. No focal weakness grossly noted. Normal speech. Psychological - Appropriate affect Results Labs 10/28/24 18:04 10/28/24 18:04 Labs: Laboratory Results - last 24 hr 10/28/24 10/28/24 10/28/24 18:03 18:04 18:13 MCV 95.8 MCH 32.1 MCHC 33.6 RDW 18.8 H Plt Count 180 D MPV 11.9 Immature Gran % (Auto) 0.4 Neut % (Auto) 72.1 Lymph % (Auto) 15.1 L [place] % (Auto) 10.8 Eos % (Auto) 0.9 Baso % (Auto) 0.7 Lymph # (Auto) 1.1 L [place] # (Auto) 0.8 Eos # (Auto) 0.1 Baso # (Auto) 0.1 Abs Immat Gran (auto) 0.03 Absolute Neuts (auto) 5.0 Absolute Nucleated RBC 0.000 Nucleated RBC % (auto) 0.0 Anion Gap 13 Estim Creat Clear Calc 40.7 Estimated GFR > 60 Random Glucose 268 H Lactic Acid 2.9 H* Lactic Acid F/U @ 2Hr Calcium 9.0 Magnesium 2.2 Total Bilirubin 10.9 H Direct Bilirubin 8.0 H AST 222 H ALT 367 H Alkaline Phosphatase 1694 H Ammonia 34 Troponin I High Sens 4.5 B-Natriuretic Peptide 273 H Total Protein 6.5 Albumin 3.2 L Lipase < 4 L TSH 1.21 Urine Color Urine Appearance Urine pH Ur Specific [place] Urine Protein Urine Glucose (UA) Urine Ketones Urine Blood Urine Nitrite Ur Leukocyte Esterase Urine RBC Urine WBC Ur Squamous Epith Cells Urine Bacteria Hyaline Casts Salicylates < 5.0 L Ethyl Alcohol < 10 Influenza Type A (PCR) NEGATIVE Influenza Type B (PCR) NEGATIVE RSV RNA Qual (PCR) NEGATIVE SARS-CoV-2 RNA (RT-PCR) NEGATIVE 10/28/24 10/28/24 19:07 21:02 MCV MCH MCHC RDW Plt Count MPV Immature Gran % (Auto) Neut % (Auto) Lymph % (Auto) [place] % (Auto) Eos % (Auto) Baso % (Auto) Lymph # (Auto) [place] # (Auto) Eos # (Auto) Baso # (Auto) Abs Immat Gran (auto) Absolute Neuts (auto) Absolute Nucleated RBC Nucleated RBC % (auto) Anion Gap Estim Creat Clear Calc Estimated GFR Random Glucose Lactic Acid Lactic Acid F/U @ 2Hr 1.5 Calcium Magnesium Total Bilirubin Direct Bilirubin AST ALT Alkaline Phosphatase Ammonia Troponin I High Sens B-Natriuretic Peptide Total Protein Albumin Lipase TSH Urine Color Dark Yellow Urine Appearance Cloudy Urine pH 5.0 Ur Specific [place] >= 1.030 H Urine Protein Negative Urine Glucose (UA) >=1000 H Urine Ketones Negative Urine Blood Negative Urine Nitrite Positive H Ur Leukocyte Esterase Small (1+) H Urine RBC 0-2 Urine WBC 21-50 H Ur Squamous Epith Cells 0-2 Urine Bacteria 4+ Hyaline Casts 0-2 Salicylates Ethyl Alcohol Influenza Type A (PCR) Influenza Type B (PCR) RSV RNA Qual (PCR) SARS-CoV-2 RNA (RT-PCR) Imaging Radiologist's Impressions: Impressions Head CT 10/28/24 17:28 IMPRESSION: 1. No acute intracranial pathology. 2. No CT evidence of acute cervical spine fracture or traumatic subluxation Electronically signed by: Sukhi Toney MD 10/28/2024 08:24 PM EST RP Cervical Spine CT 10/28/24 18:38 IMPRESSION: 1. No acute intracranial pathology. 2. No CT evidence of acute cervical spine fracture or traumatic subluxation Electronically signed by: Sukhi Toney MD 10/28/2024 08:24 PM EST RP Abdomen/Pelvis CT 10/28/24 18:49 IMPRESSION: 1. Pancreatic head mass with invasion of the portal vein and marked biliary and pancreatic ductal dilatation. ERCP with biopsy is recommended for further evaluation. 2. Multiple pulmonary nodules at the lung bases consistent with metastatic disease. 3. Other incidental findings as described above. Fleischner guidelines were followed. Electronically signed by: Shad Gagnon MD 10/28/2024 08:57 PM EST RP Venous Duplex 10/28/24 19:55 IMPRESSION: 1. Small echogenic focus along the wall of the superficial vein junction which is likely chronic. 2. No evidence of deep vein thrombosis in the left lower extremity. 3. Left popliteal fossa cyst. This critical result was discussed with Luzma Kimball on 10/28/2024, 10:16 PM and it was ascertained that the content and urgency of the report was understood at the time of direct communication. 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 Admit to hospitalist service. NPO. GI cardiology consult. Hold PTU and atorvastatin. Continue to monitor LFTs. Check chest CT with IV contrast. * UTI. Start ceftriaxone. UC obtained -will follow results. * Hyperlipidemia. Statin on hold due to elevated LFTs. * Hyperthyroidism. TSH normal. PT on hold due to elevated LFTs. * CAD/essential hypertension. Continue metoprolol. * Type 2 diabetes mellitus. Hold metformin, Lantus and Jardiance due to NPO status and recent administration of IV contrast. Blood glucose checks every 6 hours while NPO. Insulin sliding scale. * s/p Fall. PT eval when able. Discontinue gabapentin. * Malnutrition. BMI 19.o Kg/m2. Dietary evaluation when able. DVT prophylaxis: SCDs (heparin allergy). Code status: Full Patient will need hospitalization for 2 midnights for obstructive jaundice secondary to pancreatic mass evaluation and treatment. Patient will need GI procedure and evaluation by Oncology. Quality Stroke Does the patient have a stroke diagnosis?: No VTE Prior VTE?: No VTE Risk Level:: Medical - moderate - high VTE Device Contraindication: Treatment Not Indicated VTE Drug Contraindication: N/A - Med Ordered
[2024-10-28] MEDS: cefTRIAXone sodium 1 GM VIAL IVPUSH (23:31)
[2024-10-28] MEDS: 0.9 % Sodium Chloride Flush 3 ML SYRINGE IVFLUSH (23:31)
[2024-10-29] MEDS: diphenhydrAMINE HCL 25 MG CAPSULE PO ×3 (03:46→23:54)
[2024-10-29 04:04] LABS: HBc Num1 0.11 S/CO (0.00-0.79); Hepatitis A Antibody IgM 0.12 Index (0-0.79); Hepatitis B Core Antibody Nonreactive (Nonreactive); Hepatitis B Surface Antigen Negative (Negative); ~HepC Num1 0.22 S/CO (0.00-0.79); ~Hepatitis A Antibody IgM Nonreactive (Nonreactive); ~Hepatitis B Surface Antibody NONREACTIVE (Nonreactive); ~Hepatitis C Antibody Nonreactive (Nonreactive)
--- NOTE | 2024-10-29 04:13 | PC.NURSE ---
Patient is alert and oriented x4. Patient denies any pain at present. VSS. Patient ambulates with a cane and supervision of 1 person. Skin is jaundiced, dry, itchy with scratch mathur on upper and lower extremities. Dr. Theodore made aware. Patient is aware of NPO status, per Dr Theodore patient may take oral mediations with sips of water. Patient medicated with Benadryl 25 mg PO. Patient currently resting on stretcher bed, call jackson in reach, plan of are ongoing.
--- NOTE | 2024-10-29 08:36 | PM.HEMONCCN ---
Subjective - Subjective Chief complaint: Generalized pruritus and right leg swelling Patient: new to practice Consult date: 10/29/24 Primary Care Provider: Juan Miguel Hunter MD HPI - Consult Narrative Reason for consult: Probable metastatic pancreatic cancer Narrative: Dianna Covarrubias is a 89 year old female with history of diabetes mellitus, coronary artery disease and hyper thyroidism was here because of complaints of jaundice and generalized pruritus. Her family noticed that she was quite yellow in the last 2-3 days. Patient also states that she has been experiencing generalized pruritus and right lower extremity swelling. She denies abdominal discomfort or nausea. She states that she has been losing weight which she thinks is from diabetes and not eating well. She denies any fever or chills. No pleuritic chest pain, shortness of breath or cough. She lives alone at home. She has 4 daughters, the closest daughter, Teresita lives 2 hours away and is her health hair care proxy. She has home health aide. Review of Systems - Constitutional Reports as per HPI, Reports fatigue, Reports malaise, Reports poor appetite, Reports weight loss - Cardiovascular Denies chest pain at rest - Respiratory Denies cough - Gastrointestinal Denies abdominal pain, Denies bright, red blood in stools PMFSH Medical History: Medical History (Last Reviewed 10/28/24 @ 18:03 by LASHANDA Ruiz) Diabetes Hyperlipidemia Hyperthyroidism Moderate malnutrition Nausea Pancreatitis Surgical History: Surgical History (Last Reviewed 10/28/24 @ 18:03 by LASHANDA Ruiz) H/O heart artery stent Social History: Social History (Last Reviewed 10/28/24 @ 18:03 by LASHANDA Ruiz) Living Situation History: Household Members: None Housing: House Do you presently have visiting nurse or other home services: Yes Alcohol History: Unable to assess alcohol history related to: Unable to respond Alcohol History Details: 1. How often do you have a drink containing alcohol?: a. Never AUDIT-C Alcohol total score: 0 Tobacco History: Patient Tobacco Use Status: Never used Tobacco Smoked in Last 30 Days: No Substance Use History: Use of substances other than those prescribed or required for medical reasons: No Advance Directives: Advance Directives: No Advance Directives Information Provided: No Advance Directives Date on File: 12/19/23 Occupation Assessmet: service: No Current occupational status: retired Current occupation: [employer] Home Medications and Allergies Current Medications: Current Medications Acetaminophen (Acetaminophen 325 Mg Tablet) 650 mg PO Q6H PRN PRN Reason: Pain, Mild (Pain Scale 1-3), fever or headache Calcium Carbonate (Calcium Carbonate 750 Mg Tab.Chew) 750 mg PO Q4H PRN PRN Reason: Heartburn Ceftriaxone Sodium (Ceftriaxone Sodium 1 Gm Vial) 1 gm IVPUSH Q24H [facility] Last Admin: 10/28/24 23:31 Dose: 1 gm Diphenhydramine HCl (Diphenhydramine Hcl 25 Mg Capsule) 25 mg PO Q6H PRN PRN Reason: Itching Last Admin: 10/29/24 03:46 Dose: 25 mg Glucose (Glucose Gel 15 Gm Gel..Gram.) 15 gm PO Q15M PRN; Protocol PRN Reason: per Hypoglycemia Standing Ord. Dextrose (D10) 250 mls @ 750 mls/hr IV Q15M PRN; Protocol PRN Reason: per Hypoglycemia Standing Ord. Insulin Human Lispro (Insulin Lispro 100 Unit/Ml 3 Ml Vial) 0 unit SUBCUT QIDACHS [facility]; Protocol Magnesium Hydroxide (Milk Of Magnesia 30 Ml Oral.Susp) 30 ml PO DAILY PRN PRN Reason: Constipation Melatonin (Melatonin 3 Mg Tablet) 6 mg PO BEDTIME PRN PRN Reason: Insomnia Prochlorperazine Edisylate (Prochlorperazine Edisylate 10 Mg/2 Ml Vial) 5 mg IVPUSH Q6H PRN PRN Reason: Nausea and Vomiting Sodium Chloride (0.9 % Sodium Chloride Flush 3 Ml Syringe) [facility] Last Admin: 10/28/24 23:31 Dose: 3 ml Home Medications ?Medication ?Instructions ?Recorded ?Confirmed ?Type nitroglycerin 0.4 mg sublingual 1 tab sublingual Q5M PRN Chest Pain 02/27/22 05/13/24 History tablet bolus insulin pump, 200 unit 2 09/26/23 05/13/24 History unit bolus insulin patch pump, 200 unit, disposable (CeQur Simplicity) insulin aspart U-100 100 unit/mL 12 unit subcut TIDAC 09/26/23 05/13/24 History subcutaneous solution (Novolog U-100 Insulin aspart) gabapentin 100 mg capsule 100 mg PO BID 12/19/23 05/13/24 History insulin glargine 100 unit/mL (3 12 unit subcut BEDTIME 12/19/23 05/13/24 History mL) subcutaneous pen (Lantus Solostar U-100 Insulin) pantoprazole 40 mg tablet,delayed 40 mg PO DAILY@0630 12/19/23 05/13/24 History release atorvastatin 40 mg tablet 40 mg PO DAILY 05/13/24 05/13/24 History metformin 500 mg tablet,extended 1,000 mg PO BID 05/13/24 05/13/24 History release 24 hr propylthiouracil 50 mg tablet 50 mg PO BID 05/13/24 05/13/24 History Allergies Allergy/AdvReac Type Severity Reaction Status Date / Time Penicillins [PCN] Allergy Unknown UNKNOWN Verified 10/28/24 17:11 Sulfa (Sulfonamide Allergy Unknown UNKNOWN Verified 10/28/24 17:11 Antibiotics) [SULFA(SULFONAMIDE ANTIBIOTICS)] heparin AdvReac Unknown Verified 10/28/24 17:11 penicillin Allergy Unknown rash Uncoded 06/22/24 18:03 Sulfa Allergy Unknown rash Uncoded 06/22/24 18:03 Physical Exam Vital signs: Vital Signs Temp 98.2 F 10/28/24 22:24 Pulse 78 10/28/24 22:24 Resp 16 10/28/24 22:24 BP 117/48 L 10/28/24 22:24 Pulse Ox 100 10/28/24 22:24 O2 Del Method Room Air 10/28/24 22:24 Intake & Output 10/28/24 10/29/24 10/29/24 18:59 06:59 18:59 Intake Total 150 / 150 Balance 150 / 150 Intake: Intake, IV Amount 150 / 150 levoFLOXacin/D5W 750 mg In 150 150 / 150 ml @ 100 mls/hr IV ONCE ONE Rx# :[id number] Other: Weight 53.4 kg Weight 53.4 kg - Constitutional Present: no acute distress - Routine HEENT Exam Head: Present: normal inspection Eye: Present: EOMI, PERRL - Routine Neck Exam Present: supple. Absent: lymphadenopathy - Routine Respiratory Exam Present: CTAB - Routine Cardiovascular Exam Cardiovascular: Present: RRR, S1, S2 - Routine Abdominal Exam Present: soft - Routine Extremities Exam Present: calf tenderness Comments: Right lower extremity more swollen than the left with erythema - Routine Skin Exam Present: intact, jaundice - Routine Neurological Exam Present: alert, oriented X3 - Routine Psychiatric Exam Present: normal affect Hem/Onc Consult Result - Labs CBC & Chem 7: 10/28/24 18:04 10/28/24 18:04 Labs: Short CBC 10/28/24 Range/Units 18:04 WBC 7.0 (4.8-10.8) X10*3/uL Hgb 9.9 L (12.0-16.0) g/dl Hct 29.5 L (37.0-47.0) % Plt Count 180 D (160-400) X10*3/uL BMP 10/28/24 18:04 Sodium 138 Potassium 4.0 Chloride 107 Carbon Dioxide 22 BUN 21 H Creatinine 0.82 Calcium 9.0 Liver Function 10/28/24 Range/Units 18:04 Total Bilirubin 10.9 H (0.0-1.0) mg/dL Direct Bilirubin 8.0 H (0.0-0.5) mg/dL AST 222 H (5-31) U/L ALT 367 H (0-31) U/L Alkaline Phosphatase 1694 H (39-117) U/L Albumin 3.2 L (3.5-5.0) g/dL Urine 10/28/24 Range/Units 19:07 Urine Color Dark Yellow Urine Appearance Cloudy Urine pH 5.0 (5.0-9.0) Ur Specific [place] >= 1.030 H (1.005-1.025) Urine Protein Negative (Neg-Trace) mg/dL Urine Glucose (UA) >=1000 H (Negative) mg/dL Assessment and Plan Patient Active problem list reviewed?: Yes (1) Pancreatic mass Status: Acute Assessment and plan: 1. This is a 89-year-old woman with multiple medical problems including coronary artery disease, type 2 diabetes mellitus and hypothyroidism who has been diagnosed with probable pancreatic cancer. She presented with painless jaundice, CT abdomen/pelvis with IV contrast revealed mass in the pancreatic head with invasion of portal vein, marked biliary and pancreatic ductal dilatation. Multiple pulmonary nodules at lung bases consistent with metastatic disease. She also complained of right lower extremity swelling worse than the left. Bilateral lower extremity venous Doppler showed chronic superficial vein thrombus. Blood work shows normocytic anemia, total bilirubin of 10.9 with alk-phos over 1600. I discussed above findings with patient and her daughter Luzma who is also her healthcare proxy. Patient has metastatic disease and therefore inoperable. Given her age and comorbidities as well as her poor liver functions with hyperbilirubinemia, she would not be a candidate for palliative chemotherapy. We discussed the options of biopsying 1 of the lung nodules to confirm diagnosis. If she wants to pursue aggressive treatment such as trial of biliary stenting if possible and systemic therapy, then she would need a biopsy to confirm diagnosis. Overall prognosis is poor. She is frail overall, bed-bound with very poor performance status. In my opinion, she would benefit from palliative/hospice consultation. Her daughter Teresita is also leaning towards home hospice. For her right lower extremity DVT, I recommend low-dose Eliquis 2.5 mg b.i.d after loading dose of 5 mg b.i.d. for a week. I thank you for the consultation. - Time Spent With Patient Time Spent with Patient (in minutes): 20
[2024-10-29 09:00] LABS: Glucose, Whole Blood 317 mg/dL (60-115)
[2024-10-29] MEDS: Insulin Lispro 100 UNIT/ML 3 ML VIAL SUBCUT ×5 (09:21→21:34)
[2024-10-29] MEDS: 0.9 % Sodium Chloride Flush 3 ML SYRINGE IVFLUSH ×3 (09:21→23:56)
--- NOTE | 2024-10-29 09:40 | PHA.MEDREC ---
Addendum entered by Linda Tejeda [facility] 10/29/24 17:08: Reviewed by [facility] Addendum entered by Shannon Patterson 10/29/24 16:48: spoke to Dorcas 10/29/24 @ 4:45pm to confirm med list. Dorcas was able to name off the medications patient takes. Dorcas states patient is no longer on Metformin 1,000 mg. She confirmed Novolog U-100 10 units TID and Lantus SoloStar U-100 12 units at bedtime. Dorcas says she thinks patient took her medications, however she wasn't sure because she was not with her. Addendum entered by Blanca Thompson [facility] 10/29/24 11:22: Still waiting on Dorcas to call back, when she was called she said she was with another patient and will call back. Original Note: Pharmacy Consult ? Medication Reconciliation Pharmacy has attempted to complete the medication reconciliation. Patient has a visiting RN. Called patients YIMI Toscano,
--- NOTE | 2024-10-29 09:41 | HO.PM.IMPN ---
Subjective Subjective Date of Service: 10/29/24 Interval History: f/u on on obstructive jaundice, pancreatic mass and pulmonary mets Physical Exam Vital Signs: Vital Signs: Last Vital Signs Temp 98.2 F 10/28/24 22:24 Pulse 78 10/28/24 22:24 Resp 16 10/28/24 22:24 BP 117/48 L 10/28/24 22:24 Pulse Ox 100 10/28/24 22:24 O2 Del Method Room Air 10/28/24 22:24 BMI result Body Mass Index 19.0 Const: Other: General: AO X 3, no acute distress Heent: sclear icteris Resp: CTA bilateral CVS: S1,S2,RRR GI: +BS, NT, no distention Skin: No rash Neuro: motor grossly intact Psych: appropriate affect Objective Data Active Medications Acetaminophen (Acetaminophen 325 Mg Tablet) 650 mg PO Q6H PRN PRN Reason: Pain, Mild (Pain Scale 1-3), fever or headache Calcium Carbonate (Calcium Carbonate 750 Mg Tab.Chew) 750 mg PO Q4H PRN PRN Reason: Heartburn Ceftriaxone Sodium (Ceftriaxone Sodium 1 Gm Vial) 1 gm IVPUSH Q24H [facility] Last Admin: 10/28/24 23:31 Dose: 1 gm Documented By: SAÚL Diphenhydramine HCl (Diphenhydramine Hcl 25 Mg Capsule) 25 mg PO Q6H PRN PRN Reason: Itching Last Admin: 10/29/24 03:46 Dose: 25 mg Documented By: SAÚL Glucose (Glucose Gel 15 Gm Gel..Gram.) 15 gm PO Q15M PRN; Protocol PRN Reason: per Hypoglycemia Standing Ord. Dextrose (D10) 250 mls @ 750 mls/hr IV Q15M PRN; Protocol PRN Reason: per Hypoglycemia Standing Ord. Insulin Human Lispro (Insulin Lispro 100 Unit/Ml 3 Ml Vial) 0 unit SUBCUT QIDACHS [facility]; Protocol Last Admin: 10/29/24 09:21 Dose: 8 unit Documented By: MEHNAZ Magnesium Hydroxide (Milk Of Magnesia 30 Ml Oral.Susp) 30 ml PO DAILY PRN PRN Reason: Constipation Melatonin (Melatonin 3 Mg Tablet) 6 mg PO BEDTIME PRN PRN Reason: Insomnia Prochlorperazine Edisylate (Prochlorperazine Edisylate 10 Mg/2 Ml Vial) 5 mg IVPUSH Q6H PRN PRN Reason: Nausea and Vomiting Sodium Chloride (0.9 % Sodium Chloride Flush 3 Ml Syringe) 3 ml IVFLUSH QSHIFT [facility] Last Admin: 10/29/24 09:21 Dose: 3 ml Documented By: MEHNAZ Labs 10/29/24 13:38 10/29/24 13:38 Labs: Laboratory Results - last 24 hr 10/28/24 10/28/24 10/28/24 18:03 18:04 18:13 MCV 95.8 MCH 32.1 MCHC 33.6 RDW 18.8 H Plt Count 180 D MPV 11.9 Immature Gran % (Auto) 0.4 Neut % (Auto) 72.1 Lymph % (Auto) 15.1 L [place] % (Auto) 10.8 Eos % (Auto) 0.9 Baso % (Auto) 0.7 Lymph # (Auto) 1.1 L [place] # (Auto) 0.8 Eos # (Auto) 0.1 Baso # (Auto) 0.1 Abs Immat Gran (auto) 0.03 Absolute Neuts (auto) 5.0 Absolute Nucleated RBC 0.000 Nucleated RBC % (auto) 0.0 Anion Gap 13 Estim Creat Clear Calc 40.7 Estimated GFR > 60 POC Glucose Random Glucose 268 H Lactic Acid 2.9 H* Lactic Acid F/U @ 2Hr Calcium 9.0 Magnesium 2.2 Total Bilirubin 10.9 H Direct Bilirubin 8.0 H AST 222 H ALT 367 H Alkaline Phosphatase 1694 H Ammonia 34 Troponin I High Sens 4.5 B-Natriuretic Peptide 273 H Total Protein 6.5 Albumin 3.2 L Lipase < 4 L TSH 1.21 Urine Color Urine Appearance Urine pH Ur Specific [place] Urine Protein Urine Glucose (UA) Urine Ketones Urine Blood Urine Nitrite Ur Leukocyte Esterase Urine RBC Urine WBC Ur Squamous Epith Cells Urine Bacteria Hyaline Casts Salicylates < 5.0 L Ethyl Alcohol < 10 Hepatitis A IgM Ab Nonreactive Hep Bs Antigen Negative Hep Bs Antibody NONREACTIVE Hep B Core Total Ab Nonreactive Hepatitis C Ab (EIA) Nonreactive Influenza Type A (PCR) NEGATIVE Influenza Type B (PCR) NEGATIVE RSV RNA Qual (PCR) NEGATIVE SARS-CoV-2 RNA (RT-PCR) NEGATIVE 10/28/24 10/28/24 10/29/24 19:07 21:02 08:56 MCV MCH MCHC RDW Plt Count MPV Immature Gran % (Auto) Neut % (Auto) Lymph % (Auto) [place] % (Auto) Eos % (Auto) Baso % (Auto) Lymph # (Auto) [place] # (Auto) Eos # (Auto) Baso # (Auto) Abs Immat Gran (auto) Absolute Neuts (auto) Absolute Nucleated RBC Nucleated RBC % (auto) Anion Gap Estim Creat Clear Calc Estimated GFR POC Glucose 317 H Random Glucose Lactic Acid Lactic Acid F/U @ 2Hr 1.5 Calcium Magnesium Total Bilirubin Direct Bilirubin AST ALT Alkaline Phosphatase Ammonia Troponin I High Sens B-Natriuretic Peptide Total Protein Albumin Lipase TSH Urine Color Dark Yellow Urine Appearance Cloudy Urine pH 5.0 Ur Specific [place] >= 1.030 H Urine Protein Negative Urine Glucose (UA) >=1000 H Urine Ketones Negative Urine Blood Negative Urine Nitrite Positive H Ur Leukocyte Esterase Small (1+) H Urine RBC 0-2 Urine WBC 21-50 H Ur Squamous Epith Cells 0-2 Urine Bacteria 4+ Hyaline Casts 0-2 Salicylates Ethyl Alcohol Hepatitis A IgM Ab Hep Bs Antigen Hep Bs Antibody Hep B Core Total Ab Hepatitis C Ab (EIA) Influenza Type A (PCR) Influenza Type B (PCR) RSV RNA Qual (PCR) SARS-CoV-2 RNA (RT-PCR) Microbiology Microbiology Results: Microbiology 10/28/24 19:42 Urine Culture - Preliminary Urine clean catch - Clean Catch Midstream Gram negative nanda Assessment and Plan (1) Pancreatic mass: Status: Acute (2) Obstructive jaundice: Status: Acute (3) Acute UTI: Status: Acute Plan 89/F with hpl, hyperthyroidism here with Jaundice secondary to obstructive pancreatic mass with pulmonary mets + elevated LFTs/CBD dilatation. -seen by oncology -Pt/daughter prefer returning home with hospic, getting hospice consult -no further testing at this time. -Prognosis poor and patient wants to go home with hospice UTI. Start ceftriaxone. UC obtained -will follow results. change to PO ceftin at pr DVT , start eliquis Hyperlipidemia. stop statin d/t high lfts Hyperthyroidism. normal TSH, resume PTU at pr CAD/essential hypertension. Continue metoprolol. Type 2 diabetes mellitus. -sliding scale -diabetic diet -lantus, jardiance and lantus on hld s/p Fall. PT eval when able. Discontinue gabapentin. Protein calory Malnutrition. BMI 19.o Kg/m2. Dietary evaluation when able. DVT prophylaxis: Levaquin Code status: Full need for inpt: obstructive jaundice work up Quality Stroke Does the patient have a stroke diagnosis?: No VTE Prior VTE?: No VTE Risk Level:: Medical - moderate - high VTE Device Contraindication: Treatment Not Indicated VTE Drug Contraindication: N/A - Med Ordered
--- NOTE | 2024-10-29 10:42 | PC.NURSE ---
pt seen by evaporator repairer. pt no longer NPO at this time. diabetic diet order placed by admitting provider. kitchen called so can be obtained.
[2024-10-29] MEDS: Apixaban 5 MG TABLET 10 MG PO ×2 (11:21→21:36)
--- NOTE | 2024-10-29 11:34 | PC.NURSE ---
delay in medication administration d/t medication not being readily available in xis - medication administered per provider order. pt continues to rest comfortably in no apparent distress. has no complaints. denies pain. waiting for bed assignment at this time. bed alarm turned of for safety precautions. plan of care ongoing. call jackson placed within reach.
[2024-10-29 11:56] LABS: Glucose, Whole Blood 290 mg/dL (60-115)
--- NOTE | 2024-10-29 12:02 | PC.NURSE ---
insulin administered per sliding scale. sitting upright eating lunch in no apparent distress. call jackson placed within reach.
[2024-10-29 13:46] LABS: MANUAL DIFF FLAG NO
[2024-10-29 13:48] LABS: Basophils Percent Auto 0.5 % (0-2); Eosinophils Percent Auto 0.5 % (0-4); Hematocrit 26.9 % (37.0-47.0); Hemoglobin 8.9 g/dl (12.0-16.0); Imm Gran Abs Auto 0.02 X10*3/uL (0.00-0.03); Imm Gran Pct Auto 0.3 % (0.0-0.4); Lymphocytes Absolute Auto 0.8 X10*3/uL (1.2-4.9); Lymphocytes Percent Auto 12.3 % (20-40); Mean Corpuscular HGB Conc 33.1 g/dl (31.0-35.0); Mean Corpuscular Volume 96.8 fL (80.0-98.0); Mean Platelet Volume 11.9 fL (9.4-12.3); Monocytes Absolute Auto 0.7 X10*3/uL (0.1-1.2); Neutrophils Percent Auto 76.4 % (45-73); Platelet Count 179 X10*3/uL (160-400); Red Blood Count 2.78 X10*6/uL (4.20-5.50); Red Cell Distribution Width 18.4 % (11.0-16.0); White Blood Count 6.5 X10*3/uL (4.8-10.8)
[2024-10-29 14:16] LABS: Alanine Aminotransferase 258 U/L (0-31); Albumin Level 2.7 g/dL (3.5-5.0); Alkaline Phosphatase 1426 U/L (39-117); Anion Gap 12 (12-20); Aspartate Amino Transferase 144 U/L (5-31); Bilirubin Total 8.1 mg/dL (0.0-1.0); Blood Urea Nitrogen 19 mg/dL (9-16); Calcium 8.3 mg/dL (8.4-10.2); Carbon Dioxide 24 mmol/L (22-29); Chloride 107 mmol/L (96-108); Creatinine Clr Calc Pharmacy 33.4; Estimated Glomerular Filt Rate 52; Glucose Random 370 mg/dL (60-115); Potassium 3.7 mmol/L (3.3-5.1); Sodium 139 mmol/L (135-145); Total Protein 5.2 g/dL (6.5-8.0)
--- NOTE | 2024-10-29 14:17 | PC.NURSE ---
critical lab value - blood glucose of 370mg/dL received at this time. Dr. Ware notified/aware.
[2024-10-29 17:04] LABS: Glucose, Whole Blood 375 mg/dL (60-115)
--- NOTE | 2024-10-29 17:07 | PC.NURSE ---
Addendum entered by Suzie Green 10/29/24 17:23: additional 5 units of insulin administered per dr. reynaga order. LR now infusing @ 125mls/hr into IV access in left forearm. will reassess POC shortly. plan of care ongoing. Original Note: POC = 375mg/dL. admitting provider notified/aware. insulin administered per sliding scale. pt also verbalizing increase in itchiness - prn medication utilized - effectiveness pending.
[2024-10-29] MEDS: Lactated Ringers 1,000 ML 125 ML IVCONT (17:19)
[2024-10-29 18:02] LABS: Glucose, Whole Blood 349 mg/dL (60-115)
[2024-10-29 18:09] VITALS: BP 137/63; PULSE 97; RESP 18; TEMP 36.9; O2SAT 99
--- NOTE | 2024-10-29 19:38 | PC.NURSE ---
This RN assumed pt care @ 1900. Pt sitting in bed watching TV, no signs of distress. Plan of care ongoing.
[2024-10-29 20:43] LABS: Glucose, Whole Blood 224 mg/dL (60-115)
[2024-10-29 20:51] VITALS: BP 118/58; PULSE 83; O2SAT 99
[2024-10-29] MEDS: Insulin Glargine,Hum.rec.anlog 100 UNIT/ML 10 ML VIAL 12 UNIT SUBCUT (21:34)
[2024-10-29 21:35] VITALS: BP 118/58; PULSE 83
[2024-10-29] MEDS: Gabapentin 100 MG CAPSULE PO (21:35)
[2024-10-29] MEDS: Metoprolol Tartrate 50 MG TABLET PO (21:35)
[2024-10-29] MEDS: propylthiouraciL 50 MG TABLET PO (21:35)
--- NOTE | 2024-10-29 21:41 | PC.NURSE ---
Pt medicated per [facility] Plan of care ongoing.
[2024-10-29 23:20] VITALS: BP 122/58; PULSE 68; RESP 16; TEMP 37.2; O2SAT 98
[2024-10-29] MEDS: cefTRIAXone sodium 1 GM VIAL IVPUSH (23:56)
[2024-10-30 04:00] VITALS: BP 126/62; PULSE 69; RESP 18; TEMP 36.1; O2SAT 99
[2024-10-30] MEDS: diphenhydrAMINE HCL 50 MG/ML VIAL 25 MG IVPUSH (04:59)
[2024-10-30] MEDS: Lactated Ringers 1,000 ML 125 ML IVCONT (05:00)
[2024-10-30] MEDS: Omeprazole 20 MG CAPSULE.DR PO (05:40)
[2024-10-30 07:22] VITALS: BP 122/60; PULSE 66; RESP 16; TEMP 37.2; O2SAT 95
[2024-10-30 07:29] LABS: Glucose, Whole Blood 129 mg/dL (60-115)
[2024-10-30] MEDS: Apixaban 5 MG TABLET 10 MG PO (08:07)
[2024-10-30] MEDS: Cholecalciferol (Vitamin D3) 25 MCG TABLET PO (08:07)
[2024-10-30] MEDS: Ascorbic Acid 250 MG TABLET PO (08:07)
[2024-10-30] MEDS: propylthiouraciL 50 MG TABLET PO (08:07)
[2024-10-30] MEDS: Metoprolol Tartrate 50 MG TABLET PO (08:07)
[2024-10-30] MEDS: Gabapentin 100 MG CAPSULE PO (08:07)
--- NOTE | 2024-10-30 11:07 | P.DS_ITS ---
DS: Providers Provider Date of Service: 10/30/24 Date of admission: 10/28/24 22:17 Primary care physician: Juan Miguel Hunter MD Consults: 10/28/24 22:28 Consult to Gastroenterology Routine Consulting Provider: Frankie Hart Reason for consultation: Painless jaundice,pancreatic mass Has provider been notified: No Consult to Hematology / Oncology Routine Consulting Provider: [facility] [place] Oncology/Hematology Reason for consultation: Pancreatic mass + lungs mets Has provider been notified: No 10/29/24 23:38 Consult to Wound Care Routine Reason for consultation: redness to coccyx, bilateral heels, scratch to BLE with redness/warmth DS: Diagnosis Discharge Diagnosis (1) Pancreatic mass: Status: Acute (2) Obstructive jaundice: Status: Acute (3) Acute UTI: Status: Acute DS: Summary Hospital Course Hospital Course: Admission Chief Complaint: Jaundice Dianna Covarrubias is 89 years old woman with past medical history significant for hyperthyroidism on PTU, CAD status post cardiac stenting, hyperlipidemia and type 2 diabetes mellitus presents to the emergency department complaining of jau ndice that she noted yesterday. Over the last 3 days she has been experiencing diarrhea (nonbloody light brown). She was complaining of nausea but denied events of vomiting. She denied significant abdominal pain. Did not report poor appetite. There is weight loss. She has history of endometrial cancer treated with hysterectomy. She denied any acute cardiopulmonary symptoms such as shortness on breath, cough or chest pain. There is no fever or chills. She reported urinary frequency. Denied history of alcohol abuse, tobacco smoking or illicit drug use. She reported a mechanical fall without head trauma. In the ED, she was found to have stable vital signs. Blood workup showed no leukocytosis. Hemoglobin is 9.9 and platelets 180. No significant electrolyte imbalances. Initial lactic acid is 2.9, most recent 1.5. Bilirubin is 10.9, direct bilirubin 8, AST 222, ALT 367 and alk-phos 1694. Lipase is < 4. TSH is normal. UA showed evidence of UTI. Viral testing for COVID-19, influenza and RSV is negative. Abdominal pelvis CT scan with IV contrast showed pancreatic head mass with invasion of the portal vein and marked biliary and pancreatic ductal dilatation and multiple pulmonary nodules at the base of the lungs consistent with metastatic disease. Abdominal ultrasound showed echogenic bowel within the gallbladder, no gallbladder wall thickening or pericholecystic fluid. It showed dilatation of the CBD, 1.6 cm. Heroin C-spine CT scans showed no acute intracranial pathology and no acute cervical spine fracture or traumatic subluxation. ECG showed normal sinus rhythm with first-degree AV block without ischemic changes. ED tx: Levaquin 750 mg IV Hospital course: The patient presented with jaundice, and workup revealed a pancreatic mass with distant pulmonary metastases, highly suggestive of pancreatic cancer with metastasis. The prognosis is poor. Oncology evaluated the patient and confirmed the poor prognosis. Following discussions, the patient and her daughter have opted against further testing and treatment and have elected for hospice care at home. The patient was also diagnosed with a UTI, which was treated with Ceftriaxone in the hospital and Ceftin prescribed at discharge. Additionally, a left leg swelling was evaluated with an ultrasound that revealed a DVT. Treatment with Eliquis was initiated as per Oncology recommendations. The patient is comfortable and ready to go home today. Hospice arrangements have been made to ensure ongoing supportive care. Final diagnoses: Pancratic mass, likely pancreatic cancer Obstructive jaundice pulmonary metastasis DVT of leg UTI Physical Exam Vital Signs: Vital Signs: Last Vital Signs Temp 98.9 F 10/30/24 07:22 Pulse 66 10/30/24 07:22 Resp 16 10/30/24 07:22 BP 122/60 10/30/24 07:22 Pulse Ox 95 10/30/24 07:22 O2 Del Method Room Air 10/30/24 07:22 BMI result Body Mass Index 20.0 General: AO X 3, no acute distress Resp: CTA bilateral CVS: S1,S2,RRR GI: +BS, NT, no distention Skin: No rash Neuro: motor grossly intact Psych: appropriate affect Const: Other: General: AO X 3, no acute distress Heent: sclear icteris Resp: CTA bilateral CVS: S1,S2,RRR GI: +BS, NT, no distention Skin: No rash Neuro: motor grossly intact Psych: appropriate affect DS: Data Data Completed and Pending Labs on day of discharge: Laboratory Results - last 24 hr 10/29/24 10/29/24 10/29/24 11:51 13:38 17:00 WBC 6.5 RBC 2.78 L Hgb 8.9 L Hct 26.9 L MCV 96.8 MCH 32.0 MCHC 33.1 RDW 18.4 H Plt Count 179 MPV 11.9 Immature Gran % (Auto) 0.3 Neut % (Auto) 76.4 H Lymph % (Auto) 12.3 L Jewell % (Auto) 10.0 Eos % (Auto) 0.5 Baso % (Auto) 0.5 Lymph # (Auto) 0.8 L Jewell # (Auto) 0.7 Eos # (Auto) 0.0 Baso # (Auto) 0.0 Abs Immat Gran (auto) 0.02 Absolute Neuts (auto) 5.0 Absolute Nucleated RBC 0.000 Nucleated RBC % (auto) 0.0 Sodium 139 Potassium 3.7 Chloride 107 Carbon Dioxide 24 Anion Gap 12 BUN 19 H Creatinine 1.00 Estim Creat Clear Calc 33.4 Estimated GFR 52 POC Glucose 290 H 375 H* Random Glucose 370 H* Calcium 8.3 L D Total Bilirubin 8.1 H AST 144 H ALT 258 H Alkaline Phosphatase 1426 H Total Protein 5.2 L Albumin 2.7 L 10/29/24 10/29/24 10/30/24 17:58 20:38 07:20 WBC RBC Hgb Hct MCV MCH MCHC RDW Plt Count MPV Immature Gran % (Auto) Neut % (Auto) Lymph % (Auto) Jewell % (Auto) Eos % (Auto) Baso % (Auto) Lymph # (Auto) Jewell # (Auto) Eos # (Auto) Baso # (Auto) Abs Immat Gran (auto) Absolute Neuts (auto) Absolute Nucleated RBC Nucleated RBC % (auto) Sodium Potassium Chloride Carbon Dioxide Anion Gap BUN Creatinine Estim Creat Clear Calc Estimated GFR POC Glucose 349 H 224 H 129 H Random Glucose Calcium Total Bilirubin AST ALT Alkaline Phosphatase Total Protein Albumin Preliminary micro results at discharge 10/28/24 18:13 Blood Culture - Preliminary Blood - Venous No growth after 24 hours. 10/28/24 18:03 Blood Culture - Preliminary Blood - Venous No growth after 24 hours. Discharge Plan Discharge Anticipated Discharge Date/Time: 10/30/24 10:57 Patient Disposition: Hospice - Home Discharge Diagnosis: Pancreatic mass, obstructive jaundice, uti Referrals: Juan Miguel Hunter MD [Primary Care Provider] - 1 Week Discharge Medications: New cefuroxime axetil 250 mg tablet 250 mg PO BID Qty: 8 0RF oxycodone 5 mg tablet 5 mg PO Q6H PRN (Reason: pain (scale score 7-10)) Qty: 30 0RF Rx Instructions: Partial Fill upon patient request. Cesar DVT-PE Treat 30D Start 5 mg (74 tabs) tablets,dose pack See Rx Instructions .ROUTE .COMPLEX Qty: 90 0RF Rx Instructions: take 2 tabs twice daily for 22 more doses (6 days), then after that take 1 tablet once daily Continued nitroglycerin 0.4 mg tablet, sublingual 1 tab sublingual Q5M PRN (Reason: Chest Pain) (DME) CeQur Simplicity 2 unit device MISCELLANEOUS atorvastatin 40 mg tablet 40 mg PO DAILY propylthiouracil 50 mg tablet 50 mg PO BID gabapentin 100 mg capsule 100 mg PO BID pantoprazole 40 mg tablet,delayed release (DR/EC) 40 mg PO DAILY@0630 insulin glargine [Lantus Solostar U-100 Insulin] 100 unit/mL (3 mL) insulin pen 12 unit subcut BEDTIME insulin aspart U-100 [Novolog U-100 Insulin aspart] 100 unit/mL solution 10 unit subcut TID Qty: 10 0RF ascorbic acid (vitamin C) [Vitamin C] 250 mg Tablet 250 mg PO DAILY metoprolol tartrate 50 mg tablet 50 mg PO BID cholecalciferol (vitamin D3) [Vitamin D3] 25 mcg (1,000 unit) Tablet 25 mcg PO DAILY Jardiance 25 mg tablet 25 mg PO DAILY Discharge Orders: Discharge Order (Routine); Ordered 10/30/24 Ordered By: Alexandre Ware Diet: Advance to usual diet Activity on Discharge: As tolerated Stand Alone Forms: Patient Portal Discharge page Print Language: German Care Plan Goals: Hospice and comfort care at home Health Concerns: Pancreatitic mass obstructive jaundice uti Plan of Treatment: Hospice care at home Assessment: see above
[2024-10-30 11:18] LABS: Glucose, Whole Blood 180 mg/dL (60-115)
--- NOTE | 2024-10-30 11:26 | HO.WOUND ---
Wound Consult: Initial 89yr old?female admitted to [facility] [place] [place] on 10/28/24 - See progress notes and H&P for detailed history.? Wound consult placed for Coccyx, Heels and Legs.? Patient agreeable to assessment and photo documentation.? Bilateral Legs assessedf for dry stable scab appear to be due to excoriation - pt denies itching at this time - no topical interventions needed at this time. Legs Right Heel Left Heel Bilateral Heels Stage 1 Pressure injury Red nonblanchable intact tissue No drainage recommend foam dressing and off load pressure Right Scratch noted to Thigh - intact stable - no topical interventions needed at this time. Left buttock Etiology: ?Resolving Stage 2 Pressure Injury ?Present on Admission Wound Bed: dry scabed wound bed - no scar tissue noted Drainage / Odor: None Edges: irregular? Radha wound: Red pink blanchable tissue ? No Induration, Fluctuance or Warmth noted Pain: denies Goals of Treatment: ? Foam dressing t o protect from moisture and friction Recommendations: 1. Turn and Reposition every 2 hours and as needed for patient comfort.? Use pillows or wedges to support off loading positions. 2. Off Load all bony prominences with use of pillows and heel boots if needed.? Apply Preventative foams where needed. ? 3. Monitor for incontinence and moisture control, use barrier creams when needed for prevention and treatment. 4. Provide adequate and supplemental nutrition.? 5. Order low air loss mattress. 6. When applicable maintain blood glucose levels per Providers order. 7. Buttock and bilateral heels - Elevate heels off of bed surface - off load pressure from buttock with Q2hr turns. Apply foam dressing change every 3 days and PRN. Re-consult wound care Nurse for wound deterioration or wound changes.
--- NOTE | 2024-10-30 11:58 | MHC.CM.PN ---
BOB SPOKE TO PTS DAUGHTER, CECILY [phone], WHO REPORTS SHE SPOKE TO THE ONCOLOGIST WHO RECOMMENDED PALLIATIVE OR HOSPICE CARE SHE SAYS HER MOTHER WOULD LIKE TO GO HOME, SO SHE WILL HELP FACILITATE THAT SHE IS AWARE THE PT WILL NEED 24/7 CARE AT SOME POINT AND SHE WILL START MAKING THOSE ARRANGEMENTS SHE IS ALSO INTERESTED IN GETTING HOSPICE SERVICES IN THE HOME SHE REPORTS WHILE SHE IS WAITING FOR THESE SERVICES SHE WILL ASSIST HER MOTHER SHE SAYS SHE HOPES THAT HER MOTHER WILL BE DISCHARGED TODAY AND SHE WILL BE HERE TO PROVIDE TRANSPORT REFERRAL MADE TO HOSPICE LIFE CARE TO REACH OUT TO PTS DAUGHTER TO ARRANGE SERVICES POST DC
[2024-10-30] MEDS: Insulin Lispro 100 UNIT/ML 3 ML VIAL SUBCUT (12:28)
== END 2024-10-30 15:14 | disposition hospice, home (50) | DRG 436 ==
LOC: HO.ED 21:42 → HO.EDOVER 22:28 → HO.S3 10-29 21:17
PROVIDERS: Physician Assistant Medical; Admitting Provider Internal Medicine; Emergency Provider Internal Medicine; PCP Internal Medicine; Visit Provider Internal Medicine
DX: C25.0 Malignant neoplasm of head of pancreas (principal); C78.01 Secondary malignant neoplasm of right lung; C78.02 Secondary malignant neoplasm of left lung; N39.0 Urinary tract infection, site not specified; I82.811 Embolism and thrombosis of superficial veins of right lower extremity; E46 Unspecified protein-calorie malnutrition; Z68.1 Body mass index [BMI] 19.9 or less, adult; D63.0 Anemia in neoplastic disease; E05.90 Thyrotoxicosis, unspecified without thyrotoxic crisis or storm; I25.10 Atherosclerotic heart disease of native coronary artery without angina pectoris; Z95.1 Presence of aortocoronary bypass graft; E78.5 Hyperlipidemia, unspecified; Z74.01 Bed confinement status; Z20.822 Contact with and (suspected) exposure to COVID-19; Z79.4 Long term (current) use of insulin; Z85.42 Personal history of malignant neoplasm of other parts of uterus; Z79.899 Other long term (current) drug therapy
CPT/HCPCS: 0241U; 36415; 70450; 72125; 74177; 76705; 80048; 80053; 80076; 80179; 80307; 81001; 82140; 82947; 83605; 83690; 83735; 83880; 84443; 84484; 85025; 86704; 86706; 86709; 86803; 87040; 87086; 87088; 87186; 87340; 93005; 93970; 99285; J0696; J1200; J1956; J7120; Q9967

== ENCOUNTER → 2024-10-28 17:26 | Outpatient (BNV) | payer MEDICARE, OTHER, SELFPAY | PROVIDERS: Admitting Provider Internal Medicine; Emergency Provider Internal Medicine; PCP Internal Medicine; Visit Provider Internal Medicine Cardiovascular Disease | DX: I44.0 Atrioventricular block, first degree (principal) | CPT/HCPCS: 93010 ==

== ENCOUNTER → 2024-10-28 22:17 | Outpatient (BNV) | payer MEDICARE, OTHER, SELFPAY | PROVIDERS: Admitting Provider Internal Medicine; Emergency Provider Internal Medicine; PCP Internal Medicine; Visit Provider Internal Medicine | DX: K83.1 Obstruction of bile duct (principal); K86.89 Other specified diseases of pancreas; N39.0 Urinary tract infection, site not specified | CPT/HCPCS: 99223; 99232 ==

== ENCOUNTER → 2024-10-28 22:17 | Outpatient (BNV) | payer MEDICARE, OTHER, SELFPAY | PROVIDERS: Admitting Provider Internal Medicine; Emergency Provider Internal Medicine; PCP Internal Medicine; Visit Provider Internal Medicine | DX: K86.89 Other specified diseases of pancreas (principal); K83.1 Obstruction of bile duct; D64.9 Anemia, unspecified; I82.813 Embolism and thrombosis of superficial veins of lower extremities, bilateral | CPT/HCPCS: 99222 ==